=== PATIENT | male | born 1935 | race Caucasian/White ===

== ENCOUNTER 2016-10-06 20:13 | Inpatient (IN) | payer MEDICARE, MEDICAID ==
[~2016-10-06] VITALS: Ht 167.6 cm; Wt 100.9 kg
[2016-10-06 20:27] VITALS: BP 130/75; PULSE 151; RESP 18; TEMP 98.5
--- NOTE | 2016-10-06 20:41 | PD ---
HPI Chief Complaint: Fall Time Seen by Provider: 20:41 Travel History International Travel<30 days: No Contact w/Intl Traveler<30days: No Traveled to known affect area: No History of Present Illness HPI Unknown age male presents to the emergency department for evaluation of altered mental status. He states that he stumbled 3 days ago and fell. He is laying on the floor since. Apparently, a friend found him today. The patient is unsure of his past medical history. Apparently, he has history of COPD and is on oxygen. He does not know what medications he is on. The patient knows his name, but does not know the year. He states that he is in the morgue when I ask where he is. He denies hitting his head or loss of conscious, but has erythema to the left forehead. Patient denies any chest pain or abdominal pain. No vomiting. He states that he was unable to get up, but will not tell me why. PFSH Social History Alcohol Use: No Tobacco Use: No Substance Use: No Allergies-Medications (Allergen,Severity, Reaction): Coded Allergies: No Known Allergies (Unverified , 10/06/16) Reported Meds & Prescriptions Reported Meds & Active Scripts Active Reported Amlodipine (Amlodipine Besylate) 2.5 Mg Tab Unknown Dose PO DAILY Review of Systems Except as stated in HPI: all other systems reviewed are Neg Physical Exam Narrative GENERAL: Well-nourished, well-developed male patient, afebrile. Patient is alert and oriented to self only. SKIN: Focused skin assessment warm/dry. Patient has erythema to the left forehead. HEAD: Normocephalic. EYES: No scleral icterus. No injection or drainage. NECK: Supple, trachea midline. No JVD or lymphadenopathy. CARDIOVASCULAR: Regular rate and rhythm without murmurs, gallops, or rubs. RESPIRATORY: Breath sounds equal bilaterally. No accessory muscle use. Lungs sounds diminished. GASTROINTESTINAL: Abdomen soft, non-tender, nondistended. MUSCULOSKELETAL: No cyanosis, or edema. BACK: Nontender without obvious deformity. No CVA tenderness. Data Data Last Documented VS Vital Signs Date Time Temp Pulse Resp B/P Pulse Ox O2 Delivery O2 Flow Rate FiO2 10/06/16 21:05 102.7 10/06/16 20:55 20 95 Nasal Cannula 3 10/06/16 20:27 151 130/75 Orders Sodium Chlor 0.9% 1000 Ml Inj (Ns 1000 M (10/06/16 20:45) Sodium Chlor 0.9% 1000 Ml Inj (Ns 1000 M (10/06/16 20:45) Complete Blood Count With Diff (10/06/16 20:38) Comprehensive Metabolic Panel (10/06/16 20:38) Creatine Kinase (Cpk) (10/06/16 20:38) Prothrombin Time / Inr (Pt) (10/06/16 20:38) Act Partial Throm Time (Ptt) (10/06/16 20:38) Urinalysis - C+S If Indicated (10/06/16 20:38) Chest, Single Ap (10/06/16 20:38) Ct Brain W/O Iv Contrast(Rout) (10/06/16 20:38) Blood Glucose (10/06/16 20:38) Ecg Monitoring (10/06/16 20:38) Iv Access Insert/Monitor (10/06/16 20:38) Oximetry (10/06/16 20:38) Sodium Chloride 0.9% Flush (Ns Flush) (10/06/16 20:45) Ct Cerv Spine W/O Contrast (10/06/16 ) Cath For Specimen (10/06/16 20:41) Lactic Acid Sepsis Protocol (10/06/16 21:08) Blood Culture (10/06/16 21:08) Acetaminophen (Tylenol) (10/06/16 21:15) Sodium Chloride 0.9% Flush (Ns Flush) (10/06/16 21:15) Ceftriaxone Inj (Rocephin Inj) (10/06/16 21:15) Azithromycin Inj (Zithromax Inj) (10/06/16 21:15) Urine Culture (10/06/16 21:10) CKMB (10/06/16 21:12) CKMB% (10/06/16 21:12) Labs Laboratory Tests Test 10/06/16 10/06/16 10/06/16 21:10 21:12 21:13 Urine Color DARK-YELLOW Urine Turbidity HAZY Urine pH 6.0 Urine Specific [place] 1.030 Urine Protein 100 mg/dL Urine Glucose (UA) NEG mg/dL Urine Ketones 10 mg/dL Urine Occult Blood MOD Urine Nitrite NEG Urine Bilirubin SMALL Urine Urobilinogen 2.0 MG/DL Urine Leukocyte Esterase NEG Urine RBC 47 /hpf Urine WBC 20 /hpf Urine Squamous Epithelial 2 /hpf Cells Urine Renal Epithelial Cells 1 /hpf Urine Amorphous Sediment RARE Urine Hyaline Casts 53 /lpf Urine Granular Casts 12 /lpf Urine Mucus MANY /lpf Microscopic Urinalysis Comment CATH-CULTURE IND White Blood Count 22.3 TH/MM3 Red Blood Count 5.89 MIL/MM3 Hemoglobin 18.0 GM/DL Hematocrit 55.0 % Mean Corpuscular Volume 93.4 FL Mean Corpuscular Hemoglobin 30.5 PG Mean Corpuscular Hemoglobin 32.7 % Concent Red Cell Distribution Width 13.2 % Platelet Count 306 TH/MM3 Mean Platelet Volume 9.0 FL Neutrophils (%) (Auto) 85.7 % Lymphocytes (%) (Auto) 4.9 % Monocytes (%) (Auto) 9.1 % Eosinophils (%) (Auto) 0.0 % Basophils (%) (Auto) 0.3 % Neutrophils # (Auto) 19.1 TH/MM3 Lymphocytes # (Auto) 1.1 TH/MM3 Monocytes # (Auto) 2.0 TH/MM3 Eosinophils # (Auto) 0.0 TH/MM3 Basophils # (Auto) 0.1 TH/MM3 CBC Comment DIFF FINAL Differential Comment Prothrombin Time 12.2 SEC Prothromb Time International 1.1 RATIO Ratio Activated Partial 23.6 SEC Thromboplast Time Sodium Level 142 MEQ/L Potassium Level 3.6 MEQ/L Chloride Level 102 MEQ/L Carbon Dioxide Level 27.5 MEQ/L Anion Gap 13 MEQ/L Blood Urea Nitrogen 55 MG/DL Creatinine 1.45 MG/DL Estimat Glomerular Filtration 42 ML/MIN Rate Random Glucose 150 MG/DL Calcium Level 9.3 MG/DL Total Bilirubin 1.2 MG/DL Aspartate Amino Transf 78 U/L (AST/SGOT) Alanine Aminotransferase 68 U/L (ALT/SGPT) Alkaline Phosphatase 81 U/L Total Creatine Kinase 705 U/L Creatine Kinase MB 7.9 NG/ML Creatine Kinase MB % 1.1 % Total Protein 7.7 GM/DL Albumin 3.1 GM/DL Lactic Acid Level 2.9 mmol/L [facility] Medical Decision Making Medical Screen Exam Complete: Yes Emergency Medical Condition: Yes Medical Record Reviewed: Yes Interpretation(s) Last Impressions Chest X-Ray 7/31/17 2038 Signed Impressions: Service Date/Time: Thursday, October 06, 2016 20:37 - CONCLUSION: Bilateral partially consolidative infiltrates lower medial right lung and lower lateral left lung. Tyrone Vivar MD Differential Diagnosis Rhabdomyolysis versus electrolyte abnormality versus dehydration versus intracranial abnormality Narrative Course Male patient presents to the emergency department after being found on his floor for 3 days. EKG shows sinus tachycardia with left bundle-branch block, heart rate 156. CBC, CMP, CK, PTT, PT/INR, UA, lactic acid, blood cultures 2 are ordered and pending. Chest x-ray is ordered and pending. CT of the brain and cervical spine are ordered and pending. Patient is given 1 L normal saline IV bolus 2. CBC shows leukocytosis of 22.3, neutrophilia 85.7. CMP shows BUN 55, creatinine 1.45, glucose 150. CK is 705. Lactic acid is 2.9. PT is 12.2, INR 1.1, PTT 23.6. UA shows 20 WBC. Chest x-ray shows bilateral partially consolidative infiltrates lower medial right lung and lower lateral left lung. CT of the brain and CT of the cervical spine are pending. Patient is started on Rocephin 1 g IV, azithromycin 500 mg IV. Heart rate is down to 90 after IV fluid. My attending physician, Dr. Armstrong, will follow up on CT results and admit patient. Sepsis Criteria SIRS Criteria (2 or more): Temp > 100.9 or < 96.8, Heart rate over 90, WBC > 84923, < 4000 or > 10% bands Sepsis Criteria (SIRS+source): Infect source susp/known Liseth Braxton Oct 06, 2016 20:41
[2016-10-06] MEDS ORDERED: SODIUM CHLORIDE 0.9% FLUSH 5 ML FLUSH IV FLUSH PRN (20:45)
[2016-10-06] MEDS ORDERED: SODIUM CHLOR 0.9% 1000 ML INJ 1,000 ML IV ONE ×2 (20:45)
[2016-10-06] MEDS ORDERED: AMLO2.5T PO (20:54)
[2016-10-06 20:55] VITALS: RESP 20; O2SAT 95
--- NOTE | 2016-10-06 21:04 | RADRPT ---
EXAM DATE/TIME: 10/06/2016 20:37 [facility] COMPARISON: No previous studies available for comparison. INDICATIONS : Syncope MEDICAL HISTORY : None. SURGICAL HISTORY : None. ENCOUNTER: Initial ACUITY: 1 day PAIN SCORE: Non-responsive. LOCATION: chest FINDINGS: There are patchy areas of partially consolidative infiltrate in the infrahilar region on the right si de and lower lateral left lung with loss of delineation of a portion of the lateral left hemidiaphrag m. The heart is normal size. The descending thoracic aorta is tortuous. The upper lungs clear. CONCLUSION: Bilateral partially consolidative infiltrates lower medial right lung and lower lateral left lung. Tyrone Vivar MD on October 06, 2016 at 21:01 Board Certified Radiologist. This report was verified electronically.
[2016-10-06 21:05] VITALS: TEMP 102.7
[2016-10-06] MEDS ORDERED: SODIUM CHLORIDE 0.9% FLUSH 10 ML FLUSH IVF PRN (21:15)
[2016-10-06] MEDS ORDERED: AZITHROMYCIN INJ 500 MG in SODIUM CHLOR 0.9% 250 ML INJ 250 ML IV ONE (21:15)
[2016-10-06] MEDS ORDERED: ACETAMINOPHEN 325 MG TAB PO ONE (21:15)
[2016-10-06] MEDS ORDERED: cefTRIAXone INJ 1,000 MG in SODIUM CHLORIDE 0.9% INJ 100 ML IV ONE (21:15)
[2016-10-06 21:25] LABS: AUTOMATED NEUTROPHIL # 19.1 TH/MM3 (1.8-7.7); BASOPHIL # 0.1 TH/MM3 (0-0.2); BASOPHIL % 0.3 % (0.0-2.0); HEMO FLAGS DIFF FINAL; LYMPH % 4.9 % (9.0-44.0); LYMPHOCYTE # 1.1 TH/MM3 (1.0-4.8); MEAN CELL VOLUME 93.4 FL (80.0-100.0); MEAN CORPUSCULAR HEMOGLOBIN 30.5 PG (27.0-34.0); MEAN CORPUSCULAR HGB CONC 32.7 % (32.0-36.0); MONO % 9.1 % (0.0-8.0); NEUT % 85.7 % (16.0-70.0); PLATELET COUNT 306 TH/MM3 (150-450); RED BLOOD COUNT 5.89 MIL/MM3 (4.50-5.90); RED CELL DISTRIBUTION WIDTH 13.2 % (11.6-17.2); WHITE BLOOD COUNT 22.3 TH/MM3 (4.0-11.0)
[2016-10-06 21:30] LABS: BLOOD, URINE MOD (NEG); COMMENT (UR) CATH-CULTURE IND; CULTURE IF INDICATED CATH CULTURE IND; GLUCOSE,URINE NEG (NEG); GRANULAR CAST, URINE 12 /lpf; HYALINE CAST, URINE 53 /lpf (RARE); KETONE, URINE 10 mg/dL (NEG); MUCUS URINE MANY /lpf (OCC); NITRITE,URINE NEG (NEG); RENAL EPITHELIAL CELLS 1 /hpf; SQUAMOUS EPITHELIAL CELL URINE 2 /hpf (0-5); URINE COLOR DARK-YELLOW (YELLW/STRAW)
[2016-10-06 21:36] LABS: APTT (PATIENT) 23.6 SEC (24.3-30.1); INTERNATIONAL NORMALIZED RATIO 1.1 RATIO; PROTHROMBIN TIME - PATIENT 12.2 SEC (9.8-11.6)
[2016-10-06 21:52] LABS: ANION GAP 13 MEQ/L (5-15); BICARBONATE 27.5 MEQ/L (21.0-32.0); BLOOD UREA NITROGEN 55 MG/DL (7-18); CHLORIDE 102 MEQ/L (98-107); GLOMERULAR FILTRATION RATE 42 ML/MIN (>89); POTASSIUM 3.6 MEQ/L (3.5-5.1); SODIUM (NA) 142 MEQ/L (136-145)
[2016-10-06 21:53] LABS: ALT (GPT) 68 U/L (12-78); AST (GOT) 78 U/L (15-37)
[2016-10-06 21:55] LABS: ALKALINE PHOSPHATASE 81 U/L (45-117); CREATINE KINASE 705 U/L (39-308); TOTAL BILIRUBIN ADULT 1.2 MG/DL (0.2-1.0)
[2016-10-06 22:15] LABS: CKMB 7.9 NG/ML (0.5-3.6)
[2016-10-06 23:06] VITALS: BP 152/74; PULSE 97; RESP 20; O2SAT 93
[2016-10-06 23:20] LABS: LACTIC ACID GHOST NOT REPORTABLE
--- NOTE | 2016-10-06 23:27 | RADRPT ---
EXAM DATE/TIME: 10/06/2016 23:15 [facility] COMPARISON: No previous studies available for comparison. INDICATIONS : Trauma, possible fall 2-3 days ago. Altered mental status. RADIATION DOSE: 38.15 CTDIvol (mGy) MEDICAL HISTORY : None SURGICAL HISTORY : None. ENCOUNTER: Initial ACUITY: 1 day PAIN SCALE: Non-responsive LOCATION: cranial TECHNIQUE: Multiple contiguous axial images were obtained of the head. Using automated exposure control and adj ustment of the mA and/or kV according to patient size, radiation dose was kept as low as reasonably a chievable to obtain optimal diagnostic quality images. DICOM format image data is available electro nically for review and comparison. FINDINGS: CEREBRUM: Abnormal. Prominent amount of blood in the right lateral ventricle extending into the occipital horn . There is also a small amount of layering blood in the dependent portion of the left occipital horn and in the 3rd ventricle. No evidence of midline shift. There is intact cope-white matter differen tiation. No mass lesions seen. POSTERIOR FOSSA: The cerebellum and brainstem are intact. The 4th ventricle is midline. The cerebellopontine angle i s unremarkable. EXTRACRANIAL: The visualized portion of the orbits is intact. SKULL: The calvaria is intact. No evidence of skull fracture. CONCLUSION: Prominent amount of blood in the right ventricle and small amount of blood in the 3rd and left occipi bihn horn ventricle. No parenchymal hemorrhage seen. No extra axial fluid collections. Tyrone Vivar MD on October 06, 2016 at 23:23 Board Certified Radiologist. This report was verified electronically.
--- NOTE | 2016-10-06 23:37 | RADRPT ---
EXAM DATE/TIME: 10/06/2016 23:15 [facility] COMPARISON: No previous studies available for comparison. INDICATIONS : Trauma, possible fall 2-3 days ago. RADIATION DOSE: 30.49 CTDIvol (mGy) MEDICAL HISTORY : None SURGICAL HISTORY : None. ENCOUNTER: Initial ACUITY: 1 day PAIN SCALE: Non-responsive LOCATION: neck TECHNIQUE: Volumetric scanning of the cervical spine was performed. Multiplanar reconstructions i n the sagittal, coronal and oblique axial planes were performed. Using automated exposure control a nd adjustment of the mA and/or kV according to patient size, radiation dose was kept as low as reason ably achievable to obtain optimal diagnostic quality images. DICOM format image data is available e lectronically for review and comparison. FINDINGS: The sagittal reconstructions demonstrate normal alignment and normal prevertebral soft tissues. The d ens is intact and there is a normal atlantoaxial relationship. Degenerative disc changes are noted wi th disc space narrowing and hypertrophic change. There are degenerative changes involving atlantoaxia l joint as well. The axial images demonstrate that the vertebral bodies and posterior elements are intact. The soft ti ssues are within normal limits. There is no evidence of acute fracture or malalignment. Degenerative disc changes are again noted with disc osteophyte complexes with mass effect on the anterior thecal s ac at the C3-4, C4-5, C5-6 and C6-7 levels. There is narrowing of the neural foramina bilaterally at the C4-5 through C6-7 levels. CONCLUSION: Negative trauma CT. Iftikhar Garza MD on October 06, 2016 at 23:33 Board Certified Radiologist. This report was verified electronically.
--- NOTE | 2016-10-06 23:42 | PD ---
Physical Exam Narrative Patient was seen by my emergency veterinary assistant and me. Patient told us his name. His name is MARILIN GUERRERO. According to past medical record patient has history of COPD, hypertension, glaucoma. Data Data Last Documented VS Vital Signs Date Time Temp Pulse Resp B/P Pulse Ox O2 Delivery O2 Flow Rate FiO2 10/06/16 23:06 97 20 152/74 93 Nasal Cannula 3 10/06/16 21:05 102.7 Orders Sodium Chlor 0.9% 1000 Ml Inj (Ns 1000 M (10/06/16 20:45) Sodium Chlor 0.9% 1000 Ml Inj (Ns 1000 M (10/06/16 20:45) Complete Blood Count With Diff (10/06/16 20:38) Comprehensive Metabolic Panel (10/06/16 20:38) Creatine Kinase (Cpk) (10/06/16 20:38) Prothrombin Time / Inr (Pt) (10/06/16 20:38) Act Partial Throm Time (Ptt) (10/06/16 20:38) Urinalysis - C+S If Indicated (10/06/16 20:38) Chest, Single Ap (10/06/16 20:38) Ct Brain W/O Iv Contrast(Rout) (10/06/16 20:38) Blood Glucose (10/06/16 20:38) Ecg Monitoring (10/06/16 20:38) Iv Access Insert/Monitor (10/06/16 20:38) Oximetry (10/06/16 20:38) Sodium Chloride 0.9% Flush (Ns Flush) (10/06/16 20:45) Ct Cerv Spine W/O Contrast (10/06/16 ) Cath For Specimen (10/06/16 20:41) Lactic Acid Sepsis Protocol (10/06/16 21:08) Blood Culture (10/06/16 21:08) Acetaminophen (Tylenol) (10/06/16 21:15) Sodium Chloride 0.9% Flush (Ns Flush) (10/06/16 21:15) Ceftriaxone Inj (Rocephin Inj) (10/06/16 21:15) Azithromycin Inj (Zithromax Inj) (10/06/16 21:15) Urine Culture (10/06/16 21:10) CKMB (10/06/16 21:12) CKMB% (10/06/16 21:12) Labs Laboratory Tests Test 10/06/16 10/06/16 10/06/16 21:10 21:12 21:13 Urine Color DARK-YELLOW Urine Turbidity HAZY Urine pH 6.0 Urine Specific [place] 1.030 Urine Protein 100 mg/dL Urine Glucose (UA) NEG mg/dL Urine Ketones 10 mg/dL Urine Occult Blood MOD Urine Nitrite NEG Urine Bilirubin SMALL Urine Urobilinogen 2.0 MG/DL Urine Leukocyte Esterase NEG Urine RBC 47 /hpf Urine WBC 20 /hpf Urine Squamous Epithelial 2 /hpf Cells Urine Renal Epithelial Cells 1 /hpf Urine Amorphous Sediment RARE Urine Hyaline Casts 53 /lpf Urine Granular Casts 12 /lpf Urine Mucus MANY /lpf Microscopic Urinalysis Comment CATH-CULTURE IND White Blood Count 22.3 TH/MM3 Red Blood Count 5.89 MIL/MM3 Hemoglobin 18.0 GM/DL Hematocrit 55.0 % Mean Corpuscular Volume 93.4 FL Mean Corpuscular Hemoglobin 30.5 PG Mean Corpuscular Hemoglobin 32.7 % Concent Red Cell Distribution Width 13.2 % Platelet Count 306 TH/MM3 Mean Platelet Volume 9.0 FL Neutrophils (%) (Auto) 85.7 % Lymphocytes (%) (Auto) 4.9 % Monocytes (%) (Auto) 9.1 % Eosinophils (%) (Auto) 0.0 % Basophils (%) (Auto) 0.3 % Neutrophils # (Auto) 19.1 TH/MM3 Lymphocytes # (Auto) 1.1 TH/MM3 Monocytes # (Auto) 2.0 TH/MM3 Eosinophils # (Auto) 0.0 TH/MM3 Basophils # (Auto) 0.1 TH/MM3 CBC Comment DIFF FINAL Differential Comment Prothrombin Time 12.2 SEC Prothromb Time International 1.1 RATIO Ratio Activated Partial 23.6 SEC Thromboplast Time Sodium Level 142 MEQ/L Potassium Level 3.6 MEQ/L Chloride Level 102 MEQ/L Carbon Dioxide Level 27.5 MEQ/L Anion Gap 13 MEQ/L Blood Urea Nitrogen 55 MG/DL Creatinine 1.45 MG/DL Estimat Glomerular Filtration 42 ML/MIN Rate Random Glucose 150 MG/DL Calcium Level 9.3 MG/DL Total Bilirubin 1.2 MG/DL Aspartate Amino Transf 78 U/L (AST/SGOT) Alanine Aminotransferase 68 U/L (ALT/SGPT) Alkaline Phosphatase 81 U/L Total Creatine Kinase 705 U/L Creatine Kinase MB 7.9 NG/ML Creatine Kinase MB % 1.1 % Total Protein 7.7 GM/DL Albumin 3.1 GM/DL Lactic Acid Level 2.9 mmol/L [facility] Supervised Visit with OSMAN: Yes Interpretation(s) Last Impressions Head CT 10/06/162037 Signed Impressions: Service Date/Time: Thursday, October 06, 2016 23:15 - CONCLUSION: Prominent amount of blood in the right ventricle and small amount of blood in the 3rd and left occipital horn ventricle. No parenchymal hemorrhage seen. No extra axial fluid collections. Tyrone Vivar MD Chest X-Ray 10/06/162037 Signed Impressions: Service Date/Time: Thursday, October 06, 2016 20:37 - CONCLUSION: Bilateral partially consolidative infiltrates lower medial right lung and lower lateral left lung. Tyrone iVvar MD Diagnosis Primary Impression: Pneumonia Qualified Code: J18.9 - Pneumonia of both lungs due to infectious organism, unspecified part of lung Additional Impressions: Intracranial hemorrhage Sepsis Qualified Code: A41.9 - Sepsis, due to unspecified organism Dehydration Renal insufficiency Admitting Information Admitting Physician Requests: Admit Roberto Armstrong MD Oct 06, 2016 23:42
--- NOTE | 2016-10-06 23:44 | PD.CONS ---
[facility] Service Critical Care Medicine Consult Requested By Primary Care Physician Michael King MD History of Present Illness Elderly male presents for evaluation of altered mental status. He states that he stumbled 3 days ago and fell. He was laying on the floor since. Apparently , a friend found him today. The patient is unsure of his past medical history. Apparently, he has history of COPD and is on oxygen. He does not know what medications he is on. The patient knows his name, but does not know the year. He denies hitting his head or loss of conscious, but has erythema to the left forehead. Patient denies any chest pain or abdominal pain. No vomiting. He states that he was unable to get up, but will not tell me why. He might also have some history of hypertension, glaucoma. Review of Systems ROS Unobtainable due to altered mental status Past Family Social History Allergies: Coded Allergies: No Known Allergies (Unverified , 10/06/16) Past Medical History COPD Hypothyroidism Glaucoma Hypertension Past Surgical History Unobtainable Reported Medications Reported Meds & Active Scripts Active Reported Amlodipine (Amlodipine Besylate) 2.5 Mg Tab Unknown Dose PO DAILY Active Ordered Medications Current Medications Medications (Trade) Dose Ordered Sig/Mario Route PRN Reason Start Time Stop Time Status Last Admin Dose Admin Sodium Chloride (NS 1000 ml Inj) 1,000 ml @ 84 mls/hr [id number] IV 10/06/16 23:47 10/07/16 00:39 Sodium Chloride (NS Flush) 2 ml UNSCH PRN .XX FLUSH AFTER USING IV ACCESS 10/07/16 00:00 Sodium Chloride (NS Flush) 2 ml BID .XX 10/07/16 09:00 Acetaminophen (Tylenol) 650 mg Q6H PRN PO PAIN 1-5 AND/OR FEVER >101F 10/07/16 00:00 Morphine Sulfate (Morphine Inj) 2 mg Q2H PRN IV PAIN SCALE 6 TO 10 10/07/16 00:00 Famotidine (Pepcid Inj) 20 mg Q12HR IV PUSH 10/07/16 09:00 Ondansetron HCl (Zofran Inj) 4 mg Q6H PRN IV NAUSEA OR VOMITING 10/07/16 00:00 Miscellaneous Information 1 [id number] XX 10/07/16 00:00 Chlorhexidine Gluconate (Chlorhexidine 2% Cloth) 3 pack Taper DAILY@04 TOP 10/07/16 04:00 10/03/17 03:59 Chlorhexidine Gluconate (Chlorhexidine 2% Cloth) 3 pack UNSCH PRN TOP HYGIENIC CARE 10/07/16 00:00 Senna/Docusate Sodium (Michelle-Colace) 1 tab BID PO 10/07/16 09:00 Magnesium Hydroxide (Milk Of Nara Rooney) 30 ml Q12H PRN PO MILD - MODERATE CONSTIPATION 10/07/16 00:00 Sennosides (Senokot) 17.2 mg Q12H PRN PO MODERATE - SEVERE CONSTIPATION 10/07/16 00:00 Bisacodyl (Dulcolax Supp) 10 mg DAILY PRN RECTAL SEVERE CONSITIPATION 10/07/16 00:00 Lactulose 30 ml 30 ml DAILY PRN PO SEVERE CONSITIPATION 10/07/16 00:00 Azithromycin 500 mg/Sodium Chloride 250 ml @ 250 mls/hr Q24H IV 10/07/16 22:00 Piperacillin Sod/ Tazobactam Sod (Zosyn 4.5 Gm Premix) 100 ml @ 200 mls/hr Q6H IV 10/07/16 01:00 10/07/16 00:39 Family History Unobtainable Social History Unobtainable Physical Exam Vital Signs Vital Signs Date Time Temp Pulse Resp B/P Pulse Ox O2 Delivery O2 Flow Rate FiO2 10/06/16 23:06 97 20 152/74 93 Nasal Cannula 3 10/06/16 21:05 102.7 10/06/16 20:55 20 95 Nasal Cannula 3 10/06/16 20:32 20 10/06/16 20:27 98.5 151 18 130/75 Physical Exam GENERAL: Elderly man on nasal cannula, lethargic, confused. SKIN: Warm and dry. HEAD: Normocephalic. EYES: No scleral icterus. No injection or drainage. NECK: Supple, trachea midline. No JVD or lymphadenopathy. CARDIOVASCULAR: Regular rate and rhythm without murmurs, gallops, or rubs. RESPIRATORY: Breath sounds equal bilaterally. No accessory muscle use. GASTROINTESTINAL: Abdomen soft, non-tender, nondistended. MUSCULOSKELETAL: No cyanosis, or edema. BACK: Nontender without obvious deformity. No CVA tenderness. EXTREMITIES: Nonfocal, moves all 4 Laboratory Laboratory Tests Test 10/06/16 10/06/16 10/06/16 21:10 21:12 21:13 Urine Color DARK-YELLOW Urine Turbidity HAZY Urine pH 6.0 Urine Specific [place] 1.030 Urine Protein 100 Urine Glucose (UA) NEG Urine Ketones 10 Urine Occult Blood MOD Urine Nitrite NEG Urine Bilirubin SMALL Urine Urobilinogen 2.0 Urine Leukocyte Esterase NEG Urine RBC 47 Urine WBC 20 Urine Squamous Epithelial 2 Cells Urine Renal Epithelial Cells 1 Urine Amorphous Sediment RARE Urine Hyaline Casts 53 Urine Granular Casts 12 Urine Mucus MANY Microscopic Urinalysis Comment CATH-CULTURE IND White Blood Count 22.3 Red Blood Count 5.89 Hemoglobin 18.0 Hematocrit 55.0 Mean Corpuscular Volume 93.4 Mean Corpuscular Hemoglobin 30.5 Mean Corpuscular Hemoglobin 32.7 Concent Red Cell Distribution Width 13.2 Platelet Count 306 Mean Platelet Volume 9.0 Neutrophils (%) (Auto) 85.7 Lymphocytes (%) (Auto) 4.9 Monocytes (%) (Auto) 9.1 Eosinophils (%) (Auto) 0.0 Basophils (%) (Auto) 0.3 Neutrophils # (Auto) 19.1 Lymphocytes # (Auto) 1.1 Monocytes # (Auto) 2.0 Eosinophils # (Auto) 0.0 Basophils # (Auto) 0.1 CBC Comment DIFF FINAL Differential Comment Prothrombin Time 12.2 Prothromb Time International 1.1 Ratio Activated Partial 23.6 Thromboplast Time Sodium Level 142 Potassium Level 3.6 Chloride Level 102 Carbon Dioxide Level 27.5 Anion Gap 13 Blood Urea Nitrogen 55 Creatinine 1.45 Estimat Glomerular Filtration 42 Rate Random Glucose 150 Calcium Level 9.3 Total Bilirubin 1.2 Aspartate Amino Transf 78 (AST/SGOT) Alanine Aminotransferase 68 (ALT/SGPT) Alkaline Phosphatase 81 Total Creatine Kinase 705 Creatine Kinase MB 7.9 Creatine Kinase MB % 1.1 Total Protein 7.7 Albumin 3.1 Lactic Acid Level 2.9 Date/Time Procedure Status Source Growth 10/06/16 21:13 Aerobic Blood Culture Received Blood Peripheral Pending 10/06/16 21:13 Anaerobic Blood Culture Received Blood Peripheral Pending 10/06/16 21:10 Urine Culture Received Urine Catheterized Urine Pending Result Diagram: 10/06/16211110/06/162111 Imaging Last [address] 10/06/162037 Signed Impressions: Service Date/Time: Thursday, October 06, 2016 23:15 - CONCLUSION: Prominent amount of blood in the right ventricle and small amount of blood in the 3rd and left occipital horn ventricle. No parenchymal hemorrhage seen. No extra axial fluid collections. Tyrone Vivar MD Chest X-Ray 10/06/162037 Signed Impressions: Service Date/Time: Thursday, October 06, 2016 20:37 - CONCLUSION: Bilateral partially consolidative infiltrates lower medial right lung and lower lateral left lung. Tyrone Vivar MD Assessment and Plan Assessment and Plan ICH - Unclear source - Atypical location - CTA to rule out AVM or aneurysm - Strict blood pressure control with SBP goal less than 150 - Coags within normal limits - Neurosurgery consult appreciated - Neuro checks per unit protocol - Repeat CT head in 24 hours Hypertension - Hydralazine and labetalol when necessary to keep SBP less than 150 - Resume Norvasc by mouth when okay to swallow Hypothyroidism - Resume home dose of levothyroxine when known Pneumonia - Zithromax and Zosyn - Blood cultures - Urine antigen - Follow-up cultures and de-escalate per sensitivity DVT GI prophylaxis - Teds SCDs - No pharmacological DVT prophylaxis due to - IV Pepcid Critical Care: The total critical care time was 35 minutes. Time to perform other separately billable procedures was not included in the critical care time. Eliel Black MD Oct 06, 2016 23:43
[2016-10-07] VITALS (23 sets, daily range): BP systolic 115–182; BP diastolic 57–110; PULSE 71–94; RESP 16–23; TEMP 97.4–100.5; O2SAT 89–100
[2016-10-07] MEDS ORDERED: CHLORHEXIDINE GLUCONATE 2 % 1 PACK (2 CLOTHS) TOP PRN
[2016-10-07] MEDS ORDERED: BISACODYL 10 MG SUPP RECTAL PRN
[2016-10-07] MEDS ORDERED: ACETAMINOPHEN 325 MG TAB PO PRN
[2016-10-07] MEDS ORDERED: MAGNESIUM HYDROXIDE SUSP 30 ML CUP PO PRN
[2016-10-07] MEDS ORDERED: ONDANSETRON HCL 4 MG/2 ML VIAL IV PRN
[2016-10-07] MEDS ORDERED: SENNOSIDES 8.6 MG TAB PO PRN
[2016-10-07] MEDS ORDERED: MISCELLANEOUS NURSING INFORMATION XX SCH
[2016-10-07] MEDS ORDERED: LACTULOSE SYRUP 20 GM/30 ML CUP PO PRN
[2016-10-07] MEDS ORDERED: SODIUM CHLORIDE 0.9% FLUSH 10 ML FLUSH PRN
[2016-10-07] MEDS: PIPERACIL-TAZO 4.5 GM PREMIX 100 ML IV SCH ×4 (00:39→18:52)
[2016-10-07] MEDS: SODIUM CHLOR 0.9% 1000 ML INJ 1,000 ML IV SCH ×3 (00:39→22:39)
[2016-10-07] MEDS: MORPHINE SULFATE 4 MG/ML INJ IV PRN (01:05)
[2016-10-07] MEDS ORDERED: RESP: ALBUTEROL 2.5 MG/IPRATROPIUM 0.5 MG NEB (PRN) NEB (01:15)
[2016-10-07] MEDS ORDERED: IOHEXOL 350 MG/ML 10 ML VIAL (for RAD DIAG) IV ONE (03:53)
[2016-10-07] MEDS: CHLORHEXIDINE GLUCONATE 2 % 1 PACK (2 CLOTHS) TOP SCH (04:00)
[2016-10-07] MEDS: RESP: ALBUTEROL 2.5 MG/IPRATROPIUM 0.5 MG NEB (SCH) NEB ×4 (04:06→22:19)
[2016-10-07] MEDS: LABETALOL HCL 100 MG/20 ML VIAL IV PUSH PRN (04:30)
--- NOTE | 2016-10-07 08:27 | RADRPT ---
EXAM DATE/TIME: 10/07/2016 03:38 [facility] COMPARISON: CT BRAIN W/O CONTRAST, October 06, 2016, 23:15. INDICATIONS : Altered mental status. IV CONTRAST: 87 cc Omnipaque 350 (iohexol) IV ; Cumulative dose for multiple exams. RADIATION DOSE: 16.23 CTDIvol (mGy) ; Combined studies MEDICAL HISTORY : Chronic obstructive pulmonary disease. Hypertension. SURGICAL HISTORY : None. ENCOUNTER: Initial ACUITY: 1 day PAIN SCALE: Non-responsive LOCATION: cranial TECHNIQUE: Volumetric scanning was performed using a multi-row detector CT scanner. The data was post processed with a variety of visualization algorithms including full volume maximum intensity projection, multi -planar sliding thin slab reformation, curved planar reformation, and surface rendering techniques. Using automated exposure control and adjustment of the mA and/or kV according to patient size, radiat ion dose was kept as low as reasonably achievable to obtain optimal diagnostic quality images. DICO M format image data is available electronically for review and comparison. FINDINGS: There is excellent visualization of the major intracranial arteries out to the second-order branch ve ssels. There is variant anatomy with persistent circulation on the right. Scattered atheroscler otic plaque is seen without a hemodynamically significant stenosis involving the intracranial vessels . There is no evidence for aneurysm, vessel truncation or stenosis, and no evidence for vascular malf ormation. CONCLUSION: Scattered atherosclerotic plaque without a hemodynamically significant stenosis. No aneurysm. Tyrone Christianson Jr., MD on October 07, 2016 at 8:21 Board Certified Radiologist. This report was verified electronically.
[2016-10-07] MEDS: DOCUSATE SODIUM 50 MG/SENNA 8.6 MG TAB PO SCH ×2 (08:30→20:07)
--- NOTE | 2016-10-07 08:39 | RADRPT ---
EXAM DATE/TIME: 10/07/2016 03:38 [facility] COMPARISON: No previous studies available for comparison. INDICATIONS : Altered mental status. IV CONTRAST: 87 cc Omnipaque 350 (iohexol) IV ; Cumulative dose for multiple exams. RADIATION DOSE: 16.23 CTDIvol (mGy) ; Combined studies MEDICAL HISTORY : Chronic obstructive pulmonary disease. Hypertension. SURGICAL HISTORY : None. ENCOUNTER: Initial ACUITY: 1 day PAIN SCALE: Non-responsive LOCATION: neck Elevated flow velocities and ICA/CCA ratios have been found to correlate with increased degrees of vessel stenosis, calculated as percentage of diameter relative to a normal segment of distal ICA/CCA. TECHNIQUE: Volumetric scanning was performed using a multirow detector CT scanner. The data was post processed with a variety of visualization algorithms including full-volume maximum intensity projection, multip lanar sliding thin-slab reformation, curved-planar reformation, and surface-rendering techniques. Us ing automated exposure control and adjustment of the mA and/or kV according to patient size, radiatio n dose was kept as low as reasonably achievable to obtain optimal diagnostic quality images. DICOM f ormat image data is available electronically for review and comparison. FINDINGS: AORTIC ARCH: There is a three-vessel origin of the great vessels from the aorta. No evidence of ostial narrowing. RIGHT CAROTID: Calcified atherosclerotic plaque is seen involving the proximal ICA. Utilizing NASCET criteria this g enerates a maximum stenosis of 50% 1 cm cephalad to the origin of the ICA. No ulceration. The more ce phalad portion of the extracranial ICA, ECA, and CCA are patent. LEFT CAROTID: Scattered calcified plaque is seen involving the proximal ICA and cephalad portion of the carotid bul b. No luminal narrowing utilizing NASCET criteria. No ulceration. The CCA, ECA, and ICA are patent. VERTEBRALS: The left vertebral artery is dominant and the main supply to the basilar. The right vertebral artery is diffusely small in caliber and terminates in a PICA distribution. A 2.4 cm sebaceous cyst is seen midline near the angle of Hunter over the sternum. CONCLUSION: 1. Scattered calcified atherosclerotic plaque. A 50% stenosis is seen involving the right ICA. The le ft carotid is patent. 2. Dominant left vertebral artery. The right terminates in a PICA distribution Tyrone Christianson Jr., MD on October 07, 2016 at 8:28 Board Certified Radiologist. This report was verified electronically.
[2016-10-07] MEDS: SODIUM CHLORIDE 0.9% FLUSH 10 ML FLUSH SCH ×2 (09:14→20:07)
[2016-10-07] MEDS: FAMOTIDINE 20 MG/2 ML VIAL IV PUSH SCH ×2 (09:15→20:07)
--- NOTE | 2016-10-07 09:54 | PD.CONS ---
(Vladimir Miller MD) HPI Consult Requested By Primary Care Physician Michael King MD (Vladimir Miller MD) Service NRS Consult Requested By Critical Care Reason for Consult IVH History of Present Illness Mr. Caal is a 81 year old male who presented for evaluation of altered mental status. Cannot obtain history from patient, however his close friend is at bedside who found the patient. His friend reports he last spoke with the patient 2-3 days ago. He was not answering his phone so he went to check on him and found the patient on the floor lying on his side. He was very confused and did not recognize him. He was taken to the ED. CT Head on arrival shows right intraventricular hemorrhage. He is not known to take blood thinners. His friend reports baseline he is normal besides being short of breath due to his COPD. Neurosurgical evaluation was requested. (Any Olivarez) Review of Systems cannot obtained due to his clinical condition ROS Limitations: Clinical Condition, Altered Mental Status (Vladimir Miller MD) ROS Limitations: Clinical Condition, Altered Mental Status (Any Olivarez) Past Family Social History Allergies: Coded Allergies: No Known Allergies (Unverified , 10/06/16) Past Medical History cannot obtained due to his clinical condition Past Surgical History cannot obtained due to his clinical condition Reported Medications cannot obtained due to his clinical condition Active Ordered Medications Current Medications Sodium Chloride 1,000 ml @ 999 mls/hr BOLUS ONCE IV Last administered on 10/06 21:31; Start 10/06/16 at 20:45; Stop 10/06/16 at 21:45; Status DC Sodium Chloride (NS 1000 ml Inj) 1,000 ml @ 999 mls/hr BOLUS ONCE IV Last administered on 10/06/16 22:04; Start 10/06/16 at 20:45; Stop 10/06/16 at 21:45 ; Status DC IV Flush (NS Flush) 2 ml UNSCH PRN IV FLUSH FLUSH AFTER USING IV ACCESS; Start 10/06/16 at 20:45; Stop 10/06/16 at 23:51; Status DC Acetaminophen (Tylenol) 650 mg ONCE ONCE PO Last administered on 10/06/16 21: 27; Start 10/06/16 at 21:15; Stop 10/06/16 at 21:16; Status DC Sodium Chloride 2 ml 2 ml UNSCH PRN IVF FLUSH AFTER USING IV ACCESS; Start at 21:15; Stop 10/06/16 at 23:51; Status DC Ceftriaxone Sodium 1000 mg/ Sodium Chloride 100 ml @ 200 mls/hr ONCE ONCE IV Last administered on 10/06/16 21:26; Start 10/06/16 at 21:15; Stop 10/06/16 at 21:44; Status DC Azithromycin 500 mg/Sodium Chloride 250 ml @ 250 mls/hr ONCE ONCE IV Last administered on 10/06/16 22:03; Start 10/06/16 at 21:15; Stop 10/06/16 at 22:14 ; Status DC Sodium Chloride (NS 1000 ml Inj) 1,000 ml @ 84 mls/hr [id number] IV Last administered on 10/08/16 11:32; Start 10/06/16 at 23:47 Sodium Chloride (NS Flush) 2 ml UNSCH PRN .XX FLUSH AFTER USING IV ACCESS; Start 10/07/16 at 00:00 Sodium Chloride (NS Flush) 2 ml BID .XX Last administered on 10/08/16 09:00; Start 10/07/16 at 09:00 Acetaminophen (Tylenol) 650 mg Q6H PRN PO PAIN 1-5 AND/OR FEVER >101F; Start at 00:00 Morphine Sulfate (Morphine Inj) 2 mg Q2H PRN IV PAIN SCALE 6 TO 10 Last administered on 10/07/16 01:05; Start 10/07/16 at 00:00 Famotidine (Pepcid Inj) 20 mg Q12HR IV PUSH Last administered on 10/08/16 08:33 ; Start 10/07/16 at 09:00 Ondansetron HCl (Zofran Inj) 4 mg Q6H PRN IV NAUSEA OR VOMITING Last administered on 10/07/16 01:05; Start 10/07/16 at 00:00 Albuterol/ Ipratropium (Duoneb Neb) 1 ampule Q2HR NEB PRN INH WHEEZING; Start 10/07/16 at 00:00 Miscellaneous Information 1 Q361D XX ; Start 10/07/16 at 00:00 Chlorhexidine Gluconate (Chlorhexidine 2% Cloth) 3 pack Taper DAILY@04 TOP Last administered on 10/08/16 03:44; Start 10/07/16 at 04:00; Stop 10/03/17 at 03 :59 Chlorhexidine Gluconate (Chlorhexidine 2% Cloth) 3 pack UNSCH PRN TOP HYGIENIC CARE; Start 10/07/16 at 00:00 Senna/Docusate Sodium (Michelle-Colace) 1 tab BID PO Last administered on 10/08/16 08:33; Start 10/07/16 at 09:00 Magnesium Hydroxide (Milk Of Magnshaun Liq) 30 ml Q12H PRN PO MILD - MODERATE CONSTIPATION; Start 10/07/16 at 00:00 Sennosides (Senokot) 17.2 mg Q12H PRN PO MODERATE - SEVERE CONSTIPATION; Start 10/07/16 at 00:00 Bisacodyl (Dulcolax Supp) 10 mg DAILY PRN RECTAL SEVERE CONSITIPATION; Start at 00:00 Lactulose 30 ml 30 ml DAILY PRN PO SEVERE CONSITIPATION; Start 10/07/16 at 00:00 Azithromycin 500 mg/Sodium Chloride 250 ml @ 250 mls/hr Q24H IV Last administered on 10/07/16 22:39; Start 10/07/16 at 22:00 Piperacillin Sod/ Tazobactam Sod (Zosyn 4.5 Gm Premix) 100 ml @ 200 mls/hr Q6H IV Last administered on 10/08/16 12:26; Start 10/07/16 at 01:00 Albuterol/ Ipratropium (Duoneb Neb) 1 ampule Q6HR NEB NEB Last administered on 10/08/16 07:33; Start 10/07/16 at 04:00; Stop 10/08/16 at 11:06; Status DC Albuterol/ Ipratropium (Duoneb Neb) 1 ampule Q2HR NEB PRN NEB WHEEZING; Start 10/07/16 at 01:15; Stop 10/08/16 at 11:07; Status DC Hydralazine HCl (Apresoline Inj) 20 mg Q4H PRN IV PUSH SBP>140, DBP>90; Start 10/07/16 at 03:45 Labetalol HCl (Trandate Inj) 10 mg Q4H PRN IV PUSH SBP>140, DBP>90 Last administered on 10/07/16 04:30; Start 10/07/16 at 03:45 Iohexol (Omnipaque 350 Inj) 87 ml STK-MED ONCE IV Last administered on 03:53; Start 10/07/16 at 03:53; Stop 10/07/16 at 03:54; Status DC Midazolam HCl (Versed Inj) 5 mg ONCE ONCE IM Last administered on 10/07/16 13: 50; Start 10/07/16 at 12:15; Stop 10/07/16 at 13:10; Status DC Rocuronium Ellsworth (Zemuron Inj) 100 mg BOLUS ONCE IV Last administered on 10/07 13:51; Start 10/07/16 at 13:15; Stop 10/07/16 at 13:16; Status DC Chlorhexidine Gluconate 15 ml 15 ml BID@08,20 MT Last administered on 10/08/16 08:00; Start 10/07/16 at 20:00 Propofol (Diprivan 1000 Mg/100ml Inj) 100 ml @ 0 mls/hr TITRATE IV Last administered on 10/08/16 14:43; Start 10/07/16 at 12:15 Rocuronium Ell[place] (Zemuron Inj) 50 mg STK-MED ONCE .ROUTE ; Start 10/07/16 at 12 :17; Stop 10/07/16 at 12:18; Status DC Family History cannot obtained due to his clinical condition Social History cannot obtained due to his clinical condition (Vladimir Miller MD) Past Medical History per close friend who found the patient, he knows only of COPD as past medical history per medical record history of hypertension and glaucoma Past Surgical History cannot obtained from patient Reported Medications cannot obtain from patient Active Ordered Medications Current Medications Medications (Trade) Dose Ordered Sig/Mario Route PRN Reason Start Time Stop Time Status Last Admin Dose Admin Sodium Chloride (NS 1000 ml Inj) 1,000 ml @ 84 mls/hr [id number] IV 10/06/16 23:47 10/07/16 00:39 Sodium Chloride (NS Flush) 2 ml UNSCH PRN .XX FLUSH AFTER USING IV ACCESS 10/07/16 00:00 Sodium Chloride (NS Flush) 2 ml BID .XX 10/07/16 09:00 10/07/16 09:14 Acetaminophen (Tylenol) 650 mg Q6H PRN PO PAIN 1-5 AND/OR FEVER >101F 10/07/16 00:00 Morphine Sulfate (Morphine Inj) 2 mg Q2H PRN IV PAIN SCALE 6 TO 10 10/07/16 00:00 10/07/16 01:05 Famotidine (Pepcid Inj) 20 mg Q12HR IV PUSH 10/07/16 09:00 10/07/16 09:15 Ondansetron HCl (Zofran Inj) 4 mg Q6H PRN IV NAUSEA OR VOMITING 10/07/16 00:00 10/07/16 01:05 Miscellaneous Information 1 Q361D XX 10/07/16 00:00 Chlorhexidine Gluconate (Chlorhexidine 2% Cloth) 3 pack Taper DAILY@04 TOP 10/07/16 04:00 10/03/17 03:59 10/07/16 04:00 Chlorhexidine Gluconate (Chlorhexidine 2% Cloth) 3 pack UNSCH PRN TOP HYGIENIC CARE 10/07/16 00:00 Senna/Docusate Sodium (Michelle-Colace) 1 tab BID PO 10/07/16 09:00 Magnesium Hydroxide (Milk Of Magnesia Liq) 30 ml Q12H PRN PO MILD - MODERATE CONSTIPATION 10/07/16 00:00 Sennosides (Senokot) 17.2 mg Q12H PRN PO MODERATE - SEVERE CONSTIPATION 10/07/16 00:00 Bisacodyl (Dulcolax Supp) 10 mg DAILY PRN RECTAL SEVERE CONSITIPATION 10/07/16 00:00 Lactulose 30 ml 30 ml DAILY PRN PO SEVERE CONSITIPATION 10/07/16 00:00 Azithromycin 500 mg/Sodium Chloride 250 ml @ 250 mls/hr Q24H IV 10/07/16 22:00 Piperacillin Sod/ Tazobactam Sod (Zosyn 4.5 Gm Premix) 100 ml @ 200 mls/hr Q6H IV 10/07/16 01:00 10/07/16 15:49 Hydralazine HCl (Apresoline Inj) 20 mg Q4H PRN IV PUSH SBP>140, DBP>90 10/07/16 03:45 Labetalol HCl (Trandate Inj) 10 mg Q4H PRN IV PUSH SBP>140, DBP>90 10/07/16 03:45 10/07/16 04:30 Chlorhexidine Gluconate 15 ml 15 ml BID@08,20 MT 10/07/16 20:00 Propofol (Diprivan 1000 Mg/100ml Inj) 100 ml @ 0 mls/hr TITRATE IV 10/07/16 12:15 Family History cannot obtain from patient Social History per friend he lives alone, baseline has normal mentation aside from being short of breath due to COPD (Any Olivarez) Physical Exam Vital Signs Vital Signs Date Time Temp Pulse Resp B/P Pulse Ox O2 Delivery O2 Flow Rate FiO2 10/07/16 08:00 78 10/07/16 08:00 98.3 78 18 122/57 98 10/07/16 07:46 100 35 10/07/16 07:00 98 Bi-Pap 35 10/07/16 06:00 72 10/07/16 04:45 100 Bi-Pap 100 10/07/16 04:35 100 100 10/07/16 04:11 94 Nasal Cannula 3.00 10/07/16 04:00 98 Nasal Cannula 3.00 10/07/16 04:00 97.4 93 17 182/83 98 10/07/16 04:00 93 10/07/16 03:07 90 18 182/94 95 Nasal Cannula 3 10/07/16 02:00 90 18 170/110 94 Nasal Cannula 3 10/07/16 00:58 94 18 162/92 92 Nasal Cannula 10/06/16 23:06 97 20 152/74 93 Nasal Cannula 3 10/06/16 21:05 102.7 10/06/16 20:55 20 95 Nasal Cannula 3 10/06/16 20:32 20 10/06/16 20:27 98.5 151 18 130/75 Physical Exam Mr. Caal is very lethargic, he is on bipap. Arouses briefly then falls asleep. He was able to say his name and that he is in a hospital. Not following commands consistently. Cranial nerve examination demonstrates the pupils to be equal, round, and reactive to light. Facial motor appears grossly symmetric, difficult to assess due to bipap mask. Neck is soft and supple. Motor: moved all four extremities, cannot assess detail exam due to clinical condition Sensory examination: minimal withdraw x 4 Deep tendon reflexes are trace throughout. There is a bilateral plantar flexion response. Hoffmanns sign is negative. Cerebellar examination cannot be assessed due to clinical condition. Laboratory Laboratory Tests Test 10/06/16 10/06/16 10/06/16 10/06/16 21:10 21:12 21:13 23:35 Urine Color DARK-YELLOW Urine Turbidity HAZY Urine pH 6.0 Urine Specific Benedict 1.030 Urine Protein 100 Urine Glucose (UA) NEG Urine Ketones 10 Urine Occult Blood MOD Urine Nitrite NEG Urine Bilirubin SMALL Urine Urobilinogen 2.0 Urine Leukocyte Esterase NEG Urine RBC 47 Urine WBC 20 Urine Squamous Epithelial 2 Cells Urine Renal Epithelial Cells 1 Urine Amorphous Sediment RARE Urine Hyaline Casts 53 Urine Granular Casts 12 Urine Mucus MANY Microscopic Urinalysis Comment CATH-CULTURE IND White Blood Count 22.3 Red Blood Count 5.89 Hemoglobin 18.0 Hematocrit 55.0 Mean Corpuscular Volume 93.4 Mean Corpuscular Hemoglobin 30.5 Mean Corpuscular Hemoglobin 32.7 Concent Red Cell Distribution Width 13.2 Platelet Count 306 Mean Platelet Volume 9.0 Neutrophils (%) (Auto) 85.7 Lymphocytes (%) (Auto) 4.9 Monocytes (%) (Auto) 9.1 Eosinophils (%) (Auto) 0.0 Basophils (%) (Auto) 0.3 Neutrophils # (Auto) 19.1 Lymphocytes # (Auto) 1.1 Monocytes # (Auto) 2.0 Eosinophils # (Auto) 0.0 Basophils # (Auto) 0.1 CBC Comment DIFF FINAL Differential Comment Prothrombin Time 12.2 Prothromb Time International 1.1 Ratio Activated Partial 23.6 Thromboplast Time Sodium Level 142 Potassium Level 3.6 Chloride Level 102 Carbon Dioxide Level 27.5 Anion Gap 13 Blood Urea Nitrogen 55 Creatinine 1.45 Estimat Glomerular Filtration 42 Rate Random Glucose 150 Calcium Level 9.3 Total Bilirubin 1.2 Aspartate Amino Transf 78 (AST/SGOT) Alanine Aminotransferase 68 (ALT/SGPT) Alkaline Phosphatase 81 Total Creatine Kinase 705 Creatine Kinase MB 7.9 Creatine Kinase MB % 1.1 Total Protein 7.7 Albumin 3.1 Lactic Acid Level 2.9 1.6 Date/Time Procedure Status Source Growth 10/06/16 21:13 Aerobic Blood Culture Received Blood Peripheral Pending 10/06/16 21:13 Anaerobic Blood Culture Received Blood Peripheral Pending 10/06/16 21:10 Urine Culture Worksheet Urine Catheterized Urine Pending (Vladimir Miller MD) Physical Exam Mr. Caal is very lethargic, he is on bipap. Arouses briefly then falls asleep. He was able to say his name and that he is in a hospital. Not following commands consistently. Cranial nerve examination demonstrates the pupils to be equal, round, and reactive to light. Facial motor appears grossly symmetric, difficult to assess due to bipap mask. Neck is soft and supple. Motor: moved all four extremities, cannot assess detail exam due to clinical condition Sensory examination: minimal withdraw x 4 Deep tendon reflexes are trace throughout. There is a bilateral plantar flexion response. Hoffmanns sign is negative. Cerebellar examination cannot be assessed due to clinical condition. (Any Olivarez) Result Diagram: 10/06/16211110/06/162111 Imaging Last Impressions Neck CTA 10/07/16 0000 Signed Impressions: Service Date/Time: Friday, October 07, 2016 03:38 - CONCLUSION: 1. Scattered calcified atherosclerotic plaque. A 50%% stenosis is seen involving the right ICA. The left carotid is patent. 2. Dominant left vertebral artery. The right terminates in a PICA distribution Tyrone Christianson Jr., MD Head CTA 10/07/16 0000 Signed Impressions: Service Date/Time: Friday, October 07, 2016 03:38 - CONCLUSION: Scattered atherosclerotic plaque without a hemodynamically significant stenosis. No aneurysm. Tyrone Christianson Jr., MD Chest X-Ray 10/07/16 0000 Signed Impressions: Service Date/Time: Friday, October 07, 2016 14:11 - CONCLUSION: 1. Endotracheal tube and nasogastric tube in satisfactory position. Basal atelectasis in the lungs. Tramaine Carbajal MD Brain MRI 10/07/16 0000 Signed Impressions: Service Date/Time: Friday, October 07, 2016 17:54 - CONCLUSION: 1. The ventricular blood has a very similar configuration to prior CT yesterday, filling the right lateral ventricle, extending into the 3rd ventricle and layering in the left occipital horn. 2. There is a small elongated infarction in the right posterior external capsule with a thin rim of T2 shortening suggesting that this may be hemorrhagic. Tyrone Vivar MD Abdomen X-Ray 10/07/16 Signed Impressions: Service Date/Time: Friday, October 07, 2016 15:21 - CONCLUSION: No concerning radiopaque foreign body is identified in the abdomen. Abel Lemus MD Head CT [id number]/06/[id number] Signed Impressions: Service Date/Time: Thursday, October 06, 2016 23:15 - CONCLUSION: Prominent amount of blood in the right ventricle and small amount of blood in the 3rd and left occipital horn ventricle. No parenchymal hemorrhage seen. No extra axial fluid collections. Tyrone Vivar MD Cervical Spine CT 10/06/16 Signed Impressions: Service Date/Time: Thursday, October 06, 2016 23:15 - CONCLUSION: Negative trauma CT. Iftikhar Garza MD (Vladimir Miller MD) Imaging Last Impressions Neck CTA 10/07/16 Signed Impressions: Service Date/Time: Friday, October 07, 2016 03:38 - CONCLUSION: 1. Scattered calcified atherosclerotic plaque. A 50%% stenosis is seen involving the right ICA. The left carotid is patent. 2. Dominant left vertebral artery. The right terminates in a PICA distribution Tyrone Christianson Jr., MD Head CTA 10/07/16 Signed Impressions: Service Date/Time: Friday, October 07, 2016 03:38 - CONCLUSION: Scattered atherosclerotic plaque without a hemodynamically significant stenosis. No aneurysm. Tyrone Christianson Jr., MD Chest X-Ray 10/07/16 Signed Impressions: Service Date/Time: Friday, October 07, 2016 14:11 - CONCLUSION: 1. Endotracheal tube and nasogastric tube in satisfactory position. Basal atelectasis in the lungs. Tramaine Carbajal MD Head CT [id number]/06/[id number] Signed Impressions: Service Date/Time: Thursday, October 06, 2016 23:15 - CONCLUSION: Prominent amount of blood in the right ventricle and small amount of blood in the 3rd and left occipital horn ventricle. No parenchymal hemorrhage seen. No extra axial fluid collections. Tyrone Vivar MD Cervical Spine CT 10/06/16 Signed Impressions: Service Date/Time: Thursday, October 06, 2016 23:15 - CONCLUSION: Negative trauma CT. Iftikhar Garza MD (Any Olivarez) Attending Statement Neuro. neuro checks in a serial fashion. Extensive intraventricular hemorrhage with casting of the ventricles. If his condition deteriorates, will benefit by a ventriculostomy catheter. MRI of brain ordered Pulmonary. aggressive pulmonary toilette, nasotracheal suction, and breathing treatments with nebulizers. PT and OT evaluation Nutrition. Oral diet Renal. monitor closely urine output, BUN and creatinine Endocrine. Monitor serial Acu checks and SSI as needed ID monitor for signs of infection Protonix for stress ulcer prophylaxis Fritz hose and SCD's for DVT prophylaxis The exam, history, and the medical decision-making described in the above note were completed with the assistance of the mid-level provider. I reviewed and agree with the findings presented. I attest that I had a [id number] encounter with the patient on the same day, and personally performed and documented my assessment and findings in the medical record. (Vladimir Miller MD) Vladimir Miller MD Oct 07, 2016 09:54 Any Olivarez Oct 07, 2016 16:14
[2016-10-07] MEDS ORDERED: MIDAZOLAM HCL 5 MG/ML VIAL (1 ML) IM ONE (12:15)
[2016-10-07] MEDS ORDERED: ROCURONIUM INJ 50 MG/5 ML VIAL ONE (12:17)
--- NOTE | 2016-10-07 12:53 | HHI.CCPN ---
Subjective Remarks/Hospital Course Elderly male presents for evaluation of altered mental status. He states that he stumbled 3 days ago and fell. He was laying on the floor since. Apparently , a friend found him today. The patient is unsure of his past medical history. Apparently, he has history of COPD and is on oxygen. He does not know what medications he is on. The patient knows his name, but does not know the year. He denies hitting his head or loss of conscious, but has erythema to the left forehead. Patient denies any chest pain or abdominal pain. No vomiting. He states that he was unable to get up, but will not tell me why. He might also have some history of hypertension, glaucoma. 10/07: Required intubation today for progressive respiratory failure. Objective Vital Signs Date Time Temp Pulse Resp B/P Pulse Ox O2 Delivery O2 Flow Rate FiO2 10/07/16 12:25 97 35 10/07/16 11:38 Nasal Cannula 6.00 10/07/16 10:00 76 10/07/16 08:00 98.3 18 122/57 Result Diagram: 10/06/16211110/06/162111 Imaging Last [address] 10/06/162037 Signed Impressions: Service Date/Time: Thursday, October 06, 2016 23:15 - CONCLUSION: Prominent amount of blood in the right ventricle and small amount of blood in the 3rd and left occipital horn ventricle. No parenchymal hemorrhage seen. No extra axial fluid collections. Tyrone Vivar MD Chest X-Ray 10/06/162037 Signed Impressions: Service Date/Time: Thursday, October 06, 2016 20:37 - CONCLUSION: Bilateral partially consolidative infiltrates lower medial right lung and lower lateral left lung. Tyrone Vivar MD Objective Remarks GENERAL: Elderly man on BiPAP, lethargic, confused. SKIN: Warm and dry. HEAD: Normocephalic. EYES: No scleral icterus. No injection or drainage. NECK: Supple, trachea midline. Orally intubated. CARDIOVASCULAR: Regular rate and rhythm without murmurs, gallops, or rubs. No JVD. RESPIRATORY: Breath sounds equal bilaterally. No accessory muscle use. GASTROINTESTINAL: Abdomen soft, non-tender, nondistended. MUSCULOSKELETAL: No cyanosis, or edema. BACK: Nontender without obvious deformity. No CVA tenderness. EXTREMITIES: Well perfused. NEURO: Nonfocal, moves all 4, confused. Does not protect airway well. A/P Assessment and Plan ICH - Unclear source - Atypical location - CTA to rule out AVM or aneurysm - Strict blood pressure control with SBP goal less than 150 - Coags within normal limits - Neurosurgery consult appreciated - Neuro checks per unit protocol - Repeat CT head in 24 hours Hypertension - Hydralazine and labetalol when necessary to keep SBP less than 150 - Resume Norvasc by mouth when okay to swallow Hypothyroidism - Resume home dose of levothyroxine when known Pneumonia - Zithromax and Zosyn - Blood cultures - Urine antigen - Follow-up cultures and de-escalate per sensitivity DVT GI prophylaxis - Teds SCDs - No pharmacological DVT prophylaxis due to - IV Pepcid Carotid stenosis -- 50% Right ICA stenosis. Probably not flow limiting. Overall impression: Critically ill with respiratory failure requiring mechanical ventilation. No aneurysm. Needs MRI brain. Critical care 43 mins aside from procedures Darrin Chavez MD Oct 07, 2016 12:53
--- NOTE | 2016-10-07 12:55 | PD.PROCEDR ---
Procedure Note Procedure DX: Hypercapneic Respiratory failure (J96.02) OP: Orotracheal Intubation (45988) Procedure: Bag mask ventilation. Versed 5 mg and rocuronium 100 mg iv. Intubated orally with 8.0 tube. Position confirmed with CO2 detection, breath sounds, sats 100%. CXR ordered, will review. Darrin Chavez MD Oct 07, 2016 12:55
[2016-10-07] MEDS ORDERED: ROCURONIUM INJ 50 MG/5 ML VIAL IV ONE (13:15)
[2016-10-07 14:06] LABS: BLOOD GAS BASE EXCESS 2.3 mmol/L (-2-2); BLOOD GAS CARBOXYHEMOGLOBIN 1.3 % (0-4); BLOOD GAS HCO3 26 mmol/L (22-26); BLOOD GAS O2 HGB SATURATION 94 % (90-100); BLOOD GAS PCO2 34 mmHg (38-42); BLOOD GAS PO2 80 mmHg (61-120); BLOOD GAS TOTAL HGB 15.9 G/DL (12.0-16.0); CRITICAL VALUE NO; OXYGEN DEVICE VENTILATOR; TEMP CORR TO 98.6; VENT SETTINGS PRVC18/550/1.0/+5
[2016-10-07 14:07] LABS: DRAW SITE RT RADIAL; FIO2 35 %; NUMBER OF ARTERIAL PUNCTURES 1; STAT NO; ULNAR PULSE PRESENT
--- NOTE | 2016-10-07 14:51 | RADRPT ---
EXAM DATE/TIME: 10/07/2016 14:11 [facility] COMPARISON: CHEST SINGLE AP, October 06, 2016, 20:37. INDICATIONS : Post intubation, evaluate placement of ET tube and NG tube MEDICAL HISTORY : Chronic obstructive pulmonary disease. Hypertension SURGICAL HISTORY : None. ENCOUNTER: Subsequent ACUITY: 2 days PAIN SCORE: Non-responsive. LOCATION: Bilateral chest FINDINGS: Endotracheal tube tip is in satisfactory position. NG enters stomach. There is basilar density most c haracteristic of atelectasis. No significant effusion. No pneumothorax. Tortuous aorta. CONCLUSION: 1. Endotracheal tube and nasogastric tube in satisfactory position. Basal atelectasis in the lungs. Tramaine Carbajal MD on October 07, 2016 at 14:47 Board Certified Radiologist. This report was verified electronically.
--- NOTE | 2016-10-07 15:15 | EKG ---
Date Performed: 10/06/2016 Time Performed: 20:35:26 PTAGE: 81 years EKG: SINUS TACHYCARDIA WITH SHORT OR INTERVAL, POSSIBLE ATRIAL FLUTTER MARKED LEFT AXIS DEVIATIO N LEFT BUNDLE BRANCH BLOCK Clinical correlation is strongly recommended ABNORMAL ECG NO PREVIOUS TRACING DOCTOR: Issac Goff Interpretating Date/Time 10/07/2016 15:14:30
[2016-10-07 16:30] LABS: BASOPHIL % 0.1 % (0.0-2.0); HEMATOCRIT 48.8 % (39.0-51.0); HEMO FLAGS DIFF FINAL; LYMPH % 4.2 % (9.0-44.0); LYMPHOCYTE # 0.8 TH/MM3 (1.0-4.8); MEAN CELL VOLUME 93.6 FL (80.0-100.0); MEAN CORPUSCULAR HEMOGLOBIN 31.8 PG (27.0-34.0); MEAN CORPUSCULAR HGB CONC 33.9 % (32.0-36.0); MONO % 8.1 % (0.0-8.0); NEUT % 87.6 % (16.0-70.0); PLATELET COUNT 217 TH/MM3 (150-450); RED BLOOD COUNT 5.21 MIL/MM3 (4.50-5.90); RED CELL DISTRIBUTION WIDTH 13.3 % (11.6-17.2); WHITE BLOOD COUNT 19.4 TH/MM3 (4.0-11.0)
--- NOTE | 2016-10-07 16:34 | RADRPT ---
EXAM DATE/TIME: 10/07/2016 15:21 [facility] COMPARISON: No previous studies available for comparison. INDICATIONS : MRI clearance. MEDICAL HISTORY : Chronic obstructive pulmonary disease. Hypertension SURGICAL HISTORY : None. ENCOUNTER: Subsequent ACUITY: 2 days PAIN SCORE: 0/10 LOCATION: Bilateral abdomen FINDINGS: 2 supine frontal views of the abdomen demonstrate air within bowel in a nonobstructive pattern. EKG l arely are on the patient. There is a nasogastric tube that is looped within the stomach. No concerning metallic foreign bodies are identified. Degenerative changes are present throughout the lumbar spine . CONCLUSION: No concerning radiopaque foreign body is identified in the abdomen. Abel Lemus MD on October 07, 2016 at 16:30 Board Certified Radiologist. This report was verified electronically.
[2016-10-07 16:38] LABS: ALKALINE PHOSPHATASE 65 U/L (45-117); ALT (GPT) 59 U/L (12-78); ANION GAP 11 MEQ/L (5-15); AST (GOT) 50 U/L (15-37); BICARBONATE 29.9 MEQ/L (21.0-32.0); BLOOD UREA NITROGEN 45 MG/DL (7-18); CHLORIDE 111 MEQ/L (98-107); GLOMERULAR FILTRATION RATE 63 ML/MIN (>89); MAGNESIUM 2.7 MG/DL (1.5-2.5); POTASSIUM 4.1 MEQ/L (3.5-5.1); SODIUM (NA) 152 MEQ/L (136-145); TOTAL BILIRUBIN ADULT 0.7 MG/DL (0.2-1.0)
[2016-10-07] MEDS: PROPOFOL 1000 MG/100 ML INJ 100 ML IV SCH (17:01)
--- NOTE | 2016-10-07 19:04 | RADRPT ---
EXAM DATE/TIME: 10/07/2016 17:54 [facility] COMPARISON: CT BRAIN W/O CONTRAST, October 06, 2016, 23:15. INDICATIONS : Hemorrhage. MEDICAL HISTORY : Unknown. SURGICAL HISTORY : Unknown. ENCOUNTER: Subsequent ACUITY: 2 day PAIN SCORE: Nonresponsive. LOCATION: on vent. TECHNIQUE: Multiplanar, multisequence MRI of the brain was performed without contrast. FINDINGS: CEREBRUM: There is a large intraventricular hemorrhage in the lateral ventricle on the right side which extends through the nonenlarged right foramen of Monro. There is also layering blood products in the left o ccipital horn. No blood products in the aqueduct of Sylvius. There is a small elongated signal abno rmality in the posterior right external capsule measuring 9 x 3 mm and having a thin rim of T2 shorte mark, but also demonstrating restricted diffusion suggesting an acute hemorrhagic infarction.. WHITE MATTER: No significant signal abnormalities are seen in the white matter. A few scattered areas of T2 prolon gation in the supratentorial white matter and prominence of Virchow-Jose R spaces in the basal ganglia . POSTERIOR FOSSA: The cerebellum and brainstem are intact. The 4th ventricle is midline. The cerebellopontine angle is unremarkable. The cerebellar tonsils are normal in position. EXTRACRANIAL: The visualized portions of the orbits and paranasal sinuses are unremarkable. CONCLUSION: 1. The ventricular blood has a very similar configuration to prior CT yesterday, filling the right la teral ventricle, extending into the 3rd ventricle and layering in the left occipital horn. 2. There is a small elongated infarction in the right posterior external capsule with a thin rim of T 2 shortening suggesting that this may be hemorrhagic. Tyrone Vivar MD on October 07, 2016 at 18:54 Board Certified Radiologist. This report was verified electronically.
[2016-10-07] MEDS: CHLORHEXIDINE 0.12% (ORAL KIT) 15 ML CUP MT SCH (20:00)
[2016-10-07] MEDS: AZITHROMYCIN INJ 500 MG in SODIUM CHLOR 0.9% 250 ML INJ 250 ML IV SCH (22:39)
[2016-10-08] VITALS (19 sets, daily range): BP systolic 118–158; BP diastolic 56–79; PULSE 68–89; RESP 16–20; TEMP 97.6–100.7; O2SAT 93–100
[2016-10-08] MEDS: PIPERACIL-TAZO 4.5 GM PREMIX 100 ML IV SCH ×4 (00:50→18:08)
[2016-10-08] MEDS: PROPOFOL 1000 MG/100 ML INJ 100 ML IV SCH ×6 (00:50→18:08)
[2016-10-08] MEDS: RESP: ALBUTEROL 2.5 MG/IPRATROPIUM 0.5 MG NEB (SCH) NEB ×2 (03:25→07:33)
[2016-10-08] MEDS: CHLORHEXIDINE GLUCONATE 2 % 1 PACK (2 CLOTHS) TOP SCH (03:44)
--- NOTE | 2016-10-08 07:55 | HHI.CCPN ---
Subjective Remarks/Hospital Course Elderly male presents for evaluation of altered mental status. He states that he stumbled 3 days ago and fell. He was laying on the floor since. Apparently , a friend found him today. The patient is unsure of his past medical history. Apparently, he has history of COPD and is on oxygen. He does not know what medications he is on. The patient knows his name, but does not know the year. He denies hitting his head or loss of conscious, but has erythema to the left forehead. Patient denies any chest pain or abdominal pain. No vomiting. He states that he was unable to get up, but will not tell me why. He might also have some history of hypertension, glaucoma. 10/07: Required intubation today for progressive respiratory failure. 10/08: Will aim for quick extubation now that MRI complete. Need sputum sample. Objective Vital Signs Date Time Temp Pulse Resp B/P Pulse Ox O2 Delivery O2 Flow Rate FiO2 10/08/16 07:36 96 40 10/08/16 06:00 74 10/08/16 04:00 98.5 16 118/56 10/07/16 19:44 Ventilator 10/07/16 11:38 6.00 Intake and Output 10/07/16 10/07/16 10/08/16 08:00 16:00 00:00 Intake Total 464 ml 380 ml 667 ml Output Total 575 ml 400 ml 250 ml Balance -111 ml -20 ml 417 ml Result Diagram: 10/07/16 1540 10/07/16 1540 Other Results Laboratory Tests Test 10/07/16 13:50 Blood Gas Puncture Site RT RADIAL Blood Gas Patient Temperature 98.6 Blood Gas HCO3 26 mmol/L (22-26) Blood Gas Base Excess 2.3 mmol/L (-2-2) Blood Gas Oxygen Saturation 94 % (90-100) Arterial Blood pH 7.48 (7.380-7.420) Arterial Blood Partial 34 mmHg (38-42) Pressure CO2 Arterial Blood Partial 80 mmHg Pressure O2 (61-120) Arterial Blood Oxygen Content 21.0 Vol % (12.0-20.0) Arterial Blood 1.3 % (0-4) Carboxyhemoglobin Arterial Blood Methemoglobin 1.0 % (0-2) Blood Gas Hemoglobin 15.9 G/DL (12.0-16.0) Oxygen Delivery Device VENTILATOR Blood Gas Ventilator Setting PRVC18/550/1.0/+5 Blood Gas Inspired Oxygen 35 % Imaging Last [address] 10/06/162037 Signed Impressions: Service Date/Time: Thursday, October 06, 2016 23:15 - CONCLUSION: Prominent amount of blood in the right ventricle and small amount of blood in the 3rd and left occipital horn ventricle. No parenchymal hemorrhage seen. No extra axial fluid collections. Tyrone Vivar MD Chest X-Ray 10/06/162037 Signed Impressions: Service Date/Time: Thursday, October 06, 2016 20:37 - CONCLUSION: Bilateral partially consolidative infiltrates lower medial right lung and lower lateral left lung. Tyrone Vivar MD Objective Remarks GENERAL: Elderly man on BiPAP, lethargic, confused. SKIN: Warm and dry. HEAD: Normocephalic. EYES: No scleral icterus. No injection or drainage. NECK: Supple, trachea midline. Orally intubated. CARDIOVASCULAR: Regular rate and rhythm without murmurs, gallops, or rubs. No JVD. RESPIRATORY: Breath sounds equal bilaterally. No accessory muscle use. GASTROINTESTINAL: Abdomen soft, non-tender, nondistended. MUSCULOSKELETAL: No cyanosis, or edema. BACK: Nontender without obvious deformity. No CVA tenderness. EXTREMITIES: Well perfused. NEURO: Nonfocal, moves all 4 when light. Opens eyes. A/P Assessment and Plan ICH - Unclear source - Atypical location - CTA to rule out AVM or aneurysm - Strict blood pressure control with SBP goal less than 150 - Coags within normal limits - Neurosurgery consult appreciated - Neuro checks per unit protocol - Repeat CT head in 24 hours Hypertension - Hydralazine and labetalol when necessary to keep SBP less than 150 - Resume Norvasc by mouth when okay to swallow Hypothyroidism - Resume home dose of levothyroxine when known Pneumonia - Zithromax and Zosyn - Blood cultures - Urine antigen - Follow-up cultures and de-escalate per sensitivity DVT GI prophylaxis - Teds SCDs - No pharmacological DVT prophylaxis due to - IV Pepcid Carotid stenosis -- 50% Right ICA stenosis. Probably not flow limiting. Overall impression: Critically ill with respiratory failure requiring mechanical ventilation. No aneurysm. Needs MRI brain -> done. Unable to wean from ventilator. Critical care 38 min Darrin Chavez MD Oct 08, 2016 07:55
[2016-10-08] MEDS: CHLORHEXIDINE 0.12% (ORAL KIT) 15 ML CUP MT SCH ×2 (08:00→22:43)
[2016-10-08] MEDS: FAMOTIDINE 20 MG/2 ML VIAL IV PUSH SCH ×2 (08:33→22:41)
[2016-10-08] MEDS: DOCUSATE SODIUM 50 MG/SENNA 8.6 MG TAB PO SCH ×2 (08:33→22:41)
[2016-10-08] MEDS: SODIUM CHLORIDE 0.9% FLUSH 10 ML FLUSH SCH ×2 (09:00→22:41)
--- NOTE | 2016-10-08 09:32 | HHI.NSPN ---
(Any Olivarez) Note Status Status: Progress Note (Any Olivarez) Interval History Interval History Mr. Caal is a 81 year old male who presented for evaluation of altered mental status. Cannot obtain history from patient, however his close friend is at bedside who found the patient. His friend reports he last spoke with the patient 2-3 days ago. He was not answering his phone so he went to check on him and found the patient on the floor lying on his side. He was very confused and did not recognize him. He was taken to the ED. CT Head on arrival shows right intraventricular hemorrhage. He is not known to take blood thinners. His friend reports baseline he is normal besides being short of breath due to his COPD. Neurosurgical evaluation was requested. 10/08: awake, intubated on CPAP. MRI Brain completed. (Any Olivarez) Labs, Micro, & Vital Signs Results Date Time Temp Pulse Resp B/P Pulse Ox O2 Delivery O2 Flow Rate FiO2 10/08/16 08:45 99 40 10/08/16 08:31 35 10/08/16 08:00 98.8 89 19 158/78 95 10/08/16 08:00 35 10/08/16 07:36 96 40 10/08/16 07:00 Mechanical Ventilator 10/08/16 06:00 74 10/08/16 04:00 35 10/08/16 04:00 98.5 80 16 118/56 100 10/08/16 04:00 80 10/08/16 03:25 96 35 10/08/16 02:00 68 10/08/16 01:42 93 40 10/08/16 00:00 86 10/08/16 00:00 35 10/08/16 00:00 100.7 86 20 138/65 99 10/07/16 22:00 88 10/07/16 20:00 100.5 79 16 115/66 99 10/07/16 20:00 79 10/07/16 20:00 35 10/07/16 19:44 97 Ventilator 10/07/16 19:37 96 35 10/07/16 19:00 98 Mechanical Ventilator 35 10/07/16 18:00 85 10/07/16 17:20 99 100 10/07/16 16:41 91 35 10/07/16 16:00 88 10/07/16 16:00 99.0 88 23 117/88 99 10/07/16 16:00 88 10/07/16 14:00 91 10/07/16 12:25 97 35 10/07/16 12:25 35 10/07/16 12:00 98.7 71 20 153/71 99 10/07/16 12:00 71 10/07/16 11:38 89 Nasal Cannula 6.00 10/07/16 10:30 96 Nasal Cannula 4.00 10/07/16 10:00 76 10/08/16 07:00 Intake Total 1983 ml Output Total 900 ml Balance 1083 ml Constitutional Vital Signs Date Time Temp Pulse Resp B/P Pulse Ox O2 Delivery O2 Flow Rate FiO2 10/08/16 08:45 99 40 10/08/16 08:31 35 10/08/16 08:00 98.8 89 19 158/78 95 10/08/16 08:00 35 10/08/16 07:36 96 40 10/08/16 07:00 Mechanical Ventilator 10/08/16 06:00 74 10/08/16 04:00 35 10/08/16 04:00 98.5 80 16 118/56 100 10/08/16 04:00 80 10/08/16 03:25 96 35 10/08/16 02:00 68 10/08/16 01:42 93 40 10/08/16 00:00 86 10/08/16 00:00 35 10/08/16 00:00 100.7 86 20 138/65 99 10/07/16 22:00 88 10/07/16 20:00 100.5 79 16 115/66 99 10/07/16 20:00 79 10/07/16 20:00 35 10/07/16 19:44 97 Ventilator 10/07/16 19:37 96 35 10/07/16 19:00 98 Mechanical Ventilator 35 10/07/16 18:00 85 10/07/16 17:20 99 100 10/07/16 16:41 91 35 10/07/16 16:00 88 10/07/16 16:00 99.0 88 23 117/88 99 10/07/16 16:00 88 10/07/16 14:00 91 10/07/16 12:25 97 35 10/07/16 12:25 35 10/07/16 12:00 98.7 71 20 153/71 99 10/07/16 12:00 71 10/07/16 11:38 89 Nasal Cannula 6.00 10/07/16 10:30 96 Nasal Cannula 4.00 10/07/16 10:00 76 10/08/16 07:00 Intake Total 1983 ml Output Total 900 ml Balance 1083 ml (Any Olivarez) Review of Systems/Exam Exam The patient is intubated. Cranial Nerves: Pupils equal, round, reactive to light. Cervical Spine: His neck is soft, supple, without nuchal rigidity. Motor: His muscle tone and bulk are normal. He moves purposefully all 4 extremities symmetrically. Sensory: he responds to painful stimuli, localizing with both upper and lower extremities. Cerebellar: Examination cannot be adequately assessed due to the patient's neurological condition. (Any Olivarez) Exam Mr. Caal is extubated. Awake, eyes open, does not follow much commands. Nods weakly when asked questions. Right ventriculostomy drain secured in place, dressing is clean and dry. EVD at 0 cm H20, no drainage overnight. Ventriculostomy drain again flushed with NS without drainage. Cranial Nerves: Pupils 3 mm equal. Motor:generalized weakness with gross movements to all four extremities Cerebellar: cannot assess due current clinical condition. (Vladimir Miller MD) Medications Current Medications Current Medications Medications (Trade) Dose Ordered Sig/Mario Route PRN Reason Start Time Stop Time Status Last Admin Dose Admin Sodium Chloride (NS 1000 ml Inj) 1,000 ml @ 84 mls/hr [id number] IV 10/06/16 23:47 10/07/16 22:39 Sodium Chloride (NS Flush) 2 ml UNSCH PRN .XX FLUSH AFTER USING IV ACCESS 10/07/16 00:00 Sodium Chloride (NS Flush) 2 ml BID .XX 10/07/16 09:00 10/07/16 20:07 Acetaminophen (Tylenol) 650 mg Q6H PRN PO PAIN 1-5 AND/OR FEVER >101F 10/07/16 00:00 Morphine Sulfate (Morphine Inj) 2 mg Q2H PRN IV PAIN SCALE 6 TO 10 10/07/16 00:00 10/07/16 01:05 Famotidine (Pepcid Inj) 20 mg Q12HR IV PUSH 10/07/16 09:00 10/08/16 08:33 Ondansetron HCl (Zofran Inj) 4 mg Q6H PRN IV NAUSEA OR VOMITING 10/07/16 00:00 10/07/16 01:05 Miscellaneous Information 1 Q361D XX 10/07/16 00:00 Chlorhexidine Gluconate (Chlorhexidine 2% Cloth) 3 pack Taper DAILY@04 TOP 10/07/16 04:00 10/03/17 03:59 10/08/16 03:44 Chlorhexidine Gluconate (Chlorhexidine 2% Cloth) 3 pack UNSCH PRN TOP HYGIENIC CARE 10/07/16 00:00 Senna/Docusate Sodium (Michelle-Colace) 1 tab BID PO 10/07/16 09:00 10/08/16 08:33 Magnesium Hydroxide (Milk Of Magnesia Liq) 30 ml Q12H PRN PO MILD - MODERATE CONSTIPATION 10/07/16 00:00 Sennosides (Senokot) 17.2 mg Q12H PRN PO MODERATE - SEVERE CONSTIPATION 10/07/16 00:00 Bisacodyl (Dulcolax Supp) 10 mg DAILY PRN RECTAL SEVERE CONSITIPATION 10/07/16 00:00 Lactulose 30 ml 30 ml DAILY PRN PO SEVERE CONSITIPATION 10/07/16 00:00 Azithromycin 500 mg/Sodium Chloride 250 ml @ 250 mls/hr Q24H IV 10/07/16 22:00 10/07/16 22:39 Piperacillin Sod/ Tazobactam Sod (Zosyn 4.5 Gm Premix) 100 ml @ 200 mls/hr Q6H IV 10/07/16 01:00 10/08/16 05:47 Hydralazine HCl (Apresoline Inj) 20 mg Q4H PRN IV PUSH SBP>140, DBP>90 10/07/16 03:45 Labetalol HCl (Trandate Inj) 10 mg Q4H PRN IV PUSH SBP>140, DBP>90 10/07/16 03:45 10/07/16 04:30 Chlorhexidine Gluconate 15 ml 15 ml BID@08,20 MT 10/07/16 20:00 10/08/16 08:00 Propofol (Diprivan 1000 Mg/100ml Inj) 100 ml @ 0 mls/hr TITRATE IV 10/07/16 12:15 10/08/16 04:40 (Any Olivarez) Medical Decision Making MDM Remarks 81 y/o male presented for AMS CT Brain on arrival showed extensive right intraventricular hemorrhage, respiratory failure s/p intubation MRI Brain 10/07/16 showed 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, no evidence of other masses or tumors (Any Olivarez) Plan Plan Remarks cont critical care mgt, patient will require ventriculostomy drain placement for IVH, cont serial neuro checks nonchemical dvt prophylaxis in view of ICH protonix for stress ulcer proph (Any Olivarez) Attending Statement Neuro. neuro checks in a serial fashion. Extensive intraventricular hemorrhage with casting of the ventricles. If his condition deteriorates, will benefit by a ventriculostomy catheter. MRI of brain ordered Pulmonary. aggressive pulmonary toilette, nasotracheal suction, and breathing treatments with nebulizers. PT and OT evaluation Nutrition. Oral diet Renal. monitor closely urine output, BUN and creatinine Endocrine. Monitor serial Acu checks and SSI as needed ID monitor for signs of infection Protonix for stress ulcer prophylaxis Fritz hose and SCD's for DVT prophylaxis The exam, history, and the medical decision-making described in the above note were completed with the assistance of the mid-level provider. I reviewed and agree with the findings presented. I attest that I had a [id number] encounter with the patient on the same day, and personally performed and documented my assessment and findings in the medical record. (Vladimir Miller MD) Any Olivarez Oct 08, 2016 09:31 Vladimir Miller MD Oct 11, 2016 13:19
[2016-10-08] MEDS: SODIUM CHLOR 0.9% 1000 ML INJ 1,000 ML IV SCH (11:32)
--- NOTE | 2016-10-08 13:44 | PD.OP ---
Operative Report Date of Surgery: Oct 08, 2016 Preoperative Diagnosis: Intraventricular hemorrhage Postoperative Diagnosis: Intraventricular hemorrhage Procedure: Right frontal David hole with placement of a ventriculostomy catheter Anesthesia: local Surgeon: Vladimir Miller Configuration Management Administrator(s): Any winston Operation and Findings: INDICATIONS FOR THE PROCEDURE Mr Caal is a 81 year old male who was brought to [facility] with altered mental status and intraventricular hemorrhage. CT of the brain showed a large acute intraventricular hematoma casting of blood of the lateral and third ventricle. Placement of ventriculostomy was indicated as recommended by the [employer] of [place] [employer] DETAILS OF THE SURGICAL PROCEDURE The frontal area was shaved, prepped and draped in the usual sterile fashion. An entry point was selected 90 millimeters posterior to the supraorbital rim and 25 millimeters from the midline. The area was infiltrated with 1% lidocaine with epinephrine. A skin incision was made with a #15 blade down to the level of the periosteum. Using a twist drill, a david hole was made. The dura was carefully opened with a brain needle and a ventriculostomy catheter was advanced into the ventricular system. At a depth of 60 millimeters, the right lateral ventricle was entered. there was a solid blood cloth, with dark blood and a proper flow could not be obtained. The catheter was removed and introduced into the contralateral ventricle. Bloody cerebrospinal fluid was obtained. Opening pressure was 20 centimeters of water. A specimen of cerebrospinal fluid was collected and sent to the lab for analysis of the glucose, protein, cell count and cultures. The catheter was then tunneled under the galea and externalized through a separate stab incision. The incision was closed with 3-0 nylon in a single plane. The patient tolerated the procedure well. COMPLICATIONS There were no intraoperative complications. BLOOD LOSS Blood loss was minimal. Vladimir Miller MD Oct 08, 2016 13:44
[2016-10-08 14:47] LABS: GROSS BLOOD TUBE #1 4+ (0); SUPERNATE COLOR TUBE #1 HEMOLYZED (CLEAR)
[2016-10-08 14:48] LABS: WBC TUBE #1 1879 /MM3 (0-10)
[2016-10-08 16:03] LABS: CSF LYMPHOCYTES 38 %; CSF NEUTROPHILS 62 %
[2016-10-08] MEDS: AZITHROMYCIN INJ 500 MG in SODIUM CHLOR 0.9% 250 ML INJ 250 ML IV SCH (22:40)
[2016-10-09] VITALS (18 sets, daily range): BP systolic 126–162; BP diastolic 63–85; PULSE 65–87; RESP 16–27; TEMP 98.3–99.1; O2SAT 93–99
[2016-10-09] MEDS: PIPERACIL-TAZO 4.5 GM PREMIX 100 ML IV SCH ×4 (00:06→18:33)
[2016-10-09] MEDS: PROPOFOL 1000 MG/100 ML INJ 100 ML IV SCH ×6 (00:08→18:33)
[2016-10-09] MEDS: CHLORHEXIDINE GLUCONATE 2 % 1 PACK (2 CLOTHS) TOP SCH (04:00)
[2016-10-09] MEDS: SODIUM CHLOR 0.9% 1000 ML INJ 1,000 ML IV SCH ×4 (04:36→21:47)
[2016-10-09 04:42] LABS: AUTOMATED NEUTROPHIL # 9.2 TH/MM3 (1.8-7.7); BASOPHIL % 0.2 % (0.0-2.0); EOSINOPHIL % 0.2 % (0.0-4.0); HEMATOCRIT 42.2 % (39.0-51.0); HEMO FLAGS DIFF FINAL; LYMPH % 12.5 % (9.0-44.0); LYMPHOCYTE # 1.5 TH/MM3 (1.0-4.8); MEAN CORPUSCULAR HEMOGLOBIN 31.4 PG (27.0-34.0); MEAN CORPUSCULAR HGB CONC 33.7 % (32.0-36.0); MONO % 9.6 % (0.0-8.0); NEUT % 77.5 % (16.0-70.0); PLATELET COUNT 161 TH/MM3 (150-450); RED BLOOD COUNT 4.54 MIL/MM3 (4.50-5.90); RED CELL DISTRIBUTION WIDTH 13.2 % (11.6-17.2); WHITE BLOOD COUNT 11.8 TH/MM3 (4.0-11.0)
[2016-10-09] MEDS: CHLORHEXIDINE 0.12% (ORAL KIT) 15 ML CUP MT SCH ×2 (07:51→20:11)
[2016-10-09] MEDS: hydrALAZINE HCL 20 MG/ML VIAL IV PUSH PRN (08:11)
[2016-10-09] MEDS: DOCUSATE SODIUM 50 MG/SENNA 8.6 MG TAB PO SCH ×2 (09:23→20:10)
[2016-10-09] MEDS: FAMOTIDINE 20 MG/2 ML VIAL IV PUSH SCH ×2 (09:23→20:11)
[2016-10-09] MEDS: SODIUM CHLORIDE 0.9% FLUSH 10 ML FLUSH SCH ×2 (09:24→21:00)
[2016-10-09] MEDS: LABETALOL HCL 100 MG/20 ML VIAL IV PUSH PRN (09:27)
--- NOTE | 2016-10-09 09:34 | HHI.CCPN ---
Subjective Remarks/Hospital Course Elderly male presents for evaluation of altered mental status. He states that he stumbled 3 days ago and fell. He was laying on the floor since. Apparently , a friend found him today. The patient is unsure of his past medical history. Apparently, he has history of COPD and is on oxygen. He does not know what medications he is on. The patient knows his name, but does not know the year. He denies hitting his head or loss of conscious, but has erythema to the left forehead. Patient denies any chest pain or abdominal pain. No vomiting. He states that he was unable to get up, but will not tell me why. He might also have some history of hypertension, glaucoma. 10/07: Required intubation today for progressive respiratory failure. 10/08: Will aim for quick extubation now that MRI complete. Need sputum sample. 10/09: Tolerating SBTs. Push toward extubation. Objective Vital Signs Date Time Temp Pulse Resp B/P Pulse Ox O2 Delivery O2 Flow Rate FiO2 10/09/16 07:32 99 35 10/09/16 06:00 65 10/09/16 04:00 99.1 16 162/85 10/08/16 20:00 Mechanical Ventilator 10/07/16 11:38 6.00 Intake and Output 10/08/16 10/08/16 10/08/16 07:59 15:59 23:59 Intake Total 936 ml 959 ml 948 ml Output Total 250 ml 310 ml 525 ml Balance 686 ml 649 ml 423 ml Result Diagram: 10/09/16 0355 10/07/16 1540 Other Results Microbiology Date/Time Procedure Status Source Growth 10/06/16 21:10 Urine Culture - Final Complete Urine Catheterized Urine NO GROWTH IN 48 HOURS. Imaging Last [address] 10/06/162037 Signed Impressions: Service Date/Time: Thursday, October 06, 2016 23:15 - CONCLUSION: Prominent amount of blood in the right ventricle and small amount of blood in the 3rd and left occipital horn ventricle. No parenchymal hemorrhage seen. No extra axial fluid collections. Tyrone Vivar MD Chest X-Ray 10/06/162037 Signed Impressions: Service Date/Time: Thursday, October 06, 2016 20:37 - CONCLUSION: Bilateral partially consolidative infiltrates lower medial right lung and lower lateral left lung. Tyrone Vivar MD Objective Remarks GENERAL: Elderly man on BiPAP, lethargic, confused. SKIN: Warm and dry. HEAD: Normocephalic. EYES: No scleral icterus. No injection or drainage. NECK: Supple, trachea midline. Orally intubated. CARDIOVASCULAR: Regular rate and rhythm without murmurs, gallops, or rubs. No JVD. RESPIRATORY: Breath sounds equal bilaterally. No accessory muscle use. GASTROINTESTINAL: Abdomen soft, non-tender, nondistended. MUSCULOSKELETAL: No cyanosis, or edema. BACK: Nontender without obvious deformity. No CVA tenderness. EXTREMITIES: Well perfused. NEURO: Nonfocal, moves all 4 when light. Opens eyes. A/P Assessment and Plan ICH - Unclear source - Atypical location - CTA to rule out AVM or aneurysm - Strict blood pressure control with SBP goal less than 150 - Coags within normal limits - Neurosurgery consult appreciated - Neuro checks per unit protocol - Repeat CT head in 24 hours - EVD placed to evacuate clot. 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 Probably not flow limiting. Overall impression: Critically ill with respiratory failure requiring mechanical ventilation. No aneurysm. Needs MRI brain -> done. EVD placed, try to wean vent. Darrin Chavez MD Oct 09, 2016 09:34
[2016-10-09] MEDS ORDERED: METOCLOPRAMIDE HCL 10 MG/2 ML VIAL IM SCH (09:45)
--- NOTE | 2016-10-09 10:47 | HHI.NSPN ---
(Any Olivarez) Note Status Status: Progress Note (Any Olivarez) Interval History Interval History Mr. Caal is a 81 year old male who presented for evaluation of altered mental status. Cannot obtain history from patient, however his close friend is at bedside who found the patient. His friend reports he last spoke with the patient 2-3 days ago. He was not answering his phone so he went to check on him and found the patient on the floor lying on his side. He was very confused and did not recognize him. He was taken to the ED. CT Head on arrival shows right intraventricular hemorrhage. He is not known to take blood thinners. His friend reports baseline he is normal besides being short of breath due to his COPD. Neurosurgical evaluation was requested. 10/08: awake, intubated on CPAP. MRI Brain completed. 10/09: s/p placement of ventriculostomy drain yesterday, intubated and sedated. ( Any Olivarez) Labs, Micro, & Vital Signs Results Date Time Temp Pulse Resp B/P Pulse Ox O2 Delivery O2 Flow Rate FiO2 10/09/16 07:32 99 35 10/09/16 06:00 65 10/09/16 04:13 98 35 10/09/16 04:00 35 10/09/16 04:00 99.1 72 16 162/85 99 10/09/16 04:00 71 10/09/16 02:00 70 10/09/16 00:39 96 35 10/09/16 00:00 72 10/09/16 00:00 35 10/09/16 00:00 99.0 68 16 146/80 99 10/08/16 22:00 70 10/08/16 20:00 76 10/08/16 20:00 94 Mechanical Ventilator 35 10/08/16 20:00 99.3 74 16 136/64 95 10/08/16 20:00 35 10/08/16 18:00 76 10/08/16 16:00 98.3 75 16 157/79 97 10/08/16 16:00 75 10/08/16 16:00 35 10/08/16 15:26 98 35 10/08/16 14:00 72 10/08/16 12:59 98 35 10/08/16 12:00 35 10/08/16 12:00 70 10/08/16 12:00 97.6 70 16 129/62 98 10/09/16 07:00 Intake Total 2930 ml Output Total 1355 ml Balance 1575 ml Constitutional Vital Signs Date Time Temp Pulse Resp B/P Pulse Ox O2 Delivery O2 Flow Rate FiO2 10/09/16 07:32 99 35 10/09/16 06:00 65 10/09/16 04:13 98 35 10/09/16 04:00 35 10/09/16 04:00 99.1 72 16 162/85 99 10/09/16 04:00 71 10/09/16 02:00 70 10/09/16 00:39 96 35 10/09/16 00:00 72 10/09/16 00:00 35 10/09/16 00:00 99.0 68 16 146/80 99 10/08/16 22:00 70 10/08/16 20:00 76 10/08/16 20:00 94 Mechanical Ventilator 35 10/08/16 20:00 99.3 74 16 136/64 95 10/08/16 20:00 35 10/08/16 18:00 76 10/08/16 16:00 98.3 75 16 157/79 97 10/08/16 16:00 75 10/08/16 16:00 35 10/08/16 15:26 98 35 10/08/16 14:00 72 10/08/16 12:59 98 35 10/08/16 12:00 35 10/08/16 12:00 70 10/08/16 12:00 97.6 70 16 129/62 98 10/09/16 07:00 Intake Total 2930 ml Output Total 1355 ml Balance 1575 ml (Any Olivarez) Review of Systems/Exam Exam Mr. Caal is intubated and sedated. Right ventriculostomy drain secured in place, dressing is clean and dry. EVD at 0 cm H20, ICP = 3 when clamped. CSF in reservoir bag is dark red, however there is no fluctuation seen in tubing, drain was flushed with 5 cc NS into brain and 5 cc to the reservoir, but still no drainage noted. Cranial Nerves: Pupils 3 mm equal. Neck: soft, supple Motor: intermittent movements to all four extremities Cerebellar: cannot assess due current clinical condition. (Any Olivarez) Exam Mr. Caal is intubated and sedated. Right ventriculostomy drain secured in place, dressing is clean and dry. EVD at 0 cm H20, ICP = 3 when clamped. CSF in reservoir bag is dark red, however there is no fluctuation seen in tubing, drain was flushed with 5 cc NS into brain and 5 cc to the reservoir, but still no drainage noted. Cranial Nerves: Pupils 3 mm equal. Neck: soft, supple Motor: intermittent movements to all four extremities Cerebellar: cannot assess due current clinical conditio (Vladimir Miller MD) Medications Current Medications Current Medications Medications (Trade) Dose Ordered Sig/Mario Route PRN Reason Start Time Stop Time Status Last Admin Dose Admin Sodium Chloride (NS 1000 ml Inj) 1,000 ml @ 84 mls/hr [id number] IV 10/06/16 23:47 10/09/16 04:36 Sodium Chloride (NS Flush) 2 ml UNSCH PRN .XX FLUSH AFTER USING IV ACCESS 10/07/16 00:00 Sodium Chloride (NS Flush) 2 ml BID .XX 10/07/16 09:00 10/09/16 09:24 Acetaminophen (Tylenol) 650 mg Q6H PRN PO PAIN 1-5 AND/OR FEVER >101F 10/07/16 00:00 Morphine Sulfate (Morphine Inj) 2 mg Q2H PRN IV PAIN SCALE 6 TO 10 10/07/16 00:00 10/07/16 01:05 Famotidine (Pepcid Inj) 20 mg Q12HR IV PUSH 10/07/16 09:00 10/09/16 09:23 Ondansetron HCl (Zofran Inj) 4 mg Q6H PRN IV NAUSEA OR VOMITING 10/07/16 00:00 10/07/16 01:05 Miscellaneous Information 1 [id number] XX 10/07/16 00:00 Chlorhexidine Gluconate (Chlorhexidine 2% Cloth) 3 pack Taper DAILY@04 TOP 10/07/16 04:00 10/03/17 03:59 10/09/16 04:00 Chlorhexidine Gluconate (Chlorhexidine 2% Cloth) 3 pack UNSCH PRN TOP HYGIENIC CARE 10/07/16 00:00 Senna/Docusate Sodium (Michelle-Colace) 1 tab BID PO 10/07/16 09:00 10/09/16 09:23 Magnesium Hydroxide (Milk Of Magnshaun Liq) 30 ml Q12H PRN PO MILD - MODERATE CONSTIPATION 10/07/16 00:00 Sennosides (Senokot) 17.2 mg Q12H PRN PO MODERATE - SEVERE CONSTIPATION 10/07/16 00:00 Bisacodyl (Dulcolax Supp) 10 mg DAILY PRN RECTAL SEVERE CONSITIPATION 10/07/16 00:00 Lactulose 30 ml 30 ml DAILY PRN PO SEVERE CONSITIPATION 10/07/16 00:00 Azithromycin 500 mg/Sodium Chloride 250 ml @ 250 mls/hr Q24H IV 10/07/16 22:00 10/08/16 22:40 Piperacillin Sod/ Tazobactam Sod (Zosyn 4.5 Gm Premix) 100 ml @ 200 mls/hr Q6H IV 10/07/16 01:00 10/09/16 06:10 Hydralazine HCl (Apresoline Inj) 20 mg Q4H PRN IV PUSH SBP>140, DBP>90 10/07/16 03:45 10/09/16 08:11 Labetalol HCl (Trandate Inj) 10 mg Q4H PRN IV PUSH SBP>140, DBP>90 10/07/16 03:45 10/09/16 09:27 Chlorhexidine Gluconate 15 ml 15 ml BID@08,20 MT 10/07/16 20:00 10/09/16 07:51 Propofol (Diprivan 1000 Mg/100ml Inj) 100 ml @ 0 mls/hr TITRATE IV 10/07/16 12:15 10/09/16 09:33 Amlodipine Besylate (Norvasc) 5 mg DAILY PO 10/09/16 09:30 Hydralazine HCl (Apresoline) 25 mg Q8HR PO 10/09/16 09:30 Hydralazine HCl (Apresoline Inj) 10 mg Q1H PRN IV PUSH SBP > 160 10/09/16 09:30 Protein (Beneprotein Powder) 1 pack TID G-TUBE 10/09/16 13:00 Metoclopramide HCl 10 mg 10 mg Q8HR IM 10/09/16 09:45 Vancomycin HCl/ Sodium Chloride (Vancomycin Inj/ NS 250 ml Inj) 262.5 ml @ 250 mls/hr ONCE ONCE IV 10/09/16 11:00 10/09/16 12:02 (Any Olivarez) Medical Decision Making MDM Remarks 81 y/o male presented for AMS CT Brain on arrival showed extensive right intraventricular hemorrhage, s/p placement of ventriculostomy drain 10/08/16 respiratory failure s/p intubation MRI Brain 10/07/16 showed 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 neuro checks in a serial fashion. Extensive intraventricular hemorrhage with casting of the ventricles. If his condition deteriorates, will benefit by a ventriculostomy catheter. MRI of brain ordered Pulmonary. aggressive pulmonary toilette, nasotracheal suction, and breathing treatments with nebulizers. PT and OT evaluation Nutrition. Oral diet Renal. monitor closely urine output, BUN and creatinine Endocrine. Monitor serial Acu checks and SSI as needed ID monitor for signs of infection Protonix for stress ulcer prophylaxis Fritz hose and SCD's for DVT prophylaxis The exam, history, and the medical decision-making described in the above note were completed with the assistance of the mid-level provider. I reviewed and agree with the findings presented. I attest that I had a [id number] encounter with the patient on the same day, and personally performed and documented my assessment and findings in the medical record. (Vladimir Miller MD) Any Olivarez Oct 09, 2016 10:46 Vladimir Miller MD Oct 11, 2016 13:20
[2016-10-09] MEDS ORDERED: VANCOMYCIN INJ 1,250 MG in SODIUM CHLOR 0.9% 250 ML INJ 250 ML IV ONE (11:00)
[2016-10-09] MEDS: amLODIPine BESYLATE 5 MG TAB PO SCH (11:25)
[2016-10-09] MEDS: hydrALAZINE HCL 25 MG TAB PO SCH ×3 (11:25→21:31)
[2016-10-09] MEDS: BENEPROTEIN POWDER 1 PACK G-TUBE SCH ×2 (12:58→18:00)
[2016-10-09] MEDS: METOCLOPRAMIDE HCL 10 MG/2 ML VIAL IV SCH (21:30)
[2016-10-09] MEDS: AZITHROMYCIN INJ 500 MG in SODIUM CHLOR 0.9% 250 ML INJ 250 ML IV SCH (21:30)
[2016-10-10] VITALS (18 sets, daily range): BP systolic 138–199; BP diastolic 68–96; PULSE 54–106; RESP 16–33; TEMP 98.4–99.2; O2SAT 82–99
[2016-10-10] MEDS: PIPERACIL-TAZO 4.5 GM PREMIX 100 ML IV SCH ×4 (00:27→17:34)
[2016-10-10] MEDS: hydrALAZINE HCL 20 MG/ML VIAL IV PUSH PRN ×3 (02:47→17:33)
[2016-10-10] MEDS: PROPOFOL 1000 MG/100 ML INJ 100 ML IV SCH (02:48)
[2016-10-10] MEDS: CHLORHEXIDINE GLUCONATE 2 % 1 PACK (2 CLOTHS) TOP SCH (04:00)
[2016-10-10] MEDS: METOCLOPRAMIDE HCL 10 MG/2 ML VIAL IV SCH ×3 (06:38→21:41)
[2016-10-10] MEDS: hydrALAZINE HCL 25 MG TAB PO SCH ×3 (06:38→21:42)
[2016-10-10] MEDS: DOCUSATE SODIUM 50 MG/SENNA 8.6 MG TAB PO SCH ×2 (09:00→21:00)
--- NOTE | 2016-10-10 09:03 | HHI.CCPN ---
Subjective Remarks/Hospital Course Elderly male presents for evaluation of altered mental status. He states that he stumbled 3 days ago and fell. He was laying on the floor since. Apparently , a friend found him today. The patient is unsure of his past medical history. Apparently, he has history of COPD and is on oxygen. He does not know what medications he is on. The patient knows his name, but does not know the year. He denies hitting his head or loss of conscious, but has erythema to the left forehead. Patient denies any chest pain or abdominal pain. No vomiting. He states that he was unable to get up, but will not tell me why. He might also have some history of hypertension, glaucoma. 10/07: Required intubation today for progressive respiratory failure. 10/08: Will aim for quick extubation now that MRI complete. Need sputum sample. 10/09: Tolerating SBTs. Push toward extubation. 10/10: Vigorous but confused. Zimmerman-sensitive staph in sputum, will narrow abx. Objective Vital Signs Date Time Temp Pulse Resp B/P Pulse Ox O2 Delivery O2 Flow Rate FiO2 10/10/16 07:43 35 10/10/16 07:29 96 10/10/16 06:00 67 10/10/16 04:00 98.7 16 138/68 10/09/16 19:00 Mechanical Ventilator 10/07/16 11:38 6.00 Intake and Output 10/09/16 10/09/16 10/10/16 08:00 16:00 00:00 Intake Total 1023 ml 1219 ml 903 ml Output Total 520 ml 162 ml 555 ml Balance 503 ml 1057 ml 348 ml Result Diagram: 10/09/16 0355 10/10/16 0529 Other Results Microbiology Date/Time Procedure Status Source Growth 10/07/16 14:00 Gram Stain - Final Complete Sputum Endotracheal 10/07/16 14:00 Sputum Culture - Final Complete Staphylococcus Aureus Imaging Last [address] 10/06/162037 Signed Impressions: Service Date/Time: Thursday, October 06, 2016 23:15 - CONCLUSION: Prominent amount of blood in the right ventricle and small amount of blood in the 3rd and left occipital horn ventricle. No parenchymal hemorrhage seen. No extra axial fluid collections. Tyrone Vivar MD Chest X-Ray 7/31/17 2038 Signed Impressions: Service Date/Time: Thursday, October 06, 2016 20:37 - CONCLUSION: Bilateral partially consolidative infiltrates lower medial right lung and lower lateral left lung. Tyrone Vivar MD Objective Remarks GENERAL: Elderly man on BiPAP, lethargic, confused. SKIN: Warm and dry. HEAD: Normocephalic. EYES: No scleral icterus. No injection or drainage. NECK: Supple, trachea midline. Orally intubated. CARDIOVASCULAR: Regular rate and rhythm without murmurs, gallops, or rubs. No JVD. RESPIRATORY: Breath sounds equal bilaterally. No accessory muscle use. GASTROINTESTINAL: Abdomen soft, non-tender, nondistended. MUSCULOSKELETAL: No cyanosis, or edema. BACK: Nontender without obvious deformity. No CVA tenderness. EXTREMITIES: Well perfused. NEURO: Nonfocal, moves all 4 vigorously when light. Opens eyes. A/P Assessment and Plan ICH - Unclear source - Atypical location - CTA to rule out AVM or aneurysm - Strict blood pressure control with SBP goal less than 150 - Coags within normal limits - Neurosurgery consult appreciated - Neuro checks per unit protocol - Repeat CT head in 24 hours - EVD placed to evacuate clot. 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 Probably not flow limiting. Overall impression: Critically ill with respiratory failure requiring mechanical ventilation. EVD placed for ventricular blood, try to wean vent and extubate. No aneurysm. Darrin Chavez MD Oct 10, 2016 09:03
[2016-10-10] MEDS: CHLORHEXIDINE 0.12% (ORAL KIT) 15 ML CUP MT SCH ×2 (09:24→20:00)
[2016-10-10] MEDS: FAMOTIDINE 20 MG/2 ML VIAL IV PUSH SCH ×2 (09:25→21:41)
[2016-10-10] MEDS: SODIUM CHLORIDE 0.9% FLUSH 10 ML FLUSH SCH ×2 (09:25→21:43)
[2016-10-10] MEDS: BENEPROTEIN POWDER 1 PACK G-TUBE SCH ×3 (09:25→18:00)
[2016-10-10] MEDS: amLODIPine BESYLATE 5 MG TAB PO SCH (09:25)
[2016-10-10] MEDS: SODIUM CHLOR 0.9% 1000 ML INJ 1,000 ML IV SCH ×2 (09:26→17:47)
[2016-10-10] MEDS ORDERED: POTASSIUM PHOSPHATE MONOBASIC 500 MG TAB PO/TUBE PRN (09:45)
[2016-10-10] MEDS ORDERED: MAGNESIUM SULFATE INJ 4 GM in SODIUM CHLORIDE 0.9% INJ 92 ML IV PRN (09:45)
[2016-10-10] MEDS ORDERED: DEXTROSE 50% IN WATER 50 ML VIAL(D50) IV PRN (09:45)
[2016-10-10] MEDS ORDERED: POTASSIUM PHOSPHATE INJ 30 MMOL in SODIUM CHLOR 0.9% 250 ML INJ 250 ML IV PRN (09:45)
[2016-10-10] MEDS ORDERED: SODIUM PHOSPHATE INJ 30 MMOL in SODIUM CHLOR 0.9% 250 ML INJ 240 ML IV PRN (09:45)
[2016-10-10] MEDS ORDERED: MAGNESIUM SULFATE INJ 2 GM in SODIUM CHLORIDE 0.9% INJ 96 ML IV PRN (09:45)
[2016-10-10] MEDS ORDERED: POTASSIUM PHOSPHATE MONOBASIC 500 MG TAB PO PRN (09:45)
[2016-10-10] MEDS ORDERED: MAGNESIUM OXIDE 400 MG TAB PO PRN (09:45)
[2016-10-10] MEDS ORDERED: POTASSIUM CHLOR 40 MEQ PREMIX 100 ML IV PRN (09:45)
[2016-10-10] MEDS ORDERED: POTASSIUM CHLOR 20 MEQ PREMIX 100 ML IV PRN ×2 (09:45)
[2016-10-10] MEDS ORDERED: GLUCAGON 1 MG/ML VIAL OTHER PRN (09:45)
[2016-10-10] MEDS ORDERED: POTASSIUM CHLORIDE 25 MEQ EFFERVESCENT TAB PO PRN (09:45)
[2016-10-10] MEDS: INSULIN ASPART SUPPLEMENTAL SCALE SQ SCH ×3 (10:00→21:42)
--- NOTE | 2016-10-10 10:06 | HHI.NSPN ---
(Any Olivarez) Note Status Status: Progress Note (Any Olivarez) Interval History Interval History Mr. Caal is a 81 year old male who presented for evaluation of altered mental status. Cannot obtain history from patient, however his close friend is at bedside who found the patient. His friend reports he last spoke with the patient 2-3 days ago. He was not answering his phone so he went to check on him and found the patient on the floor lying on his side. He was very confused and did not recognize him. He was taken to the ED. CT Head on arrival shows right intraventricular hemorrhage. He is not known to take blood thinners. His friend reports baseline he is normal besides being short of breath due to his COPD. Neurosurgical evaluation was requested. 10/08: awake, intubated on CPAP. MRI Brain completed. 10/09: s/p placement of ventriculostomy drain yesterday, intubated and sedated. 10/10: no output via EVD overnight, pt extubated this morning (Any Olivarez) Labs, Micro, & Vital Signs Results Date Time Temp Pulse Resp B/P Pulse Ox O2 Delivery O2 Flow Rate FiO2 10/10/16 07:43 35 10/10/16 07:29 96 35 10/10/16 07:27 97 35 10/10/16 06:00 67 10/10/16 04:08 96 35 10/10/16 04:00 98.7 73 16 138/68 95 10/10/16 04:00 35 10/10/16 04:00 73 10/10/16 02:00 77 10/10/16 00:09 99 35 10/10/16 00:00 98.7 75 16 156/74 97 10/10/16 00:00 35 10/10/16 00:00 72 10/09/16 22:00 69 10/09/16 20:00 66 10/09/16 20:00 98.6 66 16 126/63 95 10/09/16 20:00 35 10/09/16 19:45 96 35 10/09/16 19:00 97 Mechanical Ventilator 35 10/09/16 18:00 71 10/09/16 16:31 93 35 10/09/16 16:00 82 10/09/16 16:00 35 10/09/16 16:00 98.3 82 27 156/72 95 10/09/16 14:00 74 10/09/16 12:00 98.6 87 21 131/63 96 10/09/16 12:00 35 10/09/16 12:00 87 10/09/16 10:43 95 35 10/10/16 06:59 Intake Total 3165 ml Output Total 1017 ml Balance 2148 ml Constitutional Vital Signs Date Time Temp Pulse Resp B/P Pulse Ox O2 Delivery O2 Flow Rate FiO2 10/10/16 07:43 35 10/10/16 07:29 96 35 10/10/16 07:27 97 35 10/10/16 06:00 67 10/10/16 04:08 96 35 10/10/16 04:00 98.7 73 16 138/68 95 10/10/16 04:00 35 10/10/16 04:00 73 10/10/16 02:00 77 10/10/16 00:09 99 35 10/10/16 00:00 98.7 75 16 156/74 97 10/10/16 00:00 35 10/10/16 00:00 72 10/09/16 22:00 69 10/09/16 20:00 66 10/09/16 20:00 98.6 66 16 126/63 95 10/09/16 20:00 35 10/09/16 19:45 96 35 10/09/16 19:00 97 Mechanical Ventilator 35 10/09/16 18:00 71 10/09/16 16:31 93 35 10/09/16 16:00 82 10/09/16 16:00 35 10/09/16 16:00 98.3 82 27 156/72 95 10/09/16 14:00 74 10/09/16 12:00 98.6 87 21 131/63 96 10/09/16 12:00 35 10/09/16 12:00 87 10/09/16 10:43 95 35 10/10/16 06:59 Intake Total 3165 ml Output Total 1017 ml Balance 2148 ml (Any Olivarez) Review of Systems/Exam Exam Mr. Caal is extubated. Awake, eyes open, does not follow much commands. Nods weakly when asked questions. Right ventriculostomy drain secured in place, dressing is clean and dry. EVD at 0 cm H20, no drainage overnight. Ventriculostomy drain again flushed with NS without drainage. Cranial Nerves: Pupils 3 mm equal. Motor:generalized weakness with gross movements to all four extremities Cerebellar: cannot assess due current clinical condition. (Any Olivarez) Exam Mr. Caal is extubated. Awake, eyes open, does not follow much commands. Nods weakly when asked questions. Right ventriculostomy drain secured in place, dressing is clean and dry. EVD at 0 cm H20, no drainage overnight. Ventriculostomy drain again flushed with NS without drainage. Cranial Nerves: Pupils 3 mm equal. Motor:generalized weakness with gross movements to all four extremities Cerebellar: cannot assess due current clinical condition. (Vladimir Miller MD) Medications Current Medications Current Medications Medications (Trade) Dose Ordered Sig/Mario Route PRN Reason Start Time Stop Time Status Last Admin Dose Admin Sodium Chloride (NS 1000 ml Inj) 1,000 ml @ 100 mls/hr Q10H IV 10/06/16 23:47 10/10/16 09:26 Sodium Chloride (NS Flush) 2 ml UNSCH PRN .XX FLUSH AFTER USING IV ACCESS 10/07/16 00:00 Sodium Chloride (NS Flush) 2 ml BID .XX 10/07/16 09:00 10/10/16 09:25 Acetaminophen (Tylenol) 650 mg Q6H PRN PO PAIN 1-5 AND/OR FEVER >101F 10/07/16 00:00 Morphine Sulfate (Morphine Inj) 2 mg Q2H PRN IV PAIN SCALE 6 TO 10 10/07/16 00:00 10/07/16 01:05 Ondansetron HCl (Zofran Inj) 4 mg Q6H PRN IV NAUSEA OR VOMITING 10/07/16 00:00 10/07/16 01:05 Miscellaneous Information 1 Q361D XX 10/07/16 00:00 Chlorhexidine Gluconate (Chlorhexidine 2% Cloth) 3 pack Taper DAILY@04 TOP 10/07/16 04:00 10/03/17 03:59 10/10/16 04:00 Chlorhexidine Gluconate (Chlorhexidine 2% Cloth) 3 pack UNSCH PRN TOP HYGIENIC CARE 10/07/16 00:00 Senna/Docusate Sodium (Michelle-Colace) 1 tab BID PO 10/07/16 09:00 10/09/16 20:10 Magnesium Hydroxide (Milk Of Magnshaun Liq) 30 ml Q12H PRN PO MILD - MODERATE CONSTIPATION 10/07/16 00:00 Sennosides (Senokot) 17.2 mg Q12H PRN PO MODERATE - SEVERE CONSTIPATION 10/07/16 00:00 Bisacodyl (Dulcolax Supp) 10 mg DAILY PRN RECTAL SEVERE CONSITIPATION 10/07/16 00:00 Lactulose 30 ml 30 ml DAILY PRN PO SEVERE CONSITIPATION 10/07/16 00:00 Azithromycin 500 mg/Sodium Chloride 250 ml @ 250 mls/hr Q24H IV 10/07/16 22:00 10/09/16 21:30 Piperacillin Sod/ Tazobactam Sod (Zosyn 4.5 Gm Premix) 100 ml @ 200 mls/hr Q6H IV 10/07/16 01:00 10/10/16 06:39 Hydralazine HCl (Apresoline Inj) 20 mg Q4H PRN IV PUSH SBP>140, DBP>90 10/07/16 03:45 10/10/16 02:47 Labetalol HCl (Trandate Inj) 10 mg Q4H PRN IV PUSH SBP>140, DBP>90 10/07/16 03:45 10/09/16 09:27 Chlorhexidine Gluconate 15 ml 15 ml BID@08,20 MT 10/07/16 20:00 10/10/16 09:24 Propofol (Diprivan 1000 Mg/100ml Inj) 100 ml @ 0 mls/hr TITRATE IV 10/07/16 12:15 10/10/16 02:48 Amlodipine Besylate (Norvasc) 5 mg DAILY PO 10/09/16 09:30 10/10/16 09:25 Hydralazine HCl (Apresoline) 25 mg Q8HR PO 10/09/16 09:30 10/10/16 06:38 Hydralazine HCl (Apresoline Inj) 10 mg Q1H PRN IV PUSH SBP > 160 10/09/16 09:30 10/10/16 08:06 Protein (Beneprotein Powder) 1 pack TID G-TUBE 10/09/16 13:00 10/10/16 09:25 Metoclopramide HCl (Reglan Inj) 10 mg Q8HR IV 10/09/16 22:00 10/10/16 06:38 Famotidine (Pepcid Inj) 10 mg Q12HR IV PUSH 10/10/16 09:00 10/10/16 09:25 Dextrose (D50w (Vial) Inj) 50 ml UNSCH PRN IV HYPOGLYCEMIA-SEE COMMENTS 10/10/16 09:45 Glucagon (Glucagon Inj) 1 mg UNSCH PRN OTHER HYPOGLYCEMIA-SEE COMMENTS 10/10/16 09:45 Insulin Aspart 1 1 Q6H SQ 10/10/16 10:00 Potassium Chloride 100 ml @ 50 mls/hr Q2H PRN IV For Potassium 2.8 - 3.2 mEq/L 10/10/16 09:45 Potassium Chloride (KCl 20 Meq Premix Inj) 100 ml @ 50 mls/hr Q2H PRN IV For Potassium 2.8 - 3.2 mEq/L 10/10/16 09:45 Potassium Bicarb/ Potassium Chloride 50 meq 50 meq UNSCH PRN PO For Potassium 3.3 - 3.5 mEq/L 10/10/16 09:45 Potassium Chloride 100 ml @ 25 mls/hr UNSCH PRN IV For Potassium 3.3 - 3.5 mEq/L 10/10/16 09:45 Potassium Chloride 100 ml @ 50 mls/hr Q2H PRN IV For Potassium 3.3 - 3.5 mEq/L 10/10/16 09:45 Magnesium Sulfate/ Sodium Chloride (Magnesium Sulfate Inj/NS Inj) 100 ml @ 50 mls/hr UNSCH PRN IV For Magnesium 0.9 - 1.1 mg/dL 10/10/16 09:45 Magnesium Oxide 800 mg 800 mg UNSCH PRN PO For Magnesium 1.2 - 1.6 mg/dL 10/10/16 09:45 Magnesium Sulfate/ Sodium Chloride (Magnesium Sulfate Inj/NS Inj) 100 ml @ 50 mls/hr UNSCH PRN IV For Magnesium 1.2 - 1.6 mg/dL 10/10/16 09:45 Potassium Phosphate 2000 mg 2,000 mg Q4H PRN PO For Phosphorus < 2.5 mg/dL 10/10/16 09:45 Sodium Phosphate/ Sodium Chloride (Sodium Phosphate Inj/NS 250 ml Inj) 250 ml @ 42 mls/hr UNSCH PRN IV For Phosphorus < 2.5 mg/dL 10/10/16 09:45 Potassium Phosphate 2000 mg 2,000 mg UNSCH PRN PO/TUBE SEE LABEL COMMENTS 10/10/16 09:45 Potassium Phosphate/Sodium Chloride (Potassium Phosphate Inj/NS 250 ml Inj) 260 ml @ 42 mls/hr UNSCH PRN IV SEE LABEL COMMENTS 10/10/16 09:45 (Any Olivarez) Medical Decision Making MDM Remarks 81 y/o male presented for AMS CT Brain on arrival showed extensive right intraventricular hemorrhage, s/p placement of ventriculostomy drain 10/08/16 respiratory failure s/p intubation, extubated 10/10/16 MRI Brain 10/07/16 showed 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, no evidence of other masses or tumors (Any Olivarez) Plan Plan Remarks cont EVD level at 0 cm H20, cont monitor EVD output for now per Dr. Miller critical care management, cont serial neuro checks nonchemical dvt prophylaxis in view of ICH protonix for stress ulcer proph (Any Olivarez) Attending Statement Neuro. neuro checks in a serial fashion. Extensive intraventricular hemorrhage with casting of the ventricles. If his condition deteriorates, will benefit by a ventriculostomy catheter. MRI of brain ordered Pulmonary. aggressive pulmonary toilette, nasotracheal suction, and breathing treatments with nebulizers. PT and OT evaluation Nutrition. Oral diet Renal. monitor closely urine output, BUN and creatinine Endocrine. Monitor serial Acu checks and SSI as needed ID monitor for signs of infection Protonix for stress ulcer prophylaxis Fritz hose and SCD's for DVT prophylaxis The exam, history, and the medical decision-making described in the above note were completed with the assistance of the mid-level provider. I reviewed and agree with the findings presented. I attest that I had a [id number] encounter with the patient on the same day, and personally performed and documented my assessment and findings in the medical record. (Vladimir Miller MD) Any Olivarez Oct 10, 2016 10:06 Vladimir Miller MD Oct 11, 2016 13:20
[2016-10-10] MEDS: RESP: ALBUTEROL 2.5 MG/IPRATROPIUM 0.5 MG NEB (SCH) NEB ×3 (15:24→23:35)
[2016-10-10] MEDS: LABETALOL HCL 100 MG/20 ML VIAL IV PUSH PRN (20:19)
[2016-10-10] MEDS: AZITHROMYCIN INJ 500 MG in SODIUM CHLOR 0.9% 250 ML INJ 250 ML IV SCH (21:42)
[2016-10-11] VITALS (15 sets, daily range): BP systolic 123–182; BP diastolic 61–86; PULSE 85–104; RESP 27–38; TEMP 98–98.7; O2SAT 90–98
[2016-10-11] MEDS: PIPERACIL-TAZO 4.5 GM PREMIX 100 ML IV SCH ×4 (00:44→18:45)
[2016-10-11] MEDS: RESP: ALBUTEROL 2.5 MG/IPRATROPIUM 0.5 MG NEB (SCH) NEB ×5 (03:10→20:39)
[2016-10-11] MEDS: INSULIN ASPART SUPPLEMENTAL SCALE SQ SCH ×4 (04:00→22:00)
[2016-10-11] MEDS: CHLORHEXIDINE GLUCONATE 2 % 1 PACK (2 CLOTHS) TOP SCH (04:00)
[2016-10-11] MEDS: SODIUM CHLOR 0.9% 1000 ML INJ 1,000 ML IV SCH ×2 (04:11→14:54)
[2016-10-11] MEDS: hydrALAZINE HCL 25 MG TAB PO SCH ×3 (05:26→22:06)
[2016-10-11] MEDS: METOCLOPRAMIDE HCL 10 MG/2 ML VIAL IV SCH (05:26)
[2016-10-11] MEDS: LABETALOL HCL 100 MG/20 ML VIAL IV PUSH PRN ×2 (06:03→13:03)
[2016-10-11] MEDS: FAMOTIDINE 20 MG/2 ML VIAL IV PUSH SCH (08:11)
[2016-10-11] MEDS: MAGNESIUM SULFAT 1 GM PREMIX 100 ML x2 bags IV SCH ×2 (08:11→09:16)
[2016-10-11] MEDS: BENEPROTEIN POWDER 1 PACK G-TUBE SCH ×3 (08:19→18:45)
[2016-10-11] MEDS: SODIUM CHLORIDE 0.9% FLUSH 10 ML FLUSH SCH ×2 (08:19→20:27)
[2016-10-11] MEDS: CHLORHEXIDINE 0.12% (ORAL KIT) 15 ML CUP MT SCH ×2 (08:19→20:00)
[2016-10-11] MEDS: DOCUSATE SODIUM 50 MG/SENNA 8.6 MG TAB PO SCH ×2 (08:20→20:27)
[2016-10-11] MEDS: amLODIPine BESYLATE 5 MG TAB PO SCH (08:20)
[2016-10-11] MEDS: hydrALAZINE HCL 20 MG/ML VIAL IV PUSH PRN ×2 (09:42→16:03)
--- NOTE | 2016-10-11 09:57 | HHI.CCPN ---
Subjective Remarks/Hospital Course Elderly male presents for evaluation of altered mental status. He states that he stumbled 3 days ago and fell. He was laying on the floor since. Apparently , a friend found him today. The patient is unsure of his past medical history. Apparently, he has history of COPD and is on oxygen. He does not know what medications he is on. The patient knows his name, but does not know the year. He denies hitting his head or loss of conscious, but has erythema to the left forehead. Patient denies any chest pain or abdominal pain. No vomiting. He states that he was unable to get up, but will not tell me why. He might also have some history of hypertension, glaucoma. 10/07: Required intubation today for progressive respiratory failure. 10/08: Will aim for quick extubation now that MRI complete. Need sputum sample. 10/09: Tolerating SBTs. Push toward extubation. 10/10: Vigorous but confused. Zimmerman-sensitive staph in sputum, will narrow abx. 10/11: extubated, stable from pulmonary standpoint. still confused. EVD not draining. Objective Vital Signs Date Time Temp Pulse Resp B/P Pulse Ox O2 Delivery O2 Flow Rate FiO2 10/11/16 07:52 94 Nasal Cannula 4.00 10/11/16 06:00 85 10/11/16 04:00 98.0 38 161/86 10/10/16 08:00 35 Intake and Output 10/10/16 10/10/16 10/11/16 08:00 16:00 00:00 Intake Total 1043 ml 1037 ml 1097 ml Output Total 300 ml 675 ml 1550 ml Balance 743 ml 362 ml -453 ml Result Diagram: 10/09/16 0355 10/11/16 0019 Other Results Microbiology Date/Time Procedure Status Source Growth 10/08/16 13:30 Gram Stain - Final Complete Cerebral Spinal Fluid Shunt Fluid 10/08/16 13:30 CSF Culture - Final Complete Cerebral Spinal Fluid Shunt Fluid NO GROWTH IN 72 HOURS Imaging Last [address] 10/06/162037 Signed Impressions: Service Date/Time: Thursday, October 06, 2016 23:15 - CONCLUSION: Prominent amount of blood in the right ventricle and small amount of blood in the 3rd and left occipital horn ventricle. No parenchymal hemorrhage seen. No extra axial fluid collections. Tyrone Vivar MD Chest X-Ray 10/06/162037 Signed Impressions: Service Date/Time: Thursday, October 06, 2016 20:37 - CONCLUSION: Bilateral partially consolidative infiltrates lower medial right lung and lower lateral left lung. Tyrone Vivar MD Objective Remarks GENERAL: Elderly man on nc o2, slightly somnolent but more awake than yesterday , persistently confused. SKIN: Warm and dry. HEAD: Normocephalic. EYES: No scleral icterus. No injection or drainage. NECK: trachea midline. no jvd. CARDIOVASCULAR: Regular rate and rhythm. sinus by tele. RESPIRATORY: Breath sounds equal bilaterally. No accessory muscle use. GASTROINTESTINAL: Abdomen soft, non-tender, nondistended. MUSCULOSKELETAL: No cyanosis, or edema. EXTREMITIES: Well perfused. NEURO: Nonfocal, moves all 4 vigorously. Opens eyes. Does not follow commands. 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 ICH score is 4, suggesting a poor prognosis. Patient clinically stabilizing out, though somnolence and confusion persists and patient remains very high risk for clinical decompensation. Discussed care with neurosurgery: plan for repeat head CT today and if vents are stable in size, consider d/c non-functioning EVD, if hydrocephalus persists, will need new EVD to assist in ventricular drainage. Complex medical problems which are still actively concerning and ongoing. ICH Acute encephalopathy - Unclear source - Atypical location - Strict blood pressure control with SBP goal less than 150 - Coags within normal limits - Neurosurgery consulted - Neuro checks per unit protocol - head CT today - EVD nonfunctioning. will need to decide d/c vs. replace. Hypertension - Hydralazine and labetalol when necessary to keep SBP less than 150 - Norvasc, add po hydralazine Hypothyroidism - Resume home dose of levothyroxine when known MSSA Pneumonia - Zithromax and Zosyn - d/c azithro. - urine culture pending. after 48h, will de-escalate abx to Ancef. - Staph in sputum, MSSA DVT GI prophylaxis - Teds SCDs - No pharmacological DVT prophylaxis due to - IV Pepcid Carotid stenosis -- 50% Right ICA stenosis. Probably not flow limiting. Eloy Ocasio MD Oct 11, 2016 09:57
[2016-10-11 11:04] LABS: AUTOMATED NEUTROPHIL # 15.9 TH/MM3 (1.8-7.7); BASOPHIL % 0.3 % (0.0-2.0); EOSINOPHIL # 0.4 TH/MM3 (0-0.4); EOSINOPHIL % 2.4 % (0.0-4.0); HEMATOCRIT 46.8 % (39.0-51.0); LYMPH % 4.3 % (9.0-44.0); LYMPHOCYTE # 0.8 TH/MM3 (1.0-4.8); MEAN CORPUSCULAR HEMOGLOBIN 31.1 PG (27.0-34.0); MEAN CORPUSCULAR HGB CONC 33.1 % (32.0-36.0); PLATELET COUNT 189 TH/MM3 (150-450); RED BLOOD COUNT 4.98 MIL/MM3 (4.50-5.90); RED CELL DISTRIBUTION WIDTH 13.7 % (11.6-17.2); WHITE BLOOD COUNT 18.6 TH/MM3 (4.0-11.0)
[2016-10-11 11:07] LABS: HEMO FLAGS AUTO DIFF
[2016-10-11 11:32] LABS: BICARBONATE 27.7 MEQ/L (21.0-32.0); MAGNESIUM 2.8 MG/DL (1.5-2.5); POTASSIUM 3.4 MEQ/L (3.5-5.1)
--- NOTE | 2016-10-11 11:33 | RADRPT ---
EXAM DATE/TIME: 10/11/2016 11:09 [facility] COMPARISON: CT BRAIN W/O CONTRAST, October 06, 2016, 23:15. INDICATIONS : Hydrocephalus. RADIATION DOSE: 29.19 CTDIvol (mGy) MEDICAL HISTORY : Hypertension. Chronic obstructive pulmonary disease. SURGICAL HISTORY : None. ENCOUNTER: Initial ACUITY: 1 day PAIN SCALE: Non-responsive LOCATION: cranial TECHNIQUE: Multiple contiguous axial images were obtained of the head. Using automated exposure control and adj ustment of the mA and/or kV according to patient size, radiation dose was kept as low as reasonably a chievable to obtain optimal diagnostic quality images. DICOM format image data is available electro nically for review and comparison. FINDINGS: There is mild cerebral atrophy. Acute blood products fill most of the right lateral ventricle and blo od products layer dependently in the left occipital horn. There is a right frontal ventricular shunt present with distal tip in the left lateral ventricle. Ventricles are similar in size to the prior st udy. There is no midline shift or herniation. Nasogastric tube is present. CONCLUSION: A right ventricular shunt is present and ventricular system is stable in size. Acute blood products a re again present within the ventricles bilaterally. Abel Lemus MD on October 11, 2016 at 11:29 Board Certified Radiologist. This report was verified electronically.
--- NOTE | 2016-10-11 11:36 | HHI.NSPN ---
(Any Olivarez) Note Status Status: Progress Note (Any Olivarez) Interval History Interval History Mr. Caal is a 81 year old male who presented for evaluation of altered mental status. Cannot obtain history from patient, however his close friend is at bedside who found the patient. His friend reports he last spoke with the patient 2-3 days ago. He was not answering his phone so he went to check on him and found the patient on the floor lying on his side. He was very confused and did not recognize him. He was taken to the ED. CT Head on arrival shows right intraventricular hemorrhage. He is not known to take blood thinners. His friend reports baseline he is normal besides being short of breath due to his COPD. Neurosurgical evaluation was requested. 10/08: awake, intubated on CPAP. MRI Brain completed. 10/09: s/p placement of ventriculostomy drain yesterday, intubated and sedated. 10/10: no output via EVD overnight, pt extubated this morning 10/11: remains without drainage out EVD overnight, f/u CT Head this morning with stable ventricles (Any Olivarez) Labs, Micro, & Vital Signs Results Date Time Temp Pulse Resp B/P Pulse Ox O2 Delivery O2 Flow Rate FiO2 10/11/16 07:52 94 Nasal Cannula 4.00 10/11/16 07:00 94 Nasal Cannula 4.00 10/11/16 06:00 85 10/11/16 04:00 98.0 104 38 161/86 95 10/11/16 04:00 104 10/11/16 02:00 103 10/11/16 00:00 98.7 99 27 169/81 98 10/11/16 00:00 99 10/10/16 22:00 90 10/10/16 20:00 98.6 76 33 189/91 97 10/10/16 20:00 76 10/10/16 19:31 92 Nasal Cannula 5.00 10/10/16 19:00 97 Mechanical Ventilator 6.00 Nasal Cannula 10/10/16 18:00 105 10/10/16 16:00 98.4 105 31 169/84 93 10/10/16 16:00 104 10/10/16 14:00 102 10/10/16 12:00 106 10/10/16 12:00 99.2 106 32 154/72 98 10/11/16 07:00 Intake Total 3699 ml Output Total 5011 ml Balance -1312 ml Constitutional Vital Signs Date Time Temp Pulse Resp B/P Pulse Ox O2 Delivery O2 Flow Rate FiO2 10/11/16 07:52 94 Nasal Cannula 4.00 10/11/16 07:00 94 Nasal Cannula 4.00 10/11/16 06:00 85 10/11/16 04:00 98.0 104 38 161/86 95 10/11/16 04:00 104 10/11/16 02:00 103 10/11/16 00:00 98.7 99 27 169/81 98 10/11/16 00:00 99 10/10/16 22:00 90 10/10/16 20:00 98.6 76 33 189/91 97 10/10/16 20:00 76 10/10/16 19:31 92 Nasal Cannula 5.00 10/10/16 19:00 97 Mechanical Ventilator 6.00 Nasal Cannula 10/10/16 18:00 105 10/10/16 16:00 98.4 105 31 169/84 93 10/10/16 16:00 104 10/10/16 14:00 102 10/10/16 12:00 106 10/10/16 12:00 99.2 106 32 154/72 98 10/11/16 07:00 Intake Total 3699 ml Output Total 5011 ml Balance -1312 ml (Any Olivarez) Review of Systems/Exam Exam Mr. Caal is extubated. Awake, eyes open, does not follow much commands. Nods weakly when asked questions. Right ventriculostomy drain secured in place, dressing is clean and dry. EVD at 0 cm H20, no drainage overnight. Ventriculostomy drain again flushed with NS without drainage. Cranial Nerves: Pupils 3 mm equal. Motor:generalized weakness with gross movements to all four extremities Cerebellar: cannot assess due current clinical condition. (Any Olivarez) Exam Mr. Caal is extubated. Awake, eyes open, does not follow much commands. Nods weakly when asked questions. Right ventriculostomy drain secured in place, dressing is clean and dry. EVD at 0 cm H20, no drainage overnight. Ventriculostomy drain again flushed with NS without drainage. Cranial Nerves: Pupils 3 mm equal. Motor:generalized weakness with gross movements to all four extremities Cerebellar: cannot assess due current clinical condition. (Vladimir Miller MD) Medications Current Medications Current Medications Medications (Trade) Dose Ordered Sig/Mario Route PRN Reason Start Time Stop Time Status Last Admin Dose Admin Sodium Chloride (NS 1000 ml Inj) 1,000 ml @ 100 mls/hr Q10H IV 10/06/16 23:47 10/11/16 04:11 Sodium Chloride (NS Flush) 2 ml UNSCH PRN .XX FLUSH AFTER USING IV ACCESS 10/07/16 00:00 Sodium Chloride (NS Flush) 2 ml BID .XX 10/07/16 09:00 10/11/16 08:19 Acetaminophen (Tylenol) 650 mg Q6H PRN PO PAIN 1-5 AND/OR FEVER >101F 10/07/16 00:00 Morphine Sulfate (Morphine Inj) 2 mg Q2H PRN IV PAIN SCALE 6 TO 10 10/07/16 00:00 10/07/16 01:05 Ondansetron HCl (Zofran Inj) 4 mg Q6H PRN IV NAUSEA OR VOMITING 10/07/16 00:00 10/07/16 01:05 Miscellaneous Information 1 Q361D XX 10/07/16 00:00 Chlorhexidine Gluconate (Chlorhexidine 2% Cloth) 3 pack Taper DAILY@04 TOP 10/07/16 04:00 10/03/17 03:59 10/11/16 04:00 Chlorhexidine Gluconate (Chlorhexidine 2% Cloth) 3 pack UNSCH PRN TOP HYGIENIC CARE 10/07/16 00:00 Senna/Docusate Sodium (Michelle-Colace) 1 tab BID PO 10/07/16 09:00 10/09/16 20:10 Magnesium Hydroxide (Milk Of Magnesia Liq) 30 ml Q12H PRN PO MILD - MODERATE CONSTIPATION 10/07/16 00:00 Sennosides (Senokot) 17.2 mg Q12H PRN PO MODERATE - SEVERE CONSTIPATION 10/07/16 00:00 Bisacodyl (Dulcolax Supp) 10 mg DAILY PRN RECTAL SEVERE CONSITIPATION 10/07/16 00:00 Lactulose 30 ml 30 ml DAILY PRN PO SEVERE CONSITIPATION 10/07/16 00:00 Piperacillin Sod/ Tazobactam Sod (Zosyn 4.5 Gm Premix) 100 ml @ 200 mls/hr Q6H IV 10/07/16 01:00 10/11/16 06:02 Hydralazine HCl (Apresoline Inj) 20 mg Q4H PRN IV PUSH SBP>140, DBP>90 10/07/16 03:45 10/10/16 02:47 Labetalol HCl (Trandate Inj) 10 mg Q4H PRN IV PUSH SBP>140, DBP>90 10/07/16 03:45 10/11/16 06:03 Chlorhexidine Gluconate (Peridex 0.12% Liq) 15 ml BID@08,20 MT 10/07/16 20:00 10/11/16 08:19 Amlodipine Besylate (Norvasc) 5 mg DAILY PO 10/09/16 09:30 10/11/16 08:20 Hydralazine HCl (Apresoline) 25 mg Q8HR PO 10/09/16 09:30 10/11/16 05:26 Hydralazine HCl (Apresoline Inj) 10 mg Q1H PRN IV PUSH SBP > 160 10/09/16 09:30 10/11/16 09:42 Protein (Beneprotein Powder) 1 pack TID G-TUBE 10/09/16 13:00 10/11/16 08:19 Dextrose (D50w (Vial) Inj) 50 ml UNSCH PRN IV HYPOGLYCEMIA-SEE COMMENTS 10/10/16 09:45 Glucagon (Glucagon Inj) 1 mg UNSCH PRN OTHER HYPOGLYCEMIA-SEE COMMENTS 10/10/16 09:45 Insulin Aspart 1 1 Q6H SQ 10/10/16 10:00 10/10/16 16:00 Potassium Chloride 100 ml @ 50 mls/hr Q2H PRN IV For Potassium 2.8 - 3.2 mEq/L 10/10/16 09:45 Potassium Chloride (KCl 20 Meq Premix Inj) 100 ml @ 50 mls/hr Q2H PRN IV For Potassium 2.8 - 3.2 mEq/L 10/10/16 09:45 10/10/16 10:19 Potassium Bicarb/ Potassium Chloride 50 meq 50 meq UNSCH PRN PO For Potassium 3.3 - 3.5 mEq/L 10/10/16 09:45 Potassium Chloride 100 ml @ 25 mls/hr UNSCH PRN IV For Potassium 3.3 - 3.5 mEq/L 10/10/16 09:45 Potassium Chloride 100 ml @ 50 mls/hr Q2H PRN IV For Potassium 3.3 - 3.5 mEq/L 10/10/16 09:45 Magnesium Sulfate/ Sodium Chloride (Magnesium Sulfate Inj/NS Inj) 100 ml @ 50 mls/hr UNSCH PRN IV For Magnesium 0.9 - 1.1 mg/dL 10/10/16 09:45 Magnesium Oxide 800 mg 800 mg UNSCH PRN PO For Magnesium 1.2 - 1.6 mg/dL 10/10/16 09:45 Magnesium Sulfate/ Sodium Chloride (Magnesium Sulfate Inj/NS Inj) 100 ml @ 50 mls/hr UNSCH PRN IV For Magnesium 1.2 - 1.6 mg/dL 10/10/16 09:45 Potassium Phosphate 2000 mg 2,000 mg Q4H PRN PO For Phosphorus < 2.5 mg/dL 10/10/16 09:45 Sodium Phosphate/ Sodium Chloride (Sodium Phosphate Inj/NS 250 ml Inj) 250 ml @ 42 mls/hr UNSCH PRN IV For Phosphorus < 2.5 mg/dL 10/10/16 09:45 Potassium Phosphate 2000 mg 2,000 mg UNSCH PRN PO/TUBE SEE LABEL COMMENTS 10/10/16 09:45 Potassium Phosphate/Sodium Chloride (Potassium Phosphate Inj/NS 250 ml Inj) 260 ml @ 42 mls/hr UNSCH PRN IV SEE LABEL COMMENTS 10/10/16 09:45 Famotidine (Pepcid Liq) 20 mg BID NG 10/11/16 21:00 (Any Olivarez) Medical Decision Making MDM Remarks 81 y/o male presented for AMS CT Brain on arrival showed extensive right intraventricular hemorrhage, s/p placement of ventriculostomy drain 10/08/16 respiratory failure s/p intubation, extubated 10/10/16 MRI Brain 10/07/16 showed 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, no evidence of other masses or tumors nondraining EVD drain, f/u CT Head 10/11 stable ventricle size, no evidence of worsening hydrocephalus stable right IVH (Any Olivarez) Plan Plan Remarks stable f/u CT Head, no evidence of worsening hydrocephalus, dc right EVD, cont neuro checks critical care management, cont serial neuro checks nonchemical dvt prophylaxis in view of ICH protonix for stress ulcer proph (Any Olivarez) Attending Statement Neuro. neuro checks in a serial fashion. Extensive intraventricular hemorrhage with casting of the ventricles. I reviewd his follow up CT of the brain, which is stable. Pulmonary. aggressive pulmonary toilette, nasotracheal suction, and breathing treatments with nebulizers. PT and OT evaluation Nutrition. Oral diet Renal. monitor closely urine output, BUN and creatinine Endocrine. Monitor serial Acu checks and SSI as needed ID monitor for signs of infection Protonix for stress ulcer prophylaxis Fritz hose and SCD's for DVT prophylaxis The exam, history, and the medical decision-making described in the above note were completed with the assistance of the mid-level provider. I reviewed and agree with the findings presented. I attest that I had a [id number] encounter with the patient on the same day, and personally performed and documented my assessment and findings in the medical record. (Vladimir Miller MD) Any Olivarez Oct 11, 2016 11:36 Vladimir Miller MD Oct 11, 2016 13:22
[2016-10-11 11:49] LABS: EOSINOPHILS 4 % (0-4); METAMYELOCYTES 1 % (0-1); NEUTROPHIL # MANUAL DIFF 15.6 TH/MM3 (1.8-7.7); PLATELET ESTIMATE SMEAR NORMAL (NORMAL); PLATELET MORPHOLOGY NORMAL (NORMAL); POLYS (SEG NEUTROPHILS) 83 % (16-70); SCAN/DIFF FINAL DIFF MANUAL; WBC DIFF SAMPLE 100
--- NOTE | 2016-10-11 13:25 | EKG ---
Date Performed: 10/11/2016 Time Performed: 00:16:50 PTAGE: 81 years EKG: Sinus tachycardia with PVC(s). Lead(s) unsuitable for analysis: V6 Leftward axis Left bundl e branch block Abnormal ECG PREVIOUS TRACING : 10/06/2016 20.35.26 Since previous tracing, no significant change noted DOCTOR: Robbin Kay Interpretating Date/Time 10/11/2016 13:24:26
[2016-10-11] MEDS: POTASSIUM CHLOR 40 MEQ PREMIX 100 ML IV PRN (13:26)
[2016-10-11] MEDS: FAMOTIDINE 40 MG/5 ML LIQ 50 ML BTL NG SCH (20:26)
[2016-10-12] VITALS (15 sets, daily range): BP systolic 163–188; BP diastolic 75–85; PULSE 78–101; RESP 21–40; TEMP 98–99.3; O2SAT 91–96
[2016-10-12] MEDS: RESP: ALBUTEROL 2.5 MG/IPRATROPIUM 0.5 MG NEB (SCH) NEB ×6 (00:10→19:50)
[2016-10-12] MEDS: PIPERACIL-TAZO 4.5 GM PREMIX 100 ML IV SCH ×2 (00:57→07:00)
[2016-10-12] MEDS: SODIUM CHLOR 0.9% 1000 ML INJ 1,000 ML IV SCH (00:57)
[2016-10-12] MEDS: CHLORHEXIDINE GLUCONATE 2 % 1 PACK (2 CLOTHS) TOP SCH (04:00)
[2016-10-12] MEDS: hydrALAZINE HCL 25 MG TAB PO SCH ×3 (05:23→20:35)
[2016-10-12 06:21] LABS: HEMATOCRIT 45.4 % (39.0-51.0); MEAN CELL VOLUME 95.6 FL (80.0-100.0); MEAN CORPUSCULAR HEMOGLOBIN 30.5 PG (27.0-34.0); MEAN CORPUSCULAR HGB CONC 31.9 % (32.0-36.0); PLATELET COUNT 188 TH/MM3 (150-450); RED BLOOD COUNT 4.75 MIL/MM3 (4.50-5.90); REVIEW FLAG FINAL; WHITE BLOOD COUNT 16.5 TH/MM3 (4.0-11.0)
[2016-10-12] MEDS: FAMOTIDINE 40 MG/5 ML LIQ 50 ML BTL NG SCH ×2 (08:14→20:35)
[2016-10-12] MEDS: CHLORHEXIDINE 0.12% (ORAL KIT) 15 ML CUP MT SCH ×2 (08:15→20:34)
[2016-10-12] MEDS: DOCUSATE SODIUM 50 MG/SENNA 8.6 MG TAB PO SCH ×2 (08:15→20:35)
[2016-10-12] MEDS: SODIUM CHLORIDE 0.9% FLUSH 10 ML FLUSH SCH ×2 (08:15→20:34)
[2016-10-12] MEDS: amLODIPine BESYLATE 5 MG TAB PO SCH (08:15)
[2016-10-12] MEDS: BENEPROTEIN POWDER 1 PACK G-TUBE SCH ×3 (08:15→18:00)
[2016-10-12] MEDS: hydrALAZINE HCL 20 MG/ML VIAL IV PUSH PRN ×2 (08:16→11:34)
--- NOTE | 2016-10-12 09:45 | HHI.CCPN ---
Subjective Remarks/Hospital Course Elderly male presents for evaluation of altered mental status. He states that he stumbled 3 days ago and fell. He was laying on the floor since. Apparently , a friend found him today. The patient is unsure of his past medical history. Apparently, he has history of COPD and is on oxygen. He does not know what medications he is on. The patient knows his name, but does not know the year. He denies hitting his head or loss of conscious, but has erythema to the left forehead. Patient denies any chest pain or abdominal pain. No vomiting. He states that he was unable to get up, but will not tell me why. He might also have some history of hypertension, glaucoma. 10/07: Required intubation today for progressive respiratory failure. 10/08: Will aim for quick extubation now that MRI complete. Need sputum sample. 10/09: Tolerating SBTs. Push toward extubation. 10/10: Vigorous but confused. Zimmerman-sensitive staph in sputum, will narrow abx. 10/11: extubated, stable from pulmonary standpoint. still confused. EVD not draining. 10/12: EVD removed. head CT stable. neuro exam stable. Objective Vital Signs Date Time Temp Pulse Resp B/P Pulse Ox O2 Delivery O2 Flow Rate FiO2 10/12/16 08:03 94 Nasal Cannula 4.00 10/12/16 06:00 78 10/12/16 04:00 99.3 21 182/85 10/10/16 08:00 35 Intake and Output 10/11/16 10/11/16 10/11/16 07:59 15:59 23:59 Intake Total 1565 ml 1867 ml 1192 ml Output Total 2786 ml 1308 ml 770 ml Balance -1221 ml 559 ml 422 ml Result Diagram: 10/12/16 0441 10/11/16 2325 Imaging Last [address] 10/06/162037 Signed Impressions: Service Date/Time: Thursday, October 06, 2016 23:15 - CONCLUSION: Prominent amount of blood in the right ventricle and small amount of blood in the 3rd and left occipital horn ventricle. No parenchymal hemorrhage seen. No extra axial fluid collections. Tyrone Vivar MD Chest X-Ray 10/06/162037 Signed Impressions: Service Date/Time: Thursday, October 06, 2016 20:37 - CONCLUSION: Bilateral partially consolidative infiltrates lower medial right lung and lower lateral left lung. Tyrone Vivar MD Objective Remarks GENERAL: Elderly man on nc o2, slightly somnolent but more awake than yesterday , persistently confused. SKIN: Warm and dry. HEAD: Normocephalic. EYES: No scleral icterus. No injection or drainage. NECK: trachea midline. no jvd. CARDIOVASCULAR: Regular rate and rhythm. sinus by tele. RESPIRATORY: Breath sounds equal bilaterally. No accessory muscle use. GASTROINTESTINAL: Abdomen soft, non-tender, nondistended. MUSCULOSKELETAL: No cyanosis, or edema. EXTREMITIES: Well perfused. NEURO: Nonfocal, moves all 4 vigorously. Opens eyes. Does not follow commands. 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 ICH score is 4, suggesting a poor prognosis. Patient clinically stabilizing out, though somnolence and confusion persists. Complex medical problems which are still actively concerning and ongoing. Discussed with neurosurgery- will keep in ICU and monitor closely. needs aggressive pulmonary rehab and PT. ICH Acute encephalopathy - Unclear source - Atypical location - Strict blood pressure control with SBP goal less than 150 - Coags within normal limits - Neurosurgery consulted - Neuro checks per unit protocol - head CT today - EVD nonfunctioning. will need to decide d/c vs. replace. Atelectasis -- OOB to chair -- PT consult -- aggressive pulmonary toilet. Hypertension - Hydralazine and labetalol when necessary to keep SBP less than 150 - Norvasc, add po hydralazine Hypothyroidism - Resume home dose of levothyroxine when known MSSA Pneumonia - d/c zosyn. - start ancef 2mg iv q8h, anticipated stop date 10/14 for completed course for MSSA pneumonia. - urine culture NGTD x 48h. 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 Probably not flow limiting. Keep in ICU an additional 24h. Eloy Ocasio MD Oct 12, 2016 09:44
[2016-10-12] MEDS: INSULIN ASPART SUPPLEMENTAL SCALE SQ SCH ×3 (10:30→22:00)
--- NOTE | 2016-10-12 11:11 | HHI.NSPN ---
(Any Olivarez) Note Status Status: Progress Note (Any Olivarez) Interval History Interval History Mr. Caal is a 81 year old male who presented for evaluation of altered mental status. Cannot obtain history from patient, however his close friend is at bedside who found the patient. His friend reports he last spoke with the patient 2-3 days ago. He was not answering his phone so he went to check on him and found the patient on the floor lying on his side. He was very confused and did not recognize him. He was taken to the ED. CT Head on arrival shows right intraventricular hemorrhage. He is not known to take blood thinners. His friend reports baseline he is normal besides being short of breath due to his COPD. Neurosurgical evaluation was requested. 10/08: awake, intubated on CPAP. MRI Brain completed. 10/09: s/p placement of ventriculostomy drain yesterday, intubated and sedated. 10/10: no output via EVD overnight, pt extubated this morning 10/11: remains without drainage out EVD overnight, f/u CT Head this morning with stable ventricles 10/12: no changes to neuro checks overnight, eyes open, moves ext intermittently but not following commands, nonverbal (Any Olivarez) Interval History 10/12. His CT of the brain was stable (Vladimir Miller MD) Labs, Micro, & Vital Signs Results Date Time Temp Pulse Resp B/P Pulse Ox O2 Delivery O2 Flow Rate FiO2 10/12/16 08:03 94 Nasal Cannula 4.00 10/12/16 06:00 78 10/12/16 04:00 99.3 99 21 182/85 94 10/12/16 04:00 99 10/12/16 02:00 101 10/12/16 00:00 98.8 100 30 163/77 96 10/12/16 00:00 100 10/11/16 22:00 94 10/11/16 20:41 94 Nasal Cannula 4.00 10/11/16 20:00 98.4 99 27 156/74 94 10/11/16 20:00 91 10/11/16 19:00 Nasal Cannula 4.00 10/11/16 18:00 92 10/11/16 16:09 93 Nasal Cannula 4.00 10/11/16 16:00 98 10/11/16 16:00 98.4 98 31 123/64 90 10/11/16 14:00 86 10/11/16 12:00 102 10/11/16 12:00 98.4 102 27 151/61 92 10/12/16 07:00 Intake Total 4168 ml Output Total 2778 ml Balance 1390 ml Constitutional Vital Signs Date Time Temp Pulse Resp B/P Pulse Ox O2 Delivery O2 Flow Rate FiO2 10/12/16 08:03 94 Nasal Cannula 4.00 10/12/16 06:00 78 10/12/16 04:00 99.3 99 21 182/85 94 10/12/16 04:00 99 10/12/16 02:00 101 10/12/16 00:00 98.8 100 30 163/77 96 10/12/16 00:00 100 10/11/16 22:00 94 10/11/16 20:41 94 Nasal Cannula 4.00 10/11/16 20:00 98.4 99 27 156/74 94 10/11/16 20:00 91 10/11/16 19:00 Nasal Cannula 4.00 10/11/16 18:00 92 10/11/16 16:09 93 Nasal Cannula 4.00 10/11/16 16:00 98 10/11/16 16:00 98.4 98 31 123/64 90 10/11/16 14:00 86 10/11/16 12:00 102 10/11/16 12:00 98.4 102 27 151/61 92 10/12/16 07:00 Intake Total 4168 ml Output Total 2778 ml Balance 1390 ml (Any Olivarez) Review of Systems/Exam Exam Mr. Caal is awake, eyes open but does not follow much commands. Nonverbal EVD site clean and dry, suture intact Cranial Nerves: Pupils 3 mm equal. Motor: generalized weakness with intermittent movements to all four extremities Cerebellar: cannot assess due current clinical condition. (Any Olivarez) Exam Mr. Caal is awake, eyes open, does not follow much commands. Nods weakly when asked questions. Cranial Nerves: Pupils 3 mm equal. Motor:generalized weakness with gross movements to all four extremities Cerebellar: cannot assess due current clinical condition. (Vladimir Miller MD) Medications Current Medications Current Medications Medications (Trade) Dose Ordered Sig/Mario Route PRN Reason Start Time Stop Time Status Last Admin Dose Admin Sodium Chloride (NS Flush) 2 ml UNSCH PRN .XX FLUSH AFTER USING IV ACCESS 10/07/16 00:00 Sodium Chloride (NS Flush) 2 ml BID .XX 10/07/16 09:00 10/12/16 08:15 Acetaminophen (Tylenol) 650 mg Q6H PRN PO PAIN 1-5 AND/OR FEVER >101F 10/07/16 00:00 10/11/16 16:05 Morphine Sulfate (Morphine Inj) 2 mg Q2H PRN IV PAIN SCALE 6 TO 10 10/07/16 00:00 10/07/16 01:05 Ondansetron HCl (Zofran Inj) 4 mg Q6H PRN IV NAUSEA OR VOMITING 10/07/16 00:00 10/07/16 01:05 Miscellaneous Information 1 Q361D XX 10/07/16 00:00 Chlorhexidine Gluconate (Chlorhexidine 2% Cloth) Taper DAILY@04 TOP 10/07/16 04:00 10/03/17 03:59 10/11/16 04:00 Chlorhexidine Gluconate (Chlorhexidine 2% Cloth) 3 pack UNSCH PRN TOP HYGIENIC CARE 10/07/16 00:00 Senna/Docusate Sodium (Michelle-Colace) 1 tab BID PO 10/07/16 09:00 10/09/16 20:10 Magnesium Hydroxide (Milk Of Magnesia Liq) 30 ml Q12H PRN PO MILD - MODERATE CONSTIPATION 10/07/16 00:00 Sennosides (Senokot) 17.2 mg Q12H PRN PO MODERATE - SEVERE CONSTIPATION 10/07/16 00:00 Bisacodyl (Dulcolax Supp) 10 mg DAILY PRN RECTAL SEVERE CONSITIPATION 10/07/16 00:00 Lactulose (Lactulose Liq) 30 ml DAILY PRN PO SEVERE CONSITIPATION 10/07/16 00:00 Hydralazine HCl (Apresoline Inj) 20 mg Q4H PRN IV PUSH SBP>140, DBP>90 10/07/16 03:45 10/10/16 02:47 Labetalol HCl (Trandate Inj) 10 mg Q4H PRN IV PUSH SBP>140, DBP>90 10/07/16 03:45 10/11/16 13:03 Chlorhexidine Gluconate (Peridex 0.12% Liq) 15 ml BID@08,20 MT 10/07/16 20:00 10/12/16 08:15 Amlodipine Besylate (Norvasc) 5 mg DAILY PO 10/09/16 09:30 10/12/16 08:15 Hydralazine HCl (Apresoline) 25 mg Q8HR PO 10/09/16 09:30 10/12/16 05:23 Hydralazine HCl (Apresoline Inj) 10 mg Q1H PRN IV PUSH SBP > 160 10/09/16 09:30 10/12/16 08:16 Protein (Beneprotein Powder) 1 pack TID G-TUBE 10/09/16 13:00 10/12/16 08:15 Dextrose (D50w (Vial) Inj) 50 ml UNSCH PRN IV HYPOGLYCEMIA-SEE COMMENTS 10/10/16 09:45 Glucagon (Glucagon Inj) 1 mg UNSCH PRN OTHER HYPOGLYCEMIA-SEE COMMENTS 10/10/16 09:45 Insulin Aspart 1 1 Q6H SQ 10/10/16 10:00 10/10/16 16:00 Potassium Chloride 100 ml @ 50 mls/hr Q2H PRN IV For Potassium 2.8 - 3.2 mEq/L 10/10/16 09:45 Potassium Chloride (KCl 20 Meq Premix Inj) 100 ml @ 50 mls/hr Q2H PRN IV For Potassium 2.8 - 3.2 mEq/L 10/10/16 09:45 10/10/16 10:19 Potassium Bicarb/ Potassium Chloride 50 meq 50 meq UNSCH PRN PO For Potassium 3.3 - 3.5 mEq/L 10/10/16 09:45 Potassium Chloride 100 ml @ 25 mls/hr UNSCH PRN IV For Potassium 3.3 - 3.5 mEq/L 10/10/16 09:45 10/11/16 13:26 Potassium Chloride 100 ml @ 50 mls/hr Q2H PRN IV For Potassium 3.3 - 3.5 mEq/L 10/10/16 09:45 Magnesium Sulfate/ Sodium Chloride (Magnesium Sulfate Inj/NS Inj) 100 ml @ 50 mls/hr UNSCH PRN IV For Magnesium 0.9 - 1.1 mg/dL 10/10/16 09:45 Magnesium Oxide 800 mg 800 mg UNSCH PRN PO For Magnesium 1.2 - 1.6 mg/dL 10/10/16 09:45 Magnesium Sulfate/ Sodium Chloride (Magnesium Sulfate Inj/NS Inj) 100 ml @ 50 mls/hr UNSCH PRN IV For Magnesium 1.2 - 1.6 mg/dL 10/10/16 09:45 Potassium Phosphate 2000 mg 2,000 mg Q4H PRN PO For Phosphorus < 2.5 mg/dL 10/10/16 09:45 Sodium Phosphate/ Sodium Chloride (Sodium Phosphate Inj/NS 250 ml Inj) 250 ml @ 42 mls/hr UNSCH PRN IV For Phosphorus < 2.5 mg/dL 10/10/16 09:45 Potassium Phosphate 2000 mg 2,000 mg UNSCH PRN PO/TUBE SEE LABEL COMMENTS 10/10/16 09:45 Potassium Phosphate/Sodium Chloride (Potassium Phosphate Inj/NS 250 ml Inj) 260 ml @ 42 mls/hr UNSCH PRN IV SEE LABEL COMMENTS 10/10/16 09:45 Famotidine 20 mg 20 mg BID NG 10/11/16 21:00 10/12/16 08:14 Cefazolin Sodium/ Dextrose (Ancef 2 Gm Premix) 50 ml @ 100 mls/hr Q8H IV 10/12/16 10:00 10/14/16 09:59 (Any Olivarez) Current Medications Current Medications Sodium Chloride 1,000 ml @ 999 mls/hr BOLUS ONCE IV Last administered on 10/06 21:31; Start 10/06/16 at 20:45; Stop 10/06/16 at 21:45; Status DC Sodium Chloride (NS 1000 ml Inj) 1,000 ml @ 999 mls/hr BOLUS ONCE IV Last administered on 10/06/16 22:04; Start 10/06/16 at 20:45; Stop 10/06/16 at 21:45 ; Status DC IV Flush (NS Flush) 2 ml UNSCH PRN IV FLUSH FLUSH AFTER USING IV ACCESS; Start 10/06/16 at 20:45; Stop 10/06/16 at 23:51; Status DC Acetaminophen (Tylenol) 650 mg ONCE ONCE PO Last administered on 10/06/16 21: 27; Start 10/06/16 at 21:15; Stop 10/06/16 at 21:16; Status DC Sodium Chloride 2 ml 2 ml UNSCH PRN IVF FLUSH AFTER USING IV ACCESS; Start at 21:15; Stop 10/06/16 at 23:51; Status DC Ceftriaxone Sodium 1000 mg/ Sodium Chloride 100 ml @ 200 mls/hr ONCE ONCE IV Last administered on 10/06/16 21:26; Start 10/06/16 at 21:15; Stop 10/06/16 at 21:44; Status DC Azithromycin 500 mg/Sodium Chloride 250 ml @ 250 mls/hr ONCE ONCE IV Last administered on 10/06/16 22:03; Start 10/06/16 at 21:15; Stop 10/06/16 at 22:14 ; Status DC Sodium Chloride (NS 1000 ml Inj) 1,000 ml @ 100 mls/hr Q10H IV Last administered on 10/12/16 00:57; Start 10/06/16 at 23:47; Stop 10/12/16 at 09:46; Status DC Sodium Chloride (NS Flush) 2 ml UNSCH PRN .XX FLUSH AFTER USING IV ACCESS; Start 10/07/16 at 00:00 Sodium Chloride (NS Flush) 2 ml BID .XX Last administered on 10/13/16 10:09; Start 10/07/16 at 09:00 Acetaminophen (Tylenol) 650 mg Q6H PRN PO PAIN 1-5 AND/OR FEVER >101F Last administered on 10/11/16 16:05; Start 10/07/16 at 00:00 Morphine Sulfate (Morphine Inj) 2 mg Q2H PRN IV PAIN SCALE 6 TO 10 Last administered on 10/12/16 23:15; Start 10/07/16 at 00:00 Famotidine (Pepcid Inj) 20 mg Q12HR IV PUSH Last administered on 10/09/16 20:11 ; Start 10/07/16 at 09:00; Stop 10/10/16 at 07:25; Status DC Ondansetron HCl (Zofran Inj) 4 mg Q6H PRN IV NAUSEA OR VOMITING Last administered on 10/07/16 01:05; Start 10/07/16 at 00:00 Albuterol/ Ipratropium (Duoneb Neb) 1 ampule Q2HR NEB PRN INH WHEEZING; Start 10/07/16 at 00:00 Miscellaneous Information 1 Q361D XX ; Start 10/07/16 at 00:00 Chlorhexidine Gluconate (Chlorhexidine 2% Cloth) Taper DAILY@04 TOP Last administered on 10/11/16 04:00; Start 10/07/16 at 04:00; Stop 10/03/17 at 03:59 Chlorhexidine Gluconate (Chlorhexidine 2% Cloth) 3 pack UNSCH PRN TOP HYGIENIC CARE; Start 10/07/16 at 00:00 Senna/Docusate Sodium (Michelle-Colace) 1 tab BID PO Last administered on 10/09/16 20:10; Start 10/07/16 at 09:00 Magnesium Hydroxide (Milk Of Magnesia Liq) 30 ml Q12H PRN PO MILD - MODERATE CONSTIPATION; Start 10/07/16 at 00:00 Sennosides (Senokot) 17.2 mg Q12H PRN PO MODERATE - SEVERE CONSTIPATION; Start 10/07/16 at 00:00 Bisacodyl (Dulcolax Supp) 10 mg DAILY PRN RECTAL SEVERE CONSITIPATION; Start at 00:00 Lactulose 30 ml 30 ml DAILY PRN PO SEVERE CONSITIPATION; Start 10/07/16 at 00:00 Azithromycin 500 mg/Sodium Chloride 250 ml @ 250 mls/hr Q24H IV Last administered on 10/10/16 21:42; Start 10/07/16 at 22:00; Stop 10/11/16 at 09:54; Status DC Piperacillin Sod/ Tazobactam Sod (Zosyn 4.5 Gm Premix) 100 ml @ 200 mls/hr Q6H IV Last administered on 10/12/16 07:00; Start 10/07/16 at 01:00; Stop 10/12/16 at 09:38; Status DC Albuterol/ Ipratropium (Duoneb Neb) 1 ampule Q6HR NEB NEB Last administered on 10/08/16 07:33; Start 10/07/16 at 04:00; Stop 10/08/16 at 11:06; Status DC Albuterol/ Ipratropium (Duoneb Neb) 1 ampule Q2HR NEB PRN NEB WHEEZING; Start 10/07/16 at 01:15; Stop 10/08/16 at 11:07; Status DC Hydralazine HCl (Apresoline Inj) 20 mg Q4H PRN IV PUSH SBP>140, DBP>90 Last administered on 10/10/16 02:47; Start 10/07/16 at 03:45 Labetalol HCl (Trandate Inj) 10 mg Q4H PRN IV PUSH SBP>140, DBP>90 Last administered on 10/13/16 03:41; Start 10/07/16 at 03:45 Iohexol (Omnipaque 350 Inj) 87 ml STK-MED ONCE IV Last administered on 03:53; Start 10/07/16 at 03:53; Stop 10/07/16 at 03:54; Status DC Midazolam HCl (Versed Inj) 5 mg ONCE ONCE IM Last administered on 10/07/16 13: 50; Start 10/07/16 at 12:15; Stop 10/07/16 at 13:10; Status DC Rocuronium [place] (Zemuron Inj) 100 mg BOLUS ONCE IV Last administered on 10/07 13:51; Start 10/07/16 at 13:15; Stop 10/07/16 at 13:16; Status DC Chlorhexidine Gluconate 15 ml 15 ml BID@08,20 MT Last administered on 10/12/16 20:34; Start 10/07/16 at 20:00 Propofol (Diprivan 1000 Mg/100ml Inj) 100 ml @ 0 mls/hr TITRATE IV Last administered on 10/10/16 02:48; Start 10/07/16 at 12:15; Stop 10/11/16 at 09:54; Status DC Rocuronium [place] (Zemuron Inj) 50 mg STK-MED ONCE .ROUTE ; Start 10/07/16 at 12 :17; Stop 10/07/16 at 12:18; Status DC Amlodipine Besylate (Norvasc) 5 mg DAILY PO Last administered on 10/12/16 08:15 ; Start 10/09/16 at 09:30 Hydralazine HCl (Apresoline) 25 mg Q8HR PO Last administered on 10/12/16 20:35 ; Start 10/09/16 at 09:30 Hydralazine HCl (Apresoline Inj) 10 mg Q1H PRN IV PUSH SBP > 160 Last administered on 10/12/16 11:34; Start 10/09/16 at 09:30 Protein (Beneprotein Powder) 1 pack TID G-TUBE Last administered on 10/12/16 18 :00; Start 10/09/16 at 13:00 Metoclopramide HCl 10 mg 10 mg Q8HR IM ; Start 10/09/16 at 09:45; Stop 10/09/16 at 16:39; Status DC Vancomycin HCl/ Sodium Chloride (Vancomycin Inj/ NS 250 ml Inj) 262.5 ml @ 250 mls/hr ONCE ONCE IV Last administered on 10/09/16 11:12; Start 10/09/16 at 11: 00; Stop 10/09/16 at 12:02; Status DC Metoclopramide HCl (Reglan Inj) 10 mg Q8HR IV Last administered on 10/11/16 05: 26; Start 10/09/16 at 22:00; Stop 10/11/16 at 09:54; Status DC Famotidine (Pepcid Inj) 10 mg Q12HR IV PUSH Last administered on 10/11/16 08:11 ; Start 10/10/16 at 09:00; Stop 10/11/16 at 09:54; Status DC Dextrose (D50w (Vial) Inj) 50 ml UNSCH PRN IV HYPOGLYCEMIA-SEE COMMENTS; Start 10/10/16 at 09:45 Glucagon (Glucagon Inj) 1 mg UNSCH PRN OTHER HYPOGLYCEMIA-SEE COMMENTS; Start 10/10/16 at 09:45 Insulin Aspart 1 1 Q6H SQ Last administered on 10/10/16 16:00; Start 10/10/16 at 10:00 Potassium Chloride 100 ml @ 50 mls/hr Q2H PRN IV For Potassium 2.8 - 3.2 mEq/L ; Start 10/10/16 at 09:45 Potassium Chloride (KCl 20 Meq Premix Inj) 100 ml @ 50 mls/hr Q2H PRN IV For Potassium 2.8 - 3.2 mEq/L Last administered on 10/10/16 10:19; Start 10/10/16 at 09:45 Potassium Bicarb/ Potassium Chloride 50 meq 50 meq UNSCH PRN PO For Potassium 3.3 - 3.5 mEq/L; Start 10/10/16 at 09:45 Potassium Chloride 100 ml @ 25 mls/hr UNSCH PRN IV For Potassium 3.3 - 3.5 mEq /L Last administered on 10/11/16 13:26; Start 10/10/16 at 09:45 Potassium Chloride 100 ml @ 50 mls/hr Q2H PRN IV For Potassium 3.3 - 3.5 mEq/L ; Start 10/10/16 at 09:45 Magnesium Sulfate/ Sodium Chloride (Magnesium Sulfate Inj/NS Inj) 100 ml @ 50 mls/hr UNSCH PRN IV For Magnesium 0.9 - 1.1 mg/dL; Start 10/10/16 at 09:45 Magnesium Oxide 800 mg 800 mg UNSCH PRN PO For Magnesium 1.2 - 1.6 mg/dL; Start 10/10/16 at 09:45 Magnesium Sulfate/ Sodium Chloride (Magnesium Sulfate Inj/NS Inj) 100 ml @ 50 mls/hr UNSCH PRN IV For Magnesium 1.2 - 1.6 mg/dL; Start 10/10/16 at 09:45 Potassium Phosphate 2000 mg 2,000 mg Q4H PRN PO For Phosphorus < 2.5 mg/dL; Start 10/10/16 at 09:45 Sodium Phosphate/ Sodium Chloride (Sodium Phosphate Inj/NS 250 ml Inj) 250 ml @ 42 mls/hr UNSCH PRN IV For Phosphorus < 2.5 mg/dL; Start 10/10/16 at 09:45 Potassium Phosphate 2000 mg 2,000 mg UNSCH PRN PO/TUBE SEE LABEL COMMENTS; Start 10/10/16 at 09:45 Potassium Phosphate/Sodium Chloride (Potassium Phosphate Inj/NS 250 ml Inj) 260 ml @ 42 mls/hr UNSCH PRN IV SEE LABEL COMMENTS; Start 10/10/16 at 09:45 Albuterol/ Ipratropium 1 ampule 1 ampule Q4HR NEB NEB Last administered on 10/13 11:20; Start 10/10/16 at 16:00 Magnesium Sulfate/ Dextrose (Magnesium Sulfate 1 Gm Premix) 100 ml @ 100 mls/ hr Q1H IV Last administered on 10/11/16 09:16; Start 10/11/16 at 07:45; Stop 10/11/16 at 09:44; Status DC Famotidine 20 mg 20 mg BID NG Last administered on 10/13/16 10:09; Start at 21:00 Cefazolin Sodium/ Dextrose (Ancef 2 Gm Premix) 50 ml @ 100 mls/hr Q8H IV Last administered on 10/13/16 10:09; Start 10/12/16 at 10:00; Stop 10/14/16 at 09:59 Etomidate (Amidate Inj) 20 mg STK-MED ONCE .ROUTE Last administered on 06:35; Start 10/13/16 at 03:49; Stop 10/13/16 at 03:50; Status DC Rocuronium [place] 50 mg 50 mg STK-MED ONCE .ROUTE Last administered on 06:35; Start 10/13/16 at 03:49; Stop 10/13/16 at 03:50; Status DC Sodium Chloride 1,000 ml @ 999 mls/hr Q1H1M IV Last administered on 10/13/16 04:29; Start 10/13/16 at 04:15; Stop 10/13/16 at 05:15; Status DC Norepinephrine Bitartrate (Levophed-Dextrose Drip) 250 ml @ As Directed STK- MED ONCE IV ; Start 10/13/16 at 04:07; Stop 10/13/16 at 04:08; Status DC Chlorhexidine Gluconate 15 ml 15 ml BID@08,20 MT Last administered on 10/13/16 08:00; Start 10/13/16 at 08:00 Propofol 100 ml @ 0 mls/hr TITRATE IV Last administered on 10/13/16 11:02; Start 10/13/16 at 04:15 Piperacillin Sod/ Tazobactam Sod 100 ml @ 200 mls/hr Q6H IV Last administered on 10/13/16 10:12; Start 10/13/16 at 04:15 Norepinephrine Bitartrate (Levophed-Dextrose Drip) 250 ml @ 0 mls/hr TITRATE IV Last administered on 10/13/16 04:28; Start 10/13/16 at 04:15 Terbutaline Sulfate (Brethine Inj) 1 mg UNSCH PRN SQ For Extravasation; Start 10/13/16 at 04:15 Iohexol (Omnipaque 350 Inj) 80 ml STK-MED ONCE IV Last administered on 05:31; Start 10/13/16 at 05:31; Stop 10/13/16 at 05:32; Status DC Enoxaparin Sodium (Lovenox Inj) 40 mg Q24H SQ Last administered on 10/13/16 08: 53; Start 10/13/16 at 08:00 (Vladimir Miller MD) Medical Decision Making MDM Remarks 81 y/o male presented for AMS CT Brain on arrival showed extensive right intraventricular hemorrhage, s/p placement of ventriculostomy drain 10/08/16 respiratory failure s/p intubation, extubated 10/10/16 MRI Brain 10/07/16 showed 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 Continue neuro checks in a serial fashion. Extensive intraventricular hemorrhage CT of the brain was stable. Pulmonary. aggressive pulmonary toilette, nasotracheal suction, and breathing treatments with nebulizers. PT and OT Nutrition. Oral diet Renal. monitor closely urine output, BUN and creatinine Endocrine. Monitor serial Acu checks and SSI as needed ID monitor for signs of infection Protonix for stress ulcer prophylaxis Fritz hose and SCD's for DVT prophylaxis. OPK to Lovenox The exam, history, and the medical decision-making described in the above note were completed with the assistance of the mid-level provider. I reviewed and agree with the findings presented. I attest that I had a [id number] encounter with the patient on the same day, and personally performed and documented my assessment and findings in the medical record. (Vladimir Miller MD) Any Olivarez Oct 12, 2016 11:11 Vladimir Miller MD Oct 13, 2016 15:08
[2016-10-12] MEDS: ceFAZolin 2 GM PREMIX 50 ML IV SCH ×2 (11:33→17:42)
[2016-10-12 15:03] LABS: BICARBONATE 29.1 MEQ/L (21.0-32.0)
[2016-10-12] MEDS: LABETALOL HCL 100 MG/20 ML VIAL IV PUSH PRN (16:22)
[2016-10-12] MEDS: MORPHINE SULFATE 4 MG/ML INJ IV PRN (23:15)
[2016-10-13] VITALS (19 sets, daily range): BP systolic 95–126; BP diastolic 50–63; PULSE 58–85; RESP 13–36; TEMP 97.8–99.1; O2SAT 90–100
[2016-10-13] MEDS: RESP: ALBUTEROL 2.5 MG/IPRATROPIUM 0.5 MG NEB (SCH) NEB ×6 (00:34→20:28)
[2016-10-13] MEDS: ceFAZolin 2 GM PREMIX 50 ML IV SCH ×3 (03:38→19:29)
[2016-10-13] MEDS: LABETALOL HCL 100 MG/20 ML VIAL IV PUSH PRN (03:41)
[2016-10-13] MEDS ORDERED: ROCURONIUM INJ 50 MG/5 ML VIAL ONE (03:49)
[2016-10-13] MEDS ORDERED: ETOMIDATE 20 MG/10 ML VIAL ONE (03:49)
[2016-10-13] MEDS: CHLORHEXIDINE GLUCONATE 2 % 1 PACK (2 CLOTHS) TOP SCH (04:00)
[2016-10-13] MEDS: INSULIN ASPART SUPPLEMENTAL SCALE SQ SCH ×4 (04:00→22:00)
--- NOTE | 2016-10-13 04:02 | PD.PROCEDR ---
Procedure Note Procedure After the risks and benefits were discussed the following procedure was performed: INTUBATION: The patient was put in optimal position for the procedure. Rapid sequence intubation was initiated by me using 20 milligrams of etomidate IV and 50 milligrams of Rocuronium IV. Dl with Mac 4 blade, Grade 1 view. The patient was intubated with a 8 cuffed endotracheal tube. Tube placement was confirmed by visualization of the tube and balloon passing through the cords, capnometry and subsequent chest x-ray. Breath sounds were equal and well aerated bilaterally postintubation. No breath sounds over stomach. Patient tolerated procedure well. Alexandre Roman MD Oct 13, 2016 04:02
[2016-10-13] MEDS ORDERED: NOREPINEPHRINE-DEXTROSE DRIP 250 ML IV ONE (04:07)
[2016-10-13] MEDS ORDERED: TERBUTALINE INJ 1 MG/ML AMP SQ PRN (04:15)
[2016-10-13] MEDS ORDERED: SODIUM CHLOR 0.9% 1000 ML INJ 1,000 ML IV SCH (04:15)
[2016-10-13] MEDS ORDERED: NOREPINEPHRINE-DEXTROSE DRIP 250 ML IV SCH (04:15)
--- NOTE | 2016-10-13 04:25 | RADRPT ---
EXAM DATE/TIME: 10/13/2016 04:07 [facility] COMPARISON: CHEST SINGLE AP, October 07, 2016, 14:11. INDICATIONS : Post intubation MEDICAL HISTORY : Hypertension. Chronic obstructive pulmonary disease. SURGICAL HISTORY : None. ENCOUNTER: Subsequent ACUITY: 1 week PAIN SCORE: Non-responsive. LOCATION: Bilateral chest FINDINGS: Endotracheal tube tip is identified 1.1 cm above the rodriguez. NG tube courses beneath the diaphragm. B ilateral effusions and basilar consolidation. Cardiomegaly. CONCLUSION: Endotracheal tube as above. Anoop Hernandez MD on October 13, 2016 at 4:23 Board Certified Radiologist. This report was verified electronically.
--- NOTE | 2016-10-13 04:27 | PD.PROCEDR ---
Central Line Procedure REASON FOR PROCEDURE Central venous access PROCEDURE PERFORMED Central line placement: L subclavian central line CONSENT Emergency procedure ANESTHESIA Local injection of 1% Lidocaine DESCRIPTION OF THE PROCEDURE The patient was placed in supine, mild Trendelenburg position. The area was exposed and cleansed with ChloraPrep, times two. Large sterile drape was used to cover the patient, with the site exposed, under sterile conditions including cap, face mask, sterile gown, and sterile gloves. On single attempt, the introducer needle was inserted with negative pressure in syringe and venous flash was obtained. The guide wire was then advanced without any restriction and the needle was removed. The dilator was used without any complications. Using Seldinger technique the 20 triple lumen catheter was advanced over the guide wire to a depth of 17 centimeters. The guide wire was removed. All ports were aspirated with dark venous blood return and flushed easily with sterile saline. All ports were capped. Antibiotic disc was placed around central line at puncture site. The central line was secured to the skin with two interrupted 2.0 silk sutures. The area was bandaged with sterile see- through central line bandage. COMPLICATIONS: No apparent complications ESTIMATED BLOOD LOSS: Less than 1 cc. Alexandre Roman MD Oct 13, 2016 04:27
[2016-10-13] MEDS: PROPOFOL 1000 MG/100 ML INJ 100 ML IV SCH ×3 (04:28→17:48)
--- NOTE | 2016-10-13 04:54 | RADRPT ---
EXAM DATE/TIME: 10/13/2016 04:46 [facility] COMPARISON: CHEST SINGLE AP, October 13, 2016, 4:07. INDICATIONS : Central Line Placement MEDICAL HISTORY : Chronic obstructive pulmonary disease. Hypertension SURGICAL HISTORY : None. ENCOUNTER: Subsequent ACUITY: 1 day PAIN SCORE: Non-responsive. LOCATION: Bilateral chest FINDINGS: Bilateral lower lobe consolidation. Endotracheal tube tip 2.9 cm above the rodriguez. NG tube courses be neath the diaphragm. A right subclavian line is present and the tip overlies the SVC. CONCLUSION: Central line placement as above. Anoop Hernandez MD on October 13, 2016 at 4:52 Board Certified Radiologist. This report was verified electronically.
[2016-10-13 04:56] LABS: HEMATOCRIT 40.8 % (39.0-51.0); MEAN CELL VOLUME 94.9 FL (80.0-100.0); MEAN CORPUSCULAR HEMOGLOBIN 30.1 PG (27.0-34.0); MEAN CORPUSCULAR HGB CONC 31.7 % (32.0-36.0); PLATELET COUNT 214 TH/MM3 (150-450); RED BLOOD COUNT 4.31 MIL/MM3 (4.50-5.90); RED CELL DISTRIBUTION WIDTH 13.6 % (11.6-17.2); REVIEW FLAG FINAL; WHITE BLOOD COUNT 11.4 TH/MM3 (4.0-11.0)
[2016-10-13 04:57] LABS: BLOOD GAS CARBOXYHEMOGLOBIN 1.1 % (0-4); BLOOD GAS HCO3 29 mmol/L (22-26); BLOOD GAS O2 HGB SATURATION 92 % (90-100); BLOOD GAS OXYGEN CONTENT 16.6 Vol % (12.0-20.0); BLOOD GAS PCO2 37 mmHg (38-42); BLOOD GAS PO2 63 mmHg (61-120); BLOOD GAS TOTAL HGB 12.8 G/DL (12.0-16.0); TEMP CORR TO 98.6
[2016-10-13 04:58] LABS: CRITICAL VALUE YES; OXYGEN DEVICE VENTILATOR
[2016-10-13 04:59] LABS: DRAW SITE LT RADIAL; FIO2 60 %; NUMBER OF ARTERIAL PUNCTURES 1; ULNAR PULSE PRESENT; VENT SETTINGS PRVC/AC
[2016-10-13 05:00] LABS: STAT YES
[2016-10-13 05:24] LABS: BICARBONATE 32.9 MEQ/L (21.0-32.0); POTASSIUM 3.7 MEQ/L (3.5-5.1)
[2016-10-13] MEDS ORDERED: IOHEXOL 350 MG/ML 10 ML VIAL (for RAD DIAG) IV ONE (05:31)
--- NOTE | 2016-10-13 05:43 | RADRPT ---
EXAM DATE/TIME: 10/13/2016 05:09 [facility] COMPARISON: CT BRAIN W/O CONTRAST, October 11, 2016, 11:09. INDICATIONS : Altered mental status. RADIATION DOSE: 52.85 CTDIvol (mGy) MEDICAL HISTORY : Chronic obstructive pulmonary disease. Hypertension. SURGICAL HISTORY : None. ENCOUNTER: Initial ACUITY: 1 day PAIN SCALE: 0/10 LOCATION: cranial TECHNIQUE: Multiple contiguous axial images were obtained of the head. Using automated exposure control and adj ustment of the mA and/or kV according to patient size, radiation dose was kept as low as reasonably a chievable to obtain optimal diagnostic quality images. DICOM format image data is available electro nically for review and comparison. FINDINGS: There is intraventricular blood again noted greatest in the body the right lateral ventricle. The maria guadalupe triculostomy catheter has been removed and a small amount of hemorrhage in the right frontal lobe is seen. Ventriculomegaly is identified and not significantly changed. Osseous structures are intact. CONCLUSION: Interval removal of the ventriculostomy catheter with a small focus of parenchymal blood in the right frontal lobe, otherwise stable. Anoop Hernandez MD on October 13, 2016 at 5:40 Board Certified Radiologist. This report was verified electronically.
--- NOTE | 2016-10-13 05:48 | RADRPT ---
EXAM DATE/TIME: 10/13/2016 05:17 [place] COMPARISON: No previous studies available for comparison. INDICATIONS : Short of breath. IV CONTRAST: 80 cc Omnipaque 350 (iohexol) IV RADIATION DOSE: 23.25 CTDIvol (mGy) MEDICAL HISTORY : Hypertension. Chronic obstructive pulmonary disease. SURGICAL HISTORY : None. ENCOUNTER: Initial ACUITY: 1 day PAIN SCALE: Non-responsive LOCATION: chest TECHNIQUE: Volumetric scanning of the chest was performed using a pulmonary embolism protocol MIP images were re constructed. Using automated exposure control and adjustment of the mA and/or kV according to patien t size, radiation dose was kept as low as reasonably achievable to obtain optimal diagnostic quality images. DICOM format image data is available electronically for review and comparison. Follow-up recommendations for incidentally detected pulmonary nodules are based at a minimum on nodul e size and patient risk factors according to Fleischner Society Guidelines. FINDINGS: There are large bilateral pleural effusions and complete collapse of the left lower lobe and partial atelectasis of the right lower lobe with air bronchogram formation. There is patchy consolidation in the lingula identified. There is a probable sebaceous cyst anterior midline chest measuring 2.5 x 1.3 cm on image 34. 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 Cirrhotic appearing liver . There is thrombus in the right upper lobe pulmonary arterial branches. CONCLUSION: 1. Examination is positive for pulmonary embolus right upper lobe branches. 2. Atelectasis and consolidation as above. Anoop Hernandez MD on October 13, 2016 at 5:44 Board Certified Radiologist. This report was verified electronically.
[2016-10-13] MEDS: hydrALAZINE HCL 25 MG TAB PO SCH ×3 (06:00→20:59)
[2016-10-13] MEDS: PIPERACIL-TAZO 4.5 GM PREMIX 100 ML IV SCH ×4 (06:36→21:00)
[2016-10-13] MEDS: CHLORHEXIDINE 0.12% (ORAL KIT) 15 ML CUP MT SCH ×4 (08:00→20:58)
[2016-10-13] MEDS: ENOXAPARIN SODIUM 40 MG/0.4 ML SYRINGE SQ SCH (08:53)
[2016-10-13] MEDS: BENEPROTEIN POWDER 1 PACK G-TUBE SCH ×4 (09:00→18:00)
[2016-10-13] MEDS: DOCUSATE SODIUM 50 MG/SENNA 8.6 MG TAB PO SCH ×2 (09:00→20:59)
[2016-10-13] MEDS: amLODIPine BESYLATE 5 MG TAB PO SCH (09:00)
--- NOTE | 2016-10-13 09:36 | HHI.NSPN ---
(Any Olivarez) Note Status Status: Progress Note (Any Olivarez) Status: Progress Note (Vladimir Miller MD) Interval History Interval History Mr. Caal is a 81 year old male who presented for evaluation of altered mental status. Cannot obtain history from patient, however his close friend is at bedside who found the patient. His friend reports he last spoke with the patient 2-3 days ago. He was not answering his phone so he went to check on him and found the patient on the floor lying on his side. He was very confused and did not recognize him. He was taken to the ED. CT Head on arrival shows right intraventricular hemorrhage. He is not known to take blood thinners. His friend reports baseline he is normal besides being short of breath due to his COPD. Neurosurgical evaluation was requested. 10/08: awake, intubated on CPAP. MRI Brain completed. 10/09: s/p placement of ventriculostomy drain yesterday, intubated and sedated. 10/10: no output via EVD overnight, pt extubated this morning 10/11: remains without drainage out EVD overnight, f/u CT Head this morning with stable ventricles 10/12: no changes to neuro checks overnight, eyes open, moves ext intermittently but not following commands, nonverbal 10/13: reintubated, on levophed for BP support. CTA chest positive for PE. obtain u/s of extremities now (Any Olivarez) Interval History 10/13. His respiratory condition deteriorated. CT angiography was positive for pulmonary emboli. He was reintubated (Vladimir Miller MD) Labs, Micro, & Vital Signs Results Date Time Temp Pulse Resp B/P Pulse Ox O2 Delivery O2 Flow Rate FiO2 10/13/16 06:00 72 10/13/16 05:30 100 60 10/13/16 05:00 100 100 10/13/16 04:25 100 100 10/13/16 04:20 60 10/13/16 04:00 73 10/13/16 04:00 98.3 73 13 95/52 90 10/13/16 02:00 80 10/13/16 00:00 80 10/13/16 00:00 97.8 80 36 126/58 93 10/12/16 23:20 36 10/12/16 22:00 90 10/12/16 20:00 98.8 90 37 188/84 92 10/12/16 20:00 90 10/12/16 19:40 91 Nasal Cannula 6.00 10/12/16 19:00 92 Nasal Cannula 4.00 Humidified 10/12/16 18:00 91 10/12/16 16:00 95 10/12/16 16:00 98.7 95 40 172/75 94 10/12/16 14:00 91 10/12/16 12:00 98.1 94 36 173/77 92 10/12/16 12:00 94 10/12/16 11:29 94 Nasal Cannula 4.00 10/12/16 10:00 82 10/13/16 06:59 Intake Total 3330 ml Output Total 1900 ml Balance 1430 ml Constitutional Vital Signs Date Time Temp Pulse Resp B/P Pulse Ox O2 Delivery O2 Flow Rate FiO2 10/13/16 06:00 72 10/13/16 05:30 100 60 10/13/16 05:00 100 100 10/13/16 04:25 100 100 10/13/16 04:20 60 10/13/16 04:00 73 10/13/16 04:00 98.3 73 13 95/52 90 10/13/16 02:00 80 10/13/16 00:00 80 10/13/16 00:00 97.8 80 36 126/58 93 10/12/16 23:20 36 10/12/16 22:00 90 10/12/16 20:00 98.8 90 37 188/84 92 10/12/16 20:00 90 10/12/16 19:40 91 Nasal Cannula 6.00 10/12/16 19:00 92 Nasal Cannula 4.00 Humidified 10/12/16 18:00 91 10/12/16 16:00 95 10/12/16 16:00 98.7 95 40 172/75 94 10/12/16 14:00 91 10/12/16 12:00 98.1 94 36 173/77 92 10/12/16 12:00 94 10/12/16 11:29 94 Nasal Cannula 4.00 10/12/16 10:00 82 10/13/16 06:59 Intake Total 3330 ml Output Total 1900 ml Balance 1430 ml (Any Olivarez) Review of Systems/Exam Exam Mr. Caal is reintubated and sedated. Cranial Nerves: Pupils 2 mm equal bilaterally. Neck: soft, supple Motor: not following command for testing, no withdrawals x 4 Cerebellar: cannot assess due current clinical condition Plantars silent b/l (Any Olivarez) Exam He is intubated and sedated. Localizes to painful stimulus with all 4 extremities. Cranial Nerves: Pupils equal, round, reactive to light. Eyes appear conjugated. There was no nystagmus, no papilledema. Face musculature appeared symmetrical at rest. Face sensation, olfaction, visual william, and hearing cannot be adequately assessed due to his neurological condition. The patient has a corneal reflex. He has a gag reflex. The sternocleidomastoid and trapezius are symmetrical. Cervical Spine: His neck is soft, supple, without nuchal rigidity. Motor: His muscle tone and bulk are normal. He moves purposefully all 4 extremities symmetrically. Reflexes: Deep tendon reflexes are 1+ and symmetrical in the biceps, triceps, and brachioradialis, bilaterally, in the upper extremities. In the lower extremities, the patellar and ankles are 1+, bilaterally. There is a bilateral plantar flexion response. There is no clonus or other abnormal reflexes noted. Sensory: On examination there is response to painful stimuli, localizing with both upper and lower extremities. Cerebellar: Examination cannot be adequately assessed due to the patient's neurological condition. (Vladimir Miller MD) Medications Current Medications Current Medications Medications (Trade) Dose Ordered Sig/Mario Route PRN Reason Start Time Stop Time Status Last Admin Dose Admin Sodium Chloride (NS Flush) 2 ml UNSCH PRN .XX FLUSH AFTER USING IV ACCESS 10/07/16 00:00 Sodium Chloride (NS Flush) 2 ml BID .XX 10/07/16 09:00 10/12/16 20:34 Acetaminophen (Tylenol) 650 mg Q6H PRN PO PAIN 1-5 AND/OR FEVER >101F 10/07/16 00:00 10/11/16 16:05 Morphine Sulfate (Morphine Inj) 2 mg Q2H PRN IV PAIN SCALE 6 TO 10 10/07/16 00:00 10/12/16 23:15 Ondansetron HCl (Zofran Inj) 4 mg Q6H PRN IV NAUSEA OR VOMITING 10/07/16 00:00 10/07/16 01:05 Miscellaneous Information 1 Q361D XX 10/07/16 00:00 Chlorhexidine Gluconate (Chlorhexidine 2% Cloth) Taper DAILY@04 TOP 10/07/16 04:00 10/03/17 03:59 10/11/16 04:00 Chlorhexidine Gluconate (Chlorhexidine 2% Cloth) 3 pack UNSCH PRN TOP HYGIENIC CARE 10/07/16 00:00 Senna/Docusate Sodium (Michelle-Colace) 1 tab BID PO 10/07/16 09:00 10/09/16 20:10 Magnesium Hydroxide (Milk Of Magnesia Liq) 30 ml Q12H PRN PO MILD - MODERATE CONSTIPATION 10/07/16 00:00 Sennosides (Senokot) 17.2 mg Q12H PRN PO MODERATE - SEVERE CONSTIPATION 10/07/16 00:00 Bisacodyl (Dulcolax Supp) 10 mg DAILY PRN RECTAL SEVERE CONSITIPATION 10/07/16 00:00 Lactulose (Lactulose Liq) 30 ml DAILY PRN PO SEVERE CONSITIPATION 10/07/16 00:00 Hydralazine HCl (Apresoline Inj) 20 mg Q4H PRN IV PUSH SBP>140, DBP>90 10/07/16 03:45 10/10/16 02:47 Labetalol HCl (Trandate Inj) 10 mg Q4H PRN IV PUSH SBP>140, DBP>90 10/07/16 03:45 10/13/16 03:41 Chlorhexidine Gluconate (Peridex 0.12% Liq) 15 ml BID@08,20 MT 10/07/16 20:00 10/12/16 20:34 Amlodipine Besylate (Norvasc) 5 mg DAILY PO 10/09/16 09:30 10/12/16 08:15 Hydralazine HCl (Apresoline) 25 mg Q8HR PO 10/09/16 09:30 10/12/16 20:35 Hydralazine HCl (Apresoline Inj) 10 mg Q1H PRN IV PUSH SBP > 160 10/09/16 09:30 10/12/16 11:34 Protein (Beneprotein Powder) 1 pack TID G-TUBE 10/09/16 13:00 10/12/16 18:00 Dextrose (D50w (Vial) Inj) 50 ml UNSCH PRN IV HYPOGLYCEMIA-SEE COMMENTS 10/10/16 09:45 Glucagon (Glucagon Inj) 1 mg UNSCH PRN OTHER HYPOGLYCEMIA-SEE COMMENTS 10/10/16 09:45 Insulin Aspart 1 1 Q6H SQ 10/10/16 10:00 10/10/16 16:00 Potassium Chloride 100 ml @ 50 mls/hr Q2H PRN IV For Potassium 2.8 - 3.2 mEq/L 10/10/16 09:45 Potassium Chloride (KCl 20 Meq Premix Inj) 100 ml @ 50 mls/hr Q2H PRN IV For Potassium 2.8 - 3.2 mEq/L 10/10/16 09:45 10/10/16 10:19 Potassium Bicarb/ Potassium Chloride 50 meq 50 meq UNSCH PRN PO For Potassium 3.3 - 3.5 mEq/L 10/10/16 09:45 Potassium Chloride 100 ml @ 25 mls/hr UNSCH PRN IV For Potassium 3.3 - 3.5 mEq/L 10/10/16 09:45 10/11/16 13:26 Potassium Chloride 100 ml @ 50 mls/hr Q2H PRN IV For Potassium 3.3 - 3.5 mEq/L 10/10/16 09:45 Magnesium Sulfate/ Sodium Chloride (Magnesium Sulfate Inj/NS Inj) 100 ml @ 50 mls/hr UNSCH PRN IV For Magnesium 0.9 - 1.1 mg/dL 10/10/16 09:45 Magnesium Oxide 800 mg 800 mg UNSCH PRN PO For Magnesium 1.2 - 1.6 mg/dL 10/10/16 09:45 Magnesium Sulfate/ Sodium Chloride (Magnesium Sulfate Inj/NS Inj) 100 ml @ 50 mls/hr UNSCH PRN IV For Magnesium 1.2 - 1.6 mg/dL 10/10/16 09:45 Potassium Phosphate 2000 mg 2,000 mg Q4H PRN PO For Phosphorus < 2.5 mg/dL 10/10/16 09:45 Sodium Phosphate/ Sodium Chloride (Sodium Phosphate Inj/NS 250 ml Inj) 250 ml @ 42 mls/hr UNSCH PRN IV For Phosphorus < 2.5 mg/dL 10/10/16 09:45 Potassium Phosphate 2000 mg 2,000 mg UNSCH PRN PO/TUBE SEE LABEL COMMENTS 10/10/16 09:45 Potassium Phosphate/Sodium Chloride (Potassium Phosphate Inj/NS 250 ml Inj) 260 ml @ 42 mls/hr UNSCH PRN IV SEE LABEL COMMENTS 10/10/16 09:45 Famotidine 20 mg 20 mg BID NG 10/11/16 21:00 10/12/16 20:35 Cefazolin Sodium/ Dextrose (Ancef 2 Gm Premix) 50 ml @ 100 mls/hr Q8H IV 10/12/16 10:00 10/14/16 09:59 10/13/16 03:38 Chlorhexidine Gluconate 15 ml 15 ml BID@08,20 MT 10/13/16 08:00 Propofol 100 ml @ 0 mls/hr TITRATE IV 10/13/16 04:15 10/13/16 04:28 Piperacillin Sod/ Tazobactam Sod 100 ml @ 200 mls/hr Q6H IV 10/13/16 04:15 10/13/16 06:36 Norepinephrine Bitartrate (Levophed-Dextrose Drip) 250 ml @ 0 mls/hr TITRATE IV 10/13/16 04:15 10/13/16 04:28 Terbutaline Sulfate (Brethine Inj) 1 mg UNSCH PRN SQ For Extravasation 10/13/16 04:15 Enoxaparin Sodium (Lovenox Inj) 40 mg Q24H SQ 10/13/16 08:00 (Any Olivarez) Current Medications Current Medications Sodium Chloride 1,000 ml @ 999 mls/hr BOLUS ONCE IV Last administered on 10/06 21:31; Start 10/06/16 at 20:45; Stop 10/06/16 at 21:45; Status DC Sodium Chloride (NS 1000 ml Inj) 1,000 ml @ 999 mls/hr BOLUS ONCE IV Last administered on 10/06/16 22:04; Start 10/06/16 at 20:45; Stop 10/06/16 at 21:45 ; Status DC IV Flush (NS Flush) 2 ml UNSCH PRN IV FLUSH FLUSH AFTER USING IV ACCESS; Start 10/06/16 at 20:45; Stop 10/06/16 at 23:51; Status DC Acetaminophen (Tylenol) 650 mg ONCE ONCE PO Last administered on 10/06/16 21: 27; Start 10/06/16 at 21:15; Stop 10/06/16 at 21:16; Status DC Sodium Chloride 2 ml 2 ml UNSCH PRN IVF FLUSH AFTER USING IV ACCESS; Start at 21:15; Stop 10/06/16 at 23:51; Status DC Ceftriaxone Sodium 1000 mg/ Sodium Chloride 100 ml @ 200 mls/hr ONCE ONCE IV Last administered on 10/06/16 21:26; Start 10/06/16 at 21:15; Stop 10/06/16 at 21:44; Status DC Azithromycin 500 mg/Sodium Chloride 250 ml @ 250 mls/hr ONCE ONCE IV Last administered on 10/06/16 22:03; Start 10/06/16 at 21:15; Stop 10/06/16 at 22:14 ; Status DC Sodium Chloride (NS 1000 ml Inj) 1,000 ml @ 100 mls/hr Q10H IV Last administered on 10/12/16 00:57; Start 10/06/16 at 23:47; Stop 10/12/16 at 09:46; Status DC Sodium Chloride (NS Flush) 2 ml UNSCH PRN .XX FLUSH AFTER USING IV ACCESS; Start 10/07/16 at 00:00 Sodium Chloride (NS Flush) 2 ml BID .XX Last administered on 10/13/16 10:09; Start 10/07/16 at 09:00 Acetaminophen (Tylenol) 650 mg Q6H PRN PO PAIN 1-5 AND/OR FEVER >101F Last administered on 10/11/16 16:05; Start 10/07/16 at 00:00 Morphine Sulfate (Morphine Inj) 2 mg Q2H PRN IV PAIN SCALE 6 TO 10 Last administered on 10/12/16 23:15; Start 10/07/16 at 00:00 Famotidine (Pepcid Inj) 20 mg Q12HR IV PUSH Last administered on 10/09/16 20:11 ; Start 10/07/16 at 09:00; Stop 10/10/16 at 07:25; Status DC Ondansetron HCl (Zofran Inj) 4 mg Q6H PRN IV NAUSEA OR VOMITING Last administered on 10/07/16 01:05; Start 10/07/16 at 00:00 Albuterol/ Ipratropium (Duoneb Neb) 1 ampule Q2HR NEB PRN INH WHEEZING; Start 10/07/16 at 00:00 Miscellaneous Information 1 Q361D XX ; Start 10/07/16 at 00:00 Chlorhexidine Gluconate (Chlorhexidine 2% Cloth) Taper DAILY@04 TOP Last administered on 10/11/16 04:00; Start 10/07/16 at 04:00; Stop 10/03/17 at 03:59 Chlorhexidine Gluconate (Chlorhexidine 2% Cloth) 3 pack UNSCH PRN TOP HYGIENIC CARE; Start 10/07/16 at 00:00 Senna/Docusate Sodium (Michelle-Colace) 1 tab BID PO Last administered on 10/09/16 20:10; Start 10/07/16 at 09:00 Magnesium Hydroxide (Milk Of Magnesia Liq) 30 ml Q12H PRN PO MILD - MODERATE CONSTIPATION; Start 10/07/16 at 00:00 Sennosides (Senokot) 17.2 mg Q12H PRN PO MODERATE - SEVERE CONSTIPATION; Start 10/07/16 at 00:00 Bisacodyl (Dulcolax Supp) 10 mg DAILY PRN RECTAL SEVERE CONSITIPATION; Start at 00:00 Lactulose 30 ml 30 ml DAILY PRN PO SEVERE CONSITIPATION; Start 10/07/16 at 00:00 Azithromycin 500 mg/Sodium Chloride 250 ml @ 250 mls/hr Q24H IV Last administered on 10/10/16 21:42; Start 10/07/16 at 22:00; Stop 10/11/16 at 09:54; Status DC Piperacillin Sod/ Tazobactam Sod (Zosyn 4.5 Gm Premix) 100 ml @ 200 mls/hr Q6H IV Last administered on 10/12/16 07:00; Start 10/07/16 at 01:00; Stop 10/12/16 at 09:38; Status DC Albuterol/ Ipratropium (Duoneb Neb) 1 ampule Q6HR NEB NEB Last administered on 10/08/16 07:33; Start 10/07/16 at 04:00; Stop 10/08/16 at 11:06; Status DC Albuterol/ Ipratropium (Duoneb Neb) 1 ampule Q2HR NEB PRN NEB WHEEZING; Start 10/07/16 at 01:15; Stop 10/08/16 at 11:07; Status DC Hydralazine HCl (Apresoline Inj) 20 mg Q4H PRN IV PUSH SBP>140, DBP>90 Last administered on 10/10/16 02:47; Start 10/07/16 at 03:45 Labetalol HCl (Trandate Inj) 10 mg Q4H PRN IV PUSH SBP>140, DBP>90 Last administered on 10/13/16 03:41; Start 10/07/16 at 03:45 Iohexol (Omnipaque 350 Inj) 87 ml STK-MED ONCE IV Last administered on 03:53; Start 10/07/16 at 03:53; Stop 10/07/16 at 03:54; Status DC Midazolam HCl (Versed Inj) 5 mg ONCE ONCE IM Last administered on 10/07/16 13: 50; Start 10/07/16 at 12:15; Stop 10/07/16 at 13:10; Status DC Rocuronium Hildreth (Zemuron Inj) 100 mg BOLUS ONCE IV Last administered on 10/07 13:51; Start 10/07/16 at 13:15; Stop 10/07/16 at 13:16; Status DC Chlorhexidine Gluconate 15 ml 15 ml BID@08,20 MT Last administered on 10/12/16 20:34; Start 10/07/16 at 20:00 Propofol (Diprivan 1000 Mg/100ml Inj) 100 ml @ 0 mls/hr TITRATE IV Last administered on 10/10/16 02:48; Start 10/07/16 at 12:15; Stop 10/11/16 at 09:54; Status DC Rocuronium Hildreth (Zemuron Inj) 50 mg STK-MED ONCE .ROUTE ; Start 10/07/16 at 12 :17; Stop 10/07/16 at 12:18; Status DC Amlodipine Besylate (Norvasc) 5 mg DAILY PO Last administered on 10/12/16 08:15 ; Start 10/09/16 at 09:30 Hydralazine HCl (Apresoline) 25 mg Q8HR PO Last administered on 10/12/16 20:35 ; Start 10/09/16 at 09:30 Hydralazine HCl (Apresoline Inj) 10 mg Q1H PRN IV PUSH SBP > 160 Last administered on 10/12/16 11:34; Start 10/09/16 at 09:30 Protein (Beneprotein Powder) 1 pack TID G-TUBE Last administered on 10/12/16 18 :00; Start 10/09/16 at 13:00 Metoclopramide HCl 10 mg 10 mg Q8HR IM ; Start 10/09/16 at 09:45; Stop 10/09/16 at 16:39; Status DC Vancomycin HCl/ Sodium Chloride (Vancomycin Inj/ NS 250 ml Inj) 262.5 ml @ 250 mls/hr ONCE ONCE IV Last administered on 10/09/16 11:12; Start 10/09/16 at 11: 00; Stop 10/09/16 at 12:02; Status DC Metoclopramide HCl (Reglan Inj) 10 mg Q8HR IV Last administered on 10/11/16 05: 26; Start 10/09/16 at 22:00; Stop 10/11/16 at 09:54; Status DC Famotidine (Pepcid Inj) 10 mg Q12HR IV PUSH Last administered on 10/11/16 08:11 ; Start 10/10/16 at 09:00; Stop 10/11/16 at 09:54; Status DC Dextrose (D50w (Vial) Inj) 50 ml UNSCH PRN IV HYPOGLYCEMIA-SEE COMMENTS; Start 10/10/16 at 09:45 Glucagon (Glucagon Inj) 1 mg UNSCH PRN OTHER HYPOGLYCEMIA-SEE COMMENTS; Start 10/10/16 at 09:45 Insulin Aspart 1 1 Q6H SQ Last administered on 10/10/16 16:00; Start 10/10/16 at 10:00 Potassium Chloride 100 ml @ 50 mls/hr Q2H PRN IV For Potassium 2.8 - 3.2 mEq/L ; Start 10/10/16 at 09:45 Potassium Chloride (KCl 20 Meq Premix Inj) 100 ml @ 50 mls/hr Q2H PRN IV For Potassium 2.8 - 3.2 mEq/L Last administered on 10/10/16 10:19; Start 10/10/16 at 09:45 Potassium Bicarb/ Potassium Chloride 50 meq 50 meq UNSCH PRN PO For Potassium 3.3 - 3.5 mEq/L; Start 10/10/16 at 09:45 Potassium Chloride 100 ml @ 25 mls/hr UNSCH PRN IV For Potassium 3.3 - 3.5 mEq /L Last administered on 10/11/16 13:26; Start 10/10/16 at 09:45 Potassium Chloride 100 ml @ 50 mls/hr Q2H PRN IV For Potassium 3.3 - 3.5 mEq/L ; Start 10/10/16 at 09:45 Magnesium Sulfate/ Sodium Chloride (Magnesium Sulfate Inj/NS Inj) 100 ml @ 50 mls/hr UNSCH PRN IV For Magnesium 0.9 - 1.1 mg/dL; Start 10/10/16 at 09:45 Magnesium Oxide 800 mg 800 mg UNSCH PRN PO For Magnesium 1.2 - 1.6 mg/dL; Start 10/10/16 at 09:45 Magnesium Sulfate/ Sodium Chloride (Magnesium Sulfate Inj/NS Inj) 100 ml @ 50 mls/hr UNSCH PRN IV For Magnesium 1.2 - 1.6 mg/dL; Start 10/10/16 at 09:45 Potassium Phosphate 2000 mg 2,000 mg Q4H PRN PO For Phosphorus < 2.5 mg/dL; Start 10/10/16 at 09:45 Sodium Phosphate/ Sodium Chloride (Sodium Phosphate Inj/NS 250 ml Inj) 250 ml @ 42 mls/hr UNSCH PRN IV For Phosphorus < 2.5 mg/dL; Start 10/10/16 at 09:45 Potassium Phosphate 2000 mg 2,000 mg UNSCH PRN PO/TUBE SEE LABEL COMMENTS; Start 10/10/16 at 09:45 Potassium Phosphate/Sodium Chloride (Potassium Phosphate Inj/NS 250 ml Inj) 260 ml @ 42 mls/hr UNSCH PRN IV SEE LABEL COMMENTS; Start 10/10/16 at 09:45 Albuterol/ Ipratropium 1 ampule 1 ampule Q4HR NEB NEB Last administered on 10/13 11:20; Start 10/10/16 at 16:00 Magnesium Sulfate/ Dextrose (Magnesium Sulfate 1 Gm Premix) 100 ml @ 100 mls/ hr Q1H IV Last administered on 10/11/16 09:16; Start 10/11/16 at 07:45; Stop 10/11/16 at 09:44; Status DC Famotidine 20 mg 20 mg BID NG Last administered on 10/13/16 10:09; Start at 21:00 Cefazolin Sodium/ Dextrose (Ancef 2 Gm Premix) 50 ml @ 100 mls/hr Q8H IV Last administered on 10/13/16 10:09; Start 10/12/16 at 10:00; Stop 10/14/16 at 09:59 Etomidate (Amidate Inj) 20 mg STK-MED ONCE .ROUTE Last administered on 06:35; Start 10/13/16 at 03:49; Stop 10/13/16 at 03:50; Status DC Rocuronium Hildreth 50 mg 50 mg STK-MED ONCE .ROUTE Last administered on 06:35; Start 10/13/16 at 03:49; Stop 10/13/16 at 03:50; Status DC Sodium Chloride 1,000 ml @ 999 mls/hr Q1H1M IV Last administered on 10/13/16 04:29; Start 10/13/16 at 04:15; Stop 10/13/16 at 05:15; Status DC Norepinephrine Bitartrate (Levophed-Dextrose Drip) 250 ml @ As Directed STK- MED ONCE IV ; Start 10/13/16 at 04:07; Stop 10/13/16 at 04:08; Status DC Chlorhexidine Gluconate 15 ml 15 ml BID@08,20 MT Last administered on 10/13/16 08:00; Start 10/13/16 at 08:00 Propofol 100 ml @ 0 mls/hr TITRATE IV Last administered on 10/13/16 11:02; Start 10/13/16 at 04:15 Piperacillin Sod/ Tazobactam Sod 100 ml @ 200 mls/hr Q6H IV Last administered on 10/13/16 10:12; Start 10/13/16 at 04:15 Norepinephrine Bitartrate (Levophed-Dextrose Drip) 250 ml @ 0 mls/hr TITRATE IV Last administered on 10/13/16 04:28; Start 10/13/16 at 04:15 Terbutaline Sulfate (Brethine Inj) 1 mg UNSCH PRN SQ For Extravasation; Start 10/13/16 at 04:15 Iohexol (Omnipaque 350 Inj) 80 ml STK-MED ONCE IV Last administered on 05:31; Start 10/13/16 at 05:31; Stop 10/13/16 at 05:32; Status DC Enoxaparin Sodium (Lovenox Inj) 40 mg Q24H SQ Last administered on 10/13/16 08: 53; Start 10/13/16 at 08:00 (Vladimir Miller MD) Medical Decision Making MDM Remarks 81 y/o male presented for AMS CT Brain on arrival showed extensive right intraventricular hemorrhage, s/p placement of ventriculostomy drain 10/08/16 respiratory failure s/p intubation, extubated 10/10/16, reintubated 10/12/16 MRI Brain 10/07/16 showed 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 Davis Devi MD Lower Extremity Ultrasound 10/13/16 0000 Signed Impressions: Service Date/Time: Thursday, October 13, 2016 08:28 - CONCLUSION: DVT in the proximal left femoral veins. No evidence of DVT in the right lower extremity. Davis Devi MD Head CT 10/13/16 0000 Signed Impressions: Service Date/Time: Thursday, October 13, 2016 05:09 - CONCLUSION: Interval removal of the ventriculostomy catheter with a small focus of parenchymal blood in the right frontal lobe, otherwise stable. Anoop Hernandez MD Chest X-Ray 10/13/16 0000 Signed Impressions: Service Date/Time: Thursday, October 13, 2016 04:46 - CONCLUSION: Central line placement as above. Anoop Hernandez MD CT Angiography 10/13/16 0000 Signed Impressions: Service Date/Time: Thursday, October 13, 2016 05:17 - CONCLUSION: 1. Examination is positive for pulmonary embolus right upper lobe branches. 2. Atelectasis and consolidation as above. Anoop Hernandez MD Neck CTA 10/07/16 Signed Impressions: Service Date/Time: Friday, October 07, 2016 03:38 - CONCLUSION: 1. Scattered calcified atherosclerotic plaque. A 50%% stenosis is seen involving the right ICA. The left carotid is patent. 2. Dominant left vertebral artery. The right terminates in a PICA distribution Tyrone Christianson Jr., MD Head CTA 10/07/16 Signed Impressions: Service Date/Time: Friday, October 07, 2016 03:38 - CONCLUSION: Scattered atherosclerotic plaque without a hemodynamically significant stenosis. No aneurysm. Tyrone Christianson Jr., MD Brain MRI 10/07/16 Signed Impressions: Service Date/Time: Friday, October 07, 2016 17:54 - CONCLUSION: 1. The ventricular blood has a very similar configuration to prior CT yesterday, filling the right lateral ventricle, extending into the 3rd ventricle and layering in the left occipital horn. 2. There is a small elongated infarction in the right posterior external capsule with a thin rim of T2 shortening suggesting that this may be hemorrhagic. Tyrone Vivar MD Abdomen X-Ray 10/07/16 Signed Impressions: Service Date/Time: Friday, October 07, 2016 15:21 - CONCLUSION: No concerning radiopaque foreign body is identified in the abdomen. Abel Lemus MD Cervical Spine CT 10/06/16 Signed Impressions: Service Date/Time: Thursday, October 06, 2016 23:15 - CONCLUSION: Negative trauma CT. Iftikhar Garza MD (Vladimir Miller MD) Plan Plan Remarks will need IVC filter placement on lovenox to discuss with Dr. Miller if cleared for full anticoagulation Discussed with Dr. Miller who does not recommend full anticoagulation at this time due to current intraventricular hemorrhage and risk of rebleed, patient has no family, it is medically necessary he undergo a placement of IVC filter for DVT's and positive PE (Any Olivarez) Attending Statement Neuro. Continue neuro checks in a serial fashion. CT of the brain today is stable. New deep venous thromboses and pulmonary emboli. He is not a candidate for full anticoagulation due to his intracranial hemorrhage. I recommend placement of a Byron filter Respiratory failure. He is now on mechanical ventilation. Continue. aggressive pulmonary toilette, nasotracheal suction, and breathing treatments with nebulizers. Daily PT and OT Nutrition. Start tube feedings Renal. monitor closely urine output, BUN and creatinine Endocrine. Monitor serial Acu checks and SSI as needed ID monitor for signs of infection Protonix for stress ulcer prophylaxis The exam, history, and the medical decision-making described in the above note were completed with the assistance of the mid-level provider. I reviewed and agree with the findings presented. I attest that I had a [id number] encounter with the patient on the same day, and personally performed and documented my assessment and findings in the medical record. (Vladimir Miller MD) Any Olivarez Oct 13, 2016 09:36 Vladimir Miller MD Oct 13, 2016 15:15
[2016-10-13] MEDS: FAMOTIDINE 40 MG/5 ML LIQ 50 ML BTL NG SCH ×2 (10:09→20:59)
[2016-10-13] MEDS: SODIUM CHLORIDE 0.9% FLUSH 10 ML FLUSH SCH ×2 (10:09→20:59)
--- NOTE | 2016-10-13 11:05 | RADRPT ---
EXAM DATE/TIME: 10/13/2016 08:28 [facility] COMPARISON: No previous studies available for comparison. INDICATIONS : Bilateral leg swelling. MEDICAL HISTORY : Hypertension. Chronic obstructive pulmonary disease. Glaucoma. SURGICAL HISTORY : Eye surgery. ENCOUNTER: Initial ACUITY: 1 day PAIN SCORE: Non-responsive LOCATION: Bilateral leg. TECHNIQUE: Venous ultrasound of the left and right leg was performed from the inguinal ligament to the proximal calf. Real-time, color Doppler and spectral tracing, compression and augmentation techniques were us ed. FINDINGS: RIGHT LEG: There is normal compressibility of the deep venous system from the inguinal region to the proximal ca lf. No echogenic clot is seen in the lumen of the common femoral, femoral, popliteal, and posterior tibial veins. There is a normal response of the venous system to proximal and distal augmentation an d respiration. LEFT LEG: Intraluminal filling defect with decreased compressibility is identified in the deep femoral and prox imal superficial femoral veins. The deep venous system distal to the proximal thigh remains patent. F low is phasic but not spontaneous. CONCLUSION: DVT in the proximal left femoral veins. No evidence of DVT in the right lower extremity. Davis Devi MD on October 13, 2016 at 10:59 Board Certified Radiologist. This report was verified electronically.
[2016-10-13 11:12] LABS: BACTERIA, URINE OCC /hpf; BLOOD, URINE MOD (NEG); GLUCOSE,URINE NEG (NEG); KETONE, URINE NEG (NEG); MUCUS URINE FEW /lpf (OCC); NITRITE,URINE NEG (NEG); SQUAMOUS EPITHELIAL CELL URINE 1 /hpf (0-5); URINE COLOR YELLOW (YELLW/STRAW)
[2016-10-13 11:13] LABS: COMMENT (UR) CATH-CULTURE IND; CULTURE IF INDICATED CATH CULTURE IND
--- NOTE | 2016-10-13 11:17 | RADRPT ---
EXAM DATE/TIME: 10/13/2016 09:15 [facility] COMPARISON: No previous studies available for comparison. INDICATIONS : Bilateral arm swelling. MEDICAL HISTORY : Hypertension. Chronic obstructive pulmonary disease. Glaucoma. SURGICAL HISTORY : Eye surgery. ENCOUNTER: Initial ACUITY: 1 day PAIN SCORE: Non-responsive LOCATION: Bilateral arm. FINDINGS: RIGHT UPPER EXTREMITY: Intraluminal filling defect with decreased compressibility and absent flow is identified in the right brachial vein. Occlusive thrombus is noted in the cephalic vein. Visualized segment of the jugular, subclavian and axillary veins are patent. LEFT UPPER EXTREMITY: Intraluminal filling defect with decreased compressibility but nonocclusive flow is identified in the axillary vein. Occlusive thrombus is identified in the brachial vein. Internal filling defect in dec reased compressibility is identified in the left cephalic vein. Normal flow is identified in the visualized jugular and subclavian veins. CONCLUSION: Exam positive for bilateral DVT and SVT. Davis Devi MD on October 13, 2016 at 11:05 Board Certified Radiologist. This report was verified electronically.
--- NOTE | 2016-10-13 11:31 | HHI.PR ---
Subjective Remarks this 81yM with large intraventricular hemorrhage, post-bleed day 8 now with acute pulmonary embolism. absolute contra-indication to therapeutic anticoagulation given acute large head bleed within last 2 weeks. meets criteria for IVC filter placement to prevent further pulmonary clot burden. procedure is medically necessary. I have discussed his care with Dr. Miller who agrees with this plan. Eloy Ocasio MD Oct 13, 2016 11:31
[2016-10-13] MEDS ORDERED: IOHEXOL 350 MG/ML 50 ML BTL (for RAD DIAG) OTHER ONE (15:16)
--- NOTE | 2016-10-13 19:16 | PD.RAD ---
Post Procedure Progress Note Pre Procedure Diagnosis: (1) Sepsis (2) Intracranial hemorrhage Post Procedure Diagnosis: (1) Sepsis (2) Intracranial hemorrhage Procedure Date: Oct 13, 2016 Supervising Radiologist: Abel Zavaleta Proceduralist/Assist: Paramjit Devi RT(R), Dom De Souza RT(R) Anesthesia: Local, Conscious Sedation Plan of Activity Patient to Unit: Nursing Unit Patient Condition: Poor See PACS Report for procedural detail/treatment Vascular-Venous Procedure Procedure 1 Procedure(s): Permanent IVC Filter Access Access Site(s): Right Jugular Vein Closure Site(s): Right manual pressure Abel Zavaleta MD Oct 13, 2016 19:16
--- NOTE | 2016-10-13 20:43 | RADRPT ---
EXAM DATE/TIME: 10/13/2016 13:43 [facility] COMPARISON: No previous studies available for comparison. INDICATIONS : Patient presents with acute pulmonary embolism in need of inferior vena cava filter placement. MEDICAL HISTORY : HTN COPD SURGICAL HISTORY : N/A ENCOUNTER: Initial ACUITY: 1 week PAIN SCORE: 0/10 LOCATION: N/A FLUORO TIME: 1.3 minutes IMAGE SERIES: 2 ACCESS SITE: Right Internal jugular vein CONTRAST: 1.) 10 cc Omnipaque (iohexol) 350 DEVICE(S): 1.) Right Inferior vena cava 7FR B [employer] filter TECHNIQUE: The patient was placed supine on the angiography table. The right neck was prepped in sterile fashion . Full sterile technique was used, including cap, mask, sterile gloves and gown and a large sterile s heet. Hand hygiene and 2% chlorhexidine and/or betadine/alcohol prep was utilized per protocol for cu taneous antisepsis. Under direct ultrasound guidance, micropuncture access was accomplished in the [facility] internal jugular vein. The ultrasound images depicting access guidance were saved and stored to [facility] for permanent record. A. 0.035 inch guidewire was manipulated into the inferior vena cava. The filter delivery sheath was i nserted and positioned in the IVC. Digital subtraction inferior vena cavography was performed. The fi lter was deployed in the infra-renal IVC without complication. Filter type: [employer]. The sheath was removed and hemostasis achieved with direct pressure. The patient tolerated the proced ure well and was taken to the recovery area in stable condition. FINDINGS: Caval anatomy is classical. Caval diameter is normal. There is no evidence of caval thrombosis and th e visualized iliac veins are patent. Conscious sedation was performed with the prescribed dosages and duration as above in the presence of an independent trained radiology nurse to assist in the monitoring of the patient. EKG and oximetry remained stable throughout the procedure. The patient tolerated the procedure well and there were n o complications. The patient was sent to post anesthesia recovery in stable condition. CONCLUSION: Uncomplicated inferior vena cava filter placement as above. Abel Zavaleta MD on October 13, 2016 at 20:38 Board Certified Radiologist. This report was verified electronically.
--- NOTE | 2016-10-13 21:43 | HHI.CCPN ---
Subjective Remarks/Hospital Course Elderly male presents for evaluation of altered mental status. He states that he stumbled 3 days ago and fell. He was laying on the floor since. Apparently , a friend found him today. The patient is unsure of his past medical history. Apparently, he has history of COPD and is on oxygen. He does not know what medications he is on. The patient knows his name, but does not know the year. He denies hitting his head or loss of conscious, but has erythema to the left forehead. Patient denies any chest pain or abdominal pain. No vomiting. He states that he was unable to get up, but will not tell me why. He might also have some history of hypertension, glaucoma. 10/07: Required intubation today for progressive respiratory failure. 10/08: Will aim for quick extubation now that MRI complete. Need sputum sample. 10/09: Tolerating SBTs. Push toward extubation. 10/10: Vigorous but confused. Zimmerman-sensitive staph in sputum, will narrow abx. 10/11: extubated, stable from pulmonary standpoint. still confused. EVD not draining. 10/12: EVD removed. head CT stable. neuro exam stable. 10/13: overnight with acute decompensation, hypoxic respiratory failure requiring intubation and mechanical ventilation. hypotensive requiring vasopressors. clinically unstable. CT pulmonary angiogram with +PE. Objective Vital Signs Date Time Temp Pulse Resp B/P Pulse Ox O2 Delivery O2 Flow Rate FiO2 10/13/16 20:31 99 Ventilator 10/13/16 20:16 50 10/13/16 18:00 66 10/13/16 16:00 98.3 14 100/63 10/12/16 19:40 6.00 Intake and Output 10/12/16 10/12/16 10/13/16 08:00 16:00 00:00 Intake Total 1109 ml 1169 ml 566 ml Output Total 700 ml 1000 ml 650 ml Balance 409 ml 169 ml -84 ml Result Diagram: 10/13/16 0438 10/13/16 0438 Other Results Microbiology Date/Time Procedure Status Source Growth 10/10/16 22:15 Urine Culture - Final Complete Urine Catheterized Urine NO GROWTH IN 48 HOURS. Laboratory Tests Test 10/13/16 04:44 Blood Gas Puncture Site LT RADIAL Blood Gas Patient Temperature 98.6 Blood Gas HCO3 29 mmol/L (22-26) Blood Gas Base Excess 6.0 mmol/L (-2-2) Blood Gas Oxygen Saturation 92 % (90-100) Arterial Blood pH 7.51 (7.380-7.420) Arterial Blood Partial 37 mmHg (38-42) Pressure CO2 Arterial Blood Partial 63 mmHg Pressure O2 (61-120) Arterial Blood Oxygen Content 16.6 Vol % (12.0-20.0) Arterial Blood 1.1 % (0-4) Carboxyhemoglobin Arterial Blood Methemoglobin 1.0 % (0-2) Blood Gas Hemoglobin 12.8 G/DL (12.0-16.0) Oxygen Delivery Device VENTILATOR Blood Gas Ventilator Setting PRVC/AC Blood Gas Inspired Oxygen 60 % Imaging Last [address] 10/06/162037 Signed Impressions: Service Date/Time: Thursday, October 06, 2016 23:15 - CONCLUSION: Prominent amount of blood in the right ventricle and small amount of blood in the 3rd and left occipital horn ventricle. No parenchymal hemorrhage seen. No extra axial fluid collections. Tyrone Vivar MD Chest X-Ray 10/06/162037 Signed Impressions: Service Date/Time: Thursday, October 06, 2016 20:37 - CONCLUSION: Bilateral partially consolidative infiltrates lower medial right lung and lower lateral left lung. Tyrone Vivar MD Objective Remarks GENERAL: Elderly man critically ill, intubated, sedated. SKIN: Warm and dry. HEAD: Normocephalic. EYES: No scleral icterus. No injection or drainage. NECK: trachea midline. no jvd. CARDIOVASCULAR: tachycardic rate, regular rhythm. sinus by tele. RESPIRATORY: intubated, prvc, fio2 50% GASTROINTESTINAL: Abdomen soft, non-tender, nondistended. MUSCULOSKELETAL: No cyanosis, or edema. EXTREMITIES: Well perfused. NEURO: sedated, w/d x 4. does not follow commands. 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 ICH score is 4, suggesting a poor prognosis. Now with decompensated shock secondary to acute PE. not a candidate for anticoagulation. will place IVC filter. discussed care with Dr. Miller who agrees. clinically decompensating. critically ill. ICH Acute encephalopathy - Unclear source - Atypical location - Strict blood pressure control with SBP goal less than 150 - Coags within normal limits - Neurosurgery consulted - Neuro checks per unit protocol Acute pulmonary Embolism Acute hypoxic respiratory failure - not a candidate for thrombolytics or anticoagulation - continue prophylactic dose lovenox - IVC filter today. - high risk for sudden cardiac post PE. - no SBT today given instability Cardiogenic shock s/p acute PE - levophed for map > 65 - watch uop closely. Hypothyroidism - Resume home dose of levothyroxine when known MSSA Pneumonia - ancef 2mg iv q8h, anticipated stop date 10/14 for completed course for MSSA pneumonia. - urine culture NGTD x 48h. - Staph in sputum, MSSA DVT GI prophylaxis - Teds SCDs - lovenox, prophylactic dose. IVC filter. 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 Probably not flow limiting. Very critically ill. decompensating. Critical Care time: 44 minutes, exclusive of separately billable procedures. Eloy Ocasio MD Oct 13, 2016 21:43
[2016-10-14] VITALS (20 sets, daily range): BP systolic 121–152; BP diastolic 58–74; PULSE 54–75; RESP 14–17; TEMP 97.8–98.8; O2SAT 98–100
[2016-10-14] MEDS: PROPOFOL 1000 MG/100 ML INJ 100 ML IV SCH ×5 (01:31→23:36)
[2016-10-14] MEDS: ceFAZolin 2 GM PREMIX 50 ML IV SCH (01:32)
[2016-10-14] MEDS: RESP: ALBUTEROL 2.5 MG/IPRATROPIUM 0.5 MG NEB (SCH) NEB ×4 (03:53→11:57)
[2016-10-14] MEDS: INSULIN ASPART SUPPLEMENTAL SCALE SQ SCH ×4 (04:00→22:00)
[2016-10-14] MEDS: CHLORHEXIDINE GLUCONATE 2 % 1 PACK (2 CLOTHS) TOP SCH (04:00)
[2016-10-14 04:20] LABS: HEMATOCRIT 38.5 % (39.0-51.0); MEAN CELL VOLUME 94.1 FL (80.0-100.0); MEAN CORPUSCULAR HEMOGLOBIN 30.7 PG (27.0-34.0); MEAN CORPUSCULAR HGB CONC 32.6 % (32.0-36.0); PLATELET COUNT 213 TH/MM3 (150-450); RED CELL DISTRIBUTION WIDTH 13.2 % (11.6-17.2); REVIEW FLAG FINAL; WHITE BLOOD COUNT 10.9 TH/MM3 (4.0-11.0)
[2016-10-14] MEDS: PIPERACIL-TAZO 4.5 GM PREMIX 100 ML IV SCH ×4 (04:30→22:16)
[2016-10-14 04:47] LABS: BICARBONATE 30.4 MEQ/L (21.0-32.0); POTASSIUM 3.3 MEQ/L (3.5-5.1)
[2016-10-14] MEDS: hydrALAZINE HCL 25 MG TAB PO SCH ×3 (05:10→21:16)
[2016-10-14] MEDS: CHLORHEXIDINE 0.12% (ORAL KIT) 15 ML CUP MT SCH ×4 (08:00→21:16)
[2016-10-14] MEDS: ENOXAPARIN SODIUM 40 MG/0.4 ML SYRINGE SQ SCH (08:16)
[2016-10-14] MEDS: BENEPROTEIN POWDER 1 PACK G-TUBE SCH ×5 (08:16→18:00)
[2016-10-14] MEDS: SODIUM CHLORIDE 0.9% FLUSH 10 ML FLUSH SCH ×2 (08:16→21:17)
[2016-10-14] MEDS: FAMOTIDINE 40 MG/5 ML LIQ 50 ML BTL NG SCH ×2 (08:16→21:17)
[2016-10-14] MEDS: amLODIPine BESYLATE 5 MG TAB PO SCH (08:17)
[2016-10-14] MEDS: DOCUSATE SODIUM 50 MG/SENNA 8.6 MG TAB PO SCH ×2 (08:17→21:00)
--- NOTE | 2016-10-14 10:17 | HHI.NSPN ---
(Any Olivarez) Note Status Status: Progress Note (Any Olivarez) Interval History Interval History Mr. Caal is a 81 year old male who presented for evaluation of altered mental status. Cannot obtain history from patient, however his close friend is at bedside who found the patient. His friend reports he last spoke with the patient 2-3 days ago. He was not answering his phone so he went to check on him and found the patient on the floor lying on his side. He was very confused and did not recognize him. He was taken to the ED. CT Head on arrival shows right intraventricular hemorrhage. He is not known to take blood thinners. His friend reports baseline he is normal besides being short of breath due to his COPD. Neurosurgical evaluation was requested. 10/08: awake, intubated on CPAP. MRI Brain completed. 10/09: s/p placement of ventriculostomy drain yesterday, intubated and sedated. 10/10: no output via EVD overnight, pt extubated this morning 10/11: remains without drainage out EVD overnight, f/u CT Head this morning with stable ventricles 10/12: no changes to neuro checks overnight, eyes open, moves ext intermittently but not following commands, nonverbal 10/13: reintubated, on levophed for BP support. CTA chest positive for PE. obtain u/s of extremities now 10/14: intubated, sedated. s/p placement of IVC filter last night. (Any Olivarez) Labs, Micro, & Vital Signs Results Date Time Temp Pulse Resp B/P Pulse Ox O2 Delivery O2 Flow Rate FiO2 10/14/16 08:08 100 50 10/14/16 06:00 58 10/14/16 04:10 99 Ventilator 10/14/16 04:06 98 50 10/14/16 04:00 54 10/14/16 04:00 50 10/14/16 04:00 98.6 54 14 137/74 100 10/14/16 02:00 58 10/14/16 00:26 98 50 10/14/16 00:00 98.8 58 14 121/67 100 10/14/16 00:00 58 10/14/16 00:00 50 10/13/16 22:00 58 10/13/16 20:31 99 Ventilator 10/13/16 20:16 99 50 10/13/16 20:00 50 10/13/16 20:00 99.1 62 14 125/63 100 10/13/16 20:00 62 10/13/16 19:00 100 Mechanical Ventilator 50 10/13/16 18:00 66 10/13/16 16:51 99 50 10/13/16 16:00 98.3 85 14 100/63 100 10/13/16 16:00 50 10/13/16 16:00 58 10/13/16 14:00 100 10/13/16 12:00 98.3 64 14 95/50 100 10/13/16 12:00 50 10/13/16 12:00 64 10/13/16 11:21 100 50 10/14/16 07:00 Intake Total 1873 ml Output Total 1100 ml Balance 773 ml Constitutional Vital Signs Date Time Temp Pulse Resp B/P Pulse Ox O2 Delivery O2 Flow Rate FiO2 10/14/16 08:08 100 50 10/14/16 06:00 58 10/14/16 04:10 99 Ventilator 10/14/16 04:06 98 50 10/14/16 04:00 54 10/14/16 04:00 50 10/14/16 04:00 98.6 54 14 137/74 100 10/14/16 02:00 58 10/14/16 00:26 98 50 10/14/16 00:00 98.8 58 14 121/67 100 10/14/16 00:00 58 10/14/16 00:00 50 10/13/16 22:00 58 10/13/16 20:31 99 Ventilator 10/13/16 20:16 99 50 10/13/16 20:00 50 10/13/16 20:00 99.1 62 14 125/63 100 10/13/16 20:00 62 10/13/16 19:00 100 Mechanical Ventilator 50 10/13/16 18:00 66 10/13/16 16:51 99 50 10/13/16 16:00 98.3 85 14 100/63 100 10/13/16 16:00 50 10/13/16 16:00 58 10/13/16 14:00 100 10/13/16 12:00 98.3 64 14 95/50 100 10/13/16 12:00 50 10/13/16 12:00 64 10/13/16 11:21 100 50 10/14/16 07:00 Intake Total 1873 ml Output Total 1100 ml Balance 773 ml (Any Olivarez) Review of Systems/Exam Exam Mr. Caal is intubated and sedated. Cranial Nerves: Pupils 2-3 mm equal, round, reactive to light. Conjugate gaze. Cervical Spine: His neck is soft, supple, without nuchal rigidity. Motor: not following commands for testing Sensory: minimal response to pain Reflexes: Plantars silent b/l Cerebellar: cannot assess due to current clinical condition (Any Olivarez) Exam Mr Caal is intubated and sedated. Minimal response to pain Cranial Nerves: Pupils equal, round, reactive to light. Eyes appear conjugated. There was no nystagmus, no papilledema. Face musculature appeared symmetrical at rest. Face sensation, olfaction, visual william, and hearing cannot be adequately assessed due to his neurological condition. The patient has a corneal reflex. He has a gag reflex. The sternocleidomastoid and trapezius are symmetrical. Cervical Spine: His neck is soft, supple, without nuchal rigidity. Motor: His muscle tone and bulk are normal. He moves minimally all 4 extremities symmetrically. Reflexes: Deep tendon reflexes are 1+ and symmetrical in the biceps, triceps, and brachioradialis, bilaterally, in the upper extremities. In the lower extremities, the patellar and ankles are 1+, bilaterally. There is a bilateral plantar flexion response. There is no clonus or other abnormal reflexes noted. Sensory: On examination there is minimal response to painful stimuli Cerebellar: Examination cannot be adequately assessed due to the patient's neurological condition. (Vladimir Miller MD) Medications Current Medications Current Medications Medications (Trade) Dose Ordered Sig/Mario Route PRN Reason Start Time Stop Time Status Last Admin Dose Admin Sodium Chloride (NS Flush) 2 ml UNSCH PRN .XX FLUSH AFTER USING IV ACCESS 10/07/16 00:00 Sodium Chloride (NS Flush) 2 ml BID .XX 10/07/16 09:00 10/14/16 08:16 Acetaminophen (Tylenol) 650 mg Q6H PRN PO PAIN 1-5 AND/OR FEVER >101F 10/07/16 00:00 10/11/16 16:05 Morphine Sulfate (Morphine Inj) 2 mg Q2H PRN IV PAIN SCALE 6 TO 10 10/07/16 00:00 10/12/16 23:15 Ondansetron HCl (Zofran Inj) 4 mg Q6H PRN IV NAUSEA OR VOMITING 10/07/16 00:00 10/07/16 01:05 Miscellaneous Information 1 Q361D XX 10/07/16 00:00 Chlorhexidine Gluconate (Chlorhexidine 2% Cloth) Taper DAILY@04 TOP 10/07/16 04:00 10/03/17 03:59 10/11/16 04:00 Chlorhexidine Gluconate (Chlorhexidine 2% Cloth) 3 pack UNSCH PRN TOP HYGIENIC CARE 10/07/16 00:00 Senna/Docusate Sodium (Michelle-Colace) 1 tab BID PO 10/07/16 09:00 10/14/16 08:17 Magnesium Hydroxide (Milk Of Magnesia Liq) 30 ml Q12H PRN PO MILD - MODERATE CONSTIPATION 10/07/16 00:00 Sennosides (Senokot) 17.2 mg Q12H PRN PO MODERATE - SEVERE CONSTIPATION 10/07/16 00:00 Bisacodyl (Dulcolax Supp) 10 mg DAILY PRN RECTAL SEVERE CONSITIPATION 10/07/16 00:00 Lactulose (Lactulose Liq) 30 ml DAILY PRN PO SEVERE CONSITIPATION 10/07/16 00:00 Hydralazine HCl (Apresoline Inj) 20 mg Q4H PRN IV PUSH SBP>140, DBP>90 10/07/16 03:45 10/10/16 02:47 Labetalol HCl (Trandate Inj) 10 mg Q4H PRN IV PUSH SBP>140, DBP>90 10/07/16 03:45 10/13/16 03:41 Chlorhexidine Gluconate (Peridex 0.12% Liq) 15 ml BID@08,20 MT 10/07/16 20:00 10/14/16 08:16 Amlodipine Besylate (Norvasc) 5 mg DAILY PO 10/09/16 09:30 10/12/16 08:15 Hydralazine HCl (Apresoline) 25 mg Q8HR PO 10/09/16 09:30 10/12/16 20:35 Hydralazine HCl (Apresoline Inj) 10 mg Q1H PRN IV PUSH SBP > 160 10/09/16 09:30 10/12/16 11:34 Protein (Beneprotein Powder) 1 pack TID G-TUBE 10/09/16 13:00 10/14/16 08:16 Dextrose (D50w (Vial) Inj) 50 ml UNSCH PRN IV HYPOGLYCEMIA-SEE COMMENTS 10/10/16 09:45 Glucagon (Glucagon Inj) 1 mg UNSCH PRN OTHER HYPOGLYCEMIA-SEE COMMENTS 10/10/16 09:45 Insulin Aspart 1 1 Q6H SQ 10/10/16 10:00 10/10/16 16:00 Potassium Chloride 100 ml @ 50 mls/hr Q2H PRN IV For Potassium 2.8 - 3.2 mEq/L 10/10/16 09:45 Potassium Chloride (KCl 20 Meq Premix Inj) 100 ml @ 50 mls/hr Q2H PRN IV For Potassium 2.8 - 3.2 mEq/L 10/10/16 09:45 10/10/16 10:19 Potassium Bicarb/ Potassium Chloride 50 meq 50 meq UNSCH PRN PO For Potassium 3.3 - 3.5 mEq/L 10/10/16 09:45 Potassium Chloride 100 ml @ 25 mls/hr UNSCH PRN IV For Potassium 3.3 - 3.5 mEq/L 10/10/16 09:45 10/11/16 13:26 Potassium Chloride 100 ml @ 50 mls/hr Q2H PRN IV For Potassium 3.3 - 3.5 mEq/L 10/10/16 09:45 Magnesium Sulfate/ Sodium Chloride (Magnesium Sulfate Inj/NS Inj) 100 ml @ 50 mls/hr UNSCH PRN IV For Magnesium 0.9 - 1.1 mg/dL 10/10/16 09:45 Magnesium Oxide 800 mg 800 mg UNSCH PRN PO For Magnesium 1.2 - 1.6 mg/dL 10/10/16 09:45 Magnesium Sulfate/ Sodium Chloride (Magnesium Sulfate Inj/NS Inj) 100 ml @ 50 mls/hr UNSCH PRN IV For Magnesium 1.2 - 1.6 mg/dL 10/10/16 09:45 Potassium Phosphate 2000 mg 2,000 mg Q4H PRN PO For Phosphorus < 2.5 mg/dL 10/10/16 09:45 Sodium Phosphate/ Sodium Chloride (Sodium Phosphate Inj/NS 250 ml Inj) 250 ml @ 42 mls/hr UNSCH PRN IV For Phosphorus < 2.5 mg/dL 10/10/16 09:45 Potassium Phosphate 2000 mg 2,000 mg UNSCH PRN PO/TUBE SEE LABEL COMMENTS 10/10/16 09:45 Potassium Phosphate/Sodium Chloride (Potassium Phosphate Inj/NS 250 ml Inj) 260 ml @ 42 mls/hr UNSCH PRN IV SEE LABEL COMMENTS 10/10/16 09:45 Famotidine (Pepcid Liq) 20 mg BID NG 10/11/16 21:00 10/14/16 08:16 Chlorhexidine Gluconate 15 ml 15 ml BID@08,20 MT 10/13/16 08:00 10/13/16 08:00 Propofol 100 ml @ 0 mls/hr TITRATE IV 10/13/16 04:15 10/14/16 08:20 Piperacillin Sod/ Tazobactam Sod 100 ml @ 200 mls/hr Q6H IV 10/13/16 04:15 10/14/16 04:30 Norepinephrine Bitartrate (Levophed-Dextrose Drip) 250 ml @ 0 mls/hr TITRATE IV 10/13/16 04:15 10/13/16 04:28 Terbutaline Sulfate (Brethine Inj) 1 mg UNSCH PRN SQ For Extravasation 10/13/16 04:15 Enoxaparin Sodium (Lovenox Inj) 40 mg Q24H SQ 10/13/16 08:00 10/14/16 08:16 (Any Olivarez) Current Medications Current Medications Sodium Chloride 1,000 ml @ 999 mls/hr BOLUS ONCE IV Last administered on 10/06 21:31; Start 10/06/16 at 20:45; Stop 10/06/16 at 21:45; Status DC Sodium Chloride (NS 1000 ml Inj) 1,000 ml @ 999 mls/hr BOLUS ONCE IV Last administered on 10/06/16 22:04; Start 10/06/16 at 20:45; Stop 10/06/16 at 21:45 ; Status DC IV Flush (NS Flush) 2 ml UNSCH PRN IV FLUSH FLUSH AFTER USING IV ACCESS; Start 10/06/16 at 20:45; Stop 10/06/16 at 23:51; Status DC Acetaminophen (Tylenol) 650 mg ONCE ONCE PO Last administered on 10/06/16 21: 27; Start 10/06/16 at 21:15; Stop 10/06/16 at 21:16; Status DC Sodium Chloride 2 ml 2 ml UNSCH PRN IVF FLUSH AFTER USING IV ACCESS; Start at 21:15; Stop 10/06/16 at 23:51; Status DC Ceftriaxone Sodium 1000 mg/ Sodium Chloride 100 ml @ 200 mls/hr ONCE ONCE IV Last administered on 10/06/16 21:26; Start 10/06/16 at 21:15; Stop 10/06/16 at 21:44; Status DC Azithromycin 500 mg/Sodium Chloride 250 ml @ 250 mls/hr ONCE ONCE IV Last administered on 10/06/16 22:03; Start 10/06/16 at 21:15; Stop 10/06/16 at 22:14 ; Status DC Sodium Chloride (NS 1000 ml Inj) 1,000 ml @ 100 mls/hr Q10H IV Last administered on 10/12/16 00:57; Start 10/06/16 at 23:47; Stop 10/12/16 at 09:46; Status DC Sodium Chloride (NS Flush) 2 ml UNSCH PRN .XX FLUSH AFTER USING IV ACCESS; Start 10/07/16 at 00:00 Sodium Chloride (NS Flush) 2 ml BID .XX Last administered on 10/15/16 20:19; Start 10/07/16 at 09:00 Acetaminophen (Tylenol) 650 mg Q6H PRN PO PAIN 1-5 AND/OR FEVER >101F Last administered on 10/11/16 16:05; Start 10/07/16 at 00:00 Morphine Sulfate (Morphine Inj) 2 mg Q2H PRN IV PAIN SCALE 6 TO 10 Last administered on 10/12/16 23:15; Start 10/07/16 at 00:00 Famotidine (Pepcid Inj) 20 mg Q12HR IV PUSH Last administered on 10/09/16 20:11 ; Start 10/07/16 at 09:00; Stop 10/10/16 at 07:25; Status DC Ondansetron HCl (Zofran Inj) 4 mg Q6H PRN IV NAUSEA OR VOMITING Last administered on 10/07/16 01:05; Start 10/07/16 at 00:00 Albuterol/ Ipratropium (Duoneb Neb) 1 ampule Q2HR NEB PRN INH WHEEZING Last administered on 10/15/16 20:17; Start 10/07/16 at 00:00 Miscellaneous Information 1 Q361D XX ; Start 10/07/16 at 00:00 Chlorhexidine Gluconate (Chlorhexidine 2% Cloth) Taper DAILY@04 TOP Last administered on 10/11/16 04:00; Start 10/07/16 at 04:00; Stop 10/03/17 at 03:59 Chlorhexidine Gluconate (Chlorhexidine 2% Cloth) 3 pack UNSCH PRN TOP HYGIENIC CARE; Start 10/07/16 at 00:00 Senna/Docusate Sodium (Michelle-Colace) 1 tab BID PO Last administered on 10/15/16 20:19; Start 10/07/16 at 09:00 Magnesium Hydroxide (Milk Of Magnesia Liq) 30 ml Q12H PRN PO MILD - MODERATE CONSTIPATION; Start 10/07/16 at 00:00 Sennosides (Senokot) 17.2 mg Q12H PRN PO MODERATE - SEVERE CONSTIPATION; Start 10/07/16 at 00:00 Bisacodyl (Dulcolax Supp) 10 mg DAILY PRN RECTAL SEVERE CONSITIPATION; Start at 00:00 Lactulose 30 ml 30 ml DAILY PRN PO SEVERE CONSITIPATION; Start 10/07/16 at 00:00 Azithromycin 500 mg/Sodium Chloride 250 ml @ 250 mls/hr Q24H IV Last administered on 10/10/16 21:42; Start 10/07/16 at 22:00; Stop 10/11/16 at 09:54; Status DC Piperacillin Sod/ Tazobactam Sod (Zosyn 4.5 Gm Premix) 100 ml @ 200 mls/hr Q6H IV Last administered on 10/12/16 07:00; Start 10/07/16 at 01:00; Stop 10/12/16 at 09:38; Status DC Albuterol/ Ipratropium (Duoneb Neb) 1 ampule Q6HR NEB NEB Last administered on 10/08/16 07:33; Start 10/07/16 at 04:00; Stop 10/08/16 at 11:06; Status DC Albuterol/ Ipratropium (Duoneb Neb) 1 ampule Q2HR NEB PRN NEB WHEEZING; Start 10/07/16 at 01:15; Stop 10/08/16 at 11:07; Status DC Hydralazine HCl (Apresoline Inj) 20 mg Q4H PRN IV PUSH SBP>140, DBP>90 Last administered on 10/14/16 18:08; Start 10/07/16 at 03:45 Labetalol HCl (Trandate Inj) 10 mg Q4H PRN IV PUSH SBP>140, DBP>90 Last administered on 10/13/16 03:41; Start 10/07/16 at 03:45 Iohexol (Omnipaque 350 Inj) 87 ml STK-MED ONCE IV Last administered on 03:53; Start 10/07/16 at 03:53; Stop 10/07/16 at 03:54; Status DC Midazolam HCl (Versed Inj) 5 mg ONCE ONCE IM Last administered on 10/07/16 13: 50; Start 10/07/16 at 12:15; Stop 10/07/16 at 13:10; Status DC Rocuronium Billings (Zemuron Inj) 100 mg BOLUS ONCE IV Last administered on 10/07 13:51; Start 10/07/16 at 13:15; Stop 10/07/16 at 13:16; Status DC Chlorhexidine Gluconate 15 ml 15 ml BID@08,20 MT Last administered on 10/15/16 20:18; Start 10/07/16 at 20:00 Propofol (Diprivan 1000 Mg/100ml Inj) 100 ml @ 0 mls/hr TITRATE IV Last administered on 10/10/16 02:48; Start 10/07/16 at 12:15; Stop 10/11/16 at 09:54; Status DC Rocuronium Billings (Zemuron Inj) 50 mg STK-MED ONCE .ROUTE ; Start 10/07/16 at 12 :17; Stop 10/07/16 at 12:18; Status DC Amlodipine Besylate (Norvasc) 5 mg DAILY PO Last administered on 10/15/16 07:51 ; Start 10/09/16 at 09:30 Hydralazine HCl (Apresoline) 25 mg Q8HR PO Last administered on 10/12/16 20:35 ; Start 10/09/16 at 09:30 Hydralazine HCl (Apresoline Inj) 10 mg Q1H PRN IV PUSH SBP > 160 Last administered on 10/12/16 11:34; Start 10/09/16 at 09:30 Protein (Beneprotein Powder) 1 pack TID G-TUBE Last administered on 10/15/16 18 :00; Start 10/09/16 at 13:00 Metoclopramide HCl 10 mg 10 mg Q8HR IM ; Start 10/09/16 at 09:45; Stop 10/09/16 at 16:39; Status DC Vancomycin HCl/ Sodium Chloride (Vancomycin Inj/ NS 250 ml Inj) 262.5 ml @ 250 mls/hr ONCE ONCE IV Last administered on 10/09/16 11:12; Start 10/09/16 at 11: 00; Stop 10/09/16 at 12:02; Status DC Metoclopramide HCl (Reglan Inj) 10 mg Q8HR IV Last administered on 10/11/16 05: 26; Start 10/09/16 at 22:00; Stop 10/11/16 at 09:54; Status DC Famotidine (Pepcid Inj) 10 mg Q12HR IV PUSH Last administered on 10/11/16 08:11 ; Start 10/10/16 at 09:00; Stop 10/11/16 at 09:54; Status DC Dextrose (D50w (Vial) Inj) 50 ml UNSCH PRN IV HYPOGLYCEMIA-SEE COMMENTS; Start 10/10/16 at 09:45 Glucagon (Glucagon Inj) 1 mg UNSCH PRN OTHER HYPOGLYCEMIA-SEE COMMENTS; Start 10/10/16 at 09:45 Insulin Aspart 1 1 Q6H SQ Last administered on 10/10/16 16:00; Start 10/10/16 at 10:00 Potassium Chloride 100 ml @ 50 mls/hr Q2H PRN IV For Potassium 2.8 - 3.2 mEq/L ; Start 10/10/16 at 09:45 Potassium Chloride (KCl 20 Meq Premix Inj) 100 ml @ 50 mls/hr Q2H PRN IV For Potassium 2.8 - 3.2 mEq/L Last administered on 10/10/16 10:19; Start 10/10/16 at 09:45 Potassium Bicarb/ Potassium Chloride 50 meq 50 meq UNSCH PRN PO For Potassium 3.3 - 3.5 mEq/L; Start 10/10/16 at 09:45 Potassium Chloride 100 ml @ 25 mls/hr UNSCH PRN IV For Potassium 3.3 - 3.5 mEq /L Last administered on 10/14/16 18:11; Start 10/10/16 at 09:45 Potassium Chloride 100 ml @ 50 mls/hr Q2H PRN IV For Potassium 3.3 - 3.5 mEq/L ; Start 10/10/16 at 09:45 Magnesium Sulfate/ Sodium Chloride (Magnesium Sulfate Inj/NS Inj) 100 ml @ 50 mls/hr UNSCH PRN IV For Magnesium 0.9 - 1.1 mg/dL; Start 10/10/16 at 09:45 Magnesium Oxide 800 mg 800 mg UNSCH PRN PO For Magnesium 1.2 - 1.6 mg/dL; Start 10/10/16 at 09:45 Magnesium Sulfate/ Sodium Chloride (Magnesium Sulfate Inj/NS Inj) 100 ml @ 50 mls/hr UNSCH PRN IV For Magnesium 1.2 - 1.6 mg/dL; Start 10/10/16 at 09:45 Potassium Phosphate 2000 mg 2,000 mg Q4H PRN PO For Phosphorus < 2.5 mg/dL; Start 10/10/16 at 09:45 Sodium Phosphate/ Sodium Chloride (Sodium Phosphate Inj/NS 250 ml Inj) 250 ml @ 42 mls/hr UNSCH PRN IV For Phosphorus < 2.5 mg/dL; Start 10/10/16 at 09:45 Potassium Phosphate 2000 mg 2,000 mg UNSCH PRN PO/TUBE SEE LABEL COMMENTS; Start 10/10/16 at 09:45 Potassium Phosphate/Sodium Chloride (Potassium Phosphate Inj/NS 250 ml Inj) 260 ml @ 42 mls/hr UNSCH PRN IV SEE LABEL COMMENTS; Start 10/10/16 at 09:45 Albuterol/ Ipratropium 1 ampule 1 ampule Q4HR NEB NEB Last administered on 10/14 11:57; Start 10/10/16 at 16:00; Stop 10/14/16 at 16:01; Status DC Magnesium Sulfate/ Dextrose (Magnesium Sulfate 1 Gm Premix) 100 ml @ 100 mls/ hr Q1H IV Last administered on 10/11/16 09:16; Start 10/11/16 at 07:45; Stop 10/11/16 at 09:44; Status DC Famotidine 20 mg 20 mg BID NG Last administered on 10/15/16 07:51; Start at 21:00 Cefazolin Sodium/ Dextrose (Ancef 2 Gm Premix) 50 ml @ 100 mls/hr Q8H IV Last administered on 10/14/16 01:32; Start 10/12/16 at 10:00; Stop 10/14/16 at 09:59; Status DC Etomidate (Amidate Inj) 20 mg STK-MED ONCE .ROUTE Last administered on 06:35; Start 10/13/16 at 03:49; Stop 10/13/16 at 03:50; Status DC Rocuronium Billings 50 mg 50 mg STK-MED ONCE .ROUTE Last administered on 06:35; Start 10/13/16 at 03:49; Stop 10/13/16 at 03:50; Status DC Sodium Chloride 1,000 ml @ 999 mls/hr Q1H1M IV Last administered on 10/13/16 04:29; Start 10/13/16 at 04:15; Stop 10/13/16 at 05:15; Status DC Norepinephrine Bitartrate (Levophed-Dextrose Drip) 250 ml @ As Directed STK- MED ONCE IV ; Start 10/13/16 at 04:07; Stop 10/13/16 at 04:08; Status DC Chlorhexidine Gluconate 15 ml 15 ml BID@08,20 MT Last administered on 10/13/16 08:00; Start 10/13/16 at 08:00 Propofol 100 ml @ 0 mls/hr TITRATE IV Last administered on 10/15/16 20:19; Start 10/13/16 at 04:15 Piperacillin Sod/ Tazobactam Sod 100 ml @ 200 mls/hr Q6H IV Last administered on 10/15/16 16:36; Start 10/13/16 at 04:15 Norepinephrine Bitartrate (Levophed-Dextrose Drip) 250 ml @ 0 mls/hr TITRATE IV Last administered on 10/13/16 04:28; Start 10/13/16 at 04:15 Terbutaline Sulfate (Brethine Inj) 1 mg UNSCH PRN SQ For Extravasation; Start 10/13/16 at 04:15 Iohexol (Omnipaque 350 Inj) 80 ml STK-MED ONCE IV Last administered on 05:31; Start 10/13/16 at 05:31; Stop 10/13/16 at 05:32; Status DC Enoxaparin Sodium (Lovenox Inj) 40 mg Q24H SQ Last administered on 10/15/16 07: 51; Start 10/13/16 at 08:00 Iohexol (Omnipaque 350 Inj) 10 ml STK-MED ONCE OTHER Last administered on 15:00; Start 10/13/16 at 15:16; Stop 10/13/16 at 15:17; Status DC Water (Free Water) 200 ml Q6HR G-TUBE Last administered on 10/15/16 18:00; Start 10/15/16 at 00:00 (Vladimir Miller MD) Medical Decision Making MDM Remarks 81 y/o male presented for AMS CT Brain on arrival showed extensive right intraventricular hemorrhage, s/p placement of ventriculostomy drain 10/08/16 respiratory failure s/p intubation, extubated 10/10/16, reintubated 10/12/16 MRI Brain 10/07/16 showed 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 Davis Devi MD Lower Extremity Ultrasound 10/13/16 0000 Signed Impressions: Service Date/Time: Thursday, October 13, 2016 08:28 - CONCLUSION: DVT in the proximal left femoral veins. No evidence of DVT in the right lower extremity. Davis Devi MD IVC Filter Placement X-Ray 10/13/16 Signed Impressions: Service Date/Time: Thursday, October 13, 2016 13:43 - CONCLUSION: Uncomplicated inferior vena cava filter placement as above. Abel Zavaleta MD Chest X-Ray 10/13/16 Signed Impressions: Service Date/Time: Thursday, October 13, 2016 04:46 - CONCLUSION: Central line placement as above. Anoop Hernandez MD CT Angiography 10/13/16 Signed Impressions: Service Date/Time: Thursday, October 13, 2016 05:17 - CONCLUSION: 1. Examination is positive for pulmonary embolus right upper lobe branches. 2. Atelectasis and consolidation as above. Anoop Hernandez MD Neck CTA 10/07/16 Signed Impressions: Service Date/Time: Friday, October 07, 2016 03:38 - CONCLUSION: 1. Scattered calcified atherosclerotic plaque. A 50%% stenosis is seen involving the right ICA. The left carotid is patent. 2. Dominant left vertebral artery. The right terminates in a PICA distribution Tyrone Christianson Jr., MD Head CTA 10/07/16 Signed Impressions: Service Date/Time: Friday, October 07, 2016 03:38 - CONCLUSION: Scattered atherosclerotic plaque without a hemodynamically significant stenosis. No aneurysm. Tyrone Christianson Jr., MD Brain MRI 10/07/16 Signed Impressions: Service Date/Time: Friday, October 07, 2016 17:54 - CONCLUSION: 1. The ventricular blood has a very similar configuration to prior CT yesterday, filling the right lateral ventricle, extending into the 3rd ventricle and layering in the left occipital horn. 2. There is a small elongated infarction in the right posterior external capsule with a thin rim of T2 shortening suggesting that this may be hemorrhagic. Tyrone Vivar MD Abdomen X-Ray 10/07/16 Signed Impressions: Service Date/Time: Friday, October 07, 2016 15:21 - CONCLUSION: No concerning radiopaque foreign body is identified in the abdomen. Abel Lemus MD Cervical Spine CT 10/06/16 Signed Impressions: Service Date/Time: Thursday, October 06, 2016 23:15 - CONCLUSION: Negative trauma CT. Iftikhar Garza MD (Vladimir Miller MD) Plan Plan Remarks cont serial neuro checks cont critical care management on sq lovenox \obtain f/u CT Head tomorrow morning (Any Olivarez) Attending Statement Neuro. Continue neuro checks in a serial fashion. CT brain tomorrow New deep venous thromboses and pulmonary emboli. He is not a candidate for full anticoagulation due to his intracranial hemorrhage. I recommend placement of a [place] filter Respiratory failure. He is now on mechanical ventilation. Continue. aggressive pulmonary toilette, nasotracheal suction, and breathing treatments with nebulizers. Daily PT and OT Nutrition. Start tube feedings Renal. monitor closely urine output, BUN and creatinine Endocrine. Monitor serial Acu checks and SSI as needed ID monitor for signs of infection Protonix for stress ulcer prophylaxis The exam, history, and the medical decision-making described in the above note were completed with the assistance of the mid-level provider. I reviewed and agree with the findings presented. I attest that I had a [id number] encounter with the patient on the same day, and personally performed and documented my assessment and findings in the medical record. (Vladimir Miller MD) Any Olivarez Oct 14, 2016 10:17 Vladimir Miller MD Oct 15, 2016 21:11
[2016-10-14] MEDS: RESP: ALBUTEROL 2.5 MG/IPRATROPIUM 0.5 MG NEB (PRN) INH (16:42)
[2016-10-14] MEDS: hydrALAZINE HCL 20 MG/ML VIAL IV PUSH PRN (18:08)
[2016-10-14] MEDS: POTASSIUM CHLOR 40 MEQ PREMIX 100 ML IV PRN (18:11)
--- NOTE | 2016-10-14 20:47 | HHI.CCPN ---
Subjective Remarks/Hospital Course Elderly male presents for evaluation of altered mental status. He states that he stumbled 3 days ago and fell. He was laying on the floor since. Apparently , a friend found him today. The patient is unsure of his past medical history. Apparently, he has history of COPD and is on oxygen. He does not know what medications he is on. The patient knows his name, but does not know the year. He denies hitting his head or loss of conscious, but has erythema to the left forehead. Patient denies any chest pain or abdominal pain. No vomiting. He states that he was unable to get up, but will not tell me why. He might also have some history of hypertension, glaucoma. 10/07: Required intubation today for progressive respiratory failure. 10/08: Will aim for quick extubation now that MRI complete. Need sputum sample. 10/09: Tolerating SBTs. Push toward extubation. 10/10: Vigorous but confused. Zimmerman-sensitive staph in sputum, will narrow abx. 10/11: extubated, stable from pulmonary standpoint. still confused. EVD not draining. 10/12: EVD removed. head CT stable. neuro exam stable. 10/13: overnight with acute decompensation, hypoxic respiratory failure requiring intubation and mechanical ventilation. hypotensive requiring vasopressors. clinically unstable. CT pulmonary angiogram with +PE. 10/14: levophed requirement persists. FANY worsening. uop poor. mental status stable, but given blood pressure and hypoxia still not stable for SBT. Objective Vital Signs Date Time Temp Pulse Resp B/P Pulse Ox O2 Delivery O2 Flow Rate FiO2 10/14/16 18:00 69 10/14/16 16:43 100 50 10/14/16 16:00 98.1 14 146/71 10/14/16 07:00 Mechanical Ventilator 10/12/16 19:40 6.00 Intake and Output 10/13/16 10/13/16 10/13/16 07:59 15:59 23:59 Intake Total 1595 ml 735 ml 569 ml Output Total 250 ml 450 ml 175 ml Balance 1345 ml 285 ml 394 ml Result Diagram: 10/14/16 0400 10/14/16 1730 Imaging Last [address] 10/06/162037 Signed Impressions: Service Date/Time: Thursday, October 06, 2016 23:15 - CONCLUSION: Prominent amount of blood in the right ventricle and small amount of blood in the 3rd and left occipital horn ventricle. No parenchymal hemorrhage seen. No extra axial fluid collections. Tyrone Vivar MD Chest X-Ray 10/06/162037 Signed Impressions: Service Date/Time: Thursday, October 06, 2016 20:37 - CONCLUSION: Bilateral partially consolidative infiltrates lower medial right lung and lower lateral left lung. Tyrone Vivar MD Objective Remarks GENERAL: Elderly man critically ill, intubated, sedated. SKIN: Warm and dry. HEAD: Normocephalic. EYES: No scleral icterus. No injection or drainage. NECK: trachea midline. no jvd. CARDIOVASCULAR: tachycardic rate, regular rhythm. sinus by tele. RESPIRATORY: intubated, prvc, fio2 50% GASTROINTESTINAL: Abdomen soft, non-tender, nondistended. MUSCULOSKELETAL: No cyanosis, or edema. EXTREMITIES: Well perfused. NEURO: sedated, w/d x 4. does not follow commands. 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 ICH score is 4, suggesting a poor prognosis. Now with decompensated shock secondary to acute PE. not a candidate for anticoagulation. s/p IVC filter 10/13. discussed care with Dr. Miller who agrees. clinically decompensating. critically ill. not progressing on pathway. FANY worsening. hypoxia not improving as we would expect. still high risk for sudden cardiac post-PE ICH Acute encephalopathy - Unclear source - Atypical location - Strict blood pressure control with SBP goal less than 150 - Coags within normal limits - Neurosurgery consulted: Dr Miller - Neuro checks per unit protocol Acute pulmonary Embolism Acute hypoxic respiratory failure - not a candidate for thrombolytics or anticoagulation - continue prophylactic dose lovenox - IVC filter 10/13 - high risk for sudden cardiac post PE. - no SBT today given instability Cardiogenic shock s/p acute PE - levophed for map > 65 - watch uop closely. Acute Kidney Injury - secondary to shock from PE. monitor closely. no need for emergent renal replacement therapy. MSSA Pneumonia - abx broadened to Zosyn when patient decompensated 10/13 (previously on ancef). if cultures negative at 48h, would de-escalate abx. - urine culture NGTD x 48h. - Staph in sputum, MSSA DVT GI prophylaxis - Teds SCDs - lovenox, prophylactic dose. IVC filter. 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 Probably not flow limiting. Very critically ill. not improving. poor prognosis. Critical Care time: 31 minutes, exclusive of separately billable procedures. Eloy Ocasio MD Oct 14, 2016 20:47
[2016-10-15] VITALS (20 sets, daily range): BP systolic 102–130; BP diastolic 44–80; PULSE 52–75; RESP 14–18; TEMP 97.1–98.2; O2SAT 97–100
[2016-10-15] MEDS: FREE WATER G-TUBE SCH ×5 (00:47→23:42)
[2016-10-15] MEDS: CHLORHEXIDINE GLUCONATE 2 % 1 PACK (2 CLOTHS) TOP SCH (03:43)
[2016-10-15] MEDS: PIPERACIL-TAZO 4.5 GM PREMIX 100 ML IV SCH ×4 (03:43→21:47)
[2016-10-15] MEDS: PROPOFOL 1000 MG/100 ML INJ 100 ML IV SCH ×3 (03:53→20:19)
[2016-10-15] MEDS: INSULIN ASPART SUPPLEMENTAL SCALE SQ SCH ×4 (04:00→21:46)
[2016-10-15 04:17] LABS: HEMATOCRIT 35.6 % (39.0-51.0); MEAN CELL VOLUME 92.9 FL (80.0-100.0); MEAN CORPUSCULAR HEMOGLOBIN 31.1 PG (27.0-34.0); MEAN CORPUSCULAR HGB CONC 33.4 % (32.0-36.0); PLATELET COUNT 186 TH/MM3 (150-450); RED BLOOD COUNT 3.83 MIL/MM3 (4.50-5.90); RED CELL DISTRIBUTION WIDTH 13.4 % (11.6-17.2); REVIEW FLAG FINAL; WHITE BLOOD COUNT 9.1 TH/MM3 (4.0-11.0)
[2016-10-15 04:41] LABS: BICARBONATE 30.3 MEQ/L (21.0-32.0); POTASSIUM 3.5 MEQ/L (3.5-5.1)
--- NOTE | 2016-10-15 04:54 | RADRPT ---
EXAM DATE/TIME: 10/15/2016 04:38 [facility] COMPARISON: CT BRAIN W/O CONTRAST, October 13, 2016, 5:09. INDICATIONS : Follow up hemorrhage. RADIATION DOSE: 37.42 CTDIvol (mGy) MEDICAL HISTORY : Hypertension. Chronic obstructive pulmonary disease. SURGICAL HISTORY : None. ENCOUNTER: Subsequent ACUITY: 2 days PAIN SCALE: Non-responsive LOCATION: cranial TECHNIQUE: Multiple contiguous axial images were obtained of the head. Using automated exposure control and adj ustment of the mA and/or kV according to patient size, radiation dose was kept as low as reasonably a chievable to obtain optimal diagnostic quality images. DICOM format image data is available electro nically for review and comparison. FINDINGS: Intraventricular hemorrhage is again seen greatest in the right lateral ventricle. There is a small h emorrhage in the right frontal region at the previous ventriculostomy catheter tract with a small scar unt of surrounding edema. There is stable ventriculomegaly. No fractures. Left maxillary sinus air-fl uid level. CONCLUSION: Stable intraventricular hemorrhage and small right frontal parenchymal bleed. Anoop Hernandez MD on October 15, 2016 at 4:52 Board Certified Radiologist. This report was verified electronically.
[2016-10-15] MEDS: hydrALAZINE HCL 25 MG TAB PO SCH ×3 (06:00→23:27)
[2016-10-15] MEDS: CHLORHEXIDINE 0.12% (ORAL KIT) 15 ML CUP MT SCH ×4 (07:37→20:18)
[2016-10-15] MEDS: SODIUM CHLORIDE 0.9% FLUSH 10 ML FLUSH SCH ×2 (07:37→20:19)
--- NOTE | 2016-10-15 07:44 | HHI.CCPN ---
Subjective Remarks/Hospital Course Elderly male presents for evaluation of altered mental status. He states that he stumbled 3 days ago and fell. He was laying on the floor since. Apparently , a friend found him today. The patient is unsure of his past medical history. Apparently, he has history of COPD and is on oxygen. He does not know what medications he is on. The patient knows his name, but does not know the year. He denies hitting his head or loss of conscious, but has erythema to the left forehead. Patient denies any chest pain or abdominal pain. No vomiting. He states that he was unable to get up, but will not tell me why. He might also have some history of hypertension, glaucoma. 10/07: Required intubation today for progressive respiratory failure. 10/08: Will aim for quick extubation now that MRI complete. Need sputum sample. 10/09: Tolerating SBTs. Push toward extubation. 10/10: Vigorous but confused. Zimmerman-sensitive staph in sputum, will narrow abx. 10/11: extubated, stable from pulmonary standpoint. still confused. EVD not draining. 10/12: EVD removed. head CT stable. neuro exam stable. 10/13: overnight with acute decompensation, hypoxic respiratory failure requiring intubation and mechanical ventilation. hypotensive requiring vasopressors. clinically unstable. CT pulmonary angiogram with +PE. 10/14: levophed requirement persists. FANY worsening. uop poor. mental status stable, but given blood pressure and hypoxia still not stable for SBT. 10/15: Brain bleed, COPD exacerbation, no improvement, little hope for extubation. Will ask Palliative Care to see. Objective Vital Signs Date Time Temp Pulse Resp B/P Pulse Ox O2 Delivery O2 Flow Rate FiO2 10/15/16 06:00 57 10/15/16 04:00 50 10/15/16 04:00 97.8 14 112/56 98 10/15/16 03:58 Ventilator 10/12/16 19:40 6.00 Intake and Output 10/14/16 10/14/16 10/15/16 08:00 16:00 00:00 Intake Total 569 ml 460 ml 625 ml Output Total 475 ml 500 ml 425 ml Balance 94 ml -40 ml 200 ml Result Diagram: 10/15/16 0400 10/15/16 0400 Imaging Last [address] 10/06/162037 Signed Impressions: Service Date/Time: Thursday, October 06, 2016 23:15 - CONCLUSION: Prominent amount of blood in the right ventricle and small amount of blood in the 3rd and left occipital horn ventricle. No parenchymal hemorrhage seen. No extra axial fluid collections. Tyrone Vivar MD Chest X-Ray 10/06/162037 Signed Impressions: Service Date/Time: Thursday, October 06, 2016 20:37 - CONCLUSION: Bilateral partially consolidative infiltrates lower medial right lung and lower lateral left lung. Tyrone Vivar MD Objective Remarks GENERAL: Elderly man critically ill, intubated, sedated. SKIN: Warm and dry. HEAD: Normocephalic. EYES: No scleral icterus. No injection or drainage. NECK: trachea midline. no jvd. CARDIOVASCULAR: tachycardic rate, regular rhythm. sinus by tele. RESPIRATORY: intubated, prvc, fio2 50% GASTROINTESTINAL: Abdomen soft, non-tender, nondistended. MUSCULOSKELETAL: No cyanosis, or edema. EXTREMITIES: Well perfused. NEURO: sedated, w/d x 4. does not follow commands. 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 ICH score is 4, suggesting a poor prognosis. Now with decompensated shock secondary to acute PE. not a candidate for anticoagulation. s/p IVC filter 10/13. discussed care with Dr. Miller who agrees. clinically decompensating. critically ill. not progressing on pathway. FANY worsening. hypoxia not improving as we would expect. still high risk for sudden cardiac post-PE ICH Acute encephalopathy - Unclear source - Atypical location - Strict blood pressure control with SBP goal less than 150 - Coags within normal limits - Neurosurgery consulted: Dr Miller - Neuro checks per unit protocol Acute pulmonary Embolism Acute hypoxic respiratory failure - not a candidate for thrombolytics or anticoagulation - continue prophylactic dose lovenox - IVC filter 10/13 - high risk for sudden cardiac post PE. - no SBT today given instability Cardiogenic shock s/p acute PE - levophed for map > 65 - watch uop closely. Acute Kidney Injury - secondary to shock from PE. monitor closely. no need for emergent renal replacement therapy. MSSA Pneumonia - abx broadened to Zosyn when patient decompensated 10/13 (previously on ancef). if cultures negative at 48h, would de-escalate abx. - urine culture NGTD x 48h. - Staph in sputum, MSSA DVT GI prophylaxis - Teds SCDs - lovenox, prophylactic dose. IVC filter. 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 Probably not flow limiting. Overall impression: Critically ill. multiple severe problems but main complicating feature is his age. not improving. poor prognosis. Darrin Chavez MD Oct 15, 2016 07:44
[2016-10-15] MEDS: FAMOTIDINE 40 MG/5 ML LIQ 50 ML BTL NG SCH ×2 (07:51→21:34)
[2016-10-15] MEDS: DOCUSATE SODIUM 50 MG/SENNA 8.6 MG TAB PO SCH ×2 (07:51→20:19)
[2016-10-15] MEDS: BENEPROTEIN POWDER 1 PACK G-TUBE SCH ×3 (07:51→18:00)
[2016-10-15] MEDS: ENOXAPARIN SODIUM 40 MG/0.4 ML SYRINGE SQ SCH (07:51)
[2016-10-15] MEDS: amLODIPine BESYLATE 5 MG TAB PO SCH (07:51)
--- NOTE | 2016-10-15 09:39 | HHI.NSPN ---
(Any Olivarez) Note Status Status: Progress Note (Any Olivarez) Interval History Interval History Mr. Caal is a 81 year old male who presented for evaluation of altered mental status. Cannot obtain history from patient, however his close friend is at bedside who found the patient. His friend reports he last spoke with the patient 2-3 days ago. He was not answering his phone so he went to check on him and found the patient on the floor lying on his side. He was very confused and did not recognize him. He was taken to the ED. CT Head on arrival shows right intraventricular hemorrhage. He is not known to take blood thinners. His friend reports baseline he is normal besides being short of breath due to his COPD. Neurosurgical evaluation was requested. 10/08: awake, intubated on CPAP. MRI Brain completed. 10/09: s/p placement of ventriculostomy drain yesterday, intubated and sedated. 10/10: no output via EVD overnight, pt extubated this morning 10/11: remains without drainage out EVD overnight, f/u CT Head this morning with stable ventricles 10/12: no changes to neuro checks overnight, eyes open, moves ext intermittently but not following commands, nonverbal 10/13: reintubated, on levophed for BP support. CTA chest positive for PE. obtain u/s of extremities now 10/14: intubated, sedated. s/p placement of IVC filter last night. 10/15: f/u CT Head this am with stable IVH and ventriculomegaly. remains intubated and sedated. (Any Olivarez) Labs, Micro, & Vital Signs Results Date Time Temp Pulse Resp B/P Pulse Ox O2 Delivery O2 Flow Rate FiO2 10/15/16 08:04 100 45 10/15/16 08:00 58 10/15/16 08:00 97.1 61 14 124/66 100 10/15/16 08:00 50 10/15/16 07:00 100 Mechanical Ventilator 50 10/15/16 06:00 57 10/15/16 04:00 56 10/15/16 04:00 50 10/15/16 04:00 97.8 56 14 112/56 98 10/15/16 03:58 100 Ventilator 10/15/16 03:55 100 50 10/15/16 02:00 54 10/15/16 00:27 100 50 10/15/16 00:00 50 10/15/16 00:00 75 10/15/16 00:00 98.0 64 18 102/44 97 10/14/16 22:00 75 10/14/16 21:18 99 Ventilator 10/14/16 21:14 99 50 10/14/16 20:00 98.4 75 17 121/58 100 10/14/16 20:00 50 10/14/16 20:00 75 10/14/16 19:00 100 Mechanical Ventilator 50 10/14/16 18:00 69 10/14/16 16:43 100 50 10/14/16 16:00 56 10/14/16 16:00 98.1 56 14 146/71 100 10/14/16 16:00 50 10/14/16 14:00 58 10/14/16 12:00 59 10/14/16 12:00 50 10/14/16 12:00 98.1 59 14 148/72 100 10/14/16 11:59 100 50 10/14/16 10:00 57 10/15/16 06:59 Intake Total 1967 ml Output Total 1275 ml Balance 692 ml Constitutional Vital Signs Date Time Temp Pulse Resp B/P Pulse Ox O2 Delivery O2 Flow Rate FiO2 10/15/16 08:04 100 45 10/15/16 08:00 58 10/15/16 08:00 97.1 61 14 124/66 100 10/15/16 08:00 50 10/15/16 07:00 100 Mechanical Ventilator 50 10/15/16 06:00 57 10/15/16 04:00 56 10/15/16 04:00 50 10/15/16 04:00 97.8 56 14 112/56 98 10/15/16 03:58 100 Ventilator 10/15/16 03:55 100 50 10/15/16 02:00 54 10/15/16 00:27 100 50 10/15/16 00:00 50 10/15/16 00:00 75 10/15/16 00:00 98.0 64 18 102/44 97 10/14/16 22:00 75 10/14/16 21:18 99 Ventilator 10/14/16 21:14 99 50 10/14/16 20:00 98.4 75 17 121/58 100 10/14/16 20:00 50 10/14/16 20:00 75 10/14/16 19:00 100 Mechanical Ventilator 50 10/14/16 18:00 69 10/14/16 16:43 100 50 10/14/16 16:00 56 10/14/16 16:00 98.1 56 14 146/71 100 10/14/16 16:00 50 10/14/16 14:00 58 10/14/16 12:00 59 10/14/16 12:00 50 10/14/16 12:00 98.1 59 14 148/72 100 10/14/16 11:59 100 50 10/14/16 10:00 57 10/15/16 06:59 Intake Total 1967 ml Output Total 1275 ml Balance 692 ml (Any Olivarez) Review of Systems/Exam Exam Mr. Caal is intubated and sedated. Cranial Nerves: Pupils 2 mm equal. Conjugate gaze. Cervical Spine: soft, supple Motor: not following commands for testing Sensory: no withdrawals to local pain stimuli x 4 Reflexes: Plantars silent b/l Cerebellar: cannot assess due to current clinical condition (Any Olivarez) Exam Mr. Caal is intubated and sedated. Cranial Nerves: Pupils 2-3 mm equal, round, reactive to light. Conjugate gaze. Cervical Spine: His neck is soft, supple, without nuchal rigidity. Motor: not following commands for testing Sensory: minimal response to pain Reflexes: Plantars silent b/l Cerebellar: cannot assess due to current clinical condition (Vladimir Miller MD) Medications Current Medications Current Medications Medications (Trade) Dose Ordered Sig/Mario Route PRN Reason Start Time Stop Time Status Last Admin Dose Admin Sodium Chloride (NS Flush) 2 ml UNSCH PRN .XX FLUSH AFTER USING IV ACCESS 10/07/16 00:00 Sodium Chloride (NS Flush) 2 ml BID .XX 10/07/16 09:00 10/15/16 07:37 Acetaminophen (Tylenol) 650 mg Q6H PRN PO PAIN 1-5 AND/OR FEVER >101F 10/07/16 00:00 10/11/16 16:05 Morphine Sulfate (Morphine Inj) 2 mg Q2H PRN IV PAIN SCALE 6 TO 10 10/07/16 00:00 10/12/16 23:15 Ondansetron HCl (Zofran Inj) 4 mg Q6H PRN IV NAUSEA OR VOMITING 10/07/16 00:00 10/07/16 01:05 Miscellaneous Information 1 Q361D XX 10/07/16 00:00 Chlorhexidine Gluconate (Chlorhexidine 2% Cloth) Taper DAILY@04 TOP 10/07/16 04:00 10/03/17 03:59 10/11/16 04:00 Chlorhexidine Gluconate (Chlorhexidine 2% Cloth) 3 pack UNSCH PRN TOP HYGIENIC CARE 10/07/16 00:00 Senna/Docusate Sodium (Michelle-Colace) 1 tab BID PO 10/07/16 09:00 10/15/16 07:51 Magnesium Hydroxide (Milk Of Magnesia Liq) 30 ml Q12H PRN PO MILD - MODERATE CONSTIPATION 10/07/16 00:00 Sennosides (Senokot) 17.2 mg Q12H PRN PO MODERATE - SEVERE CONSTIPATION 10/07/16 00:00 Bisacodyl (Dulcolax Supp) 10 mg DAILY PRN RECTAL SEVERE CONSITIPATION 10/07/16 00:00 Lactulose (Lactulose Liq) 30 ml DAILY PRN PO SEVERE CONSITIPATION 10/07/16 00:00 Hydralazine HCl (Apresoline Inj) 20 mg Q4H PRN IV PUSH SBP>140, DBP>90 10/07/16 03:45 10/14/16 18:08 Labetalol HCl (Trandate Inj) 10 mg Q4H PRN IV PUSH SBP>140, DBP>90 10/07/16 03:45 10/13/16 03:41 Chlorhexidine Gluconate (Peridex 0.12% Liq) 15 ml BID@08,20 MT 10/07/16 20:00 10/15/16 07:37 Amlodipine Besylate (Norvasc) 5 mg DAILY PO 10/09/16 09:30 10/15/16 07:51 Hydralazine HCl (Apresoline) 25 mg Q8HR PO 10/09/16 09:30 10/12/16 20:35 Hydralazine HCl (Apresoline Inj) 10 mg Q1H PRN IV PUSH SBP > 160 10/09/16 09:30 10/12/16 11:34 Protein (Beneprotein Powder) 1 pack TID G-TUBE 10/09/16 13:00 10/15/16 07:51 Dextrose (D50w (Vial) Inj) 50 ml UNSCH PRN IV HYPOGLYCEMIA-SEE COMMENTS 10/10/16 09:45 Glucagon (Glucagon Inj) 1 mg UNSCH PRN OTHER HYPOGLYCEMIA-SEE COMMENTS 10/10/16 09:45 Insulin Aspart 1 1 Q6H SQ 10/10/16 10:00 10/10/16 16:00 Potassium Chloride 100 ml @ 50 mls/hr Q2H PRN IV For Potassium 2.8 - 3.2 mEq/L 10/10/16 09:45 Potassium Chloride (KCl 20 Meq Premix Inj) 100 ml @ 50 mls/hr Q2H PRN IV For Potassium 2.8 - 3.2 mEq/L 10/10/16 09:45 10/10/16 10:19 Potassium Bicarb/ Potassium Chloride 50 meq 50 meq UNSCH PRN PO For Potassium 3.3 - 3.5 mEq/L 10/10/16 09:45 Potassium Chloride 100 ml @ 25 mls/hr UNSCH PRN IV For Potassium 3.3 - 3.5 mEq/L 10/10/16 09:45 10/14/16 18:11 Potassium Chloride 100 ml @ 50 mls/hr Q2H PRN IV For Potassium 3.3 - 3.5 mEq/L 10/10/16 09:45 Magnesium Sulfate/ Sodium Chloride (Magnesium Sulfate Inj/NS Inj) 100 ml @ 50 mls/hr UNSCH PRN IV For Magnesium 0.9 - 1.1 mg/dL 10/10/16 09:45 Magnesium Oxide 800 mg 800 mg UNSCH PRN PO For Magnesium 1.2 - 1.6 mg/dL 10/10/16 09:45 Magnesium Sulfate/ Sodium Chloride (Magnesium Sulfate Inj/NS Inj) 100 ml @ 50 mls/hr UNSCH PRN IV For Magnesium 1.2 - 1.6 mg/dL 10/10/16 09:45 Potassium Phosphate 2000 mg 2,000 mg Q4H PRN PO For Phosphorus < 2.5 mg/dL 10/10/16 09:45 Sodium Phosphate/ Sodium Chloride (Sodium Phosphate Inj/NS 250 ml Inj) 250 ml @ 42 mls/hr UNSCH PRN IV For Phosphorus < 2.5 mg/dL 10/10/16 09:45 Potassium Phosphate 2000 mg 2,000 mg UNSCH PRN PO/TUBE SEE LABEL COMMENTS 10/10/16 09:45 Potassium Phosphate/Sodium Chloride (Potassium Phosphate Inj/NS 250 ml Inj) 260 ml @ 42 mls/hr UNSCH PRN IV SEE LABEL COMMENTS 10/10/16 09:45 Famotidine (Pepcid Liq) 20 mg BID NG 10/11/16 21:00 10/15/16 07:51 Chlorhexidine Gluconate 15 ml 15 ml BID@08,20 MT 10/13/16 08:00 10/13/16 08:00 Propofol 100 ml @ 0 mls/hr TITRATE IV 10/13/16 04:15 10/15/16 08:12 Piperacillin Sod/ Tazobactam Sod 100 ml @ 200 mls/hr Q6H IV 10/13/16 04:15 10/15/16 03:43 Norepinephrine Bitartrate (Levophed-Dextrose Drip) 250 ml @ 0 mls/hr TITRATE IV 10/13/16 04:15 10/13/16 04:28 Terbutaline Sulfate (Brethine Inj) 1 mg UNSCH PRN SQ For Extravasation 10/13/16 04:15 Enoxaparin Sodium (Lovenox Inj) 40 mg Q24H SQ 10/13/16 08:00 10/15/16 07:51 Water (Free Water) 200 ml Q6HR G-TUBE 10/15/16 00:00 10/15/16 06:00 (Any Olivarez) Medical Decision Making MDM Remarks 81 y/o male presented for AMS CT Brain on arrival showed extensive right intraventricular hemorrhage, s/p placement of ventriculostomy drain 10/08/16 respiratory failure s/p intubation, extubated 10/10/16, reintubated 10/12/16 MRI Brain 10/07/16 showed 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, no evidence of other masses or tumors nondraining EVD drain, f/u CT Head 8/5 stable ventricle size, no evidence of worsening hydrocephalus stable right IVH, ventriculostomy drain removed 10/11/16, f/u CT Head 10/15/16 with stable IVH and ventriculomegaly positive pulmonary embolus, positive DVTs s/p placement of IVC filter (Any Olivarez) Plan Plan Remarks cont nonsurgical management, cont follow up neurological examination, cont critical care management cont sq lovenox (Any Olivarez) Attending Statement Neuro. Continue neuro checks in a serial fashion. CT of the brain today is stable. New deep venous thromboses and pulmonary emboli. He is not a candidate for full anticoagulation due to his intracranial hemorrhage. I recommend placement of a [place] filter Respiratory failure. He is now on mechanical ventilation. Continue. aggressive pulmonary toilette, nasotracheal suction, and breathing treatments with nebulizers. Daily PT and OT Nutrition. Start tube feedings Renal. monitor closely urine output, BUN and creatinine Endocrine. Monitor serial Acu checks and SSI as needed ID monitor for signs of infection Protonix for stress ulcer prophylaxis The exam, history, and the medical decision-making described in the above note were completed with the assistance of the mid-level provider. I reviewed and agree with the findings presented. I attest that I had a [id number] encounter with the patient on the same day, and personally performed and documented my assessment and findings in the medical record. (Vladimir Miller MD) Any Olivarez Oct 15, 2016 09:39 Vladimir Miller MD Oct 15, 2016 21:14
--- NOTE | 2016-10-15 11:07 | PD.CONS ---
Consult Service Palliative Care . Consult Requested By Dr. Chavez . Primary Care Physician Michael King MD . Reason for Consultation a. To assist with evaluation and management of symptoms including: dyspnea; encephalopathy b. To assist medical decision maker(s) with: better understanding of current medical conditions; weighing benefits/burdens of medical treatment options; making medical treatment decisions. . HPI History of Present Illness Mr. Caal is an 81 y/o male with a known history of COPD; hypothyroidism; glaucoma; and hypertension who was sent to [facility] Emergency Dept via EMS on 10/06/16 after a friend found the patient on the floor of his home lying on his side. The patient was confused and did not recognize the friend at the time. The friend reported that he had last spoken with the patient 2-3 days ago and he went over to check on him because he was no longer answering his phone. The patient thought he might have been down on the floor for 2-3 days. EMS reports the patient was supine on the carpeted floor upon their arrival, covered in urine. He had no complaints at the time. He specifically denied nausea, vomiting, diarrhea, dizziness, headache, chest pain, dyspnea, abdominal pain, recent ethanol use. He was able to move all extremities spontaneously and purposefully. Oxygen was in the home which he used on a PRN bases. . The patient was verbal but confused upon emergency department arrival. In the emergency department the patient thought a stumble had caused him to fall. He was uncertain why he was unable to get up off the floor. It was apparently very difficult to get an accurate history from him. I contacted the office of Michael Jiang DO in [place] who served as the patient' s primary care provider. The patient had visited there on 10/03/16 and appeared fine. His main complaint was headache and had a history of migraines. He was taken off Imitrex during that visit and started on Fioricet one po tid. He was also started on Prozac. Patient's other medications included: Lotrel; Lipitor; Ventolin inhaler; and Mounds 10/325 BID. Vital signs in the emergency department were as follows > temperature 102.7; pulse 151; respiratory rate 20; blood pressure 130/75 Initial physical examination in the emergency department noted the following > patient was well-nourished and well-developed. He was alert but oriented to self only. There was erythema on the left forehead. Lung sounds were diminished but otherwise unremarkable. The remainder of the physical exam was unremarkable. Initial diagnostic testing revealed the following: * CBC showed WBC 22.3; hemoglobin 18; platelet count 306 * Urinalysis was remarkable for protein at 100 mg/dL; ketones of 10 mg/dL; moderate occult blood; small bilirubin; 47 RBC; 20 WBCs; negative nitrite; and negative leukocyte esterase. * Coagulation profile showed PT 12.2; INR 1.1 * Chemistry profile showed sodium 142; potassium 3.6; chloride 102; CO2 27.5; anion gap 13; BUN 55; creatinine 1.45; GFR 42; glucose 150; calcium 9.3; lactic acid 2.9 * Liver function studies show total bilirubin 1.2; AST 78; ALT 68; alkaline phosphatase 81; total protein 7.7; abdomen 3.1 * Cardiac serology showed total CK 705; CK-MB 7.9; CK-MB percent 1.1% * Chest x-ray showed bilateral partially consolidative infiltrates of the lower medial right lung and lower lateral left lung * EKG showed sinus tachycardia with left bundle branch block and heart rate of 156 * CT of the head showed prominent amount of blood in the right ventricle and small amount of blood in the third and left occipital horn. No parenchymal hemorrhage was seen. * CT of the cervical spine was negative for trauma. In the emergency department the patient was intravenous normal saline boluses of 1 L 2. In addition to the apparent intracranial bleed, there were concerns for pneumonia and rhabdomyolysis. Critical care was consulted. Critical care consulted neurosurgery. The patient was admitted to the surgical intensive care unit. The patient subsequently developed progressive respiratory failure. On he required intubation and mechanical ventilation. Additional imaging on 10/07/16 revealed the following > * CTA of the neck on 10/07/16 showed a 50% stenosis involving the right internal carotid artery.\\ * CTA of the head showed scattered atherosclerotic plaque without hemodynamically significant stenosis. No aneurysm was seen. * Chest x-ray showed endotracheal tube and nasogastric tube in satisfactory position. * MRI of the brain showed no change in the ventricular blood is seen on the prior CT scan; MRI noted a small elongated infarction in the right posterior external With a Thin Rim of T2 Shortening Suggesting a Possible Hemorrhage. Neurosurgery felt that with his clinical deterioration he would benefit from surgery. On 10/08/16, the patient underwent right frontal david hole with placement of a ventriculostomy catheter. The patient improved from a respiratory standpoint. He was tolerating spontaneous breathing trials on 10/09/16. On 10/11/16 he was extubated. The ventriculostomy catheter was removed on 10/12/16. Unfortunately, on the evening of 10/12 through 10/13/16, the patient had acute decompensation developing hypoxic respiratory failure requiring reintubation and mechanical ventilation. He also became hypotensive requiring pressor support. Deep venous thrombosis was found in the left femoral veins and there were also bilateral deep venous thrombosis and superficial venous thrombosis in both upper extremities.. CT pulmonary angiogram revealed pulmonary emboli in the right upper lobe branches. With anticoagulants being contraindicated due to patient's intracranial bleed, an IVC filter was placed on 10/13/16. On 10/14/16 the patient remained on pressor support. Urine output began to decline. The patient's sputum culture from 10/07/16 grew out methicillin sensitive staph aureus. Other cultures of urine and blood and CSF have shown no growth. At time of my visit, patient is unresponsive and mechanically ventilated. . Function/Cognitive Trajectory Per his friend, the patient was living alone prior to his recent fall. Friend was not aware of any significant cognitive deficits. He was only aware that the patient had shortness of breath attributed to his COPD. He did not require any assistive device for ambulation. His PCP office said he was in there on 10/03/16 and appeared in his usual state of health. . Review of Systems ROS Limitations: Clinical Condition (Patient is sedated, intubated, and unresponsive in the SICU. He is unable to provide his own ROS. His friend indicates he only had dyspnea from his COPD. His PCP office was aware of headaches and osteoarthritis pain as well as vision issues from glaucoma. ), Intubated, Unresponsive Past Family Social History Coded Allergies: No Known Allergies (Unverified , 10/06/16) Past Medical History COPD; hypothyroidism; glaucoma; kidney stones; hyperlipidemia; diet controlled diabetes; and hypertension Past Surgical History * Tonsillectomy * Hernia repair 1996 * Appendectomy 2006 Reported Medications Prehospitalization medications included the following: Lotrel unknown dose Lipitor 40 mg qd Ventolin MDI Mounds 10/325 Fioricet unkown dose [place]ounds 10/325 BID . . Current Medications Medications (Trade) Dose Ordered Sig/Mario Route Start Time Stop Time Status Last Admin (NS Flush) 2 ml UNSCH PRN .XX 10/07/16 00:00 (NS Flush) 2 ml BID .XX 10/07/16 09:00 10/15/16 07:37 (Tylenol) 650 mg Q6H PRN PO 10/07/16 00:00 10/11/16 16:05 (Morphine Inj) 2 mg Q2H PRN IV 10/07/16 00:00 10/12/16 23:15 (Zofran Inj) 4 mg Q6H PRN IV 10/07/16 00:00 10/07/16 01:05 Miscellaneous Information 1 Q361D XX 10/07/16 00:00 (Chlorhexidine 2% Cloth) Taper DAILY@04 TOP 10/07/16 04:00 10/03/17 03:59 10/11/16 04:00 (Chlorhexidine 2% Cloth) 3 pack UNSCH PRN TOP 10/07/16 00:00 (Michelle-Colace) 1 tab BID PO 10/07/16 09:00 10/15/16 07:51 (Milk Of Magnesia Liq) 30 ml Q12H PRN PO 10/07/16 00:00 (Senokot) 17.2 mg Q12H PRN PO 10/07/16 00:00 (Dulcolax Supp) 10 mg DAILY PRN RECTAL 10/07/16 00:00 (Lactulose Liq) 30 ml DAILY PRN PO 10/07/16 00:00 (Apresoline Inj) 20 mg Q4H PRN IV PUSH 10/07/16 03:45 10/14/16 18:08 (Trandate Inj) 10 mg Q4H PRN IV PUSH 10/07/16 03:45 10/13/16 03:41 (Peridex 0.12% Liq) 15 ml BID@08,20 MT 10/07/16 20:00 10/15/16 07:37 (Norvasc) 5 mg DAILY PO 10/09/16 09:30 10/15/16 07:51 (Apresoline) 25 mg Q8HR PO 10/09/16 09:30 10/12/16 20:35 (Apresoline Inj) 10 mg Q1H PRN IV PUSH 10/09/16 09:30 10/12/16 11:34 (Beneprotein Powder) 1 pack TID G-TUBE 10/09/16 13:00 10/15/16 07:51 (D50w (Vial) Inj) 50 ml UNSCH PRN IV 10/10/16 09:45 (Glucagon Inj) 1 mg UNSCH PRN OTHER 10/10/16 09:45 Insulin Aspart 1 1 Q6H SQ 10/10/16 10:00 10/10/16 16:00 Potassium Chloride 100 ml @ 50 mls/hr Q2H PRN IV 10/10/16 09:45 (KCl 20 Meq Premix Inj) 100 ml @ 50 mls/hr Q2H PRN IV 10/10/16 09:45 10/10/16 10:19 Potassium Bicarb/ Potassium Chloride 50 meq 50 meq UNSCH PRN PO 10/10/16 09:45 Potassium Chloride 100 ml @ 25 mls/hr UNSCH PRN IV 10/10/16 09:45 10/14/16 18:11 Potassium Chloride 100 ml @ 50 mls/hr Q2H PRN IV 10/10/16 09:45 (Magnesium Sulfate Inj/NS Inj) 100 ml @ 50 mls/hr UNSCH PRN IV 10/10/16 09:45 Magnesium Oxide 800 mg 800 mg UNSCH PRN PO 10/10/16 09:45 (Magnesium Sulfate Inj/NS Inj) 100 ml @ 50 mls/hr UNSCH PRN IV 10/10/16 09:45 Potassium Phosphate 2000 mg 2,000 mg Q4H PRN PO 10/10/16 09:45 (Sodium Phosphate Inj/NS 250 ml Inj) 250 ml @ 42 mls/hr UNSCH PRN IV 10/10/16 09:45 Potassium Phosphate 2000 mg 2,000 mg UNSCH PRN PO/TUBE 10/10/16 09:45 (Potassium Phosphate Inj/NS 250 ml Inj) 260 ml @ 42 mls/hr UNSCH PRN IV 10/10/16 09:45 (Pepcid Liq) 20 mg BID NG 10/11/16 21:00 10/15/16 07:51 Chlorhexidine Gluconate 15 ml 15 ml BID@08,20 MT 10/13/16 08:00 10/13/16 08:00 Propofol 100 ml @ 0 mls/hr TITRATE IV 10/13/16 04:15 10/15/16 08:12 Piperacillin Sod/ Tazobactam Sod 100 ml @ 200 mls/hr Q6H IV 10/13/16 04:15 10/15/16 10:09 (Levophed-Dextrose Drip) 250 ml @ 0 mls/hr TITRATE IV 10/13/16 04:15 10/13/16 04:28 (Brethine Inj) 1 mg UNSCH PRN SQ 10/13/16 04:15 (Lovenox Inj) 40 mg Q24H SQ 10/13/16 08:00 10/15/16 07:51 (Free Water) 200 ml Q6HR G-TUBE 10/15/16 00:00 10/15/16 06:00 . Family History Unable to obtain. . Substance Use Tobacco: Smoked for 50 years; stopped in 2006 Alcohol: No known history of abuse Prescription med abuse: No known abuse Illicits: No known use of illicits. . Psychosocial History Originally from [place]. Friend does not believe he graduated from high school. 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 and . Friend Jerardo Rivera (Bernie) reports that he has no children, no siblings, and no other family. Mr. Rivera says he knows of no other friends. Mr. Rivera reports that Maria E Brink (listed in our records as an ex-spouse) was never to the patient . Friend believes she is now . . Spiritual/Cultural Factors Patient's friend, Jerardo Rivera (Bernie) believe the patient may have been [place] [employer]. . Living Will: Never completed Health Care Surrogate: Never completed Durable Power of Fur Sewer: Never completed Date completed: The patient has not completed any advance directives that we know of. There was no advance directive on file at the patient's primary care physician's office. . Health Care Surrogate(s): No written documentation of health care surrogacy. . Documented care wishes: No written documentation of health care preferences/goals/wishes. . Today's verbally stated goals: Patient is unable to verbally state his goals. It is unlikely that he will regain the capacity to do so. . Family/friends goals: At this point we have not identified a proxy decision-maker. The patient's friend Jerardo Rivera (Bernie) states that he never had conversations with the patient regarding healthcare preferences or wishes. . Ethical and Legal Issues Patient is currently incapacitated to make his own health care decisions. At this point the medical team feels that there is no reasonable medical probability of recovering such capacity. We have not identified a proxy health care decision-maker. We're not aware of any living family members. The patient's only known friend is not willing at this point to serve as the proxy decision-maker. . . Physical Exam Vital Signs Date Time Temp Pulse Resp B/P Pulse Ox O2 Delivery O2 Flow Rate FiO2 10/15/16 10:00 60 10/15/16 08:04 100 45 10/15/16 08:00 58 10/15/16 08:00 97.1 61 14 124/66 100 10/15/16 08:00 50 10/15/16 07:00 100 Mechanical Ventilator 50 10/15/16 06:00 57 10/15/16 04:00 56 10/15/16 04:00 50 10/15/16 04:00 97.8 56 14 112/56 98 10/15/16 03:58 100 Ventilator 10/15/16 03:55 100 50 10/15/16 02:00 54 10/15/16 00:27 100 50 10/15/16 00:00 50 10/15/16 00:00 75 10/15/16 00:00 98.0 64 18 102/44 97 10/14/16 22:00 75 10/14/16 21:18 99 Ventilator 10/14/16 21:14 99 50 10/14/16 20:00 98.4 75 17 121/58 100 10/14/16 20:00 50 10/14/16 20:00 75 10/14/16 19:00 100 Mechanical Ventilator 50 10/14/16 18:00 69 10/14/16 16:43 100 50 10/14/16 16:00 56 10/14/16 16:00 98.1 56 14 146/71 100 10/14/16 16:00 50 10/14/16 14:00 58 10/14/16 12:00 59 10/14/16 12:00 50 10/14/16 12:00 98.1 59 14 148/72 100 10/14/16 11:59 100 50 . 10/14/16 10/15/16 19:00 07:00 Intake Total 460 ml 1507 ml Output Total 500 ml 775 ml Balance -40 ml 732 ml IV Total 460 ml 983 ml Tube Feeding 204 ml Other 320 ml Output Urine Total 350 ml 650 ml Stool Total 75 ml 125 ml Gastric Drainage Total 75 ml 0 ml . Exam CONSTITUTIONAL/GENERAL: This is a well nourished male; sedated, intubated, mechanically ventilated in an SICU bed. No apparent distress. TUBES/LINES/DRAINS: Right subclavian central line; peripheral IVs; SCDs; moore catheter; rectal tube; naso-gastric tube; orotracheal tube; soft wrist restraints SKIN: No jaundice, rashes, or lesions. Ecchymoses on upper extremities. No wounds seen anteriorly. Skin temperature appropriate. Not diaphoretic. HEAD: Healing david hole. Sutures in place. EYES: Pupils equal and round and reactive. Unable to assess extra-ocular movements -- does not track. No scleral icterus. No injection or drainage. Fundi not examined. ENT: Unable to assess hearing. Nose without bleeding or purulent drainage. Throat without visible erythema, exudates, masses, or lesions though difficult to assess due to intubations. NECK: Trachea midline. No palpable thyroid enlargement or nodularity. CARDIOVASCULAR: Regular rate and rhythm without murmurs, gallops, or rubs. No JVD. Peripheral pulses symmetric. RESPIRATORY/CHEST: Symmetric, unlabored respirations. Dimiminshed air movement at both bases. Faint ronchi. No wheezes. GASTROINTESTINAL: Abdomen soft, non-tender, nondistended. No hepato-splenomegaly , or palpable masses. No guarding. Bowel sounds present. GENITOURINARY: Without palpable bladder distension. Moore catheter in place. MUSCULOSKELETAL: Extremities without clubbing, cyanosis, or edema. No joint tenderness or effusion noted. No calf tenderness. No mottling or clubbing. LYMPHATICS: No palpable cervical or supraclavicular adenopathy. NEUROLOGICAL: Sedated (propofol running). Does not awaken to voice or exam. No spontaneous movements noted. Unable to follow commands. PSYCHIATRIC: Unable to assess due to level of responsiveness. . Diagnostic Tests Laboratory Laboratory Tests Test 10/12/16 10/13/16 10/13/16 10/13/16 14:12 04:38 04:44 06:42 Sodium Level 152 MEQ/L 152 MEQ/L (136-145) (136-145) Potassium Level 4.0 MEQ/L 3.7 MEQ/L (3.5-5.1) (3.5-5.1) Chloride Level 116 MEQ/L 116 MEQ/L (98-107) (98-107) Carbon Dioxide Level 29.1 MEQ/L 32.9 MEQ/L (21.0-32.0) (21.0-32.0) Anion Gap 7 MEQ/L (5-15) 3 MEQ/L (5-15) Blood Urea Nitrogen 23 MG/DL (7-18) 25 MG/DL (7-18) Creatinine 0.83 MG/DL 0.86 MG/DL (0.60-1.30) (0.60-1.30) Estimat Glomerular Filtration 89 ML/MIN (>89) 86 ML/MIN (>89) Rate Random Glucose 161 MG/DL 133 MG/DL (74-106) (74-106) Calcium Level 8.3 MG/DL 7.7 MG/DL (8.5-10.1) (8.5-10.1) White Blood Count 11.4 TH/MM3 (4.0-11.0) Red Blood Count 4.31 MIL/MM3 (4.50-5.90) Hemoglobin 13.0 GM/DL (13.0-17.0) Hematocrit 40.8 % (39.0-51.0) Mean Corpuscular Volume 94.9 FL (80.0-100.0) Mean Corpuscular Hemoglobin 30.1 PG (27.0-34.0) Mean Corpuscular Hemoglobin 31.7 % Concent (32.0-36.0) Red Cell Distribution Width 13.6 % (11.6-17.2) Platelet Count 214 TH/MM3 (150-450) Mean Platelet Volume 8.7 FL (7.0-11.0) Blood Gas Puncture Site LT RADIAL Blood Gas Patient Temperature 98.6 Blood Gas HCO3 29 mmol/L (22-26) Blood Gas Base Excess 6.0 mmol/L (-2-2) Blood Gas Oxygen Saturation 92 % (90-100) Arterial Blood pH 7.51 (7.380-7.420) Arterial Blood Partial 37 mmHg (38-42) Pressure CO2 Arterial Blood Partial 63 mmHg Pressure O2 (61-120) Arterial Blood Oxygen Content 16.6 Vol % (12.0-20.0) Arterial Blood 1.1 % (0-4) Carboxyhemoglobin Arterial Blood Methemoglobin 1.0 % (0-2) Blood Gas Hemoglobin 12.8 G/DL (12.0-16.0) Oxygen Delivery Device VENTILATOR Blood Gas Ventilator Setting PRVC/AC Blood Gas Inspired Oxygen 60 % Lactic Acid Level 1.1 mmol/L (0.4-2.0) Test 10/13/16 10/14/16 10/14/16 10/15/16 10:25 04:00 17:30 04:00 Urine Color YELLOW (YELLW/STRAW) Urine Turbidity HAZY (CLEAR) Urine pH 6.0 (5.0-8.5) Urine Specific [place] GREATER THAN 1.050 (1.002-1.035) Urine Protein 100 mg/dL (NEG-TRACE) Urine Glucose (UA) NEG mg/dL (NEG) Urine Ketones NEG mg/dL (NEG) Urine Occult Blood MOD (NEG) Urine Nitrite NEG (NEG) Urine Bilirubin NEG (NEG) Urine Urobilinogen LESS THAN 2.0 MG/DL (LESS THAN 2.0) Urine Leukocyte Esterase SMALL (NEG) Urine RBC 182 /hpf (0-3) Urine WBC 46 /hpf (0-5) Urine Squamous Epithelial 1 /hpf (0-5) Cells Urine Bacteria OCC /hpf (NONE) Urine Mucus FEW /lpf (OCC) Microscopic Urinalysis Comment CATH-CULTURE IND White Blood Count 10.9 TH/MM3 9.1 TH/MM3 (4.0-11.0) (4.0-11.0) Red Blood Count 4.10 MIL/MM3 3.83 MIL/MM3 (4.50-5.90) (4.50-5.90) Hemoglobin 12.6 GM/DL 11.9 GM/DL (13.0-17.0) (13.0-17.0) Hematocrit 38.5 % 35.6 % (39.0-51.0) (39.0-51.0) Mean Corpuscular Volume 94.1 FL 92.9 FL (80.0-100.0) (80.0-100.0) Mean Corpuscular Hemoglobin 30.7 PG 31.1 PG (27.0-34.0) (27.0-34.0) Mean Corpuscular Hemoglobin 32.6 % 33.4 % Concent (32.0-36.0) (32.0-36.0) Red Cell Distribution Width 13.2 % 13.4 % (11.6-17.2) (11.6-17.2) Platelet Count 213 TH/MM3 186 TH/MM3 (150-450) (150-450) Mean Platelet Volume 8.3 FL 8.2 FL (7.0-11.0) (7.0-11.0) Sodium Level 152 MEQ/L 150 MEQ/L (136-145) (136-145) Potassium Level 3.3 MEQ/L 3.4 MEQ/L 3.5 MEQ/L (3.5-5.1) (3.5-5.1) (3.5-5.1) Chloride Level 114 MEQ/L 115 MEQ/L (98-107) (98-107) Carbon Dioxide Level 30.4 MEQ/L 30.3 MEQ/L (21.0-32.0) (21.0-32.0) Anion Gap 8 MEQ/L (5-15) 5 MEQ/L (5-15) Blood Urea Nitrogen 29 MG/DL (7-18) 24 MG/DL (7-18) Creatinine 1.00 MG/DL 0.81 MG/DL (0.60-1.30) (0.60-1.30) Estimat Glomerular Filtration 72 ML/MIN (>89) 92 ML/MIN (>89) Rate Random Glucose 114 MG/DL 124 MG/DL (74-106) (74-106) Calcium Level 7.9 MG/DL 7.6 MG/DL (8.5-10.1) (8.5-10.1) . Result Diagram: 10/15/1639910/15/16399 Microbiology Microbiology Date/Time Procedure Status Source Growth 10/13/16 10:25 Urine Culture - Final Complete Urine Catheterized Urine NO GROWTH IN 48 HOURS. 10/13/16 10:58 Aerobic Blood Culture - Preliminary Resulted Blood Peripheral NO GROWTH IN 1 DAY 10/13/16 10:58 Anaerobic Blood Culture - Preliminary Resulted Blood Peripheral NO GROWTH IN 1 DAY 10/13/16 11:05 Aerobic Blood Culture - Preliminary Resulted Blood Peripheral NO GROWTH IN 1 DAY 10/13/16 11:05 Anaerobic Blood Culture - Preliminary Resulted Blood Peripheral NO GROWTH IN 1 DAY . Imaging Last Impressions Head CT 10/15/16 Signed Impressions: Service Date/Time: Saturday, October 15, 2016 04:38 - CONCLUSION: Stable intraventricular hemorrhage and small right frontal parenchymal bleed. Anoop Hernandez MD Upper Extremity Ultrasound 10/13/16 Signed Impressions: Service Date/Time: Thursday, October 13, 2016 09:15 - CONCLUSION: Exam positive for bilateral DVT and SVT. Davis Devi MD Lower Extremity Ultrasound 10/13/16 Signed Impressions: Service Date/Time: Thursday, October 13, 2016 08:28 - CONCLUSION: DVT in the proximal left femoral veins. No evidence of DVT in the right lower extremity. Davis Devi MD IVC Filter Placement X-Ray 10/13/16 Signed Impressions: Service Date/Time: Thursday, October 13, 2016 13:43 - CONCLUSION: Uncomplicated inferior vena cava filter placement as above. Abel Zavaleta MD Chest X-Ray 10/13/16 Signed Impressions: Service Date/Time: Thursday, October 13, 2016 04:46 - CONCLUSION: Central line placement as above. Anoop Hernandez MD CT Angiography 10/13/16 Signed Impressions: Service Date/Time: Thursday, October 13, 2016 05:17 - CONCLUSION: 1. Examination is positive for pulmonary embolus right upper lobe branches. 2. Atelectasis and consolidation as above. Anoop Hernandez MD Neck CTA 10/07/16 0000 Signed Impressions: Service Date/Time: Friday, October 07, 2016 03:38 - CONCLUSION: 1. Scattered calcified atherosclerotic plaque. A 50%% stenosis is seen involving the right ICA. The left carotid is patent. 2. Dominant left vertebral artery. The right terminates in a PICA distribution Tyrone Christianson Jr., MD Head CTA 10/07/16 0000 Signed Impressions: Service Date/Time: Friday, October 07, 2016 03:38 - CONCLUSION: Scattered atherosclerotic plaque without a hemodynamically significant stenosis. No aneurysm. Tyrone Christianson Jr., MD Brain MRI 10/07/16 0000 Signed Impressions: Service Date/Time: Friday, October 07, 2016 17:54 - CONCLUSION: 1. The ventricular blood has a very similar configuration to prior CT yesterday, filling the right lateral ventricle, extending into the 3rd ventricle and layering in the left occipital horn. 2. There is a small elongated infarction in the right posterior external capsule with a thin rim of T2 shortening suggesting that this may be hemorrhagic. Tyrone Vivar MD Abdomen X-Ray 10/07/16 0000 Signed Impressions: Service Date/Time: Friday, October 07, 2016 15:21 - CONCLUSION: No concerning radiopaque foreign body is identified in the abdomen. Abel Lemus MD Cervical Spine CT 10/06/16 0000 Signed Impressions: Service Date/Time: Thursday, October 06, 2016 23:15 - CONCLUSION: Negative trauma CT. Iftikhar Garza MD . Procedures * Intubation/ mechanical ventilation * Eleanor hole with placement of ventriculostomy catheter * Right subclavian central line placement. . Patient/Family Conference Present at Family Conference: Patient's friend -- Jerardo Rivera (Bernie). . Family Conference Time (mins): 20 Family Conference Location: Telephone Issues Discussed: * Additional medical, psychosocial, and spiritual history * Patients general health, functional status, and cognitive changes in the months leading up to the current hospitalization * Friend's understanding of the current medical problems * Questions answered to the best of my ability . Mr. Rivera was able to provide some background information. He said the patient had no family and no other friends. He was told that Maria E Brink was a a "friend, " not an ex-spouse, and that she had . Mr. Rivera is not comfortable serving as the healthcare proxy at this time. . . Assessment and Plan Disease Oriented Problem List: (1) Intracranial hemorrhage (2) Pneumonia (3) Renal insufficiency (4) Dehydration (5) Deep venous thrombosis (6) Pulmonary embolism Symptom Scale: (1) Pain 0-10 Scale: Unable to quantify Comment: Per the patient's primary care office, the patient had some chronic pain and was using nor go 5/325 twice daily. He also had a history of headaches. Current sources of discomfort would include headache from his intracranial bleed, orotracheal intubation, nasogastric tube, prolonged bedbound status, Moore catheter, rectal tube, vascular access lines. (2) Dyspnea 0-10 Scale: Unable to quantify Comment: Dyspnea is currently being managed by mechanical ventilation. Dyspnea likely secondary to multiple factors including underlying COPD, pneumonia, pulmonary embolus. . (3) Encephalopathy 0-10 Scale: Unable to quantify Comment: Encephalopathy is profound and appears entirely secondary to the intracranial bleed. . Pertinent Non-Medical Issues Psychosocial: Lived alone. One friend -- Jerardo Rivera (Bernie). Friends for 20 years. No living family per Jerardo. Spiritual: Possibly [place]e Religious per Jerardo Legal: No known advance directives . We have not identified a proxy decision- maker at this time. Ethical issues impacting care: Patient is incapacitated and not expected to regain capacity. . Important Contacts * Jerardo Rivera (friend) [phone] * Maria E Brink (ex-spouse?? friend??) [phone] . . Prognosis Patient is currently critically ill having suffered an intracranial bleed. He has underlying COPD and is now in respiratory failure. He has pulmonary emboli and cannot be anticoagulated because of his intracranial bleed. It appears unlikely that he will survive the hospitalization. If he does survive, it is unclear if it could be a meaningful neurologic recovery. In my opinion, patient has an end-stage condition. Once we identify a proxy decision-maker, it would not be unreasonable for them to advocate for withdrawal of life support and transition to "comfort measures only." . Code Status: Full Code Plan == Code Status: FULL CODE. We have no advance directives and no legal decision maker at this time. Patient will remain FULL CODE. == Decision making: Patient is incapacitated and at this time there is little probability that he will regain capacity to make his own decisions. There is no written designation of health care surrogate. We are told he is not , has no children, has no siblings, and no other family members. There is a close friend for over 20 years -- Jerardo Rivera (Bernie) -- but this friend prefers not to serve as a proxy decision maker at this time. Still trying to contact Maria E [place] who is listed as an ex-spouse and listed as the supervisor contact and service clerks with his primary care doctor's office. If we are unable to locate a willing proxy from family or friends, will reach out to [employer]. == Goals of medical treatment: Goals must remain aggressive until a decision maker is established. == Pain: Has known history of osteoarthritis and migraine headaches. Per PCP office, he would use [place] and more recently Fioricet for headache. Current sources of pain might include headache from intracranial bleed; wound pain; pain from orotracheal / nasogastric tubes; moore catheter; vascular access lines ; etc. he currently has orders for morphine sulfate 2 mg IV every 2 hours when necessary. This appears to be adequate. No further recommendations at this time. == Dyspnea: Causes of dyspnea include underlying COPD; PE; pneumonia. Currently managed by mechanical ventilation. No further recommendations at this time. == Encephalopathy: From intracranial bleed. Not improving. No further recommendations at this time. == Palliative care will continue to search for a proxy decision maker and enlist the help of [employer] if necessary == Palliative care will continue to follow and assist with symptom management and further clarify goals of medical treatment once we locate a proxy decision maker. . Time Spent Total Floor Time (mins): 90 (Total floor time included chart review, patient examination; telephone conversation with patient's only known friend; several attempts to telephone patient's supervisor contact and service clerks Maria Eolga Lemonsabhijeet ; collaboration with social media content specialist to try and find a proxy health care decision-maker; collaboration with primary nurse; and documentation.) Face to Face Time (mins): 15 >50% Counseling/Coord of Care: Yes Thank you for the opportunity to participate in the care of Mr. Caal. . . Attestation To help prompt me to consider important information that might be impacting today's encounter and assessment, information from prior notes written by myself or my colleagues may have been "brought forward" into today's note. My signature on this note, however, is an attestation that I personally performed the exam, history, and/or decision-making noted today, and, unless otherwise indicated, the interactions with patient, family, and staff as well as the review of records all occurred today. I also attest that the listed assessment and stated plan reflect my best clinical judgment today based on the combination of historical information, prior notes, and today's exam/ interactions. When time spent is documented, it refers only to time spent today by the signer, or if indicated, combined time spent today by collaborating physician/nurse practitioner. . Domenico Blackwell MD Oct 15, 2016 11:07
[2016-10-15] MEDS: RESP: ALBUTEROL 2.5 MG/IPRATROPIUM 0.5 MG NEB (PRN) INH (20:17)
[2016-10-16] VITALS (19 sets, daily range): BP systolic 113–147; BP diastolic 61–70; PULSE 53–67; RESP 12–14; TEMP 98.1–98.7; O2SAT 96–100
[2016-10-16] MEDS: PROPOFOL 1000 MG/100 ML INJ 100 ML IV SCH ×5 (00:48→23:43)
[2016-10-16] MEDS: CHLORHEXIDINE GLUCONATE 2 % 1 PACK (2 CLOTHS) TOP SCH (03:12)
[2016-10-16] MEDS: INSULIN ASPART SUPPLEMENTAL SCALE SQ SCH ×2 (03:19→09:16)
[2016-10-16] MEDS: PIPERACIL-TAZO 4.5 GM PREMIX 100 ML IV SCH ×4 (03:20→21:41)
[2016-10-16 03:44] LABS: MEAN CELL VOLUME 92.9 FL (80.0-100.0); MEAN CORPUSCULAR HEMOGLOBIN 31.7 PG (27.0-34.0); MEAN CORPUSCULAR HGB CONC 34.1 % (32.0-36.0); PLATELET COUNT 190 TH/MM3 (150-450); RED BLOOD COUNT 3.66 MIL/MM3 (4.50-5.90); RED CELL DISTRIBUTION WIDTH 13.6 % (11.6-17.2); REVIEW FLAG FINAL
[2016-10-16 04:08] LABS: BICARBONATE 29.4 MEQ/L (21.0-32.0); POTASSIUM 3.3 MEQ/L (3.5-5.1)
[2016-10-16] MEDS: POTASSIUM CHLOR 40 MEQ PREMIX 100 ML IV PRN (04:27)
[2016-10-16] MEDS: hydrALAZINE HCL 25 MG TAB PO SCH ×3 (05:05→21:41)
[2016-10-16] MEDS: FREE WATER G-TUBE SCH ×4 (05:05→23:43)
[2016-10-16] MEDS: BENEPROTEIN POWDER 1 PACK G-TUBE SCH ×3 (07:39→17:51)
[2016-10-16] MEDS: CHLORHEXIDINE 0.12% (ORAL KIT) 15 ML CUP MT SCH ×4 (07:39→19:28)
[2016-10-16] MEDS: SODIUM CHLORIDE 0.9% FLUSH 10 ML FLUSH SCH ×2 (07:39→20:03)
[2016-10-16] MEDS: DOCUSATE SODIUM 50 MG/SENNA 8.6 MG TAB PO SCH ×2 (07:59→20:03)
[2016-10-16] MEDS: FAMOTIDINE 40 MG/5 ML LIQ 50 ML BTL NG SCH ×2 (08:00→20:03)
[2016-10-16] MEDS: amLODIPine BESYLATE 5 MG TAB PO SCH (08:00)
[2016-10-16] MEDS: ENOXAPARIN SODIUM 40 MG/0.4 ML SYRINGE SQ SCH (08:00)
[2016-10-16] MEDS: RESP: ALBUTEROL 2.5 MG/IPRATROPIUM 0.5 MG NEB (PRN) INH ×3 (08:46→20:25)
--- NOTE | 2016-10-16 11:25 | HHI.HCPN ---
Reason for visit a. To assist with evaluation and management of symptoms including: dyspnea; encephalopathy b. To assist medical decision maker(s) with: better understanding of current medical conditions; weighing benefits/burdens of medical treatment options; making medical treatment decisions. . Subjective/Interval History Mr. Caal remains non-verbal , mechanically ventilated in the SICU. He has some spontaneous head movements and appears to try and open his eyes to voice, but is unable to follow commands. No other significant change overnight. Nursing pain level scores are consistently "0." Not receiving any of his prn morphine. . Family/friend interactions No other friends / family have been located with our search. We have continued to leave messages with Ms. Maria E Brink but she has not responded. Search by [employer] has not uncovered other friends/family. . . Advance Directives Living Will: Never completed Health Care Surrogate: Never completed Durable Power of [place] Man: Never completed Advance Directive Specifics Date completed: The patient has not completed any advance directives that we know of. There was no advance directive on file at the patient's primary care physician's office. . Health Care Surrogate(s): No written documentation of health care surrogacy. . Documented care wishes: No written documentation of health care preferences/goals/wishes. . Objective Vital Signs Date Time Temp Pulse Resp B/P Pulse Ox O2 Delivery O2 Flow Rate FiO2 10/16/16 10:00 60 10/16/16 08:41 99 35 10/16/16 08:00 67 10/16/16 08:00 98.1 65 12 123/63 100 10/16/16 08:00 45 10/16/16 07:15 45 10/16/16 07:00 100 Mechanical Ventilator 45 10/16/16 06:00 56 10/16/16 04:00 45 10/16/16 04:00 98.4 53 14 142/70 100 10/16/16 04:00 53 10/16/16 03:42 100 50 10/16/16 02:00 53 10/16/16 00:40 99 Ventilator 10/16/16 00:33 100 50 10/16/16 00:00 45 10/16/16 00:00 98.2 60 14 113/61 98 10/16/16 00:00 60 10/15/16 22:00 52 10/15/16 20:17 100 Ventilator 10/15/16 20:08 99 45 10/15/16 20:00 97.8 63 14 130/63 98 10/15/16 20:00 45 10/15/16 20:00 63 10/15/16 19:00 97 Mechanical Ventilator 50 10/15/16 18:00 60 10/15/16 16:00 68 10/15/16 16:00 45 10/15/16 16:00 98.2 62 14 125/80 100 10/15/16 15:10 45 10/15/16 15:05 100 45 10/15/16 14:00 61 10/15/16 12:00 50 10/15/16 12:00 63 10/15/16 12:00 97.8 62 14 121/58 100 Intake & Output 10/16/16 10/16/16 07:00 19:00 Intake Total 1660 ml Output Total 775 ml Balance 885 ml IV Total 368 ml Tube Feeding 792 ml Other 500 ml Output Urine Total 475 ml Stool Total 300 ml . Physical Exam CONSTITUTIONAL/GENERAL: This is a well nourished male; sedated, intubated, mechanically ventilated in an SICU bed. No apparent distress. TUBES/LINES/DRAINS: Right subclavian central line; peripheral IVs; SCDs; moore catheter; rectal tube; naso-gastric tube; orotracheal tube; soft wrist restraints SKIN: No jaundice, rashes, or lesions. Ecchymoses on upper extremities. No wounds seen anteriorly. Skin temperature appropriate. Not diaphoretic. HEAD: Healing david hole. Sutures in place. EYES: Pupils equal and round. Unable to assess extra-ocular movements -- does not track. No scleral icterus. No injection or drainage. Fundi not examined. ENT: Seems try and open eyes to voice -- hearing likely intact. Nose without bleeding or purulent drainage. Throat without visible erythema, exudates, masses , or lesions though difficult to assess due to intubations. NECK: Trachea midline. CARDIOVASCULAR: Regular rate and rhythm without murmurs, gallops, or rubs. No JVD. RESPIRATORY/CHEST: Symmetric, unlabored respirations. Dimiminshed air movement at both bases. Faint ronchi. No wheezes. GASTROINTESTINAL: Abdomen soft, non-tender, nondistended. No hepato-splenomegaly , or palpable masses. No guarding. Bowel sounds present. GENITOURINARY: Without palpable bladder distension. Moore catheter in place. MUSCULOSKELETAL: Extremities without clubbing, cyanosis, or edema. No mottling. LYMPHATICS: Not examined. NEUROLOGICAL: Sedated (propofol running). Stirs to voice/exam, but does not awaken. Some spontaneous head movements noted. Unable to follow commands. Withdraws to noxious stimuli in all extremities. PSYCHIATRIC: Unable to assess due to level of responsiveness. . Diagnostic Tests Laboratory Laboratory Tests Test 10/14/16 10/14/16 10/15/16 10/16/16 04:00 17:30 04:00 03:20 White Blood Count 10.9 TH/MM3 9.1 TH/MM3 9.0 TH/MM3 (4.0-11.0) (4.0-11.0) (4.0-11.0) Red Blood Count 4.10 MIL/MM3 3.83 MIL/MM3 3.66 MIL/MM3 (4.50-5.90) (4.50-5.90) (4.50-5.90) Hemoglobin 12.6 GM/DL 11.9 GM/DL 11.6 GM/DL (13.0-17.0) (13.0-17.0) (13.0-17.0) Hematocrit 38.5 % 35.6 % 34.0 % (39.0-51.0) (39.0-51.0) (39.0-51.0) Mean Corpuscular Volume 94.1 FL 92.9 FL 92.9 FL (80.0-100.0) (80.0-100.0) (80.0-100.0) Mean Corpuscular Hemoglobin 30.7 PG 31.1 PG 31.7 PG (27.0-34.0) (27.0-34.0) (27.0-34.0) Mean Corpuscular Hemoglobin 32.6 % 33.4 % 34.1 % Concent (32.0-36.0) (32.0-36.0) (32.0-36.0) Red Cell Distribution Width 13.2 % 13.4 % 13.6 % (11.6-17.2) (11.6-17.2) (11.6-17.2) Platelet Count 213 TH/MM3 186 TH/MM3 190 TH/MM3 (150-450) (150-450) (150-450) Mean Platelet Volume 8.3 FL 8.2 FL 8.8 FL (7.0-11.0) (7.0-11.0) (7.0-11.0) Sodium Level 152 MEQ/L 150 MEQ/L 147 MEQ/L (136-145) (136-145) (136-145) Potassium Level 3.3 MEQ/L 3.4 MEQ/L 3.5 MEQ/L 3.3 MEQ/L (3.5-5.1) (3.5-5.1) (3.5-5.1) (3.5-5.1) Chloride Level 114 MEQ/L 115 MEQ/L 111 MEQ/L (98-107) (98-107) (98-107) Carbon Dioxide Level 30.4 MEQ/L 30.3 MEQ/L 29.4 MEQ/L (21.0-32.0) (21.0-32.0) (21.0-32.0) Anion Gap 8 MEQ/L (5-15) 5 MEQ/L (5-15) 7 MEQ/L (5-15) Blood Urea Nitrogen 29 MG/DL (7-18) 24 MG/DL (7-18) 22 MG/DL (7-18) Creatinine 1.00 MG/DL 0.81 MG/DL 0.82 MG/DL (0.60-1.30) (0.60-1.30) (0.60-1.30) Estimat Glomerular Filtration 72 ML/MIN (>89) 92 ML/MIN (>89) 90 ML/MIN (>89) Rate Random Glucose 114 MG/DL 124 MG/DL 138 MG/DL (74-106) (74-106) (74-106) Calcium Level 7.9 MG/DL 7.6 MG/DL 7.6 MG/DL (8.5-10.1) (8.5-10.1) (8.5-10.1) . Result Diagram: 10/16/16 0320 10/16/16 0320 Microbiology Microbiology Date/Time Procedure Status Source Growth 10/13/16 11:05 Aerobic Blood Culture - Preliminary Resulted Blood Peripheral NO GROWTH IN 3 DAYS 10/13/16 11:05 Anaerobic Blood Culture - Preliminary Resulted Blood Peripheral NO GROWTH IN 3 DAYS 10/13/16 10:25 Urine Culture - Final Complete Urine Catheterized Urine NO GROWTH IN 48 HOURS. . Imaging Last Impressions Head CT 10/15/16 0000 Signed Impressions: Service Date/Time: Saturday, October 15, 2016 04:38 - CONCLUSION: Stable intraventricular hemorrhage and small right frontal parenchymal bleed. Anoop Hernandez MD Upper Extremity Ultrasound 10/13/16 Signed Impressions: Service Date/Time: Thursday, October 13, 2016 09:15 - CONCLUSION: Exam positive for bilateral DVT and SVT. Davis Devi MD Lower Extremity Ultrasound 10/13/16 Signed Impressions: Service Date/Time: Thursday, October 13, 2016 08:28 - CONCLUSION: DVT in the proximal left femoral veins. No evidence of DVT in the right lower extremity. Davis Devi MD IVC Filter Placement X-Ray 10/13/16 Signed Impressions: Service Date/Time: Thursday, October 13, 2016 13:43 - CONCLUSION: Uncomplicated inferior vena cava filter placement as above. Abel Zavaleta MD Chest X-Ray 10/13/16 Signed Impressions: Service Date/Time: Thursday, October 13, 2016 04:46 - CONCLUSION: Central line placement as above. Anoop Hernandez MD CT Angiography 10/13/16 0000 Signed Impressions: Service Date/Time: Thursday, October 13, 2016 05:17 - CONCLUSION: 1. Examination is positive for pulmonary embolus right upper lobe branches. 2. Atelectasis and consolidation as above. Anoop Hernandez MD Neck CTA 10/07/16 0000 Signed Impressions: Service Date/Time: Friday, October 07, 2016 03:38 - CONCLUSION: 1. Scattered calcified atherosclerotic plaque. A 50%% stenosis is seen involving the right ICA. The left carotid is patent. 2. Dominant left vertebral artery. The right terminates in a PICA distribution Tyrone Christianson Jr., MD Head CTA 10/07/16 Signed Impressions: Service Date/Time: Friday, October 07, 2016 03:38 - CONCLUSION: Scattered atherosclerotic plaque without a hemodynamically significant stenosis. No aneurysm. Tyrone Christianson Jr., MD Brain MRI 10/07/16 0000 Signed Impressions: Service Date/Time: Friday, October 07, 2016 17:54 - CONCLUSION: 1. The ventricular blood has a very similar configuration to prior CT yesterday, filling the right lateral ventricle, extending into the 3rd ventricle and layering in the left occipital horn. 2. There is a small elongated infarction in the right posterior external capsule with a thin rim of T2 shortening suggesting that this may be hemorrhagic. Tyrone Vivar MD Abdomen X-Ray 10/07/16 0000 Signed Impressions: Service Date/Time: Friday, October 07, 2016 15:21 - CONCLUSION: No concerning radiopaque foreign body is identified in the abdomen. Abel Lemus MD Cervical Spine CT 10/06/16 0000 Signed Impressions: Service Date/Time: Thursday, October 06, 2016 23:15 - CONCLUSION: Negative trauma CT. Iftikhar Garza MD . Procedures * Intubation/ mechanical ventilation * [place] hole with placement of ventriculostomy catheter * Right subclavian central line placement. . Assessment and Plan Disease Oriented Problem List: (1) Intracranial hemorrhage (2) Pneumonia (3) Renal insufficiency (4) Dehydration (5) Deep venous thrombosis (6) Pulmonary embolism Symptom Scale: (1) Pain 0-10 Scale: Unable to quantify Comment: Per the patient's primary care office, the patient had some chronic pain and was using [place] 5/325 twice daily. He also had a history of headaches. Current sources of discomfort would include headache from his intracranial bleed, orotracheal intubation, nasogastric tube, prolonged bedbound status, Moore catheter, rectal tube, vascular access lines. (2) Dyspnea 0-10 Scale: Unable to quantify Comment: Dyspnea is currently being managed by mechanical ventilation. Dyspnea likely secondary to multiple factors including underlying COPD, pneumonia, pulmonary embolus. . (3) Encephalopathy 0-10 Scale: Unable to quantify Comment: Encephalopathy is profound and appears entirely secondary to the intracranial bleed. . Pertinent Non-Medical Issues Psychosocial: Lived alone. One friend -- Jerardo"Tanja" Miguel. Friends for 20 years. No living family per Jerardo. His primary contact listed with his primary care physician -- Maria E Brink -- has not responded to voice messages and patient's friend -- Jerardo -- believes she is . Spiritual: Possibly [employer]orationism per Jerardo Legal: No known advance directives . We have not identified a proxy decision- maker at this time. Ethical issues impacting care: Patient is incapacitated and not expected to regain capacity. . Important Contacts * Jerardo Rivera (friend) [phone] * Maria E Brink (ex-spouse?? friend??) [phone] . . Prognosis Patient is currently critically ill having suffered an intracranial bleed. He has underlying COPD and is now in respiratory failure. He has pulmonary emboli and cannot be anticoagulated because of his intracranial bleed. It appears unlikely that he will survive the hospitalization. If he does survive, it is unclear if it could be a meaningful neurologic recovery. In my opinion, patient has an end-stage condition. Once we identify a proxy decision-maker, it would not be unreasonable for them to advocate for withdrawal of life support and transition to "comfort measures only." . Code Status: Full Code Plan == Code Status: FULL CODE. We have no advance directives and no legal decision maker at this time. Patient will remain FULL CODE. == Decision making: Patient is incapacitated and at this time there is little probability that he will regain capacity to make his own decisions. There is no written designation of health care surrogate. We are told he is not , has no children, has no siblings, and no other family members. There is a close friend for over 20 years -- Jerardo Rivera (Bernie) -- but this friend prefers not to serve as a proxy decision maker at this time. Still trying to contact Maria E Brink who is listed as an ex-spouse and listed as the call or contact centre coach with his primary care doctor's office. If we are unable to locate a willing proxy from family or friends, will reach out to [employer]. Hopefully, will finalize a decision maker by 10/17/16. == Goals of medical treatment: Goals must remain aggressive until a decision maker is established. == Pain: Has known history of osteoarthritis and migraine headaches. Per PCP office, he would use [place] and more recently Fioricet for headache. Current sources of pain might include headache from intracranial bleed; wound pain; pain from orotracheal / nasogastric tubes; moore catheter; vascular access lines ; etc. he currently has orders for morphine sulfate 2 mg IV every 2 hours when necessary. This appears to be adequate. No further recommendations at this time. == Dyspnea: Causes of dyspnea include underlying COPD; PE; pneumonia. Currently managed by mechanical ventilation. No further recommendations at this time. == Encephalopathy: From intracranial bleed. Not improving. No further recommendations at this time. == Palliative care will continue to search for a proxy decision maker and enlist the help of [employer] if necessary == Palliative care will continue to follow and assist with symptom management and further clarify goals of medical treatment once we locate a proxy decision maker. . Domenico Blackwell MD Oct 16, 2016 11:25
--- NOTE | 2016-10-16 11:56 | HHI.CCPN ---
Subjective Remarks/Hospital Course Elderly male presents for evaluation of altered mental status. He states that he stumbled 3 days ago and fell. He was laying on the floor since. Apparently , a friend found him today. The patient is unsure of his past medical history. Apparently, he has history of COPD and is on oxygen. He does not know what medications he is on. The patient knows his name, but does not know the year. He denies hitting his head or loss of conscious, but has erythema to the left forehead. Patient denies any chest pain or abdominal pain. No vomiting. He states that he was unable to get up, but will not tell me why. He might also have some history of hypertension, glaucoma. 10/07: Required intubation today for progressive respiratory failure. 10/08: Will aim for quick extubation now that MRI complete. Need sputum sample. 10/09: Tolerating SBTs. Push toward extubation. 10/10: Vigorous but confused. Zimmerman-sensitive staph in sputum, will narrow abx. 10/11: extubated, stable from pulmonary standpoint. still confused. EVD not draining. 10/12: EVD removed. head CT stable. neuro exam stable. 10/13: overnight with acute decompensation, hypoxic respiratory failure requiring intubation and mechanical ventilation. hypotensive requiring vasopressors. clinically unstable. CT pulmonary angiogram with +PE. 10/14: levophed requirement persists. FANY worsening. uop poor. mental status stable, but given blood pressure and hypoxia still not stable for SBT. 10/15: Brain bleed, COPD exacerbation, no improvement, little hope for extubation. Will ask Palliative Care to see. 10/16: Prior to intubation he was confused and moderately agitated, but conversant. Will continue efforts to get him off ventilator. Objective Vital Signs Date Time Temp Pulse Resp B/P Pulse Ox O2 Delivery O2 Flow Rate FiO2 10/16/16 10:00 60 10/16/16 08:41 99 35 10/16/16 08:00 98.1 12 123/63 10/16/16 07:00 Mechanical Ventilator 10/12/16 19:40 6.00 Intake and Output 10/15/16 10/15/16 10/16/16 08:00 16:00 00:00 Intake Total 882 ml 879 ml 1001 ml Output Total 350 ml 400 ml 500 ml Balance 532 ml 479 ml 501 ml Result Diagram: 10/16/16 0320 10/16/16 0320 Imaging Last [address] 10/06/162037 Signed Impressions: Service Date/Time: Thursday, October 06, 2016 23:15 - CONCLUSION: Prominent amount of blood in the right ventricle and small amount of blood in the 3rd and left occipital horn ventricle. No parenchymal hemorrhage seen. No extra axial fluid collections. Tyrone Vivar MD Chest X-Ray 10/06/162037 Signed Impressions: Service Date/Time: Thursday, October 06, 2016 20:37 - CONCLUSION: Bilateral partially consolidative infiltrates lower medial right lung and lower lateral left lung. Tyrone Vivar MD Objective Remarks GENERAL: Elderly man critically ill, intubated, sedated. SKIN: Warm and dry. HEAD: Normocephalic. EYES: No scleral icterus. No injection or drainage. NECK: trachea midline. no jvd. orally intubated. CARDIOVASCULAR: tachycardic rate, regular rhythm. sinus by tele. RESPIRATORY: intubated, prvc, good ny breath sounds. GASTROINTESTINAL: Abdomen soft, non-tender, nondistended. MUSCULOSKELETAL: No cyanosis, or edema. EXTREMITIES: Well perfused. NEURO: opens eyes, w/d x 4. does not follow commands. 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 ICH score is 4, suggesting a poor prognosis. Now with decompensated shock secondary to acute PE. not a candidate for anticoagulation. s/p IVC filter 10/13. discussed care with Dr. Miller who agrees. clinically decompensating. critically ill. not progressing on pathway. hypoxia not improving as we would expect. still high risk for sudden cardiac post-PE ICH Acute encephalopathy - Unclear source - Atypical location - Strict blood pressure control with SBP goal less than 150 - Coags within normal limits - Neurosurgery consulted: Dr Miller - Neuro checks per unit protocol Acute pulmonary Embolism Acute hypoxic respiratory failure - not a candidate for thrombolytics or anticoagulation - continue prophylactic dose lovenox - IVC filter 10/13 - high risk for sudden cardiac post PE. - no SBT today given instability Cardiogenic shock s/p acute PE - levophed for map > 65 - watch uop closely. Acute Kidney Injury - secondary to shock from PE. monitor closely. no need for emergent renal replacement therapy. MSSA Pneumonia - abx broadened to Zosyn when patient decompensated 10/13 (previously on ancef). if cultures negative at 48h, would de-escalate abx. - urine culture NGTD x 48h. - Staph in sputum, MSSA DVT GI prophylaxis - Teds SCDs - lovenox, prophylactic dose. IVC filter. 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 Probably not flow limiting. Overall impression: Critically ill. Multiple severe problems but main complicating feature is his age. not improving. poor prognosis. Darrin Chavez MD Oct 16, 2016 11:56
--- NOTE | 2016-10-16 12:35 | HHI.NSPN ---
(Any Olivarez) Note Status Status: Progress Note (Any Olivarez) Interval History Interval History Mr. Caal is a 81 year old male who presented for evaluation of altered mental status. Cannot obtain history from patient, however his close friend is at bedside who found the patient. His friend reports he last spoke with the patient 2-3 days ago. He was not answering his phone so he went to check on him and found the patient on the floor lying on his side. He was very confused and did not recognize him. He was taken to the ED. CT Head on arrival shows right intraventricular hemorrhage. He is not known to take blood thinners. His friend reports baseline he is normal besides being short of breath due to his COPD. Neurosurgical evaluation was requested. 10/08: awake, intubated on CPAP. MRI Brain completed. 10/09: s/p placement of ventriculostomy drain yesterday, intubated and sedated. 10/10: no output via EVD overnight, pt extubated this morning 10/11: remains without drainage out EVD overnight, f/u CT Head this morning with stable ventricles 10/12: no changes to neuro checks overnight, eyes open, moves ext intermittently but not following commands, nonverbal 10/13: reintubated, on levophed for BP support. CTA chest positive for PE. obtain u/s of extremities now 10/14: intubated, sedated. s/p placement of IVC filter last night. 10/15: f/u CT Head this am with stable IVH and ventriculomegaly. remains intubated and sedated. 10/16: no changes to neuro checks, remains intubated (Any Olivarez) Labs, Micro, & Vital Signs Results Date Time Temp Pulse Resp B/P Pulse Ox O2 Delivery O2 Flow Rate FiO2 10/16/16 10:00 60 10/16/16 08:41 99 35 10/16/16 08:00 67 10/16/16 08:00 98.1 65 12 123/63 100 10/16/16 08:00 45 10/16/16 07:15 45 10/16/16 07:00 100 Mechanical Ventilator 45 10/16/16 06:00 56 10/16/16 04:00 45 10/16/16 04:00 98.4 53 14 142/70 100 10/16/16 04:00 53 10/16/16 03:42 100 50 10/16/16 02:00 53 10/16/16 00:40 99 Ventilator 10/16/16 00:33 100 50 10/16/16 00:00 45 10/16/16 00:00 98.2 60 14 113/61 98 10/16/16 00:00 60 10/15/16 22:00 52 10/15/16 20:17 100 Ventilator 10/15/16 20:08 99 45 10/15/16 20:00 97.8 63 14 130/63 98 10/15/16 20:00 45 10/15/16 20:00 63 10/15/16 19:00 97 Mechanical Ventilator 50 10/15/16 18:00 60 10/15/16 16:00 68 10/15/16 16:00 45 10/15/16 16:00 98.2 62 14 125/80 100 10/15/16 15:10 45 10/15/16 15:05 100 45 10/15/16 14:00 61 10/16/16 07:00 Intake Total 2539 ml Output Total 1175 ml Balance 1364 ml Constitutional Vital Signs Date Time Temp Pulse Resp B/P Pulse Ox O2 Delivery O2 Flow Rate FiO2 10/16/16 10:00 60 10/16/16 08:41 99 35 10/16/16 08:00 67 10/16/16 08:00 98.1 65 12 123/63 100 10/16/16 08:00 45 10/16/16 07:15 45 10/16/16 07:00 100 Mechanical Ventilator 45 10/16/16 06:00 56 10/16/16 04:00 45 10/16/16 04:00 98.4 53 14 142/70 100 10/16/16 04:00 53 10/16/16 03:42 100 50 10/16/16 02:00 53 10/16/16 00:40 99 Ventilator 10/16/16 00:33 100 50 10/16/16 00:00 45 10/16/16 00:00 98.2 60 14 113/61 98 10/16/16 00:00 60 10/15/16 22:00 52 10/15/16 20:17 100 Ventilator 10/15/16 20:08 99 45 10/15/16 20:00 97.8 63 14 130/63 98 10/15/16 20:00 45 10/15/16 20:00 63 10/15/16 19:00 97 Mechanical Ventilator 50 10/15/16 18:00 60 10/15/16 16:00 68 10/15/16 16:00 45 10/15/16 16:00 98.2 62 14 125/80 100 10/15/16 15:10 45 10/15/16 15:05 100 45 10/15/16 14:00 61 10/16/16 07:00 Intake Total 2539 ml Output Total 1175 ml Balance 1364 ml (Any Olivarez) Review of Systems/Exam Exam Mr. Caal is intubated. Cranial Nerves: Pupils 2-3 mm equal, round, reactive to light. Conjugate gaze. Positive corneal reflexes b/l Motor: not following commands for testing Sensory: minimal response to pain to lower extremities Reflexes: Plantars silent b/l Cerebellar: cannot assess due to current clinical condition (Any Olivarez) Exam Mr. Caal is intubated. Cranial Nerves: Pupils 2-3 mm equal, round, reactive to light. Conjugate gaze. Positive corneal reflexes b/l Motor: not following commands for testing Sensory: minimal response to pain to lower extremities Reflexes: Plantars silent b/l Cerebellar: cannot assess due to current clinical condition Mr. Caal is intubated. Cranial Nerves: Pupils 2-3 mm equal, round, reactive to light. Conjugate gaze. Positive corneal reflexes b/l Motor: not following commands for testing Sensory: minimal response to pain to lower extremities Reflexes: Plantars silent b/l Cerebellar: cannot assess due to current clinical condition (Vladimir Miller MD) Medications Current Medications Current Medications Medications (Trade) Dose Ordered Sig/Mario Route PRN Reason Start Time Stop Time Status Last Admin Dose Admin Sodium Chloride (NS Flush) 2 ml UNSCH PRN .XX FLUSH AFTER USING IV ACCESS 10/07/16 00:00 Sodium Chloride (NS Flush) 2 ml BID .XX 10/07/16 09:00 10/16/16 07:39 Acetaminophen (Tylenol) 650 mg Q6H PRN PO PAIN 1-5 AND/OR FEVER >101F 10/07/16 00:00 10/11/16 16:05 Morphine Sulfate (Morphine Inj) 2 mg Q2H PRN IV PAIN SCALE 6 TO 10 10/07/16 00:00 10/12/16 23:15 Ondansetron HCl (Zofran Inj) 4 mg Q6H PRN IV NAUSEA OR VOMITING 10/07/16 00:00 10/07/16 01:05 Miscellaneous Information 1 Q361D XX 10/07/16 00:00 Chlorhexidine Gluconate (Chlorhexidine 2% Cloth) Taper DAILY@04 TOP 10/07/16 04:00 10/03/17 03:59 10/11/16 04:00 Chlorhexidine Gluconate (Chlorhexidine 2% Cloth) 3 pack UNSCH PRN TOP HYGIENIC CARE 10/07/16 00:00 Senna/Docusate Sodium (Michelle-Colace) 1 tab BID PO 10/07/16 09:00 10/16/16 07:59 Magnesium Hydroxide (Milk Of Magnesia Liq) 30 ml Q12H PRN PO MILD - MODERATE CONSTIPATION 10/07/16 00:00 10/16/16 08:00 Sennosides (Senokot) 17.2 mg Q12H PRN PO MODERATE - SEVERE CONSTIPATION 10/07/16 00:00 Bisacodyl (Dulcolax Supp) 10 mg DAILY PRN RECTAL SEVERE CONSITIPATION 10/07/16 00:00 Lactulose (Lactulose Liq) 30 ml DAILY PRN PO SEVERE CONSITIPATION 10/07/16 00:00 Hydralazine HCl (Apresoline Inj) 20 mg Q4H PRN IV PUSH SBP>140, DBP>90 10/07/16 03:45 10/14/16 18:08 Labetalol HCl (Trandate Inj) 10 mg Q4H PRN IV PUSH SBP>140, DBP>90 10/07/16 03:45 10/13/16 03:41 Chlorhexidine Gluconate (Peridex 0.12% Liq) 15 ml BID@08,20 MT 10/07/16 20:00 10/16/16 07:39 Amlodipine Besylate (Norvasc) 5 mg DAILY PO 10/09/16 09:30 10/16/16 08:00 Hydralazine HCl (Apresoline) 25 mg Q8HR PO 10/09/16 09:30 10/15/16 23:27 Hydralazine HCl (Apresoline Inj) 10 mg Q1H PRN IV PUSH SBP > 160 10/09/16 09:30 10/12/16 11:34 Protein 1 pack 1 pack TID G-TUBE 10/09/16 13:00 10/16/16 07:39 Potassium Chloride 100 ml @ 50 mls/hr Q2H PRN IV For Potassium 2.8 - 3.2 mEq/L 10/10/16 09:45 Potassium Chloride (KCl 20 Meq Premix Inj) 100 ml @ 50 mls/hr Q2H PRN IV For Potassium 2.8 - 3.2 mEq/L 10/10/16 09:45 10/10/16 10:19 Potassium Bicarb/ Potassium Chloride 50 meq 50 meq UNSCH PRN PO For Potassium 3.3 - 3.5 mEq/L 10/10/16 09:45 Potassium Chloride 100 ml @ 25 mls/hr UNSCH PRN IV For Potassium 3.3 - 3.5 mEq/L 10/10/16 09:45 10/16/16 04:27 Potassium Chloride 100 ml @ 50 mls/hr Q2H PRN IV For Potassium 3.3 - 3.5 mEq/L 10/10/16 09:45 Magnesium Sulfate/ Sodium Chloride (Magnesium Sulfate Inj/NS Inj) 100 ml @ 50 mls/hr UNSCH PRN IV For Magnesium 0.9 - 1.1 mg/dL 10/10/16 09:45 Magnesium Oxide 800 mg 800 mg UNSCH PRN PO For Magnesium 1.2 - 1.6 mg/dL 10/10/16 09:45 Magnesium Sulfate/ Sodium Chloride (Magnesium Sulfate Inj/NS Inj) 100 ml @ 50 mls/hr UNSCH PRN IV For Magnesium 1.2 - 1.6 mg/dL 10/10/16 09:45 Potassium Phosphate 2000 mg 2,000 mg Q4H PRN PO For Phosphorus < 2.5 mg/dL 10/10/16 09:45 Sodium Phosphate/ Sodium Chloride (Sodium Phosphate Inj/NS 250 ml Inj) 250 ml @ 42 mls/hr UNSCH PRN IV For Phosphorus < 2.5 mg/dL 10/10/16 09:45 Potassium Phosphate 2000 mg 2,000 mg UNSCH PRN PO/TUBE SEE LABEL COMMENTS 10/10/16 09:45 Potassium Phosphate/Sodium Chloride (Potassium Phosphate Inj/NS 250 ml Inj) 260 ml @ 42 mls/hr UNSCH PRN IV SEE LABEL COMMENTS 10/10/16 09:45 Famotidine (Pepcid Liq) 20 mg BID NG 10/11/16 21:00 10/16/16 08:00 Chlorhexidine Gluconate 15 ml 15 ml BID@08,20 MT 10/13/16 08:00 10/13/16 08:00 Propofol 100 ml @ 0 mls/hr TITRATE IV 10/13/16 04:15 10/16/16 08:00 Piperacillin Sod/ Tazobactam Sod 100 ml @ 200 mls/hr Q6H IV 10/13/16 04:15 10/16/16 10:07 Norepinephrine Bitartrate (Levophed-Dextrose Drip) 250 ml @ 0 mls/hr TITRATE IV 10/13/16 04:15 10/13/16 04:28 Terbutaline Sulfate (Brethine Inj) 1 mg UNSCH PRN SQ For Extravasation 10/13/16 04:15 Enoxaparin Sodium (Lovenox Inj) 40 mg Q24H SQ 10/13/16 08:00 10/16/16 08:00 Water (Free Water) 200 ml Q6HR G-TUBE 10/15/16 00:00 10/16/16 05:05 (Any Olivarez) Current Medications Current Medications Sodium Chloride 1,000 ml @ 999 mls/hr BOLUS ONCE IV Last administered on 10/06 21:31; Start 10/06/16 at 20:45; Stop 10/06/16 at 21:45; Status DC Sodium Chloride (NS 1000 ml Inj) 1,000 ml @ 999 mls/hr BOLUS ONCE IV Last administered on 10/06/16 22:04; Start 10/06/16 at 20:45; Stop 10/06/16 at 21:45 ; Status DC IV Flush (NS Flush) 2 ml UNSCH PRN IV FLUSH FLUSH AFTER USING IV ACCESS; Start 10/06/16 at 20:45; Stop 10/06/16 at 23:51; Status DC Acetaminophen (Tylenol) 650 mg ONCE ONCE PO Last administered on 10/06/16 21: 27; Start 10/06/16 at 21:15; Stop 10/06/16 at 21:16; Status DC Sodium Chloride 2 ml 2 ml UNSCH PRN IVF FLUSH AFTER USING IV ACCESS; Start at 21:15; Stop 10/06/16 at 23:51; Status DC Ceftriaxone Sodium 1000 mg/ Sodium Chloride 100 ml @ 200 mls/hr ONCE ONCE IV Last administered on 10/06/16 21:26; Start 10/06/16 at 21:15; Stop 10/06/16 at 21:44; Status DC Azithromycin 500 mg/Sodium Chloride 250 ml @ 250 mls/hr ONCE ONCE IV Last administered on 10/06/16 22:03; Start 10/06/16 at 21:15; Stop 10/06/16 at 22:14 ; Status DC Sodium Chloride (NS 1000 ml Inj) 1,000 ml @ 100 mls/hr Q10H IV Last administered on 10/12/16 00:57; Start 10/06/16 at 23:47; Stop 10/12/16 at 09:46; Status DC Sodium Chloride (NS Flush) 2 ml UNSCH PRN .XX FLUSH AFTER USING IV ACCESS; Start 10/07/16 at 00:00 Sodium Chloride (NS Flush) 2 ml BID .XX Last administered on 10/19/16 08:16; Start 10/07/16 at 09:00 Acetaminophen (Tylenol) 650 mg Q6H PRN PO PAIN 1-5 AND/OR FEVER >101F Last administered on 10/11/16 16:05; Start 10/07/16 at 00:00 Morphine Sulfate (Morphine Inj) 2 mg Q2H PRN IV PAIN SCALE 6 TO 10 Last administered on 10/12/16 23:15; Start 10/07/16 at 00:00 Famotidine (Pepcid Inj) 20 mg Q12HR IV PUSH Last administered on 10/09/16 20:11 ; Start 10/07/16 at 09:00; Stop 10/10/16 at 07:25; Status DC Ondansetron HCl (Zofran Inj) 4 mg Q6H PRN IV NAUSEA OR VOMITING Last administered on 10/07/16 01:05; Start 10/07/16 at 00:00 Albuterol/ Ipratropium (Duoneb Neb) 1 ampule Q2HR NEB PRN INH WHEEZING Last administered on 10/17/16 19:39; Start 10/07/16 at 00:00 Miscellaneous Information 1 Q361D XX ; Start 10/07/16 at 00:00 Chlorhexidine Gluconate (Chlorhexidine 2% Cloth) Taper DAILY@04 TOP Last administered on 10/11/16 04:00; Start 10/07/16 at 04:00; Stop 10/03/17 at 03:59 Chlorhexidine Gluconate (Chlorhexidine 2% Cloth) 3 pack UNSCH PRN TOP HYGIENIC CARE; Start 10/07/16 at 00:00 Senna/Docusate Sodium (Michelle-Colace) 1 tab BID PO Last administered on 20:40; Start 10/07/16 at 09:00 Magnesium Hydroxide (Milk Of Magnesia Liq) 30 ml Q12H PRN PO MILD - MODERATE CONSTIPATION Last administered on 10/16/16 08:00; Start 10/07/16 at 00:00 Sennosides (Senokot) 17.2 mg Q12H PRN PO MODERATE - SEVERE CONSTIPATION; Start 10/07/16 at 00:00 Bisacodyl (Dulcolax Supp) 10 mg DAILY PRN RECTAL SEVERE CONSITIPATION; Start at 00:00 Lactulose 30 ml 30 ml DAILY PRN PO SEVERE CONSITIPATION; Start 10/07/16 at 00:00 Azithromycin 500 mg/Sodium Chloride 250 ml @ 250 mls/hr Q24H IV Last administered on 10/10/16 21:42; Start 10/07/16 at 22:00; Stop 10/11/16 at 09:54; Status DC Piperacillin Sod/ Tazobactam Sod (Zosyn 4.5 Gm Premix) 100 ml @ 200 mls/hr Q6H IV Last administered on 10/12/16 07:00; Start 10/07/16 at 01:00; Stop 10/12/16 at 09:38; Status DC Albuterol/ Ipratropium (Duoneb Neb) 1 ampule Q6HR NEB NEB Last administered on 10/08/16 07:33; Start 10/07/16 at 04:00; Stop 10/08/16 at 11:06; Status DC Albuterol/ Ipratropium (Duoneb Neb) 1 ampule Q2HR NEB PRN NEB WHEEZING; Start 10/07/16 at 01:15; Stop 10/08/16 at 11:07; Status DC Hydralazine HCl (Apresoline Inj) 20 mg Q4H PRN IV PUSH SBP>140, DBP>90 Last administered on 10/19/16 11:05; Start 10/07/16 at 03:45 Labetalol HCl (Trandate Inj) 10 mg Q4H PRN IV PUSH SBP>140, DBP>90 Last administered on 10/13/16 03:41; Start 10/07/16 at 03:45 Iohexol (Omnipaque 350 Inj) 87 ml STK-MED ONCE IV Last administered on 03:53; Start 10/07/16 at 03:53; Stop 10/07/16 at 03:54; Status DC Midazolam HCl (Versed Inj) 5 mg ONCE ONCE IM Last administered on 10/07/16 13: 50; Start 10/07/16 at 12:15; Stop 10/07/16 at 13:10; Status DC Rocuronium Colton (Zemuron Inj) 100 mg BOLUS ONCE IV Last administered on 10/07 13:51; Start 10/07/16 at 13:15; Stop 10/07/16 at 13:16; Status DC Chlorhexidine Gluconate 15 ml 15 ml BID@08,20 MT Last administered on 07:45; Start 10/07/16 at 20:00 Propofol (Diprivan 1000 Mg/100ml Inj) 100 ml @ 0 mls/hr TITRATE IV Last administered on 10/10/16 02:48; Start 10/07/16 at 12:15; Stop 10/11/16 at 09:54; Status DC Rocuronium Colton (Zemuron Inj) 50 mg STK-MED ONCE .ROUTE ; Start 10/07/16 at 12 :17; Stop 10/07/16 at 12:18; Status DC Amlodipine Besylate (Norvasc) 5 mg DAILY PO Last administered on 10/19/16 08: 16; Start 10/09/16 at 09:30 Hydralazine HCl (Apresoline) 25 mg Q8HR PO Last administered on 10/17/16 06:09 ; Start 10/09/16 at 09:30; Stop 10/17/16 at 08:16; Status DC Hydralazine HCl (Apresoline Inj) 10 mg Q1H PRN IV PUSH SBP > 160 Last administered on 10/12/16 11:34; Start 10/09/16 at 09:30 Protein (Beneprotein Powder) 1 pack TID G-TUBE Last administered on 10/19/16 08:16; Start 10/09/16 at 13:00 Metoclopramide HCl 10 mg 10 mg Q8HR IM ; Start 10/09/16 at 09:45; Stop 10/09/16 at 16:39; Status DC Vancomycin HCl/ Sodium Chloride (Vancomycin Inj/ NS 250 ml Inj) 262.5 ml @ 250 mls/hr ONCE ONCE IV Last administered on 10/09/16 11:12; Start 10/09/16 at 11: 00; Stop 10/09/16 at 12:02; Status DC Metoclopramide HCl (Reglan Inj) 10 mg Q8HR IV Last administered on 10/11/16 05: 26; Start 10/09/16 at 22:00; Stop 10/11/16 at 09:54; Status DC Famotidine (Pepcid Inj) 10 mg Q12HR IV PUSH Last administered on 10/11/16 08:11 ; Start 10/10/16 at 09:00; Stop 10/11/16 at 09:54; Status DC Dextrose (D50w (Vial) Inj) 50 ml UNSCH PRN IV HYPOGLYCEMIA-SEE COMMENTS; Start 10/10/16 at 09:45; Stop 10/16/16 at 09:17; Status DC Glucagon (Glucagon Inj) 1 mg UNSCH PRN OTHER HYPOGLYCEMIA-SEE COMMENTS; Start 10/10/16 at 09:45; Stop 10/16/16 at 09:17; Status DC Insulin Aspart 1 1 Q6H SQ Last administered on 10/15/16 21:46; Start 10/10/16 at 10:00; Stop 10/16/16 at 09:17; Status DC Potassium Chloride 100 ml @ 50 mls/hr Q2H PRN IV For Potassium 2.8 - 3.2 mEq/L ; Start 10/10/16 at 09:45 Potassium Chloride (KCl 20 Meq Premix Inj) 100 ml @ 50 mls/hr Q2H PRN IV For Potassium 2.8 - 3.2 mEq/L Last administered on 10/10/16 10:19; Start 10/10/16 at 09:45 Potassium Bicarb/ Potassium Chloride 50 meq 50 meq UNSCH PRN PO For Potassium 3.3 - 3.5 mEq/L; Start 10/10/16 at 09:45 Potassium Chloride 100 ml @ 25 mls/hr UNSCH PRN IV For Potassium 3.3 - 3.5 mEq /L Last administered on 10/19/16 10:19; Start 10/10/16 at 09:45 Potassium Chloride 100 ml @ 50 mls/hr Q2H PRN IV For Potassium 3.3 - 3.5 mEq/L ; Start 10/10/16 at 09:45 Magnesium Sulfate/ Sodium Chloride (Magnesium Sulfate Inj/NS Inj) 100 ml @ 50 mls/hr UNSCH PRN IV For Magnesium 0.9 - 1.1 mg/dL; Start 10/10/16 at 09:45 Magnesium Oxide 800 mg 800 mg UNSCH PRN PO For Magnesium 1.2 - 1.6 mg/dL; Start 10/10/16 at 09:45 Magnesium Sulfate/ Sodium Chloride (Magnesium Sulfate Inj/NS Inj) 100 ml @ 50 mls/hr UNSCH PRN IV For Magnesium 1.2 - 1.6 mg/dL; Start 10/10/16 at 09:45 Potassium Phosphate 2000 mg 2,000 mg Q4H PRN PO For Phosphorus < 2.5 mg/dL; Start 10/10/16 at 09:45 Sodium Phosphate/ Sodium Chloride (Sodium Phosphate Inj/NS 250 ml Inj) 250 ml @ 42 mls/hr UNSCH PRN IV For Phosphorus < 2.5 mg/dL; Start 10/10/16 at 09:45 Potassium Phosphate 2000 mg 2,000 mg UNSCH PRN PO/TUBE SEE LABEL COMMENTS; Start 10/10/16 at 09:45 Potassium Phosphate/Sodium Chloride (Potassium Phosphate Inj/NS 250 ml Inj) 260 ml @ 42 mls/hr UNSCH PRN IV SEE LABEL COMMENTS; Start 10/10/16 at 09:45 Albuterol/ Ipratropium 1 ampule 1 ampule Q4HR NEB NEB Last administered on 10/14 11:57; Start 10/10/16 at 16:00; Stop 10/14/16 at 16:01; Status DC Magnesium Sulfate/ Dextrose (Magnesium Sulfate 1 Gm Premix) 100 ml @ 100 mls/ hr Q1H IV Last administered on 10/11/16 09:16; Start 10/11/16 at 07:45; Stop 10/11/16 at 09:44; Status DC Famotidine 20 mg 20 mg BID NG Last administered on 10/19/16 08:16; Start at 21:00 Cefazolin Sodium/ Dextrose (Ancef 2 Gm Premix) 50 ml @ 100 mls/hr Q8H IV Last administered on 10/14/16 01:32; Start 10/12/16 at 10:00; Stop 10/14/16 at 09:59; Status DC Etomidate (Amidate Inj) 20 mg STK-MED ONCE .ROUTE Last administered on 06:35; Start 10/13/16 at 03:49; Stop 10/13/16 at 03:50; Status DC Rocuronium Colton 50 mg 50 mg STK-MED ONCE .ROUTE Last administered on 06:35; Start 10/13/16 at 03:49; Stop 10/13/16 at 03:50; Status DC Sodium Chloride 1,000 ml @ 999 mls/hr Q1H1M IV Last administered on 10/13/16 04:29; Start 10/13/16 at 04:15; Stop 10/13/16 at 05:15; Status DC Norepinephrine Bitartrate (Levophed-Dextrose Drip) 250 ml @ As Directed STK- MED ONCE IV ; Start 10/13/16 at 04:07; Stop 10/13/16 at 04:08; Status DC Chlorhexidine Gluconate 15 ml 15 ml BID@08,20 MT Last administered on 07:34; Start 10/13/16 at 08:00 Propofol 100 ml @ 0 mls/hr TITRATE IV Last administered on 10/19/16 04:51; Start 10/13/16 at 04:15 Piperacillin Sod/ Tazobactam Sod 100 ml @ 200 mls/hr Q6H IV Last administered on 10/18/16 04:24; Start 10/13/16 at 04:15; Stop 10/18/16 at 08:47; Status DC Norepinephrine Bitartrate (Levophed-Dextrose Drip) 250 ml @ 0 mls/hr TITRATE IV Last administered on 10/13/16 04:28; Start 10/13/16 at 04:15 Terbutaline Sulfate (Brethine Inj) 1 mg UNSCH PRN SQ For Extravasation; Start 10/13/16 at 04:15 Iohexol (Omnipaque 350 Inj) 80 ml STK-MED ONCE IV Last administered on 05:31; Start 10/13/16 at 05:31; Stop 10/13/16 at 05:32; Status DC Enoxaparin Sodium (Lovenox Inj) 40 mg Q24H SQ Last administered on 10/19/16 08 :16; Start 10/13/16 at 08:00 Iohexol (Omnipaque 350 Inj) 10 ml STK-MED ONCE OTHER Last administered on 15:00; Start 10/13/16 at 15:16; Stop 10/13/16 at 15:17; Status DC Water (Free Water) 200 ml Q6HR G-TUBE Last administered on 10/18/16 06:00; Start 10/15/16 at 00:00; Stop 10/18/16 at 08:47; Status DC Furosemide (Lasix Inj) 40 mg BID@09,18 IV PUSH Last administered on 10/19/16 18:00; Start 10/18/16 at 09:00 (Vladimir Miller MD) Medical Decision Making MDM Remarks 81 y/o male presented for AMS CT Brain on arrival showed extensive right intraventricular hemorrhage, s/p placement of ventriculostomy drain 10/08/16 respiratory failure s/p intubation, extubated 10/10/16, reintubated 10/12/16 MRI Brain 10/07/16 showed 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, no evidence of other masses or tumors nondraining EVD drain, f/u CT Head 10/11 stable ventricle size, no evidence of worsening hydrocephalus stable right IVH, ventriculostomy drain removed 10/11/16, f/u CT Head 10/15/16 with stable IVH and ventriculomegaly positive pulmonary embolus, positive DVTs s/p placement of IVC filter no significant improvement to neurological examination, (Any Olivarez) MDM Remarks Last Impressions Head CT 10/15/16 0000 Signed Impressions: Service Date/Time: Saturday, October 15, 2016 04:38 - CONCLUSION: Stable intraventricular hemorrhage and small right frontal parenchymal bleed. Anoop Hernandez MD Upper Extremity Ultrasound 10/13/16 0000 Signed Impressions: Service Date/Time: Thursday, October 13, 2016 09:15 - CONCLUSION: Exam positive for bilateral DVT and SVT. Davis Devi MD Lower Extremity Ultrasound 10/13/16 0000 Signed Impressions: Service Date/Time: Thursday, October 13, 2016 08:28 - CONCLUSION: DVT in the proximal left femoral veins. No evidence of DVT in the right lower extremity. Davis Devi MD IVC Filter Placement X-Ray 10/13/16 0000 Signed Impressions: Service Date/Time: Thursday, October 13, 2016 13:43 - CONCLUSION: Uncomplicated inferior vena cava filter placement as above. Abel Zavaleta MD Chest X-Ray 10/13/16 0000 Signed Impressions: Service Date/Time: Thursday, October 13, 2016 04:46 - CONCLUSION: Central line placement as above. Anoop Hernandez MD CT Angiography 10/13/16 0000 Signed Impressions: Service Date/Time: Thursday, October 13, 2016 05:17 - CONCLUSION: 1. Examination is positive for pulmonary embolus right upper lobe branches. 2. Atelectasis and consolidation as above. Anoop Hernandez MD Neck CTA 10/07/16 0000 Signed Impressions: Service Date/Time: Friday, October 07, 2016 03:38 - CONCLUSION: 1. Scattered calcified atherosclerotic plaque. A 50%% stenosis is seen involving the right ICA. The left carotid is patent. 2. Dominant left vertebral artery. The right terminates in a PICA distribution Tyrone Christianson Jr., MD Head CTA 10/07/16 0000 Signed Impressions: Service Date/Time: Friday, October 07, 2016 03:38 - CONCLUSION: Scattered atherosclerotic plaque without a hemodynamically significant stenosis. No aneurysm. Tyrone Christianson Jr., MD Brain MRI 10/07/16 Signed Impressions: Service Date/Time: Friday, October 07, 2016 17:54 - CONCLUSION: 1. The ventricular blood has a very similar configuration to prior CT yesterday, filling the right lateral ventricle, extending into the 3rd ventricle and layering in the left occipital horn. 2. There is a small elongated infarction in the right posterior external capsule with a thin rim of T2 shortening suggesting that this may be hemorrhagic. Tyrone Vivar MD Abdomen X-Ray 10/07/16 Signed Impressions: Service Date/Time: Friday, October 07, 2016 15:21 - CONCLUSION: No concerning radiopaque foreign body is identified in the abdomen. Abel Lemus MD Cervical Spine CT 10/06/16 Signed Impressions: Service Date/Time: Thursday, October 06, 2016 23:15 - CONCLUSION: Negative trauma CT. Iftikhar Garza MD (Vladimir Miller MD) Plan Plan Remarks cont nonsurgical management, dw Dr. Miller no plans for replacing ventriculostomy drain at this time neuro examination remains poor will continue to follow (Any Olivarez) Attending Statement Neuro. Continue neuro checks New deep venous thromboses and pulmonary emboli. He is not a candidate for full anticoagulation due to his intracranial hemorrhage. I recommend placement of a Blake filter Respiratory failure. He is now on mechanical ventilation. Continue. aggressive pulmonary toilette, nasotracheal suction, and breathing treatments with nebulizers. Daily PT and OT Nutrition. Start tube feedings Renal. monitor closely urine output, BUN and creatinine Endocrine. Monitor serial Acu checks and SSI as needed ID monitor for signs of infection Protonix for stress ulcer prophylaxis. Lovenox The exam, history, and the medical decision-making described in the above note were completed with the assistance of the mid-level provider. I reviewed and agree with the findings presented. I attest that I had a [id number] encounter with the patient on the same day, and personally performed and documented my assessment and findings in the medical record. (Vladimir Miller MD) Any Olivarez Oct 16, 2016 12:35 Vladimir Miller MD Oct 18, 2016 22:12
[2016-10-17] VITALS (18 sets, daily range): BP systolic 121–157; BP diastolic 47–74; PULSE 54–67; RESP 12–13; TEMP 98.3–99; O2SAT 94–100
[2016-10-17] MEDS: CHLORHEXIDINE GLUCONATE 2 % 1 PACK (2 CLOTHS) TOP SCH ×2 (03:18→21:06)
[2016-10-17] MEDS: PIPERACIL-TAZO 4.5 GM PREMIX 100 ML IV SCH ×4 (03:18→21:20)
[2016-10-17 03:24] LABS: MEAN CELL VOLUME 92.5 FL (80.0-100.0); MEAN CORPUSCULAR HEMOGLOBIN 31.4 PG (27.0-34.0); MEAN CORPUSCULAR HGB CONC 33.9 % (32.0-36.0); PLATELET COUNT 205 TH/MM3 (150-450); RED BLOOD COUNT 3.67 MIL/MM3 (4.50-5.90); RED CELL DISTRIBUTION WIDTH 13.3 % (11.6-17.2); REVIEW FLAG FINAL; WHITE BLOOD COUNT 10.6 TH/MM3 (4.0-11.0)
[2016-10-17] MEDS: PROPOFOL 1000 MG/100 ML INJ 100 ML IV SCH ×4 (03:25→16:20)
[2016-10-17 03:40] LABS: BICARBONATE 28.6 MEQ/L (21.0-32.0); POTASSIUM 3.9 MEQ/L (3.5-5.1)
[2016-10-17] MEDS: FREE WATER G-TUBE SCH ×3 (05:12→18:00)
[2016-10-17] MEDS: hydrALAZINE HCL 25 MG TAB PO SCH ×2 (05:12→06:09)
[2016-10-17] MEDS: CHLORHEXIDINE 0.12% (ORAL KIT) 15 ML CUP MT SCH ×4 (08:00→20:00)
[2016-10-17] MEDS: amLODIPine BESYLATE 5 MG TAB PO SCH (08:04)
[2016-10-17] MEDS: ENOXAPARIN SODIUM 40 MG/0.4 ML SYRINGE SQ SCH (08:04)
[2016-10-17] MEDS: DOCUSATE SODIUM 50 MG/SENNA 8.6 MG TAB PO SCH ×2 (08:04→21:00)
[2016-10-17] MEDS: SODIUM CHLORIDE 0.9% FLUSH 10 ML FLUSH SCH ×2 (08:05→21:00)
[2016-10-17] MEDS: FAMOTIDINE 40 MG/5 ML LIQ 50 ML BTL NG SCH ×2 (08:05→21:00)
[2016-10-17] MEDS: BENEPROTEIN POWDER 1 PACK G-TUBE SCH ×3 (08:05→18:00)
--- NOTE | 2016-10-17 08:14 | HHI.CCPN ---
Subjective Remarks/Hospital Course Elderly male presents for evaluation of altered mental status. He states that he stumbled 3 days ago and fell. He was laying on the floor since. Apparently , a friend found him today. The patient is unsure of his past medical history. Apparently, he has history of COPD and is on oxygen. He does not know what medications he is on. The patient knows his name, but does not know the year. He denies hitting his head or loss of conscious, but has erythema to the left forehead. Patient denies any chest pain or abdominal pain. No vomiting. He states that he was unable to get up, but will not tell me why. He might also have some history of hypertension, glaucoma. 10/07: Required intubation today for progressive respiratory failure. 10/08: Will aim for quick extubation now that MRI complete. Need sputum sample. 10/09: Tolerating SBTs. Push toward extubation. 10/10: Vigorous but confused. Zimmerman-sensitive staph in sputum, will narrow abx. 10/11: extubated, stable from pulmonary standpoint. still confused. EVD not draining. 10/12: EVD removed. head CT stable. neuro exam stable. 10/13: overnight with acute decompensation, hypoxic respiratory failure requiring intubation and mechanical ventilation. hypotensive requiring vasopressors. clinically unstable. CT pulmonary angiogram with +PE. 10/14: levophed requirement persists. FANY worsening. uop poor. mental status stable, but given blood pressure and hypoxia still not stable for SBT. 10/15: Brain bleed, COPD exacerbation, no improvement, little hope for extubation. Will ask Palliative Care to see. 10/16: Prior to intubation he was confused and moderately agitated, but conversant. Will continue efforts to get him off ventilator. 10/17: Will start ambitious breathing trials. Objective Vital Signs Date Time Temp Pulse Resp B/P Pulse Ox O2 Delivery O2 Flow Rate FiO2 10/17/16 07:35 99 35 10/17/16 06:00 56 10/17/16 04:00 98.8 13 137/70 10/16/16 19:00 Mechanical Ventilator Intake and Output 10/16/16 10/16/16 10/17/16 08:00 16:00 00:00 Intake Total 659 ml 1015 ml 1086 ml Output Total 275 ml 475 ml 450 ml Balance 384 ml 540 ml 636 ml Result Diagram: 10/17/1630910/17/16 031 Imaging Last [address] 10/06/162037 Signed Impressions: Service Date/Time: Thursday, October 06, 2016 23:15 - CONCLUSION: Prominent amount of blood in the right ventricle and small amount of blood in the 3rd and left occipital horn ventricle. No parenchymal hemorrhage seen. No extra axial fluid collections. Tyrone Vivar MD Chest X-Ray 10/06/162037 Signed Impressions: Service Date/Time: Thursday, October 06, 2016 20:37 - CONCLUSION: Bilateral partially consolidative infiltrates lower medial right lung and lower lateral left lung. Tyrone Vivar MD Objective Remarks GENERAL: Elderly man critically ill, intubated, sedated. SKIN: Warm and dry. HEAD: Normocephalic. EYES: No scleral icterus. No injection or drainage. NECK: trachea midline. no jvd. orally intubated. CARDIOVASCULAR: tachycardic rate, regular rhythm. sinus by tele. RESPIRATORY: Clear, good ny breath sounds. GASTROINTESTINAL: Abdomen soft, non-tender, nondistended. MUSCULOSKELETAL: No cyanosis, or edema. EXTREMITIES: Well perfused. NEURO: opens eyes, w/d x 4. does not follow commands. 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 ICH score is 4, suggesting a poor prognosis. Now with decompensated shock secondary to acute PE. not a candidate for anticoagulation. s/p IVC filter 10/13. discussed care with Dr. Miller who agrees. clinically decompensating. critically ill. not progressing on pathway. hypoxia not improving as we would expect. still high risk for sudden cardiac post-PE ICH Acute encephalopathy - Unclear source - Atypical location - Strict blood pressure control with SBP goal less than 150 - Coags within normal limits - Neurosurgery consulted: Dr Miller - Neuro checks per unit protocol Acute pulmonary Embolism Acute hypoxic respiratory failure - not a candidate for thrombolytics or anticoagulation - continue prophylactic dose lovenox - IVC filter 10/13 - high risk for sudden cardiac post PE. - no SBT today given instability Cardiogenic shock s/p acute PE - levophed for map > 65 - watch uop closely. Acute Kidney Injury - secondary to shock from PE. monitor closely. no need for emergent renal replacement therapy. MSSA Pneumonia - abx broadened to Zosyn when patient decompensated 10/13 (previously on ancef). if cultures negative at 48h, would de-escalate abx. - urine culture NGTD x 48h. - Staph in sputum, MSSA DVT GI prophylaxis - Teds SCDs - lovenox, prophylactic dose. IVC filter. 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 Probably not flow limiting. Overall impression: Critically ill. Multiple severe problems but main complicating feature is his age and prehospital functional status. Darrin Chavez MD Oct 17, 2016 08:14
--- NOTE | 2016-10-17 10:10 | HHI.HCSW ---
Marble Cleaner Visit Spiritual/[employer] Spoke with lens examiner from the [facility] [place], Father Tramaine. He states he was in to visit with Mr. Caal and provided the spiritual support and things "he needs if God were to take him". He reports he is happy to assist with any spiritual needs or questions medical team has. He can be reached at [phone] . Advance Directive Treating Engineer Helper does not know patient on a personal level, reports he "meets many people and it is hard for me to place him". unable to provide additional information regarding patient. Still have not received any return call or additional contact on Maria E [place]. Palliative care attempting to identify legal proxy decision maker, potentially [employer]. . Follow Up Visit Palliative care will continue to follow throughout hospitalization. Jacqueline Christianson, COMMUNICATIONS ELECTRICIAN SUPERVISOR Oct 17, 2016 10:10
--- NOTE | 2016-10-17 10:45 | HHI.HCPN ---
Reason for visit a. To assist with evaluation and management of symptoms including: dyspnea; encephalopathy b. To assist medical decision maker(s) with: better understanding of current medical conditions; weighing benefits/burdens of medical treatment options; making medical treatment decisions. . Subjective/Interval History Mr. Caal remains non-verbal , mechanically ventilated in the SICU. He is sedated (propopfol) at time of my visit. Nurse reports that off sedation, he has spontaneous movements, and eyes are open, but he does not track and does not follow any commands. No other significant change overnight. Mediator plans to have spontaneous breathing trials today. Nursing pain level scores are consistently "0." Not receiving any of his prn morphine since 10/12/16. . Family/friend interactions Contact -- Maria E Brink -- has voice mail but has failed to return multiple phone call appeals. She was given my personal phone number in order to be sure I did not miss her call. The patient had left the name/number of the whiting machine operator at the [email or web address] as a salesperson wigs for his paper sales manager. The whiting machine operator has visited. He does not recall the patient. He is not aware of patient's preferences/goals and was not aware of other family or contacts. We have gone to primary care physician's office, paper sales manager, his clergy, his few friends to try and find any family or friends willing to serve as proxy decision maker. . Advance Directives Living Will: Never completed Health Care Surrogate: Never completed Durable Power of Customer Service Consultant: Never completed Advance Directive Specifics Date completed: The patient has not completed any advance directives that we know of. There was no advance directive on file at the patient's primary care physician's office. . Health Care Surrogate(s): No written documentation of health care surrogacy. . Documented care wishes: No written documentation of health care preferences/goals/wishes. . Objective Vital Signs Date Time Temp Pulse Resp B/P Pulse Ox O2 Delivery O2 Flow Rate FiO2 10/17/16 10:00 67 10/17/16 08:00 35 10/17/16 08:00 98.5 64 12 157/47 100 10/17/16 08:00 65 10/17/16 07:35 99 35 10/17/16 07:00 96 Mechanical Ventilator 35 10/17/16 06:00 56 10/17/16 04:14 95 35 10/17/16 04:00 60 10/17/16 04:00 98.8 60 13 137/70 95 10/17/16 04:00 35 10/17/16 02:00 57 10/17/16 01:08 96 35 10/17/16 00:00 35 10/17/16 00:00 58 10/17/16 00:00 98.4 58 12 121/68 96 10/16/16 22:00 58 10/16/16 20:14 99 35 10/16/16 20:00 98.7 57 12 120/61 98 10/16/16 20:00 57 10/16/16 20:00 35 10/16/16 19:00 98 Mechanical Ventilator 35 10/16/16 18:00 61 10/16/16 17:15 96 35 10/16/16 16:00 45 10/16/16 16:00 98.6 62 12 134/68 100 10/16/16 16:00 62 10/16/16 14:00 60 10/16/16 12:54 98 35 10/16/16 12:00 60 10/16/16 12:00 98.2 64 13 147/67 100 10/16/16 12:00 45 Intake & Output 10/17/16 10/17/16 07:00 19:00 Intake Total 2527 ml Output Total 950 ml Balance 1577 ml IV Total 1013 ml Tube Feeding 794 ml Other 720 ml Output Urine Total 550 ml Stool Total 400 ml . Physical Exam CONSTITUTIONAL/GENERAL: This is a well nourished male; sedated, intubated, mechanically ventilated in an SICU bed. No apparent distress. TUBES/LINES/DRAINS: Right subclavian central line; peripheral IVs; SCDs; moore catheter; rectal tube; naso-gastric tube; orotracheal tube; soft wrist restraints SKIN: No jaundice, rashes, or lesions. Ecchymoses on upper extremities. No wounds seen anteriorly. Skin temperature appropriate. Not diaphoretic. HEAD: Healing david hole. EYES: Pupils equal and round. Unable to assess extra-ocular movements -- does not track. No scleral icterus. No injection or drainage. Fundi not examined. ENT: Nose without bleeding or purulent drainage. Throat without visible erythema, exudates, masses, or lesions though difficult to assess due to intubations. NECK: Trachea midline. CARDIOVASCULAR: Regular rate and rhythm without murmurs, gallops, or rubs. No JVD. RESPIRATORY/CHEST: Symmetric, unlabored respirations. Diminished air movement at both bases. Lungs clear. No wheezes. GASTROINTESTINAL: Abdomen soft, non-tender, nondistended. No hepato-splenomegaly , or palpable masses. No guarding. Bowel sounds present. GENITOURINARY: Without palpable bladder distension. Moore catheter in place. MUSCULOSKELETAL: Extremities without clubbing, cyanosis, or edema. No mottling. LYMPHATICS: Not examined. NEUROLOGICAL: Sedated (propofol running). Does not awaken to voice/exam. Unable to follow commands. Withdraws to noxious stimuli in all extremities. PSYCHIATRIC: Unable to assess due to level of responsiveness. . Diagnostic Tests Laboratory Laboratory Tests Test 10/14/16 10/15/16 10/16/16 10/17/16 17:30 04:00 03:20 03:10 Potassium Level 3.4 MEQ/L 3.5 MEQ/L 3.3 MEQ/L 3.9 MEQ/L (3.5-5.1) (3.5-5.1) (3.5-5.1) (3.5-5.1) White Blood Count 9.1 TH/MM3 9.0 TH/MM3 10.6 TH/MM3 (4.0-11.0) (4.0-11.0) (4.0-11.0) Red Blood Count 3.83 MIL/MM3 3.66 MIL/MM3 3.67 MIL/MM3 (4.50-5.90) (4.50-5.90) (4.50-5.90) Hemoglobin 11.9 GM/DL 11.6 GM/DL 11.5 GM/DL (13.0-17.0) (13.0-17.0) (13.0-17.0) Hematocrit 35.6 % 34.0 % 34.0 % (39.0-51.0) (39.0-51.0) (39.0-51.0) Mean Corpuscular Volume 92.9 FL 92.9 FL 92.5 FL (80.0-100.0) (80.0-100.0) (80.0-100.0) Mean Corpuscular Hemoglobin 31.1 PG 31.7 PG 31.4 PG (27.0-34.0) (27.0-34.0) (27.0-34.0) Mean Corpuscular Hemoglobin 33.4 % 34.1 % 33.9 % Concent (32.0-36.0) (32.0-36.0) (32.0-36.0) Red Cell Distribution Width 13.4 % 13.6 % 13.3 % (11.6-17.2) (11.6-17.2) (11.6-17.2) Platelet Count 186 TH/MM3 190 TH/MM3 205 TH/MM3 (150-450) (150-450) (150-450) Mean Platelet Volume 8.2 FL 8.8 FL 8.1 FL (7.0-11.0) (7.0-11.0) (7.0-11.0) Sodium Level 150 MEQ/L 147 MEQ/L 142 MEQ/L (136-145) (136-145) (136-145) Chloride Level 115 MEQ/L 111 MEQ/L 108 MEQ/L (98-107) (98-107) (98-107) Carbon Dioxide Level 30.3 MEQ/L 29.4 MEQ/L 28.6 MEQ/L (21.0-32.0) (21.0-32.0) (21.0-32.0) Anion Gap 5 MEQ/L (5-15) 7 MEQ/L (5-15) 5 MEQ/L (5-15) Blood Urea Nitrogen 24 MG/DL (7-18) 22 MG/DL (7-18) 17 MG/DL (7-18) Creatinine 0.81 MG/DL 0.82 MG/DL 0.79 MG/DL (0.60-1.30) (0.60-1.30) (0.60-1.30) Estimat Glomerular Filtration 92 ML/MIN (>89) 90 ML/MIN (>89) 94 ML/MIN (>89) Rate Random Glucose 124 MG/DL 138 MG/DL 124 MG/DL (74-106) (74-106) (74-106) Calcium Level 7.6 MG/DL 7.6 MG/DL 7.6 MG/DL (8.5-10.1) (8.5-10.1) (8.5-10.1) . Result Diagram: 10/17/1630910/17/16309 Microbiology Microbiology Date/Time Procedure Status Source Growth 10/13/16 11:05 Aerobic Blood Culture - Preliminary Resulted Blood Peripheral NO GROWTH IN 3 DAYS 10/13/16 11:05 Anaerobic Blood Culture - Preliminary Resulted Blood Peripheral NO GROWTH IN 3 DAYS 10/13/16 10:25 Urine Culture - Final Complete Urine Catheterized Urine NO GROWTH IN 48 HOURS. . Imaging Last Impressions Head CT 10/15/16 0000 Signed Impressions: Service Date/Time: Saturday, October 15, 2016 04:38 - CONCLUSION: Stable intraventricular hemorrhage and small right frontal parenchymal bleed. Anoop Hernandez MD Upper Extremity Ultrasound 10/13/16 0000 Signed Impressions: Service Date/Time: Thursday, October 13, 2016 09:15 - CONCLUSION: Exam positive for bilateral DVT and SVT. Davis Devi MD Lower Extremity Ultrasound 10/13/16 0000 Signed Impressions: Service Date/Time: Thursday, October 13, 2016 08:28 - CONCLUSION: DVT in the proximal left femoral veins. No evidence of DVT in the right lower extremity. Davis Devi MD IVC Filter Placement X-Ray 10/13/16 0000 Signed Impressions: Service Date/Time: Thursday, October 13, 2016 13:43 - CONCLUSION: Uncomplicated inferior vena cava filter placement as above. Abel Zavaleta MD Chest X-Ray 10/13/16 0000 Signed Impressions: Service Date/Time: Thursday, October 13, 2016 04:46 - CONCLUSION: Central line placement as above. Anoop Hernandez MD CT Angiography 10/13/16 0000 Signed Impressions: Service Date/Time: Thursday, October 13, 2016 05:17 - CONCLUSION: 1. Examination is positive for pulmonary embolus right upper lobe branches. 2. Atelectasis and consolidation as above. Anoop Hernandez MD Neck CTA 10/07/16 0000 Signed Impressions: Service Date/Time: Friday, October 07, 2016 03:38 - CONCLUSION: 1. Scattered calcified atherosclerotic plaque. A 50%% stenosis is seen involving the right ICA. The left carotid is patent. 2. Dominant left vertebral artery. The right terminates in a PICA distribution Tyrone Christianson Jr., MD Head CTA 10/07/16 0000 Signed Impressions: Service Date/Time: Friday, October 07, 2016 03:38 - CONCLUSION: Scattered atherosclerotic plaque without a hemodynamically significant stenosis. No aneurysm. Tyrone Christianson Jr., MD Brain MRI 10/07/16 0000 Signed Impressions: Service Date/Time: Friday, October 07, 2016 17:54 - CONCLUSION: 1. The ventricular blood has a very similar configuration to prior CT yesterday, filling the right lateral ventricle, extending into the 3rd ventricle and layering in the left occipital horn. 2. There is a small elongated infarction in the right posterior external capsule with a thin rim of T2 shortening suggesting that this may be hemorrhagic. Tyrone Vivar MD Abdomen X-Ray 10/07/16 0000 Signed Impressions: Service Date/Time: Friday, October 07, 2016 15:21 - CONCLUSION: No concerning radiopaque foreign body is identified in the abdomen. Abel Lemus MD Cervical Spine CT 10/06/16 0000 Signed Impressions: Service Date/Time: Thursday, October 06, 2016 23:15 - CONCLUSION: Negative trauma CT. Iftikhar Garza MD . Procedures * Intubation/ mechanical ventilation * David hole with placement of ventriculostomy catheter * Right subclavian central line placement. . Assessment and Plan Disease Oriented Problem List: (1) Intracranial hemorrhage (2) Pneumonia (3) Renal insufficiency Comment: Improved. . (4) Dehydration (5) Deep venous thrombosis Comment: Unable to anti-coagulate patient because of recent intracranial bleed. . (6) Pulmonary embolism Comment: Unable to anti-coagulate patient because of recent intracranial bleed. . Symptom Scale: (1) Pain 0-10 Scale: Unable to quantify Comment: Per the patient's primary care office, the patient had some chronic pain and was using [place] 5/325 twice daily. He also had a history of headaches. Current sources of discomfort would include headache from his intracranial bleed, orotracheal intubation, nasogastric tube, prolonged bedbound status, Moore catheter, rectal tube, vascular access lines. Nursing has not felt the patient has appeared painful. . (2) Dyspnea 0-10 Scale: Unable to quantify Comment: Dyspnea is currently being managed by mechanical ventilation. Dyspnea likely secondary to multiple factors including underlying COPD, pneumonia, pulmonary embolus. . (3) Encephalopathy 0-10 Scale: Unable to quantify Comment: Encephalopathy is profound and appears entirely secondary to the intracranial bleed. . Pertinent Non-Medical Issues Psychosocial: Lived alone. One friend -- Jerardo Rivera (Bernie). Friends for 20 years. No living family per Jerardo. His primary contact listed with his primary care physician -- Maria E Brink -- has not responded to voice messages and patient's friend -- Jerardo -- believes she is . Spiritual: Possibly [employer] per Jerardo Legal: No known advance directives . We have not identified a proxy decision- maker at this time. Ethical issues impacting care: Patient is incapacitated and not expected to regain capacity. . Important Contacts * Jerardo Rivera (friend) [phone] * Maria E Stoddardsowmyaabhijeet (ex-spouse?? friend??) [phone] . . Prognosis Patient is currently critically ill having suffered an intracranial bleed. He has underlying COPD and is now in respiratory failure. He has pulmonary emboli and cannot be anticoagulated because of his intracranial bleed. It appears unlikely that he will survive the hospitalization. If he does survive, it is very unlikely that he will be independent again, and will likely have significant cognitive/motor deficits. In my opinion, patient has an end-stage condition. Once we identify a proxy decision-maker, it would not be unreasonable for them to advocate for withdrawal of life support and transition to "comfort measures only." . Code Status: Full Code Plan == Code Status: FULL CODE. We have no advance directives and no legal decision maker at this time. Patient will remain FULL CODE. == Decision making: Patient is incapacitated and at this time there is little probability that he will regain capacity to make his own decisions. There is no written designation of health care surrogate. We are told he is not , has no children, has no siblings, and no other family members. There is a close friend for over 20 years -- Jerardo Rivera (Bernie) -- but this friend prefers not to serve as a proxy decision maker at this time. No return of our team's multiple calls to Maria E Brink who is listed as an ex-spouse and listed as the salesperson wigs with his primary care doctor's office. at local [facility] (patient listed the whiting machine operator as an emergency contact with his apartment ar manager) has visited him, does not know him, is not aware of family or contacts, and is unaware of healthcare wishes. We will start process of enlisting help of [employer] to serve as proxy == Goals of medical treatment: Goals must remain aggressive until a decision maker is established. == Pain: Has known history of osteoarthritis and migraine headaches. Per PCP office, he would use [place] and more recently Fioricet for headache. Current sources of pain might include headache from intracranial bleed; wound pain; pain from orotracheal / nasogastric tubes; moore catheter; vascular access lines ; etc. he currently has orders for morphine sulfate 2 mg IV every 2 hours when necessary. This appears to be adequate. No further recommendations at this time. == Dyspnea: Causes of dyspnea include underlying COPD; PE; pneumonia. Currently managed by mechanical ventilation. No further recommendations at this time. == Encephalopathy: From intracranial bleed. Not improving. No further recommendations at this time. == Palliative care will continue to search for a proxy decision maker and enlist the help of [employer] if necessary == Palliative care will continue to follow and assist with symptom management and further clarify goals of medical treatment once we locate a proxy decision maker. . Time Spent Total Floor Time (mins): 40 (Total floor time included chart review; patient exam; calls to Cristoabhijeet and Jerardo Miguel; collaboration with oncology social work regarding information obtained from ; initation of order for [employer], collaboration with primary nurse; documentation. ) Face to Face Time (mins): 10 >50% Counseling/Coord of Care: Yes Attestation To help prompt me to consider important information that might be impacting today's encounter and assessment, information from prior notes written by myself or my colleagues may have been "brought forward" into today's note. My signature on this note, however, is an attestation that I personally performed the exam, history, and/or decision-making noted today, and, unless otherwise indicated, the interactions with patient, family, and staff as well as the review of records all occurred today. I also attest that the listed assessment and stated plan reflect my best clinical judgment today based on the combination of historical information, prior notes, and today's exam/ interactions. When time spent is documented, it refers only to time spent today by the signer, or if indicated, combined time spent today by collaborating physician/nurse practitioner. . . Domenico Blackwell MD Oct 17, 2016 10:45
--- NOTE | 2016-10-17 13:52 | HHI.NSPN ---
Note Status Status: Progress Note Interval History Interval History Mr. Caal is a 81 year old male who presented for evaluation of altered mental status. Cannot obtain history from patient, however his close friend is at bedside who found the patient. His friend reports he last spoke with the patient 2-3 days ago. He was not answering his phone so he went to check on him and found the patient on the floor lying on his side. He was very confused and did not recognize him. He was taken to the ED. CT Head on arrival shows right intraventricular hemorrhage. He is not known to take blood thinners. His friend reports baseline he is normal besides being short of breath due to his COPD. Neurosurgical evaluation was requested. 10/08: awake, intubated on CPAP. MRI Brain completed. 10/09: s/p placement of ventriculostomy drain yesterday, intubated and sedated. 10/10: no output via EVD overnight, pt extubated this morning 10/11: remains without drainage out EVD overnight, f/u CT Head this morning with stable ventricles 10/12: no changes to neuro checks overnight, eyes open, moves ext intermittently but not following commands, nonverbal 10/13: reintubated, on levophed for BP support. CTA chest positive for PE. obtain u/s of extremities now 10/14: intubated, sedated. s/p placement of IVC filter last night. 10/15: f/u CT Head this am with stable IVH and ventriculomegaly. remains intubated and sedated. 10/16: no changes to neuro checks, remains intubated 10/17: no significant improvements to neuro check per reports, intermittently moves x 4, but not opening eyes or following commands. Labs, Micro, & Vital Signs Results Date Time Temp Pulse Resp B/P Pulse Ox O2 Delivery O2 Flow Rate FiO2 10/17/16 12:00 63 10/17/16 12:00 98.3 63 12 149/73 94 10/17/16 12:00 35 10/17/16 11:26 98 35 10/17/16 10:00 67 10/17/16 08:00 35 10/17/16 08:00 98.5 64 12 157/47 100 10/17/16 08:00 65 10/17/16 07:35 99 35 10/17/16 07:00 96 Mechanical Ventilator 35 10/17/16 06:00 56 10/17/16 04:14 95 35 10/17/16 04:00 60 10/17/16 04:00 98.8 60 13 137/70 95 10/17/16 04:00 35 10/17/16 02:00 57 10/17/16 01:08 96 35 10/17/16 00:00 35 10/17/16 00:00 58 10/17/16 00:00 98.4 58 12 121/68 96 10/16/16 22:00 58 10/16/16 20:14 99 35 10/16/16 20:00 98.7 57 12 120/61 98 10/16/16 20:00 57 10/16/16 20:00 35 10/16/16 19:00 98 Mechanical Ventilator 35 10/16/16 18:00 61 10/16/16 17:15 96 35 10/16/16 16:00 45 10/16/16 16:00 98.6 62 12 134/68 100 10/16/16 16:00 62 10/16/16 14:00 60 10/17/16 07:00 Intake Total 3542 ml Output Total 1425 ml Balance 2117 ml Constitutional Vital Signs Date Time Temp Pulse Resp B/P Pulse Ox O2 Delivery O2 Flow Rate FiO2 10/17/16 12:00 63 10/17/16 12:00 98.3 63 12 149/73 94 10/17/16 12:00 35 10/17/16 11:26 98 35 10/17/16 10:00 67 10/17/16 08:00 35 10/17/16 08:00 98.5 64 12 157/47 100 10/17/16 08:00 65 10/17/16 07:35 99 35 10/17/16 07:00 96 Mechanical Ventilator 35 10/17/16 06:00 56 10/17/16 04:14 95 35 10/17/16 04:00 60 10/17/16 04:00 98.8 60 13 137/70 95 10/17/16 04:00 35 10/17/16 02:00 57 10/17/16 01:08 96 35 10/17/16 00:00 35 10/17/16 00:00 58 10/17/16 00:00 98.4 58 12 121/68 96 10/16/16 22:00 58 10/16/16 20:14 99 35 10/16/16 20:00 98.7 57 12 120/61 98 10/16/16 20:00 57 10/16/16 20:00 35 10/16/16 19:00 98 Mechanical Ventilator 35 10/16/16 18:00 61 10/16/16 17:15 96 35 10/16/16 16:00 45 10/16/16 16:00 98.6 62 12 134/68 100 10/16/16 16:00 62 10/16/16 14:00 60 10/17/16 07:00 Intake Total 3542 ml Output Total 1425 ml Balance 2117 ml Review of Systems/Exam Exam Mr. Caal is intubated. Cranial Nerves: Pupils 2-3 mm equal, round, reactive to light. Conjugate gaze. Positive corneal reflexes b/l Motor: not following commands for testing Sensory: minimal response to pain to lower extremities Reflexes: Plantars silent b/l Cerebellar: cannot assess due to current clinical condition Medications Current Medications Current Medications Medications (Trade) Dose Ordered Sig/Mario Route PRN Reason Start Time Stop Time Status Last Admin Dose Admin Sodium Chloride (NS Flush) 2 ml UNSCH PRN .XX FLUSH AFTER USING IV ACCESS 10/07/16 00:00 Sodium Chloride (NS Flush) 2 ml BID .XX 10/07/16 09:00 10/17/16 08:05 Acetaminophen (Tylenol) 650 mg Q6H PRN PO PAIN 1-5 AND/OR FEVER >101F 10/07/16 00:00 10/11/16 16:05 Morphine Sulfate (Morphine Inj) 2 mg Q2H PRN IV PAIN SCALE 6 TO 10 10/07/16 00:00 10/12/16 23:15 Ondansetron HCl (Zofran Inj) 4 mg Q6H PRN IV NAUSEA OR VOMITING 10/07/16 00:00 10/07/16 01:05 Miscellaneous Information 1 Q361D XX 10/07/16 00:00 Chlorhexidine Gluconate (Chlorhexidine 2% Cloth) Taper DAILY@04 TOP 10/07/16 04:00 10/03/17 03:59 10/11/16 04:00 Chlorhexidine Gluconate (Chlorhexidine 2% Cloth) 3 pack UNSCH PRN TOP HYGIENIC CARE 10/07/16 00:00 Senna/Docusate Sodium (Michelle-Colace) 1 tab BID PO 10/07/16 09:00 10/17/16 08:04 Magnesium Hydroxide (Milk Of Magnesia Liq) 30 ml Q12H PRN PO MILD - MODERATE CONSTIPATION 10/07/16 00:00 10/16/16 08:00 Sennosides (Senokot) 17.2 mg Q12H PRN PO MODERATE - SEVERE CONSTIPATION 10/07/16 00:00 Bisacodyl (Dulcolax Supp) 10 mg DAILY PRN RECTAL SEVERE CONSITIPATION 10/07/16 00:00 Lactulose (Lactulose Liq) 30 ml DAILY PRN PO SEVERE CONSITIPATION 10/07/16 00:00 Hydralazine HCl (Apresoline Inj) 20 mg Q4H PRN IV PUSH SBP>140, DBP>90 10/07/16 03:45 10/14/16 18:08 Labetalol HCl (Trandate Inj) 10 mg Q4H PRN IV PUSH SBP>140, DBP>90 10/07/16 03:45 10/13/16 03:41 Chlorhexidine Gluconate (Peridex 0.12% Liq) 15 ml BID@08,20 MT 10/07/16 20:00 10/16/16 19:28 Amlodipine Besylate (Norvasc) 5 mg DAILY PO 10/09/16 09:30 10/17/16 08:04 Hydralazine HCl (Apresoline Inj) 10 mg Q1H PRN IV PUSH SBP > 160 10/09/16 09:30 10/12/16 11:34 Protein 1 pack 1 pack TID G-TUBE 10/09/16 13:00 10/17/16 13:00 Potassium Chloride 100 ml @ 50 mls/hr Q2H PRN IV For Potassium 2.8 - 3.2 mEq/L 10/10/16 09:45 Potassium Chloride (KCl 20 Meq Premix Inj) 100 ml @ 50 mls/hr Q2H PRN IV For Potassium 2.8 - 3.2 mEq/L 10/10/16 09:45 10/10/16 10:19 Potassium Bicarb/ Potassium Chloride 50 meq 50 meq UNSCH PRN PO For Potassium 3.3 - 3.5 mEq/L 10/10/16 09:45 Potassium Chloride 100 ml @ 25 mls/hr UNSCH PRN IV For Potassium 3.3 - 3.5 mEq/L 10/10/16 09:45 10/16/16 04:27 Potassium Chloride 100 ml @ 50 mls/hr Q2H PRN IV For Potassium 3.3 - 3.5 mEq/L 10/10/16 09:45 Magnesium Sulfate/ Sodium Chloride (Magnesium Sulfate Inj/NS Inj) 100 ml @ 50 mls/hr UNSCH PRN IV For Magnesium 0.9 - 1.1 mg/dL 10/10/16 09:45 Magnesium Oxide 800 mg 800 mg UNSCH PRN PO For Magnesium 1.2 - 1.6 mg/dL 10/10/16 09:45 Magnesium Sulfate/ Sodium Chloride (Magnesium Sulfate Inj/NS Inj) 100 ml @ 50 mls/hr UNSCH PRN IV For Magnesium 1.2 - 1.6 mg/dL 10/10/16 09:45 Potassium Phosphate 2000 mg 2,000 mg Q4H PRN PO For Phosphorus < 2.5 mg/dL 10/10/16 09:45 Sodium Phosphate/ Sodium Chloride (Sodium Phosphate Inj/NS 250 ml Inj) 250 ml @ 42 mls/hr UNSCH PRN IV For Phosphorus < 2.5 mg/dL 10/10/16 09:45 Potassium Phosphate 2000 mg 2,000 mg UNSCH PRN PO/TUBE SEE LABEL COMMENTS 10/10/16 09:45 Potassium Phosphate/Sodium Chloride (Potassium Phosphate Inj/NS 250 ml Inj) 260 ml @ 42 mls/hr UNSCH PRN IV SEE LABEL COMMENTS 10/10/16 09:45 Famotidine (Pepcid Liq) 20 mg BID NG 10/11/16 21:00 10/17/16 08:05 Chlorhexidine Gluconate 15 ml 15 ml BID@08,20 MT 10/13/16 08:00 10/17/16 08:00 Propofol 100 ml @ 0 mls/hr TITRATE IV 10/13/16 04:15 10/17/16 11:51 Piperacillin Sod/ Tazobactam Sod 100 ml @ 200 mls/hr Q6H IV 10/13/16 04:15 10/17/16 10:21 Norepinephrine Bitartrate (Levophed-Dextrose Drip) 250 ml @ 0 mls/hr TITRATE IV 10/13/16 04:15 10/13/16 04:28 Terbutaline Sulfate (Brethine Inj) 1 mg UNSCH PRN SQ For Extravasation 10/13/16 04:15 Enoxaparin Sodium (Lovenox Inj) 40 mg Q24H SQ 10/13/16 08:00 10/17/16 08:04 Water (Free Water) 200 ml Q6HR G-TUBE 10/15/16 00:00 10/17/16 12:00 Medical Decision Making MDM Remarks 81 y/o male presented for AMS CT Brain on arrival showed extensive right intraventricular hemorrhage, s/p placement of ventriculostomy drain 10/08/16 respiratory failure s/p intubation, extubated 10/10/16, reintubated 10/12/16 MRI Brain 10/07/16 showed 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, no evidence of other masses or tumors nondraining EVD drain, f/u CT Head 10/11 stable ventricle size, no evidence of worsening hydrocephalus stable right IVH, ventriculostomy drain removed 10/11/16, f/u CT Head 10/15/16 with stable IVH and ventriculomegaly positive pulmonary embolus, positive DVTs s/p placement of IVC filter no significant improvement to neurological examination, Plan Plan Remarks cont nonsurgical management, jovany Miller no plans for replacing ventriculostomy drain at this time neuro examination remains poor will continue to follow palliative care following Any Olivarez Oct 17, 2016 13:52
[2016-10-17] MEDS: RESP: ALBUTEROL 2.5 MG/IPRATROPIUM 0.5 MG NEB (PRN) INH (19:39)
[2016-10-18] VITALS (19 sets, daily range): BP systolic 105–173; BP diastolic 56–92; PULSE 54–105; RESP 12–28; TEMP 97.7–99.2; O2SAT 92–98
[2016-10-18 04:16] LABS: HEMATOCRIT 35.3 % (39.0-51.0); MEAN CELL VOLUME 93.2 FL (80.0-100.0); MEAN CORPUSCULAR HEMOGLOBIN 30.8 PG (27.0-34.0); MEAN CORPUSCULAR HGB CONC 33.1 % (32.0-36.0); PLATELET COUNT 230 TH/MM3 (150-450); RED BLOOD COUNT 3.79 MIL/MM3 (4.50-5.90); RED CELL DISTRIBUTION WIDTH 13.2 % (11.6-17.2); REVIEW FLAG FINAL; WHITE BLOOD COUNT 9.5 TH/MM3 (4.0-11.0)
[2016-10-18] MEDS: PIPERACIL-TAZO 4.5 GM PREMIX 100 ML IV SCH (04:24)
[2016-10-18] MEDS: hydrALAZINE HCL 20 MG/ML VIAL IV PUSH PRN ×2 (04:25→20:46)
[2016-10-18] MEDS: PROPOFOL 1000 MG/100 ML INJ 100 ML IV SCH ×3 (04:25→20:40)
[2016-10-18 04:39] LABS: BICARBONATE 28.9 MEQ/L (21.0-32.0); POTASSIUM 3.9 MEQ/L (3.5-5.1)
[2016-10-18] MEDS: FREE WATER G-TUBE SCH ×2 (06:00)
[2016-10-18] MEDS: CHLORHEXIDINE 0.12% (ORAL KIT) 15 ML CUP MT SCH ×4 (07:45→20:41)
[2016-10-18] MEDS: SODIUM CHLORIDE 0.9% FLUSH 10 ML FLUSH SCH ×2 (09:00→20:41)
[2016-10-18] MEDS: DOCUSATE SODIUM 50 MG/SENNA 8.6 MG TAB PO SCH ×2 (09:00→20:40)
[2016-10-18] MEDS: FAMOTIDINE 40 MG/5 ML LIQ 50 ML BTL NG SCH ×2 (09:16→20:40)
[2016-10-18] MEDS: ENOXAPARIN SODIUM 40 MG/0.4 ML SYRINGE SQ SCH (09:17)
[2016-10-18] MEDS: BENEPROTEIN POWDER 1 PACK G-TUBE SCH ×3 (09:17→17:27)
[2016-10-18] MEDS: amLODIPine BESYLATE 5 MG TAB PO SCH (09:17)
[2016-10-18] MEDS: FUROSEMIDE 40 MG/4 ML VIAL IV PUSH SCH ×2 (09:20→17:27)
[2016-10-19] VITALS (17 sets, daily range): BP systolic 106–179; BP diastolic 62–88; PULSE 59–111; RESP 12–29; TEMP 98.2–98.7; O2SAT 93–99
[2016-10-19] MEDS: PROPOFOL 1000 MG/100 ML INJ 100 ML IV SCH ×2 (01:39→04:51)
[2016-10-19] MEDS: CHLORHEXIDINE GLUCONATE 2 % 1 PACK (2 CLOTHS) TOP SCH (04:00)
[2016-10-19 06:02] LABS: BICARBONATE 31.5 MEQ/L (21.0-32.0); POTASSIUM 3.4 MEQ/L (3.5-5.1)
[2016-10-19] MEDS: CHLORHEXIDINE 0.12% (ORAL KIT) 15 ML CUP MT SCH ×4 (07:34→20:00)
--- NOTE | 2016-10-19 07:56 | HHI.CCPN ---
Subjective Remarks/Hospital Course Note for 10/18/16: Elderly male presents for evaluation of altered mental status. He states that he stumbled 3 days ago and fell. He was laying on the floor since. Apparently , a friend found him today. The patient is unsure of his past medical history. Apparently, he has history of COPD and is on oxygen. He does not know what medications he is on. The patient knows his name, but does not know the year. He denies hitting his head or loss of conscious, but has erythema to the left forehead. Patient denies any chest pain or abdominal pain. No vomiting. He states that he was unable to get up, but will not tell me why. He might also have some history of hypertension, glaucoma. 10/07: Required intubation today for progressive respiratory failure. 10/08: Will aim for quick extubation now that MRI complete. Need sputum sample. 10/09: Tolerating SBTs. Push toward extubation. 10/10: Vigorous but confused. Zimmerman-sensitive staph in sputum, will narrow abx. 10/11: extubated, stable from pulmonary standpoint. still confused. EVD not draining. 10/12: EVD removed. head CT stable. neuro exam stable. 10/13: overnight with acute decompensation, hypoxic respiratory failure requiring intubation and mechanical ventilation. hypotensive requiring vasopressors. clinically unstable. CT pulmonary angiogram with +PE. 10/14: levophed requirement persists. FANY worsening. uop poor. mental status stable, but given blood pressure and hypoxia still not stable for SBT. 10/15: Brain bleed, COPD exacerbation, no improvement, little hope for extubation. Will ask Palliative Care to see. 10/16: Prior to intubation he was confused and moderately agitated, but conversant. Will continue efforts to get him off ventilator. 10/17: Will start ambitious breathing trials. 10/18: Failed spontaneous breathing trial after long trial, but very close to meeting weaning parameters. Objective Vital Signs Date Time Temp Pulse Resp B/P Pulse Ox O2 Delivery O2 Flow Rate FiO2 10/19/16 07:28 40 10/19/16 07:28 98 10/19/16 07:00 Mechanical Ventilator 10/19/16 06:00 66 10/19/16 04:00 98.2 12 106/62 Intake and Output 10/18/16 10/18/16 10/19/16 08:00 16:00 00:00 Intake Total 1030 ml 1295 ml 720 ml Output Total 650 ml 3500 ml 2300 ml Balance 380 ml -2205 ml -1580 ml Result Diagram: 10/18/16 0400 10/19/16 0520 Imaging Last [address] 10/06/162037 Signed Impressions: Service Date/Time: Thursday, October 06, 2016 23:15 - CONCLUSION: Prominent amount of blood in the right ventricle and small amount of blood in the 3rd and left occipital horn ventricle. No parenchymal hemorrhage seen. No extra axial fluid collections. Tyrone Vivar MD Chest X-Ray 10/06/162037 Signed Impressions: Service Date/Time: Thursday, October 06, 2016 20:37 - CONCLUSION: Bilateral partially consolidative infiltrates lower medial right lung and lower lateral left lung. Tyrone Vivar MD Objective Remarks GENERAL: Elderly man critically ill, intubated, sedated. SKIN: Warm and dry. HEAD: Normocephalic. EYES: No scleral icterus. No injection or drainage. NECK: trachea midline. no jvd. orally intubated. CARDIOVASCULAR: tachycardic rate, regular rhythm. sinus by tele. RESPIRATORY: Clear, good ny breath sounds. GASTROINTESTINAL: Abdomen soft, non-tender, nondistended. MUSCULOSKELETAL: No cyanosis, or edema. EXTREMITIES: Well perfused. NEURO: opens eyes, w/d x 4. does not follow commands. 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 ICH score is 4, suggesting a poor prognosis. Now with decompensated shock secondary to acute PE. not a candidate for anticoagulation. s/p IVC filter 10/13. discussed care with Dr. Miller who agrees. clinically decompensating. critically ill. not progressing on pathway. hypoxia not improving as we would expect. ICH Acute encephalopathy - Unclear source - Atypical location - Strict blood pressure control with SBP goal less than 150 - Coags within normal limits - Neurosurgery consulted: Dr Miller - Neuro checks per unit protocol Acute pulmonary Embolism Acute hypoxic respiratory failure - not a candidate for thrombolytics or anticoagulation - continue prophylactic dose lovenox - IVC filter 10/13 - high risk for sudden cardiac post PE. - no SBT today given instability Cardiogenic shock s/p acute PE - levophed for map > 65 - watch uop closely. Acute Kidney Injury - secondary to shock from PE. monitor closely. no need for emergent renal replacement therapy. MSSA Pneumonia - abx broadened to Zosyn when patient decompensated 10/13 (previously on ancef). if cultures negative at 48h, would de-escalate abx. - urine culture NGTD x 48h. - Staph in sputum, MSSA DVT GI prophylaxis - Teds SCDs - lovenox, prophylactic dose. IVC filter. 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 Probably not flow limiting. Overall impression: Critically ill. Multiple severe problems but main complicating feature is his age and concomitant pulmonary embolus. Critical care 38 mins Darrin Chavez MD Oct 19, 2016 07:56
--- NOTE | 2016-10-19 08:03 | HHI.CCPN ---
Subjective Remarks/Hospital Course Note for 10/19/16: Elderly male presents for evaluation of altered mental status. He states that he stumbled 3 days ago and fell. He was laying on the floor since. Apparently , a friend found him today. The patient is unsure of his past medical history. Apparently, he has history of COPD and is on oxygen. He does not know what medications he is on. The patient knows his name, but does not know the year. He denies hitting his head or loss of conscious, but has erythema to the left forehead. Patient denies any chest pain or abdominal pain. No vomiting. He states that he was unable to get up, but will not tell me why. He might also have some history of hypertension, glaucoma. 10/07: Required intubation today for progressive respiratory failure. 10/08: Will aim for quick extubation now that MRI complete. Need sputum sample. 10/09: Tolerating SBTs. Push toward extubation. 10/10: Vigorous but confused. Zimmerman-sensitive staph in sputum, will narrow abx. 10/11: extubated, stable from pulmonary standpoint. still confused. EVD not draining. 10/12: EVD removed. head CT stable. neuro exam stable. 10/13: overnight with acute decompensation, hypoxic respiratory failure requiring intubation and mechanical ventilation. hypotensive requiring vasopressors. clinically unstable. CT pulmonary angiogram with +PE. 10/14: levophed requirement persists. FANY worsening. uop poor. mental status stable, but given blood pressure and hypoxia still not stable for SBT. 10/15: Brain bleed, COPD exacerbation, no improvement, little hope for extubation. Will ask Palliative Care to see. 10/16: Prior to intubation he was confused and moderately agitated, but conversant. Will continue efforts to get him off ventilator. 10/17: Will start ambitious breathing trials. 10/18: Barely failed spontaneous breathing trial after lengthy time. Stronger. 10/19: Patient easily meets criteria for extubation today with good tidal volumes on pressure support 5, basically tube compensation. RSBI consistently moderate range, well below area of concern. He was extubated without event and one hour later is breathing comfortably. Objective Vital Signs Date Time Temp Pulse Resp B/P Pulse Ox O2 Delivery O2 Flow Rate FiO2 10/19/16 07:28 40 10/19/16 07:28 98 10/19/16 07:00 Mechanical Ventilator 10/19/16 06:00 66 10/19/16 04:00 98.2 12 106/62 Intake and Output 10/18/16 10/18/16 10/19/16 08:00 16:00 00:00 Intake Total 1030 ml 1295 ml 720 ml Output Total 650 ml 3500 ml 2300 ml Balance 380 ml -2205 ml -1580 ml Result Diagram: 10/18/16 0400 10/19/16 0520 Imaging Last [address] 10/06/162037 Signed Impressions: Service Date/Time: Thursday, October 06, 2016 23:15 - CONCLUSION: Prominent amount of blood in the right ventricle and small amount of blood in the 3rd and left occipital horn ventricle. No parenchymal hemorrhage seen. No extra axial fluid collections. Tyrone Vivar MD Chest X-Ray 10/06/162037 Signed Impressions: Service Date/Time: Thursday, October 06, 2016 20:37 - CONCLUSION: Bilateral partially consolidative infiltrates lower medial right lung and lower lateral left lung. Tyrone Vivar MD Objective Remarks GENERAL: Elderly man critically ill, intubated, lightly sedated for vent synchrony. SKIN: Warm and dry. HEAD: Normocephalic. EYES: No scleral icterus. No injection or drainage. NECK: trachea midline. no jvd. orally intubated. CARDIOVASCULAR: tachycardic rate, regular rhythm. sinus by tele. RESPIRATORY: Clear, good ny breath sounds. Comfortable respiratory pattern on sbt 5/5 - basically normal. GASTROINTESTINAL: Abdomen soft, non-tender, nondistended. BS active. MUSCULOSKELETAL: No cyanosis, or edema. EXTREMITIES: Well perfused. NEURO: opens eyes, w/d x 4. does not follow commands. After his intraparenchymal bleed (present on admission) he was quite confused and agitated. He required intubation to obtain an MRI but has not met criteria for extubation - tidal volumes too small and respiratory rate excessive. He has progressed adequately and allowed for easy extubation today. Update: The advocate from [employer] has determined that the patient should be DNR status in case a question of re-intubation should arise. We will comply with her recommendations. 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 ICH score is 4, suggesting a poor prognosis. Now with decompensated shock secondary to acute PE. not a candidate for anticoagulation. s/p IVC filter 10/13. discussed care with Dr. Miller who agrees. clinically decompensating. critically ill. not progressing on pathway. hypoxia not improving as we would expect. ICH Acute encephalopathy - Unclear source - Atypical location - Strict blood pressure control with SBP goal less than 150 - Coags within normal limits - Neurosurgery consulted: Dr Miller - Neuro checks per unit protocol Acute pulmonary Embolism Acute hypoxic respiratory failure - not a candidate for thrombolytics or anticoagulation - continue prophylactic dose lovenox - IVC filter 10/13 - high risk for sudden cardiac post PE. - no SBT today given instability Cardiogenic shock s/p acute PE - levophed for map > 65 - watch uop closely. Acute Kidney Injury - secondary to shock from PE. monitor closely. no need for emergent renal replacement therapy. MSSA Pneumonia - abx broadened to Zosyn when patient decompensated 10/13 (previously on ancef). if cultures negative at 48h, would de-escalate abx. - urine culture NGTD x 48h. - Staph in sputum, MSSA DVT GI prophylaxis - Teds SCDs - lovenox, prophylactic dose. IVC filter. 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 Probably not flow limiting. Overall impression: Critically ill. Multiple severe problems (brain bleed, pulmonary embolism, encephalopathy, respiratory failure) but main complicating feature is his age. Critical care 35 mins Darrin Chavez MD Oct 19, 2016 08:03
[2016-10-19] MEDS: FAMOTIDINE 40 MG/5 ML LIQ 50 ML BTL NG SCH ×2 (08:16→21:00)
[2016-10-19] MEDS: SODIUM CHLORIDE 0.9% FLUSH 10 ML FLUSH SCH ×2 (08:16→21:00)
[2016-10-19] MEDS: BENEPROTEIN POWDER 1 PACK G-TUBE SCH ×3 (08:16→17:58)
[2016-10-19] MEDS: DOCUSATE SODIUM 50 MG/SENNA 8.6 MG TAB PO SCH ×2 (08:16→21:00)
[2016-10-19] MEDS: FUROSEMIDE 40 MG/4 ML VIAL IV PUSH SCH ×2 (08:16→18:00)
[2016-10-19] MEDS: ENOXAPARIN SODIUM 40 MG/0.4 ML SYRINGE SQ SCH (08:16)
[2016-10-19] MEDS: amLODIPine BESYLATE 5 MG TAB PO SCH (08:16)
[2016-10-19] MEDS: POTASSIUM CHLOR 40 MEQ PREMIX 100 ML IV PRN (10:19)
[2016-10-19] MEDS: hydrALAZINE HCL 20 MG/ML VIAL IV PUSH PRN ×2 (11:05→20:23)
[2016-10-20] VITALS (14 sets, daily range): BP systolic 153–199; BP diastolic 77–91; PULSE 77–97; RESP 25–32; TEMP 97.8–98.4; O2SAT 90–97
[2016-10-20] MEDS: CHLORHEXIDINE GLUCONATE 2 % 1 PACK (2 CLOTHS) TOP SCH (04:00)
--- NOTE | 2016-10-20 04:33 | RADRPT ---
EXAM DATE/TIME: 10/20/2016 04:06 [facility] COMPARISON: CHEST SINGLE AP, October 13, 2016, 4:46. INDICATIONS : Shortness of breath, hypoxemia MEDICAL HISTORY : Chronic obstructive pulmonary disease. Hypertension SURGICAL HISTORY : None. ENCOUNTER: Subsequent ACUITY: 1 week PAIN SCORE: 6/10 LOCATION: Bilateral chest FINDINGS: Right subclavian catheter tip projects over the mid superior vena cava. Persisting consolidation in the left mid and lower lung with loss of delineation of the entire left hemidiaphragm. The right jabari g is clear. The left upper lung is clear. CONCLUSION: Persistent left lower lobe consolidation. Tyrone Vivar MD on October 20, 2016 at 4:30 Board Certified Radiologist. This report was verified electronically.
[2016-10-20] MEDS: hydrALAZINE HCL 20 MG/ML VIAL IV PUSH PRN ×3 (05:14→19:42)
[2016-10-20 07:01] LABS: AUTOMATED NEUTROPHIL # 8.1 TH/MM3 (1.8-7.7); BASOPHIL # 0.1 TH/MM3 (0-0.2); BASOPHIL % 1.1 % (0.0-2.0); EOSINOPHIL # 0.1 TH/MM3 (0-0.4); EOSINOPHIL % 1.3 % (0.0-4.0); HEMATOCRIT 41.9 % (39.0-51.0); HEMO FLAGS DIFF FINAL; LYMPH % 9.1 % (9.0-44.0); LYMPHOCYTE # 0.9 TH/MM3 (1.0-4.8); MEAN CELL VOLUME 92.2 FL (80.0-100.0); MEAN CORPUSCULAR HGB CONC 33.6 % (32.0-36.0); MONO % 8.3 % (0.0-8.0); NEUT % 80.2 % (16.0-70.0); PLATELET COUNT 277 TH/MM3 (150-450); RED BLOOD COUNT 4.55 MIL/MM3 (4.50-5.90); RED CELL DISTRIBUTION WIDTH 13.6 % (11.6-17.2); WHITE BLOOD COUNT 10.1 TH/MM3 (4.0-11.0)
[2016-10-20 07:17] LABS: BICARBONATE 32.5 MEQ/L (21.0-32.0); POTASSIUM 3.7 MEQ/L (3.5-5.1)
[2016-10-20 07:22] LABS: INDIRECT BILIRUBIN 0.3 MG/DL (0.0-0.8); TOTAL BILIRUBIN ADULT 0.5 MG/DL (0.2-1.0)
[2016-10-20] MEDS: FAMOTIDINE 40 MG/5 ML LIQ 50 ML BTL NG SCH ×2 (09:00→20:18)
[2016-10-20] MEDS: DOCUSATE SODIUM 50 MG/SENNA 8.6 MG TAB PO SCH ×2 (09:00→20:18)
[2016-10-20] MEDS: SODIUM CHLORIDE 0.9% FLUSH 10 ML FLUSH SCH ×2 (09:00→20:19)
[2016-10-20] MEDS: amLODIPine BESYLATE 5 MG TAB PO SCH (09:00)
[2016-10-20] MEDS: BENEPROTEIN POWDER 1 PACK G-TUBE SCH ×3 (09:00→18:00)
--- NOTE | 2016-10-20 09:30 | HHI.CCPN ---
Subjective Remarks/Hospital Course Elderly male presents for evaluation of altered mental status. He states that he stumbled 3 days ago and fell. He was laying on the floor since. Apparently , a friend found him today. The patient is unsure of his past medical history. Apparently, he has history of COPD and is on oxygen. He does not know what medications he is on. The patient knows his name, but does not know the year. He denies hitting his head or loss of conscious, but has erythema to the left forehead. Patient denies any chest pain or abdominal pain. No vomiting. He states that he was unable to get up, but will not tell me why. He might also have some history of hypertension, glaucoma. 10/07: Required intubation today for progressive respiratory failure. 10/08: Will aim for quick extubation now that MRI complete. Need sputum sample. 10/09: Tolerating SBTs. Push toward extubation. 10/10: Vigorous but confused. Zimmerman-sensitive staph in sputum, will narrow abx. 10/11: extubated, stable from pulmonary standpoint. still confused. EVD not draining. 10/12: EVD removed. head CT stable. neuro exam stable. 10/13: overnight with acute decompensation, hypoxic respiratory failure requiring intubation and mechanical ventilation. hypotensive requiring vasopressors. clinically unstable. CT pulmonary angiogram with +PE. 10/14: levophed requirement persists. FANY worsening. uop poor. mental status stable, but given blood pressure and hypoxia still not stable for SBT. 10/15: Brain bleed, COPD exacerbation, no improvement, little hope for extubation. Will ask Palliative Care to see. 10/16: Prior to intubation he was confused and moderately agitated, but conversant. Will continue efforts to get him off ventilator. 10/17: Will start ambitious breathing trials. 10/18: Failed spontaneous breathing trial after long trial, but very close to meeting weaning parameters. Subjective 10/20 - extubated. Patient aware/stairs to voice but not following commands. Minimal movement left upper or lower extremity. Objective Vital Signs Date Time Temp Pulse Resp B/P Pulse Ox O2 Delivery O2 Flow Rate FiO2 10/20/16 07:08 95 Nasal Cannula 5.00 10/20/16 06:00 90 10/20/16 04:00 97.9 26 168/91 10/19/16 08:00 40 Intake and Output 8/13/17 8/13/17 8/14/17 08:00 16:00 00:00 Intake Total 771 ml 651 ml Output Total 300 ml 1700 ml 2100 ml Balance 471 ml -1049 ml -2100 ml Result Diagram: 10/20/16 0635 10/20/16 0635 Imaging Last Impressions Chest X-Ray 10/20/16 0400 Signed Impressions: Service Date/Time: Thursday, October 20, 2016 04:06 - CONCLUSION: Persistent left lower lobe consolidation. Tyrone Vivar MD Head CT 10/15/16 0000 Signed Impressions: Service Date/Time: Saturday, October 15, 2016 04:38 - CONCLUSION: Stable intraventricular hemorrhage and small right frontal parenchymal bleed. Anoop Hernandez MD Upper Extremity Ultrasound 10/13/16 0000 Signed Impressions: Service Date/Time: Thursday, October 13, 2016 09:15 - CONCLUSION: Exam positive for bilateral DVT and SVT. Davis eDvi MD Lower Extremity Ultrasound 10/13/16 Signed Impressions: Service Date/Time: Thursday, October 13, 2016 08:28 - CONCLUSION: DVT in the proximal left femoral veins. No evidence of DVT in the right lower extremity. Davis Devi MD IVC Filter Placement X-Ray 10/13/16 Signed Impressions: Service Date/Time: Thursday, October 13, 2016 13:43 - CONCLUSION: Uncomplicated inferior vena cava filter placement as above. Abel Zavaleta MD CT Angiography 10/13/16 0000 Signed Impressions: Service Date/Time: Thursday, October 13, 2016 05:17 - CONCLUSION: 1. Examination is positive for pulmonary embolus right upper lobe branches. 2. Atelectasis and consolidation as above. Anoop Hernandez MD Neck CTA 10/07/16 0000 Signed Impressions: Service Date/Time: Friday, October 07, 2016 03:38 - CONCLUSION: 1. Scattered calcified atherosclerotic plaque. A 50%% stenosis is seen involving the right ICA. The left carotid is patent. 2. Dominant left vertebral artery. The right terminates in a PICA distribution Tyrone Christianson Jr., MD Head CTA 10/07/16 0000 Signed Impressions: Service Date/Time: Friday, October 07, 2016 03:38 - CONCLUSION: Scattered atherosclerotic plaque without a hemodynamically significant stenosis. No aneurysm. Tyrone Christianson Jr., MD Brain MRI 10/07/16 0000 Signed Impressions: Service Date/Time: Friday, October 07, 2016 17:54 - CONCLUSION: 1. The ventricular blood has a very similar configuration to prior CT yesterday, filling the right lateral ventricle, extending into the 3rd ventricle and layering in the left occipital horn. 2. There is a small elongated infarction in the right posterior external capsule with a thin rim of T2 shortening suggesting that this may be hemorrhagic. Tyrone Vivar MD Abdomen X-Ray 10/07/16 0000 Signed Impressions: Service Date/Time: Friday, October 07, 2016 15:21 - CONCLUSION: No concerning radiopaque foreign body is identified in the abdomen. Abel Lemus MD Cervical Spine CT 10/06/16 0000 Signed Impressions: Service Date/Time: Thursday, October 06, 2016 23:15 - CONCLUSION: Negative trauma CT. Iftikhar Garza MD Objective Remarks GENERAL: 81-year-old male, resting in bed in no acute distress on nasal cannula SKIN: Warm and dry. No rash HEAD: Normocephalic. EYES: Pupils about 2 minutes bilaterally and reactive. No scleral icterus. No injection or drainage. NECK: trachea midline. no jvd. orally intubated. CARDIOVASCULAR:rrr.. S1, S2 no S4 without murmur RESPIRATORY: Few crackles in left lower lobe. Symmetrical Excursion GASTROINTESTINAL: Abdomen soft, non-tender, nondistended. BS active. MUSCULOSKELETAL: Trace bilateral lower extremity edema. EXTREMITIES: Well perfused. NEURO: opens eyes to voice does not follow commands. Spontaneously moving left upper and lower extremity A/P Assessment and Plan Neuro/Psych Large left thalamic ICH/IVH Acute encephalopathy Glaucoma - Strict blood pressure control with SBP goal less than 150 - Coags within normal limits - Neurosurgery consulted: Dr Miller - Neuro checks per unit protocol Status post right david hole Respiratory Acute pulmonary Embolism right upper lobe Acute hypoxic respiratory failure History COPD - continue prophylactic dose enoxaparin - IVC filter 10/13 Currently on duo nebs every 2 hours when necessary dyspnea Nasal cannula to maintain saturations greater than equal to 92% currently and 5 L Cardiac Cardiogenic shock s/p acute PE' Carotid stenosis Hypertension -- 50% Right ICA stenosis. Probably not flow limiting. Currently on amlodipine 5 mg by mouth daily for hypertension./On 2.5 mg daily at home -Currently on normal saline at 42 cc an hour Currently Lasix 40 mg IV daily. GI: Currently nothing by mouth. Holding vital 1.5 goal 50 cc an hour. Famotidine for GI prophylaxis Docusate sodium/senna for bowel regimen Renal Acute Kidney Injury -Normalized. Follows indicated Accurate I's and O's. Monitor urine output ID: [id number] Pneumonia - abx broadened to Zosyn when patient decompensated 10/13 (previously on ancef). if cultures negative at 48h, would de-escalate abx. Currently off - urine culture NGTD x 48h. - Staph in sputum, MSSA HEME: CBC within normal limits. DVT GI prophylaxis - Teds SCDs -Enoxaparin, prophylactic dose. IVC filter. - IV famotidine Level III follow Hunter Millan MD Oct 20, 2016 09:30
[2016-10-20] MEDS: SODIUM CHLOR 0.9% 1000 ML INJ 1,000 ML IV SCH (09:45)
[2016-10-20] MEDS: LABETALOL HCL 100 MG/20 ML VIAL IV PUSH PRN (10:07)
[2016-10-20] MEDS: CHLORHEXIDINE 0.12% (ORAL KIT) 15 ML CUP MT SCH ×2 (10:07→20:00)
[2016-10-20] MEDS: ENOXAPARIN SODIUM 40 MG/0.4 ML SYRINGE SQ SCH (10:07)
[2016-10-20] MEDS: MORPHINE SULFATE 4 MG/ML INJ IV PRN (13:15)
--- NOTE | 2016-10-20 13:38 | HHI.NSPN ---
(Any Olivarez) Note Status Status: Progress Note (Any Olivarez) Interval History Interval History Mr. Caal is a 81 year old male who presented for evaluation of altered mental status. Cannot obtain history from patient, however his close friend is at bedside who found the patient. His friend reports he last spoke with the patient 2-3 days ago. He was not answering his phone so he went to check on him and found the patient on the floor lying on his side. He was very confused and did not recognize him. He was taken to the ED. CT Head on arrival shows right intraventricular hemorrhage. He is not known to take blood thinners. His friend reports baseline he is normal besides being short of breath due to his COPD. Neurosurgical evaluation was requested. 10/08: awake, intubated on CPAP. MRI Brain completed. 10/09: s/p placement of ventriculostomy drain yesterday, intubated and sedated. 10/10: no output via EVD overnight, pt extubated this morning 10/11: remains without drainage out EVD overnight, f/u CT Head this morning with stable ventricles 10/12: no changes to neuro checks overnight, eyes open, moves ext intermittently but not following commands, nonverbal 10/13: reintubated, on levophed for BP support. CTA chest positive for PE. obtain u/s of extremities now 10/14: intubated, sedated. s/p placement of IVC filter last night. 10/15: f/u CT Head this am with stable IVH and ventriculomegaly. remains intubated and sedated. 10/16: no changes to neuro checks, remains intubated 10/17: no significant improvements to neuro check per reports, intermittently moves x 4, but not opening eyes or following commands. 10/20: extubated, eyes opens but does not focus or track, does not following commands, intermittent movement to extremities, left greater than right (Any Olivarez) Labs, Micro, & Vital Signs Results Date Time Temp Pulse Resp B/P Pulse Ox O2 Delivery O2 Flow Rate FiO2 10/20/16 07:08 95 Nasal Cannula 5.00 10/20/16 06:00 90 10/20/16 04:00 90 10/20/16 04:00 97.9 90 26 168/91 94 10/20/16 02:00 87 10/20/16 00:00 88 10/20/16 00:00 98.1 88 25 153/81 92 10/19/16 22:00 80 10/19/16 21:08 99 Nasal Cannula 5.00 10/19/16 20:00 98.7 102 27 170/75 96 10/19/16 20:00 85 10/19/16 19:00 96 Nasal Cannula 5.00 10/19/16 18:00 110 10/19/16 16:00 111 10/19/16 16:00 98.6 111 28 143/81 96 10/19/16 14:00 105 10/20/16 07:00 Intake Total 651 ml Output Total 4600 ml Balance -3949 ml Constitutional Vital Signs Date Time Temp Pulse Resp B/P Pulse Ox O2 Delivery O2 Flow Rate FiO2 10/20/16 07:08 95 Nasal Cannula 5.00 10/20/16 06:00 90 10/20/16 04:00 90 10/20/16 04:00 97.9 90 26 168/91 94 10/20/16 02:00 87 10/20/16 00:00 88 10/20/16 00:00 98.1 88 25 153/81 92 10/19/16 22:00 80 10/19/16 21:08 99 Nasal Cannula 5.00 10/19/16 20:00 98.7 102 27 170/75 96 10/19/16 20:00 85 10/19/16 19:00 96 Nasal Cannula 5.00 10/19/16 18:00 110 10/19/16 16:00 111 10/19/16 16:00 98.6 111 28 143/81 96 10/19/16 14:00 105 10/20/16 07:00 Intake Total 651 ml Output Total 4600 ml Balance -3949 ml (Any Olivarez) Review of Systems/Exam Exam Mr. Caal is extubated. Awake but does not focus or track. Nonverbal, does not follow commands Cranial Nerves: Pupils 2-3 mm equal, round, reactive to light. Positive corneal reflexes b/l Motor: not following commands for testing, intermittent movement to extremities left more than right Sensory: minimal response to pain to lower extremities Reflexes: Plantars silent b/l Cerebellar: cannot assess due to current clinical condition (Any Olivarez) Exam Mr. Caal is extubated. Awake but does not focus or track. Nonverbal, does not follow commands Cranial Nerves: Pupils 2-3 mm equal, round, reactive to light. Positive corneal reflexes b/l Motor: not following commands for testing, intermittent movement to extremities left more than right Sensory: minimal response to pain to lower extremities Reflexes: Plantars silent b/l Cerebellar: unable to assess due to his condition (Vladimir Miller MD) Medications Current Medications Current Medications Medications (Trade) Dose Ordered Sig/Mario Route PRN Reason Start Time Stop Time Status Last Admin Dose Admin Sodium Chloride (NS Flush) 2 ml UNSCH PRN .XX FLUSH AFTER USING IV ACCESS 10/07/16 00:00 Sodium Chloride (NS Flush) 2 ml BID .XX 10/07/16 09:00 10/20/16 09:00 Acetaminophen (Tylenol) 650 mg Q6H PRN PO PAIN 1-5 AND/OR FEVER >101F 10/07/16 00:00 10/11/16 16:05 Morphine Sulfate (Morphine Inj) 2 mg Q2H PRN IV PAIN SCALE 6 TO 10 10/07/16 00:00 10/20/16 13:15 Ondansetron HCl (Zofran Inj) 4 mg Q6H PRN IV NAUSEA OR VOMITING 10/07/16 00:00 10/07/16 01:05 Miscellaneous Information 1 Q361D XX 10/07/16 00:00 Chlorhexidine Gluconate (Chlorhexidine 2% Cloth) Taper DAILY@04 TOP 10/07/16 04:00 10/03/17 03:59 10/20/16 04:00 Chlorhexidine Gluconate (Chlorhexidine 2% Cloth) 3 pack UNSCH PRN [facility] 10/07/16 00:00 Senna/Docusate Sodium (Michelle-Colace) 1 tab BID PO 10/07/16 09:00 10/18/16 20:40 Magnesium Hydroxide (Milk Of Magnesia Liq) 30 ml Q12H PRN PO MILD - MODERATE CONSTIPATION 10/07/16 00:00 8/10/17 08:00 Sennosides (Senokot) 17.2 mg Q12H PRN PO MODERATE - SEVERE CONSTIPATION 10/07/16 00:00 Bisacodyl (Dulcolax Supp) 10 mg DAILY PRN RECTAL SEVERE CONSITIPATION 10/07/16 00:00 Lactulose (Lactulose Liq) 30 ml DAILY PRN PO SEVERE CONSITIPATION 10/07/16 00:00 Hydralazine HCl (Apresoline Inj) 20 mg Q4H PRN IV PUSH SBP>140, DBP>90 10/07/16 03:45 10/20/16 05:14 Labetalol HCl (Trandate Inj) 10 mg Q4H PRN IV PUSH SBP>140, DBP>90 10/07/16 03:45 10/20/16 10:07 Amlodipine Besylate (Norvasc) 5 mg DAILY PO 10/09/16 09:30 10/19/16 08:16 Hydralazine HCl (Apresoline Inj) 10 mg Q1H PRN IV PUSH SBP > 160 10/09/16 09:30 10/12/16 11:34 Protein 1 pack 1 pack TID G-[id number] 10/09/16 13:00 10/19/16 08:16 Potassium Chloride 100 ml @ 50 mls/hr Q2H PRN IV For Potassium 2.8 - 3.2 mEq/L 10/10/16 09:45 Potassium Chloride (KCl 20 Meq Premix Inj) 100 ml @ 50 mls/hr Q2H PRN IV For Potassium 2.8 - 3.2 mEq/L 10/10/16 09:45 10/10/16 10:19 Potassium Bicarb/ Potassium Chloride 50 meq 50 meq UNSCH PRN PO For Potassium 3.3 - 3.5 mEq/L 10/10/16 09:45 Potassium Chloride 100 ml @ 25 mls/hr UNSCH PRN IV For Potassium 3.3 - 3.5 mEq/L 10/10/16 09:45 10/19/16 10:19 Potassium Chloride 100 ml @ 50 mls/hr Q2H PRN IV For Potassium 3.3 - 3.5 mEq/L 10/10/16 09:45 Magnesium Sulfate/ Sodium Chloride (Magnesium Sulfate Inj/NS Inj) 100 ml @ 50 mls/hr UNSCH PRN IV For Magnesium 0.9 - 1.1 mg/dL 10/10/16 09:45 Magnesium Oxide 800 mg 800 mg UNSCH PRN PO For Magnesium 1.2 - 1.6 mg/dL 10/10/16 09:45 Magnesium Sulfate/ Sodium Chloride (Magnesium Sulfate Inj/NS Inj) 100 ml @ 50 mls/hr UNSCH PRN IV For Magnesium 1.2 - 1.6 mg/dL 10/10/16 09:45 Potassium Phosphate 2000 mg 2,000 mg Q4H PRN PO For Phosphorus < 2.5 mg/dL 10/10/16 09:45 Sodium Phosphate/ Sodium Chloride (Sodium Phosphate Inj/NS 250 ml Inj) 250 ml @ 42 mls/hr UNSCH PRN IV For Phosphorus < 2.5 mg/dL 10/10/16 09:45 Potassium Phosphate 2000 mg 2,000 mg UNSCH PRN PO/TUBE SEE LABEL COMMENTS 10/10/16 09:45 Potassium Phosphate/Sodium Chloride (Potassium Phosphate Inj/NS 250 ml Inj) 260 ml @ 42 mls/hr UNSCH PRN IV SEE LABEL COMMENTS 10/10/16 09:45 Famotidine (Pepcid Liq) 20 mg BID NG 10/11/16 21:00 10/19/16 08:16 Chlorhexidine Gluconate (Peridex 0.12% Liq) 15 ml BID@08,20 MT 10/13/16 08:00 10/20/16 10:07 Terbutaline Sulfate (Brethine Inj) 1 mg UNSCH PRN SQ For Extravasation 10/13/16 04:15 Enoxaparin Sodium (Lovenox Inj) 40 mg Q24H SQ 10/13/16 08:00 10/20/16 10:07 Furosemide 40 mg 40 mg DAILY IV PUSH 10/21/16 09:00 Sodium Chloride (NS 1000 ml Inj) 1,000 ml @ 42 mls/hr [id number] IV 10/20/16 09:45 (Any Olivarez) Medical Decision Making MDM Remarks 81 y/o male presented for AMS CT Brain on arrival showed extensive right intraventricular hemorrhage, s/p placement of ventriculostomy drain 10/08/16 respiratory failure s/p intubation, extubated 10/10/16, reintubated 10/12/16 MRI Brain 10/07/16 showed 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, no evidence of other masses or tumors nondraining EVD drain, f/u CT Head 10/11 stable ventricle size, no evidence of worsening hydrocephalus stable right IVH, ventriculostomy drain removed 10/11/16, f/u CT Head 10/15/16 with stable IVH and ventriculomegaly positive pulmonary embolus, positive DVTs s/p placement of IVC filter no significant improvement to neurological examination, (Any Olivarez) Plan Plan Remarks cont nonsurgical management, neuro examination remains poor will continue to follow palliative care following (Any Olivarez) Attending Statement Neuro. Continue neuro checks in a serial fashion. CT of the brain today is stable. New deep venous thromboses and pulmonary emboli. He is not a candidate for full anticoagulation due to his intracranial hemorrhage. I recommend placement of a [place] filter Respiratory failure. He is now on mechanical ventilation. Continue. aggressive pulmonary toilette, nasotracheal suction, and breathing treatments with nebulizers. Daily PT and OT Nutrition. Start tube feedings Renal. monitor closely urine output, BUN and creatinine Endocrine. Monitor serial Acu checks and SSI as needed ID monitor for signs of infection Protonix for stress ulcer prophylaxis The exam, history, and the medical decision-making described in the above note were completed with the assistance of the mid-level provider. I reviewed and agree with the findings presented. I attest that I had a [id number] encounter with the patient on the same day, and personally performed and documented my assessment and findings in the medical record. (Vladimir Miller MD) Any Olivarez Oct 20, 2016 13:38 Vladimir Miller MD Oct 22, 2016 19:11
[2016-10-20] MEDS ORDERED: FUROSEMIDE 40 MG/4 ML VIAL IV PUSH ONE (21:15)
[2016-10-21] VITALS (11 sets, daily range): BP systolic 138–173; BP diastolic 71–96; PULSE 71–102; RESP 21–39; TEMP 97–98.2; O2SAT 73–98
[2016-10-21 01:11] LABS: BLOOD GAS BASE EXCESS 7.9 mmol/L (-2-2); BLOOD GAS HCO3 32 mmol/L (22-26); BLOOD GAS METHEMOGLOBIN 0.7 % (0-2); BLOOD GAS O2 HGB SATURATION 95 % (90-100); BLOOD GAS OXYGEN CONTENT 18.9 Vol % (12.0-20.0); BLOOD GAS PCO2 49 mmHg (38-42); BLOOD GAS PO2 86 mmHg (61-120); BLOOD GAS TOTAL HGB 14.1 G/DL (12.0-16.0); CRITICAL VALUE NO; DRAW SITE RT RADIAL; LITER FLOW 12 L/M; NUMBER OF ARTERIAL PUNCTURES 1; STAT YES; TEMP CORR TO 98.6; ULNAR PULSE PRESENT
[2016-10-21] MEDS: CHLORHEXIDINE GLUCONATE 2 % 1 PACK (2 CLOTHS) TOP SCH (04:00)
[2016-10-21] MEDS: hydrALAZINE HCL 20 MG/ML VIAL IV PUSH PRN (04:14)
[2016-10-21] MEDS: CHLORHEXIDINE 0.12% (ORAL KIT) 15 ML CUP MT SCH ×2 (08:00→20:00)
[2016-10-21] MEDS: FAMOTIDINE 40 MG/5 ML LIQ 50 ML BTL NG SCH ×2 (09:00→21:00)
[2016-10-21] MEDS: DOCUSATE SODIUM 50 MG/SENNA 8.6 MG TAB PO SCH ×2 (09:00→21:00)
[2016-10-21] MEDS: SODIUM CHLORIDE 0.9% FLUSH 10 ML FLUSH SCH ×2 (09:00→23:01)
[2016-10-21] MEDS: BENEPROTEIN POWDER 1 PACK G-TUBE SCH ×3 (09:00→17:41)
[2016-10-21] MEDS: amLODIPine BESYLATE 5 MG TAB PO SCH (09:00)
[2016-10-21] MEDS: FUROSEMIDE 40 MG/4 ML VIAL IV PUSH SCH (09:12)
[2016-10-21] MEDS: ENOXAPARIN SODIUM 40 MG/0.4 ML SYRINGE SQ SCH (09:13)
--- NOTE | 2016-10-21 09:26 | HHI.CCPN ---
Subjective Remarks/Hospital Course Elderly male presents for evaluation of altered mental status. He states that he stumbled 3 days ago and fell. He was laying on the floor since. Apparently , a friend found him today. The patient is unsure of his past medical history. Apparently, he has history of COPD and is on oxygen. He does not know what medications he is on. The patient knows his name, but does not know the year. He denies hitting his head or loss of conscious, but has erythema to the left forehead. Patient denies any chest pain or abdominal pain. No vomiting. He states that he was unable to get up, but will not tell me why. He might also have some history of hypertension, glaucoma. 10/07: Required intubation today for progressive respiratory failure. 10/08: Will aim for quick extubation now that MRI complete. Need sputum sample. 10/09: Tolerating SBTs. Push toward extubation. 10/10: Vigorous but confused. Zimmerman-sensitive staph in sputum, will narrow abx. 10/11: extubated, stable from pulmonary standpoint. still confused. EVD not draining. 10/12: EVD removed. head CT stable. neuro exam stable. 10/13: overnight with acute decompensation, hypoxic respiratory failure requiring intubation and mechanical ventilation. hypotensive requiring vasopressors. clinically unstable. CT pulmonary angiogram with +PE. 10/14: levophed requirement persists. FANY worsening. uop poor. mental status stable, but given blood pressure and hypoxia still not stable for SBT. 10/15: Brain bleed, COPD exacerbation, no improvement, little hope for extubation. Will ask Palliative Care to see. 10/16: Prior to intubation he was confused and moderately agitated, but conversant. Will continue efforts to get him off ventilator. 10/17: Will start ambitious breathing trials. 10/18: Failed spontaneous breathing trial after long trial, but very close to meeting weaning parameters. 10/20 - extubated. Patient aware/stairs to voice but not following commands. Minimal movement left upper or lower extremity. Subjective 10/21: Currently a nonrebreather 80%. Tachypnea. Chest x-ray revealed essentially large mucous plug involving left mainstem/ of left lobe. Patient is currently a DNR. Objective Vital Signs Date Time Temp Pulse Resp B/P Pulse Ox O2 Delivery O2 Flow Rate FiO2 10/21/16 06:00 100 8/15/17 04:00 98.2 22 173/92 94 10/20/16 22:36 Partial Rebreather 13.00 10/19/16 08:00 40 Intake and Output 10/20/16 10/20/16 10/20/16 07:59 15:59 23:59 Intake Total 20 ml 0 ml Output Total 800 ml 425 ml 300 ml Balance -800 ml -405 ml -300 ml Result Diagram: 10/20/16 0635 10/20/16 0635 Imaging Last Impressions Chest X-Ray 10/20/16 0400 Signed Impressions: Service Date/Time: Thursday, October 20, 2016 04:06 - CONCLUSION: Persistent left lower lobe consolidation. Tyrone Vivar MD Head CT 10/15/16 0000 Signed Impressions: Service Date/Time: Saturday, October 15, 2016 04:38 - CONCLUSION: Stable intraventricular hemorrhage and small right frontal parenchymal bleed. Anoop Hernandez MD Upper Extremity Ultrasound 10/13/16 0000 Signed Impressions: Service Date/Time: Thursday, October 13, 2016 09:15 - CONCLUSION: Exam positive for bilateral DVT and SVT. Davis Devi MD Lower Extremity Ultrasound 10/13/16 0000 Signed Impressions: Service Date/Time: Thursday, October 13, 2016 08:28 - CONCLUSION: DVT in the proximal left femoral veins. No evidence of DVT in the right lower extremity. Davis Devi MD IVC Filter Placement X-Ray 10/13/16 0000 Signed Impressions: Service Date/Time: Thursday, October 13, 2016 13:43 - CONCLUSION: Uncomplicated inferior vena cava filter placement as above. Abel Zavaleta MD CT Angiography 10/13/16 0000 Signed Impressions: Service Date/Time: Thursday, October 13, 2016 05:17 - CONCLUSION: 1. Examination is positive for pulmonary embolus right upper lobe branches. 2. Atelectasis and consolidation as above. Anoop Hernandez MD Neck CTA 10/07/16 0000 Signed Impressions: Service Date/Time: Friday, October 07, 2016 03:38 - CONCLUSION: 1. Scattered calcified atherosclerotic plaque. A 50%% stenosis is seen involving the right ICA. The left carotid is patent. 2. Dominant left vertebral artery. The right terminates in a PICA distribution Tyrone Christianson Jr., MD Head CTA 10/07/16 0000 Signed Impressions: Service Date/Time: Friday, October 07, 2016 03:38 - CONCLUSION: Scattered atherosclerotic plaque without a hemodynamically significant stenosis. No aneurysm. Tyrone Christianson Jr., MD Brain MRI 10/07/16 0000 Signed Impressions: Service Date/Time: Friday, October 07, 2016 17:54 - CONCLUSION: 1. The ventricular blood has a very similar configuration to prior CT yesterday, filling the right lateral ventricle, extending into the 3rd ventricle and layering in the left occipital horn. 2. There is a small elongated infarction in the right posterior external capsule with a thin rim of T2 shortening suggesting that this may be hemorrhagic. Tyrone Vivar MD Abdomen X-Ray 10/07/16 0000 Signed Impressions: Service Date/Time: Friday, October 07, 2016 15:21 - CONCLUSION: No concerning radiopaque foreign body is identified in the abdomen. Abel Lemus MD Cervical Spine CT 10/06/16 0000 Signed Impressions: Service Date/Time: Thursday, October 06, 2016 23:15 - CONCLUSION: Negative trauma CT. Iftikhar Garza MD Objective Remarks GENERAL: 81-year-old male, resting in bed in mild respiratory distress on nonrebreather SKIN: Warm and dry. No rash HEAD: Normocephalic. EYES: Pupils about 2 minutes bilaterally and reactive. No scleral icterus. No injection or drainage. NECK: trachea midline. no jvd. orally intubated. CARDIOVASCULAR:rrr.. S1, S2 no S4 without murmur RESPIRATORY: No significant breath sounds in the left lobe. Resume with coarse crackles. GASTROINTESTINAL: Abdomen soft, non-tender, nondistended. BS active. MUSCULOSKELETAL: Trace bilateral lower extremity edema. EXTREMITIES: Well perfused. NEURO: opens eyes to voice does not follow commands. Spontaneously moving left upper and lower extremity A/P Assessment and Plan Neuro/Psych Large left thalamic ICH/IVH Acute encephalopathy Glaucoma - Strict blood pressure control with SBP goal less than 150 - Coags within normal limits - Neurosurgery consulted: Dr Miller - Neuro checks per unit protocol Status post right david hole Respiratory Acute pulmonary Embolism right upper lobe Acute hypoxic respiratory failure History COPD - continue prophylactic dose enoxaparin - IVC filter 8/7 Currently on duo nebs every 2 hours when necessary dyspnea Nasal cannula to maintain saturations greater than equal to 92% currently on nonrebreather mask Currently not a candidate for bronchoscopy/DNR status. Cardiac Cardiogenic shock s/p acute PE' Carotid stenosis Hypertension -- 50% Right ICA stenosis. Probably not flow limiting. Currently on amlodipine 5 mg by mouth daily for hypertension./On 2.5 mg daily at home -Currently on normal saline at 42 cc an hour Currently Lasix 40 mg IV daily. GI: Currently nothing by mouth. Holding vital 1.5 goal 50 cc an hour. Famotidine for GI prophylaxis Docusate sodium/senna for bowel regimen Renal Acute Kidney Injury -Normalized. Follows indicated Accurate I's and O's. Monitor urine output ID: [id number] Pneumonia - abx broadened to Zosyn when patient decompensated 10/13 (previously on ancef). if cultures negative at 48h, would de-escalate abx. Currently off - urine culture NGTD x 48h. - Staph in sputum, MSSA HEME: CBC within normal limits. DVT GI prophylaxis - Teds SCDs -Enoxaparin, prophylactic dose. IVC filter. - IV famotidine Level III follow Hunter Millan MD Oct 21, 2016 09:26
--- NOTE | 2016-10-21 09:29 | RADRPT ---
EXAM DATE/TIME: 10/21/2016 08:58 [facility] COMPARISON: CHEST SINGLE AP, October 20, 2016, 4:06. INDICATIONS : Short of breath. MEDICAL HISTORY : Chronic obstructive pulmonary disease. Hypertension SURGICAL HISTORY : None. ENCOUNTER: Subsequent ACUITY: 1 week PAIN SCORE: Non-responsive. LOCATION: Bilateral chest FINDINGS: The examination demonstrates complete white out of the left chest. This is new when compared to previ ous dated 10/20/16. There is a mild hyperinflation of the right lung. There is a small basilar effusio n on the right. The osseous structures are grossly intact. CONCLUSION: 1. Interval development of a large left effusion with collapse of the left lung. Adria Quesada MD on October 21, 2016 at 9:26 Board Certified Radiologist. This report was verified electronically.
[2016-10-21] MEDS: SODIUM CHLOR 0.9% 1000 ML INJ 1,000 ML IV SCH (09:34)
[2016-10-21] MEDS ORDERED: MORPHINE SULFATE 4 MG/ML INJ IV PUSH PRN (09:45)
[2016-10-21 09:58] LABS: HEMATOCRIT 42.8 % (39.0-51.0); MEAN CELL VOLUME 92.2 FL (80.0-100.0); MEAN CORPUSCULAR HEMOGLOBIN 30.9 PG (27.0-34.0); MEAN CORPUSCULAR HGB CONC 33.5 % (32.0-36.0); PLATELET COUNT 286 TH/MM3 (150-450); RED BLOOD COUNT 4.64 MIL/MM3 (4.50-5.90); RED CELL DISTRIBUTION WIDTH 13.5 % (11.6-17.2); REVIEW FLAG FINAL; WHITE BLOOD COUNT 13.9 TH/MM3 (4.0-11.0)
[2016-10-21] MEDS: MORPHINE SULFATE 4 MG/ML INJ IV PUSH PRN ×3 (10:16→23:04)
[2016-10-21 10:23] LABS: BICARBONATE 32.4 MEQ/L (21.0-32.0); POTASSIUM 3.5 MEQ/L (3.5-5.1)
--- NOTE | 2016-10-21 17:03 | HHI.NSPN ---
Note Status Status: Progress Note Interval History Interval History Mr. Caal is a 81 year old male who presented for evaluation of altered mental status. Cannot obtain history from patient, however his close friend is at bedside who found the patient. His friend reports he last spoke with the patient 2-3 days ago. He was not answering his phone so he went to check on him and found the patient on the floor lying on his side. He was very confused and did not recognize him. He was taken to the ED. CT Head on arrival shows right intraventricular hemorrhage. He is not known to take blood thinners. His friend reports baseline he is normal besides being short of breath due to his COPD. Neurosurgical evaluation was requested. 10/08: awake, intubated on CPAP. MRI Brain completed. 10/09: s/p placement of ventriculostomy drain yesterday, intubated and sedated. 10/10: no output via EVD overnight, pt extubated this morning 10/11: remains without drainage out EVD overnight, f/u CT Head this morning with stable ventricles 10/12: no changes to neuro checks overnight, eyes open, moves ext intermittently but not following commands, nonverbal 10/13: reintubated, on levophed for BP support. CTA chest positive for PE. obtain u/s of extremities now 10/14: intubated, sedated. s/p placement of IVC filter last night. 10/15: f/u CT Head this am with stable IVH and ventriculomegaly. remains intubated and sedated. 10/16: no changes to neuro checks, remains intubated 10/17: no significant improvements to neuro check per reports, intermittently moves x 4, but not opening eyes or following commands. 10/20: extubated, eyes opens but does not focus or track, does not following commands, intermittent movement to extremities, left greater than right 10/21: intermittent movements, does not follow commands Labs, Micro, & Vital Signs Results Date Time Temp Pulse Resp B/P Pulse Ox O2 Delivery O2 Flow Rate FiO2 10/21/16 14:00 95 10/21/16 12:00 97.9 96 26 142/87 80 8/15/17 12:00 71 10/21/16 10:38 27 10/21/16 08:00 99 10/21/16 08:00 98.0 99 39 138/71 81 10/21/16 07:00 81 Non-Rebreather 10.00 10/21/16 06:00 100 10/21/16 04:00 98.2 92 22 173/92 94 10/21/16 04:00 92 10/21/16 02:00 86 10/21/16 00:00 97.9 86 21 147/77 98 10/21/16 00:00 85 10/20/16 22:36 95 Partial Rebreather 13.00 10/20/16 22:00 96 10/20/16 20:00 96 10/20/16 20:00 98.1 96 32 159/77 96 10/20/16 19:00 97 Non-Rebreather 6.00 10/20/16 18:00 86 10/21/16 07:00 Intake Total 109 ml Output Total 1875 ml Balance -1766 ml Constitutional Vital Signs Date Time Temp Pulse Resp B/P Pulse Ox O2 Delivery O2 Flow Rate FiO2 10/21/16 14:00 95 10/21/16 12:00 97.9 96 26 142/87 80 10/21/16 12:00 71 10/21/16 10:38 27 10/21/16 08:00 99 10/21/16 08:00 98.0 99 39 138/71 81 10/21/16 07:00 81 Non-Rebreather 10.00 10/21/16 06:00 100 10/21/16 04:00 98.2 92 22 173/92 94 10/21/16 04:00 92 10/21/16 02:00 86 10/21/16 00:00 97.9 86 21 147/77 98 10/21/16 00:00 85 10/20/16 22:36 95 Partial Rebreather 13.00 10/20/16 22:00 96 10/20/16 20:00 96 10/20/16 20:00 98.1 96 32 159/77 96 10/20/16 19:00 97 Non-Rebreather 6.00 10/20/16 18:00 86 10/21/16 07:00 Intake Total 109 ml Output Total 1875 ml Balance -1766 ml Review of Systems/Exam Exam Mr. Caal is extubated. Awake but does not focus or track. Nonverbal, does not follow commands Cranial Nerves: Pupils 2-3 mm equal, round, reactive to light. Positive corneal reflexes b/l Motor: not following commands for testing, intermittent movement to extremities left more than right Sensory: minimal response to pain to lower extremities Reflexes: Plantars silent b/l Cerebellar: cannot assess due to current clinical condition Medications Current Medications Current Medications Medications (Trade) Dose Ordered Sig/Mario Route PRN Reason Start Time Stop Time Status Last Admin Dose Admin Sodium Chloride (NS Flush) 2 ml UNSCH PRN .XX FLUSH AFTER USING IV ACCESS 10/07/16 00:00 Sodium Chloride (NS Flush) 2 ml BID .XX 10/07/16 09:00 10/21/16 09:00 Acetaminophen (Tylenol) 650 mg Q6H PRN PO FEVER >101F 10/07/16 00:00 10/11/16 16:05 Ondansetron HCl (Zofran Inj) 4 mg Q6H PRN IV NAUSEA OR VOMITING 10/07/16 00:00 10/07/16 01:05 Miscellaneous Information 1 [id number] XX 10/07/16 00:00 Chlorhexidine Gluconate (Chlorhexidine 2% Cloth) Taper DAILY@04 TOP 10/07/16 04:00 10/03/17 03:59 10/20/16 04:00 Chlorhexidine Gluconate (Chlorhexidine 2% Cloth) 3 pack UNSCH PRN TOP HYGIENIC CARE 10/07/16 00:00 Senna/Docusate Sodium (Michelle-Colace) 1 tab BID PO 10/07/16 09:00 10/18/16 20:40 Magnesium Hydroxide (Milk Of Magnesia Liq) 30 ml Q12H PRN PO MILD - MODERATE CONSTIPATION 10/07/16 00:00 10/16/16 08:00 Sennosides (Senokot) 17.2 mg Q12H PRN PO MODERATE - SEVERE CONSTIPATION 10/07/16 00:00 Bisacodyl (Dulcolax Supp) 10 mg DAILY PRN RECTAL SEVERE CONSITIPATION 10/07/16 00:00 Lactulose (Lactulose Liq) 30 ml DAILY PRN PO SEVERE CONSITIPATION 10/07/16 00:00 Hydralazine HCl (Apresoline Inj) 20 mg Q4H PRN IV PUSH SBP>140, DBP>90 10/07/16 03:45 10/21/16 04:14 Labetalol HCl (Trandate Inj) 10 mg Q4H PRN IV PUSH SBP>140, DBP>90 10/07/16 03:45 10/20/16 10:07 Amlodipine Besylate (Norvasc) 5 mg DAILY PO 10/09/16 09:30 10/19/16 08:16 Hydralazine HCl (Apresoline Inj) 10 mg Q1H PRN IV PUSH SBP > 160 10/09/16 09:30 10/12/16 11:34 Protein 1 pack 1 pack TID G-[id number] 10/09/16 13:00 10/19/16 08:16 Potassium Chloride 100 ml @ 50 mls/hr Q2H PRN IV For Potassium 2.8 - 3.2 mEq/L 10/10/16 09:45 Potassium Chloride (KCl 20 Meq Premix Inj) 100 ml @ 50 mls/hr Q2H PRN IV For Potassium 2.8 - 3.2 mEq/L 10/10/16 09:45 10/10/16 10:19 Potassium Bicarb/ Potassium Chloride 50 meq 50 meq UNSCH PRN PO For Potassium 3.3 - 3.5 mEq/L 10/10/16 09:45 Potassium Chloride 100 ml @ 25 mls/hr UNSCH PRN IV For Potassium 3.3 - 3.5 mEq/L 10/10/16 09:45 10/19/16 10:19 Potassium Chloride 100 ml @ 50 mls/hr Q2H PRN IV For Potassium 3.3 - 3.5 mEq/L 10/10/16 09:45 Magnesium Sulfate/ Sodium Chloride (Magnesium Sulfate Inj/NS Inj) 100 ml @ 50 mls/hr UNSCH PRN IV For Magnesium 0.9 - 1.1 mg/dL 10/10/16 09:45 Magnesium Oxide 800 mg 800 mg UNSCH PRN PO For Magnesium 1.2 - 1.6 mg/dL 10/10/16 09:45 Magnesium Sulfate/ Sodium Chloride (Magnesium Sulfate Inj/NS Inj) 100 ml @ 50 mls/hr UNSCH PRN IV For Magnesium 1.2 - 1.6 mg/dL 10/10/16 09:45 Potassium Phosphate 2000 mg 2,000 mg Q4H PRN PO For Phosphorus < 2.5 mg/dL 10/10/16 09:45 Sodium Phosphate/ Sodium Chloride (Sodium Phosphate Inj/NS 250 ml Inj) 250 ml @ 42 mls/hr UNSCH PRN IV For Phosphorus < 2.5 mg/dL 10/10/16 09:45 Potassium Phosphate 2000 mg 2,000 mg UNSCH PRN PO/TUBE SEE LABEL COMMENTS 10/10/16 09:45 Potassium Phosphate/Sodium Chloride (Potassium Phosphate Inj/NS 250 ml Inj) 260 ml @ 42 mls/hr UNSCH PRN IV SEE LABEL COMMENTS 10/10/16 09:45 Famotidine (Pepcid Liq) 20 mg BID NG 10/11/16 21:00 10/19/16 08:16 Chlorhexidine Gluconate (Peridex 0.12% Liq) 15 ml BID@08,20 MT 10/13/16 08:00 10/21/16 08:00 Terbutaline Sulfate (Brethine Inj) 1 mg UNSCH PRN SQ For Extravasation 10/13/16 04:15 Enoxaparin Sodium (Lovenox Inj) 40 mg Q24H SQ 10/13/16 08:00 10/21/16 09:13 Furosemide 40 mg 40 mg DAILY IV PUSH 10/21/16 09:00 10/21/16 09:12 Sodium Chloride (NS 1000 ml Inj) 1,000 ml @ 42 mls/hr [id number] IV 10/20/16 09:45 10/21/16 09:34 Morphine Sulfate (Morphine Inj) 2 mg Q1HR PRN IV PUSH PAIN SCALE 1-5 OR MILD SOB 10/21/16 09:45 Morphine Sulfate (Morphine Inj) 4 mg Q1HR PRN IV PUSH PAIN SCALE 6-10 OR SEVERE SOB 10/21/16 09:45 10/21/16 14:32 Medical Decision Making MDM Remarks 81 y/o male presented for AMS CT Brain on arrival showed extensive right intraventricular hemorrhage, s/p placement of ventriculostomy drain 10/08/16 respiratory failure s/p intubation, extubated 10/10/16, reintubated 10/12/16 MRI Brain 10/07/16 showed 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, no evidence of other masses or tumors nondraining EVD drain, f/u CT Head 10/11 stable ventricle size, no evidence of worsening hydrocephalus stable right IVH, ventriculostomy drain removed 10/11/16, f/u CT Head 10/15/16 with stable IVH and ventriculomegaly positive pulmonary embolus, positive DVTs s/p placement of IVC filter no significant improvement to neurological examination, Plan Plan Remarks cont nonsurgical management, neuro examination remains poor palliative care following no further neurosurgical plans, will sign off, call Any Arceo Oct 21, 2016 17:03
[2016-10-22] VITALS: BP 136/69; PULSE 89; RESP 20; TEMP 98.1; O2SAT 88
[2016-10-22] MEDS: MORPHINE SULFATE 4 MG/ML INJ IV PUSH PRN ×3 (02:13→07:19)
[2016-10-22] MEDS: CHLORHEXIDINE GLUCONATE 2 % 1 PACK (2 CLOTHS) TOP SCH (03:20)
[2016-10-22 04:00] VITALS: BP 165/77; PULSE 91; RESP 19; TEMP 98; O2SAT 79
[2016-10-22 07:00] VITALS: O2SAT 93
[2016-10-22] MEDS: CHLORHEXIDINE 0.12% (ORAL KIT) 15 ML CUP MT SCH (07:19)
[2016-10-22] MEDS ORDERED: LORazepam 2 MG/ML VIAL IV PUSH PRN (07:30)
[2016-10-22] MEDS ORDERED: LORazepam 2 MG/ML VIAL IV PUSH ONE (07:30)
--- NOTE | 2016-10-22 07:39 | HHI.CCPN ---
Subjective Remarks/Hospital Course Elderly male presents for evaluation of altered mental status. He states that he stumbled 3 days ago and fell. He was laying on the floor since. Apparently , a friend found him today. The patient is unsure of his past medical history. Apparently, he has history of COPD and is on oxygen. He does not know what medications he is on. The patient knows his name, but does not know the year. He denies hitting his head or loss of conscious, but has erythema to the left forehead. Patient denies any chest pain or abdominal pain. No vomiting. He states that he was unable to get up, but will not tell me why. He might also have some history of hypertension, glaucoma. 10/07: Required intubation today for progressive respiratory failure. 10/08: Will aim for quick extubation now that MRI complete. Need sputum sample. 10/09: Tolerating SBTs. Push toward extubation. 10/10: Vigorous but confused. Zimmerman-sensitive staph in sputum, will narrow abx. 10/11: extubated, stable from pulmonary standpoint. still confused. EVD not draining. 10/12: EVD removed. head CT stable. neuro exam stable. 10/13: overnight with acute decompensation, hypoxic respiratory failure requiring intubation and mechanical ventilation. hypotensive requiring vasopressors. clinically unstable. CT pulmonary angiogram with +PE. 10/14: levophed requirement persists. FANY worsening. uop poor. mental status stable, but given blood pressure and hypoxia still not stable for SBT. 10/15: Brain bleed, COPD exacerbation, no improvement, little hope for extubation. Will ask Palliative Care to see. 10/16: Prior to intubation he was confused and moderately agitated, but conversant. Will continue efforts to get him off ventilator. 10/17: Will start ambitious breathing trials. 10/18: Failed spontaneous breathing trial after long trial, but very close to meeting weaning parameters. 10/20 - extubated. Patient aware/stairs to voice but not following commands. Minimal movement left upper or lower extremity. Subjective 10/21: Currently a nonrebreather 80%. Tachypnea. Chest x-ray revealed essentially large mucous plug involving left mainstem/ of left lobe. Patient is currently a DNR. 10/22: Patient is struggling to breath, largely related to complete atelectasis of left lung. Bronchoscopy would require re-intubation and prolonged ventilation again. His status is DNR and we will try to keep him comfortable. Presently he is agitated - will add ativan for symptom control. Objective Vital Signs Date Time Temp Pulse Resp B/P Pulse Ox O2 Delivery O2 Flow Rate FiO2 10/22/16 04:00 98.0 91 19 165/77 79 10/21/16 20:46 Non-Rebreather 15.00 10/19/16 08:00 40 Intake and Output 10/21/16 10/21/16 10/22/16 08:00 16:00 00:00 Intake Total 89 ml 373 ml 335 ml Output Total 1150 ml 600 ml 200 ml Balance -1061 ml -227 ml 135 ml Result Diagram: 10/21/16 0930 10/21/16 0930 Imaging Last Impressions Chest X-Ray 10/20/16 0400 Signed Impressions: Service Date/Time: Thursday, October 20, 2016 04:06 - CONCLUSION: Persistent left lower lobe consolidation. Tyrone Vivar MD Head CT 10/15/16 0000 Signed Impressions: Service Date/Time: Saturday, October 15, 2016 04:38 - CONCLUSION: Stable intraventricular hemorrhage and small right frontal parenchymal bleed. Anoop Hernandez MD Upper Extremity Ultrasound 10/13/16 0000 Signed Impressions: Service Date/Time: Thursday, October 13, 2016 09:15 - CONCLUSION: Exam positive for bilateral DVT and SVT. Davis Devi MD Lower Extremity Ultrasound 10/13/16 0000 Signed Impressions: Service Date/Time: Thursday, October 13, 2016 08:28 - CONCLUSION: DVT in the proximal left femoral veins. No evidence of DVT in the right lower extremity. Davis Devi MD IVC Filter Placement X-Ray 10/13/16 0000 Signed Impressions: Service Date/Time: Thursday, October 13, 2016 13:43 - CONCLUSION: Uncomplicated inferior vena cava filter placement as above. Abel Zavaleta MD CT Angiography 10/13/16 0000 Signed Impressions: Service Date/Time: Thursday, October 13, 2016 05:17 - CONCLUSION: 1. Examination is positive for pulmonary embolus right upper lobe branches. 2. Atelectasis and consolidation as above. Anoop Hernandez MD Neck CTA 8/1/17 0000 Signed Impressions: Service Date/Time: Friday, October 07, 2016 03:38 - CONCLUSION: 1. Scattered calcified atherosclerotic plaque. A 50%% stenosis is seen involving the right ICA. The left carotid is patent. 2. Dominant left vertebral artery. The right terminates in a PICA distribution Tyrone Christianson Jr., MD Head CTA 10/07/16 Signed Impressions: Service Date/Time: Friday, October 07, 2016 03:38 - CONCLUSION: Scattered atherosclerotic plaque without a hemodynamically significant stenosis. No aneurysm. Tyrone Christianson Jr., MD Brain MRI 10/07/16 Signed Impressions: Service Date/Time: Friday, October 07, 2016 17:54 - CONCLUSION: 1. The ventricular blood has a very similar configuration to prior CT yesterday, filling the right lateral ventricle, extending into the 3rd ventricle and layering in the left occipital horn. 2. There is a small elongated infarction in the right posterior external capsule with a thin rim of T2 shortening suggesting that this may be hemorrhagic. Tyrone Vivar MD Abdomen X-Ray 10/07/16 Signed Impressions: Service Date/Time: Friday, October 07, 2016 15:21 - CONCLUSION: No concerning radiopaque foreign body is identified in the abdomen. Abel Lemus MD Cervical Spine CT 10/06/16 Signed Impressions: Service Date/Time: Thursday, October 06, 2016 23:15 - CONCLUSION: Negative trauma CT. Iftikhar Garza MD Objective Remarks GENERAL: 81-year-old male, resting in bed in respiratory distress on nonrebreather SKIN: Warm and dry. No rash HEAD: Normocephalic. EYES: Pupils about 2 mm bilaterally and reactive. NECK: trachea midline. no jvd. orally intubated. CARDIOVASCULAR:rrr.. S1, S2 no S4 without murmur RESPIRATORY: No significant breath sounds in the left lung. Tachypnea and labored pattern. Right side clear. GASTROINTESTINAL: Abdomen soft, non-tender, nondistended. BS active. MUSCULOSKELETAL: Trace bilateral lower extremity edema. EXTREMITIES: Well perfused. NEURO: Does not follow commands. Spontaneously moving left upper and lower extremity vigorously. A/P Assessment and Plan Neuro/Psych Large left thalamic ICH/IVH Acute encephalopathy Glaucoma - Strict blood pressure control with SBP goal less than 150 - Coags within normal limits - Neurosurgery consulted: Dr Miller - Neuro checks per unit protocol Status post right david hole Respiratory Acute pulmonary Embolism right upper lobe Acute hypoxic respiratory failure History COPD - continue prophylactic dose enoxaparin - IVC filter 10/13 Currently on duo nebs every 2 hours when necessary dyspnea Nasal cannula to maintain saturations greater than equal to 92% currently on nonrebreather mask Currently not a candidate for bronchoscopy/DNR status. Cardiac Cardiogenic shock s/p acute PE' Carotid stenosis Hypertension -- 50% Right ICA stenosis. Probably not flow limiting. Currently on amlodipine 5 mg by mouth daily for hypertension./On 2.5 mg daily at home -Currently on normal saline at 42 cc an hour Currently Lasix 40 mg IV daily. GI: Currently nothing by mouth. Holding vital 1.5 goal 50 cc an hour. Famotidine for GI prophylaxis Docusate sodium/senna for bowel regimen Renal Acute Kidney Injury -Normalized. Follows indicated Accurate I's and O's. Monitor urine output ID: MSSA Pneumonia - abx broadened to Zosyn when patient decompensated 10/13 (previously on ancef). if cultures negative at 48h, would de-escalate abx. Currently off - urine culture NGTD x 48h. - Staph in sputum, MSSA HEME: CBC within normal limits. DVT GI prophylaxis - Teds SCDs -Enoxaparin, prophylactic dose. IVC filter. - IV famotidine Overall impression: I spoke with his health care surrogate over the weekend when he was made DNR status. He will not leave the hospital alive due to multiple medical problems, exacerbated by his recent brain hemorrhage and made prohibitive due to his age and altered mental status. The present pulmonary complication is consistent with his ongoing deterioration and inability to follow instruction with coughing. I will attempt to keep him more comfortable. Darrin Chavez MD Oct 22, 2016 07:39
[2016-10-22 08:00] VITALS: BP 194/94; PULSE 96; PULSE 99; RESP 19; TEMP 98; O2SAT 91
[2016-10-22] MEDS: BENEPROTEIN POWDER 1 PACK G-TUBE SCH ×2 (08:02→08:16)
[2016-10-22] MEDS: FUROSEMIDE 40 MG/4 ML VIAL IV PUSH SCH (08:02)
[2016-10-22] MEDS: amLODIPine BESYLATE 5 MG TAB PO SCH (08:02)
[2016-10-22] MEDS: FAMOTIDINE 40 MG/5 ML LIQ 50 ML BTL NG SCH ×2 (08:02→08:16)
[2016-10-22] MEDS: DOCUSATE SODIUM 50 MG/SENNA 8.6 MG TAB PO SCH ×2 (08:02→08:16)
[2016-10-22] MEDS: ENOXAPARIN SODIUM 40 MG/0.4 ML SYRINGE SQ SCH (08:03)
[2016-10-22] MEDS: SODIUM CHLORIDE 0.9% FLUSH 10 ML FLUSH SCH (08:03)
[2016-10-22 10:00] VITALS: PULSE 92
[2016-10-22 12:00] VITALS: BP 163/79; PULSE 97; RESP 21; TEMP 98.4; O2SAT 91
--- NOTE | 2016-10-22 12:12 | HHI.DS ---
Discharge Summary Admission Date Oct 06, 2016 at 23:44 Discharge Date: Oct 22, 2016 Admitting Diagnosis pneumonia. Intracranial hemorrhage. Sepsis. Renal sufficiency. (1) Intracranial hemorrhage ICD Code: I62.9 Diagnosis: Principal (2) Pneumonia ICD Code: J18.9 Diagnosis: Principal (3) Respiratory failure ICD Code: J96.90 Diagnosis: Principal (4) Pulmonary embolism ICD Code: I26.99 (5) Sepsis ICD Code: A41.9 Brief History 81 y/o man with no family developed spontaneous intraparenchymal brain bleed, pneumonia, pulmonary embolus, and respiratory failure. Finally extubated 10/18 and made DNR status. Continued deteriorating function and health cardiac care unit nurse elects hospice care. CBC/BMP: 10/21/16 0930 10/21/16 0930 Significant Findings Laboratory Tests Test 10/20/16 10/21/16 10/21/16 06:35 01:00 09:30 Neutrophils (%) (Auto) 80.2 % (16.0-70.0) Monocytes (%) (Auto) 8.3 % (0.0-8.0) Neutrophils # (Auto) 8.1 TH/MM3 (1.8-7.7) Lymphocytes # (Auto) 0.9 TH/MM3 (1.0-4.8) Carbon Dioxide Level 32.5 MEQ/L 32.4 MEQ/L (21.0-32.0) (21.0-32.0) Aspartate Amino Transf 38 U/L (15-37) (AST/SGOT) Ammonia LESS THAN 10 MCMOL/L (11-32) Albumin 2.3 GM/DL (3.4-5.0) Blood Gas HCO3 32 mmol/L (22-26) Blood Gas Base Excess 7.9 mmol/L (-2-2) Arterial Blood pH 7.43 (7.380-7.420) Arterial Blood Partial 49 mmHg (38-42) Pressure CO2 White Blood Count 13.9 TH/MM3 (4.0-11.0) Blood Urea Nitrogen 20 MG/DL (7-18) Hospital Course Elderly male presents for evaluation of altered mental status. He states that he stumbled 3 days ago and fell. He was laying on the floor since. Apparently , a friend found him today. The patient is unsure of his past medical history. Apparently, he has history of COPD and is on oxygen. He does not know what medications he is on. The patient knows his name, but does not know the year. He denies hitting his head or loss of conscious, but has erythema to the left forehead. Patient denies any chest pain or abdominal pain. No vomiting. He states that he was unable to get up, but will not tell me why. He might also have some history of hypertension, glaucoma. 10/07: Required intubation today for progressive respiratory failure. 10/08: Will aim for quick extubation now that MRI complete. Need sputum sample. 10/09: Tolerating SBTs. Push toward extubation. 10/10: Vigorous but confused. Zimmerman-sensitive staph in sputum, will narrow abx. 10/11: extubated, stable from pulmonary standpoint. still confused. EVD not draining. 10/12: EVD removed. head CT stable. neuro exam stable. 10/13: overnight with acute decompensation, hypoxic respiratory failure requiring intubation and mechanical ventilation. hypotensive requiring vasopressors. clinically unstable. CT pulmonary angiogram with +PE. 10/14: levophed requirement persists. FANY worsening. uop poor. mental status stable, but given blood pressure and hypoxia still not stable for SBT. 10/15: Brain bleed, COPD exacerbation, no improvement, little hope for extubation. Will ask Palliative Care to see. 10/16: Prior to intubation he was confused and moderately agitated, but conversant. Will continue efforts to get him off ventilator. 10/17: Will start ambitious breathing trials. 10/18: Failed spontaneous breathing trial after long trial, but very close to meeting weaning parameters. 10/20 - extubated. Patient aware/stairs to voice but not following commands. Minimal movement left upper or lower extremity. Subjective 10/21: Currently a nonrebreather 80%. Tachypnea. Chest x-ray revealed essentially large mucous plug involving left mainstem/ of left lobe. Patient is currently a DNR. 10/22: Patient is struggling to breath, largely related to complete atelectasis of left lung. Bronchoscopy would require re-intubation and prolonged ventilation again. His status is DNR and we will try to keep him comfortable. Presently he is agitated - will add ativan for symptom control. Pt Condition on Discharge: Deteriorating Discharge Disposition: Hospice/Med Facility Discharge Instructions DIET: Follow Instructions for: As Tolerated, No Restrictions Activities you can perform: Regular-No Restrictions Darrin Chavez MD Oct 22, 2016 12:12
--- NOTE | 2016-11-05 18:42 | HHI.HP ---
HPI Service Critical Care Medicine Primary Care Physician Michael King MD Admission Diagnosis pneumonia. Intracranial hemorrhage. Sepsis. Renal sufficiency. Diagnosis: (1) Intracranial hemorrhage Diagnosis: Principal (2) Pneumonia Diagnosis: Principal (3) Respiratory failure Diagnosis: Principal (4) Pulmonary embolism (5) Sepsis Travel History International Travel<30 Days: No Contact w/Intl Traveler <30 Da: No Traveled to Known Affected Are: No History of Present Illness This is dictation for service provided October 06, 2016, please see my consult note that was dictated in error instead of H&P. Elderly male presents for evaluation of altered mental status. He states that he stumbled 3 days ago and fell. He was laying on the floor since. Apparently , a friend found him today. The patient is unsure of his past medical history. Apparently, he has history of COPD and is on oxygen. He does not know what medications he is on. The patient knows his name, but does not know the year. He denies hitting his head or loss of conscious, but has erythema to the left forehead. Patient denies any chest pain or abdominal pain. No vomiting. He states that he was unable to get up, but is unable to tell me why. He might also have some history of hypertension, glaucoma. Review of Systems ROS Obtainable due to mental status Past Family Social History Allergies: Coded Allergies: No Known Allergies (Unverified , 10/06/16) Past Medical History COPD Hypothyroidism Glaucoma Hypertension Past Surgical History Unobtainable due to mental status Reported Medications Reported Meds & Active Scripts Active Reported Amlodipine (Amlodipine Besylate) 2.5 Mg Tab Unknown Dose PO DAILY Active Ordered Medications Current Medications Medications (Trade) Dose Ordered Sig/Mario Route PRN Reason Start Time Stop Time Status Last Admin Dose Admin Sodium Chloride (NS 1000 ml Inj) 1,000 ml @ 84 mls/hr [id number] IV 10/06/16 23:47 10/07/16 00:39 Sodium Chloride (NS Flush) 2 ml UNSCH PRN .XX FLUSH AFTER USING IV ACCESS 10/07/16 00:00 Sodium Chloride (NS Flush) 2 ml BID .XX 10/07/16 09:00 Acetaminophen (Tylenol) 650 mg Q6H PRN PO PAIN 1-5 AND/OR FEVER >101F 10/07/16 00:00 Morphine Sulfate (Morphine Inj) 2 mg Q2H PRN IV PAIN SCALE 6 TO 10 10/07/16 00:00 Famotidine (Pepcid Inj) 20 mg Q12HR IV PUSH 10/07/16 09:00 Ondansetron HCl (Zofran Inj) 4 mg Q6H PRN IV NAUSEA OR VOMITING 10/07/16 00:00 Miscellaneous Information 1 Q361D XX 10/07/16 00:00 Chlorhexidine Gluconate (Chlorhexidine 2% Cloth) 3 pack Taper DAILY@04 TOP 10/07/16 04:00 10/03/17 03:59 Chlorhexidine Gluconate (Chlorhexidine 2% Cloth) 3 pack UNSCH PRN TOP HYGIENIC CARE 10/07/16 00:00 Senna/Docusate Sodium (Michelle-Colace) 1 tab BID PO 10/07/16 09:00 Magnesium Hydroxide (Milk Of Magnesia Liq) 30 ml Q12H PRN PO MILD - MODERATE CONSTIPATION 10/07/16 00:00 Sennosides (Senokot) 17.2 mg Q12H PRN PO MODERATE - SEVERE CONSTIPATION 10/07/16 00:00 Bisacodyl (Dulcolax Supp) 10 mg DAILY PRN RECTAL SEVERE CONSITIPATION 10/07/16 00:00 Lactulose 30 ml 30 ml DAILY PRN PO SEVERE CONSITIPATION 10/07/16 00:00 Azithromycin 500 mg/Sodium Chloride 250 ml @ 250 mls/hr Q24H IV 10/07/16 22:00 Piperacillin Sod/ Tazobactam Sod (Zosyn 4.5 Gm Premix) 100 ml @ 200 mls/hr Q6H IV 10/07/16 01:00 10/07/16 00:39 Family History Unobtainable due to mental status Social History Unobtainable due to mental status Physical Exam Vital Signs Vital Signs Vital Signs Date Time Temp Pulse Resp B/P Pulse Ox O2 Delivery O2 Flow Rate FiO2 10/06/16 23:06 97 20 152/74 93 Nasal Cannula 3 10/06/16 21:05 102.7 10/06/16 20:55 20 95 Nasal Cannula 3 10/06/16 20:32 20 10/06/16 20:27 98.5 151 18 130/75 Physical Exam GENERAL: 81-year-old male, resting in bed in respiratory distress on nonrebreather SKIN: Warm and dry. No rash HEAD: Normocephalic. EYES: Pupils about 2 mm bilaterally and reactive. NECK: trachea midline. no jvd. orally intubated. CARDIOVASCULAR:rrr.. S1, S2 no S4 without murmur RESPIRATORY: No significant breath sounds in the left lung. Tachypnea and labored pattern. Right side clear. GASTROINTESTINAL: Abdomen soft, non-tender, nondistended. BS active. MUSCULOSKELETAL: Trace bilateral lower extremity edema. EXTREMITIES: Well perfused. NEURO: Does not follow commands. Spontaneously moving left upper and lower extremity vigorously. Laboratory Date/Time Source Procedure Growth Status 10/13/16 11:05 Blood Peripheral Aerobic Blood Culture - Final NO GROWTH IN 5 DAYS Complete 10/13/16 11:05 Blood Peripheral Anaerobic Blood Culture - Final NO GROWTH IN 5 DAYS Complete 10/08/16 13:30 Cerebral Spinal Fluid Shunt Fluid Gram Stain - Final Complete 10/08/16 13:30 Cerebral Spinal Fluid Shunt Fluid CSF Culture - Final NO GROWTH IN 72 HOURS Complete 10/07/16 14:00 Sputum Endotracheal Gram Stain - Final Complete 10/07/16 14:00 Sputum Culture - Final Staphylococcus Aureus Complete 10/13/16 10:25 Urine Catheterized Urine Urine Culture - Final NO GROWTH IN 48 HOURS. Complete Imaging Head CT [id number]/06/[id number] Signed Impressions: Service Date/Time: Thursday, October 06, 2016 23:15 - CONCLUSION: Prominent amount of blood in the right ventricle and small amount of blood in the 3rd and left occipital horn ventricle. No parenchymal hemorrhage seen. No extra axial fluid collections. Tyrone Vivar MD Chest X-Ray [id number]/06/[id number] Signed Impressions: Service Date/Time: Thursday, October 06, 2016 20:37 - CONCLUSION: Bilateral partially consolidative infiltrates lower medial right lung and lower lateral left lung. Tyrone Vivar MD Caprini VTE Risk Assessment Caprini VTE Risk Assessment: No/Low Risk (score <= 1) Caprini Risk Assessment Model Point Value = 1 Point Value = 2 Point Value = 3 Point Value = 5 Age 41-60 Minor surgery BMI > 25 kg/m2 Swollen legs Varicose veins or History of unexplained or recurrent spontaneous Oral contraceptives or hormone replacement Sepsis (< 1 month) Serious lung disease, including pneumonia (< 1 month) Abnormal pulmonary function Acute myocardial infarction Congestive heart failure (< 1 month) History of inflammatory bowel disease Medical patient at bed rest Age 61-74 Arthroscopic surgery Major open surgery (> 45 min) Laparoscopic surgery (> 45 min) Malignancy Confined to bed (> 72 hours) Immobilizing plaster cast Central venous access Age >= 75 History of VTE Family history of VTE Factor V Leiden Prothrombin 35832H Lupus anticoagulant Anticardiolipin antibodies Elevated serum homocysteine Heparin-induced thrombocytopenia Other congenital or acquired thrombophilia Stroke (< 1 month) Elective arthroplasty Hip, pelvis, or leg fracture Acute spinal cord injury (< 1 month) Prophylaxis Regimen Total Risk Factor Score Risk Level Prophylaxis Regimen 0-1 Low Early ambulation 2 Moderate Order ONE of the following: *Sequential Compression Device (SCD) *Heparin 5000 units SQ BID 3-4 Higher Order ONE of the following medications: *Heparin 5000 units SQ TID *Enoxaparin/Lovenox 40 mg SQ daily (WT < 150 kg, CrCl > 30 mL/min) *Enoxaparin/Lovenox 30 mg SQ daily (WT < 150 kg, CrCl > 10-29 mL/min) *Enoxaparin/Lovenox 30 mg SQ BID (WT < 150 kg, CrCl > 30 mL/min) AND/OR *Sequential Compression Device (SCD) 5 or more Highest Order ONE of the following medications: *Heparin 5000 units SQ TID (Preferred with Epidurals) *Enoxaparin/Lovenox 40 mg SQ daily (WT < 150 kg, CrCl > 30 mL/min) *Enoxaparin/Lovenox 30 mg SQ daily (WT < 150 kg, CrCl > 10-29 mL/min) *Enoxaparin/Lovenox 30 mg SQ BID (WT < 150 kg, CrCl > 30 mL/min) AND *Sequential Compression Device (SCD) Assessment and Plan Assessment and Plan Assessment and Plan ICH - Unclear source - Atypical location - CTA to rule out AVM or aneurysm - Strict blood pressure control with SBP goal less than 150 - Coags within normal limits - Neurosurgery consult appreciated - Neuro checks per unit protocol - Repeat CT head in 24 hours Hypertension - Hydralazine and labetalol when necessary to keep SBP less than 150 - Resume Norvasc by mouth when okay to swallow Hypothyroidism - Resume home dose of levothyroxine when known Pneumonia - Zithromax and Zosyn - Blood cultures - Urine antigen - Follow-up cultures and de-escalate per sensitivity DVT GI prophylaxis - Teds SCDs - No pharmacological DVT prophylaxis due to - IV Pepcid Critical Care: The total critical care time was 35 minutes. Time to perform other separately billable procedures was not included in the critical care time. Eliel Black MD Oct 06, 2016 23:43 This is dictation for service provided October 06, 2016, please see my consult note that was dictated in error instead of H&P. Problem Qualifiers (1) Pneumonia: (2) Sepsis: Eliel Black MD Nov 05, 2016 18:42
== END 2016-10-22 14:00 | disposition hospice, inpatient (51) | DRG 23 ==
LOC: NEPE 20:13 → EDBD 23:44 → NEDA 23:44 → N03A 10-07 03:52
PROVIDERS: ADMIT Internal Medicine Critical Care Medicine; ATTEND Internal Medicine Critical Care Medicine
PROC: 0BH17EZ Insertion of Endotracheal Airway into Trachea, Via Natural or Artificial Opening (ICD-10-PCS; 2016-10-07)
PROC: 5A1945Z Respiratory Ventilation, 24-96 Consecutive Hours (ICD-10-PCS; 2016-10-07)
PROC: 5A09357 Assistance with Respiratory Ventilation, Less than 24 Consecutive Hours, Continuous Positive Airway Pressure (ICD-10-PCS; 2016-10-07)
PROC: 009630Z Drainage of Cerebral Ventricle with Drainage Device, Percutaneous Approach (ICD-10-PCS; principal; 2016-10-08)
PROC: 5A1955Z Respiratory Ventilation, Greater than 96 Consecutive Hours (ICD-10-PCS; 2016-10-13)
PROC: 0BH17EZ Insertion of Endotracheal Airway into Trachea, Via Natural or Artificial Opening (ICD-10-PCS; 2016-10-13)
PROC: 02HV33Z Insertion of Infusion Device into Superior Vena Cava, Percutaneous Approach (ICD-10-PCS; 2016-10-13)
PROC: 06H03DZ Insertion of Intraluminal Device into Inferior Vena Cava, Percutaneous Approach (ICD-10-PCS; 2016-10-13)
DX: I61.5 Nontraumatic intracerebral hemorrhage, intraventricular (principal); A41.9 Sepsis, unspecified organism; J15.211 Pneumonia due to Methicillin susceptible Staphylococcus aureus; J96.02 Acute respiratory failure with hypercapnia; I26.99 Other pulmonary embolism without acute cor pulmonale; R57.0 Cardiogenic shock; G93.40 Encephalopathy, unspecified; N17.9 Acute kidney failure, unspecified; J44.0 Chronic obstructive pulmonary disease with (acute) lower respiratory infection; I82.412 Acute embolism and thrombosis of left femoral vein; I82.623 Acute embolism and thrombosis of deep veins of upper extremity, bilateral; J98.11 Atelectasis; Z99.81 Dependence on supplemental oxygen; I65.21 Occlusion and stenosis of right carotid artery; I10 Essential (primary) hypertension; E03.9 Hypothyroidism, unspecified; W01.0XXA Fall on same level from slipping, tripping and stumbling without subsequent striking against object, initial encounter; Z66 Do not resuscitate; Z51.5 Encounter for palliative care
CPT/HCPCS: 31500; 36556; 36600; 37191; 61210; 70450; 70496; 70498; 70551; 71010; 71275; 72125; 74000; 76937; 80048; 80053; 80076; 81001; 82140; 82550; 82552; 82805; 82945; 82948; 83605; 83735; 84100; 84132; 84157; 85007; 85025; 85027; 85610; 85730; 86403; 87040; 87070; 87086; 87147; 87186; 87205; 87641; 89051; 93005; 93970; 94002; 94003; 94640; 94664; 94667; 96365; 96367; C1880; J0360; J0456; J0690; J0696; J1650; J1815; J1940; J2060; J2250; J2270; J2405; J2543; J2765; J3370; J3475; J3480; J7030; J7050; P9612; Q9967